=== PATIENT | female | born 1935 ===

== ENCOUNTER 2017-07-11 17:30 | Inpatient (IN) | payer MEDICARE, MEDICAID ==
[2017-07-11 18:56] LABS: BASO # 0.01 K/mm3 (0.0-2.0); BASO % 0.1 % (0.0-3.0); GRAN # 10.07 (1.4-6.5); GRAN % 80.1 % (50.0-68.0); HEMOGLOBIN 12.8 g/dL (12.0-16.0); LYMPH # 1.7 (1.2-3.4); LYMPH % 13.1 % (22.0-35.0); MEAN CELL VOLUME 87.7 fl (80.0-105.0); MEAN CORPUSCULAR HEMOGLOBIN 29.1 pg (25.0-35.0); MEAN CORPUSCULAR HGB CONC 33.2 g/dl (31.0-37.0); MEAN PLATELET VOLUME 11.6 fl (7.0-11.0); MONO # 0.8 (0.1-0.6); MONO % 6.7 % (1.0-6.0); RBC 4.4 10^6/uL (3.5-6.1); RED CELL DISTRIBUTION WIDTH 14.9 % (11.5-14.5); WHITE BLOOD COUNT 12.6 10^3/ul (4.5-11.0)
[2017-07-11 19:12] LABS: ALBUMIN 3.7 g/dL (3.0-4.8); CALCIUM 10.4 mg/dL (8.4-10.5)
[2017-07-11 19:21] LABS: TROPONIN I 0.03 ng/mL
--- NOTE | 2017-07-11 19:21 | ED PDOC ---
Arrival/HPI - General Chief Complaint: Abdominal Pain Time Seen by Provider: 07/11/17 19:11 Historian: Patient - History of Present Illness Narrative History of Present Illness (Text): 07/11/17 19:18 Joy Recinos is an 82 year old female who presents to the emergency department complaining of abdominal pain for 3 days and being unable to urinate for 2 days. Patient states that her abdomen feels big to her. Patient describes her pain to usually be in the front but radiates to her back at times. Patient has no other complaints at this time. Patient and family speaks very little Togolese. Time/Duration: < week Symptom Onset: Gradual Symptom Course: Unchanged Activities at Onset: Light Context: Home Past Medical History - Provider Review Nursing Documentation Reviewed: Yes - Infectious Disease Hx of Infectious Diseases: None - Tetanus Immunization Tetanus Immunization: Unknown - Reproductive Menopause: Yes - Cardiac Hx Cardiac Disorders: Yes Hx Hypertension: Yes - Pulmonary Hx Chronic Obstructive Pulmonary Disease (COPD): Yes (smoked when she was young) - Neurological Hx Paralysis: No - Endocrine/Metabolic Hx Hypothyroidism: Yes - Hematological/Oncological Hx Blood Transfusions: No - Musculoskeletal/Rheumatological Hx Falls: Yes - Gastrointestinal Hx Gastrointestinal Disorders: No (rectal bleeding, constipation) Hx Diverticulitis: Yes Hx Gastrointestinal Ulcer: Yes (resolution clip 06/13/14) - Genitourinary/Gynecological Hx Genitourinary Disorders: Yes - Psychiatric Hx Depression: Yes Hx Substance Use: No - Surgical History Other/Comment: defibulator - Anesthesia Hx Anesthesia Reactions: No Hx Malignant Hyperthermia: No - Suicidal Assessment Feels Threatened In Home Enviroment: No Family/Social History - Physician Review Nursing Documentation Reviewed: Yes Family/Social History: Unknown Family HX Smoking Status: Former Smoker Hx Alcohol Use: No Hx Substance Use: No Hx Substance Use Treatment: No Allergies/Home Meds Allergies/Adverse Reactions: Allergies No Known Allergies Allergy (Verified 02/10/12 20:57) Home Medications: Home Meds Medication Instructions Recorded Confirmed Rosuvastatin Calcium [Crestor] 10 mg PO DAILY 02/10/12 07/25/14 Aspirin 81 mg PO DAILY 06/12/14 07/25/14 Carvedilol 3.125 mg PO BID 06/12/14 07/25/14 Dofetilide [Tikosyn] 500 mcg PO BID 06/12/14 07/25/14 Enalapril Maleate 2.5 mg PO BID 06/12/14 07/25/14 Magnesium Oxide 400 mg PO DAILY 06/12/14 07/25/14 Furosemide [Lasix] 40 mg PO BID 07/25/14 07/25/14 Review of Systems - Physician Review All systems were reviewed & negative as marked: Yes - Review of Systems Constitutional: absent: Fevers, Night Sweats Eyes: absent: Vision Changes ENT: absent: Hearing Changes Respiratory: absent: SOB, Cough Cardiovascular: absent: Chest Pain Gastrointestinal: Abdominal Pain Genitourinary Female: Other (unable to urinate). absent: Dysuria Musculoskeletal: absent: Arthralgias Skin: absent: Rash, Pruritis Neurological: absent: Headache, Dizziness Endocrine: absent: Diaphoresis Hemo/Lymphatic: absent: Adenopathy Psychiatric: absent: Anxiety, Depression Physical Exam Vital Signs Reviewed: Yes Vital Signs Temp Pulse Pulse Resp BP Pulse Ox 07/12/17 02:20 98.4 F 110 H 110 H 23 110/66 95 07/12/17 02:00 105 H 18 114/65 96 07/12/17 01:33 104 H 22 112/45 L 96 07/12/17 00:43 98 H 18 96/53 L 94 L 07/11/17 23:43 100 H 18 104/51 L 98 07/11/17 22:34 89 18 102/56 L 95 07/11/17 19:30 125 H 18 100/61 97 07/11/17 19:23 126 H 105/61 07/11/17 17:30 97.4 F L 109 H 18 83/43 L 97 Temperature: Afebrile Blood Pressure: Hypotensive Pulse: Tachycardic Respiratory Rate: Normal - Systems Exam Cardiovascular: Present: Irregular Rhythm (Irregularly regular with a rate of 120 ). No: Regular Rate and Rhythm Abdomen: Present: Tenderness (diffusely) Neurological: Present: GCS=15, CN II-XII Intact, Speech Normal Skin: No: Normal Color (yellow skin) Psychiatric: Present: Alert, Oriented x 3, Normal Insight, Normal Concentration Medical Decision Making ED Course and Treatment: 07/11/17 19:27 Impression: 82 year old female complaining of abdominal pain for 3 days and unable to urinate for 2 days. Plan: -- EKG -- Chest X-ray -- Abdomen and Pelvis CT with contrast -- Urinalysis -- Labs -- Cardizem -- Reassess and disposition Prior Visits: Notes and results from previous visits were reviewed. Patient was last seen in the emergency department on Progress Notes: 07/11/17 19:29 Patient is AFib with rapid ventricular response. BP is 100 systolic. When patient first got to emergency department, she was 80 systolic. Nurse gave a liter of fluid. Saba only has about 800 cc of urine over the past four days. 07/11/17 23:32: Case was discussed in detail with Dr. Rodriguez, covering for Dr. Pace. Will admit patient to his service. Requested Dr. Hernandez be called for consult. 07/12/17 21:45: Discussed the case with Dr. Hernandez and surgical brace maker. CT Abdomen and Pelvis Without Intravenous Contrast EXAM DATE/TIME: 07/11/2017 7:19 PM Dictated and Authenticated by: Solange Dowling MD 07/11/2017 11:02 PM Eastern Time ([place] & [place]) IMPRESSION: Perforated sigmoid diverticulitis with free air and focal pelvic collection, 3.3 x 5.4 x 6.5 cm, possibly abscess; cardiomegaly with pacemaker and pericardial effusion; ileus, no obstruction Addendum created by Solange Dowling MD on 07/11/2017 11:16 PM Eastern Time ( [place] & [place]) Findings were discussed with Marvin Spear at 11:16 PM EST on 07/11/2017. Initial Report created on 07/11/2017 11:02 PM Eastern Time ([place] & [place]) - Lab Interpretations Microbiology Results: Microbiology Results 07/11/17 20:29 Urine,Clean Catch Urine Culture - Final Escherichia Coli Lab Results: 07/11/17 18:40 07/11/17 18:40 Lab Results 07/11/17 19:35: Urine Color Yellow, Urine Appearance Clear, Urine pH 6.0, Ur Specific Bristow 1.020, Urine Protein Trace H, Urine Glucose (UA) Negative, Urine Ketones Negative, Urine Blood Trace-lysed H, Urine Nitrate Negative, Urine Bilirubin Negative, Urine Urobilinogen 0.2, Ur Leukocyte Esterase Trace H , Urine RBC 0 - 2, Urine WBC 1 - 3, Ur Epithelial Cells 1 - 3, Urine Bacteria Mod 07/11/17 18:40: Magnesium 2.4 H 07/11/17 18:40: Sodium 140, Potassium 4.1, Chloride 103, Carbon Dioxide 25, Anion Gap 16, BUN 50 H, Creatinine 2.4 H, Est GFR ( Amer) 23, Est GFR ( Non-Af Amer) 19, Random Glucose 135 H, Calcium 10.4, Total Bilirubin 1.0, AST 29 , ALT 24, Alkaline Phosphatase 86, Lactate Dehydrogenase 459, Total Creatine Kinase 64, Troponin I 0.03 D, Total Protein 7.4, Albumin 3.7, Globulin 3.7, Albumin/Globulin Ratio 1.0 L, Amylase 47, Lipase 23 07/11/17 18:40: PT 37.9 H, INR 3.25 H, APTT 45.5 H 07/11/17 18:40: WBC 12.6 H D, RBC 4.40, Hgb 12.8, Hct 38.6, MCV 87.7, MCH 29.1, MCHC 33.2, RDW 14.9 H, Plt Count 174, MPV 11.6 H, Gran % 80.1 H, Lymph % (Auto) 13.1 L, Coffee % (Auto) 6.7 H, Eos % (Auto) 0.0 L, Baso % (Auto) 0.1, Gran # 10.07 H, Lymph # 1.7, Coffee # 0.8 H, Eos # 0.0, Baso # 0.01 I have reviewed the lab results: Yes - RAD Interpretation Radiology Orders: 07/11/17 18:34 CHEST PORTABLE [RAD] Stat 07/11/17 19:19 ABD & PELVIS PO CONTRAST ONLY [CT] Stat - Medication Orders Current Medication Orders: Digoxin (Lanoxin) 0.125 mg PO 1400 [facility] Last Admin: 07/14/17 13:05 Dose: 0.125 mg MAR Apical Pulse Rate Document 07/14/17 13:05 JUR (Rec: 07/14/17 13:05 JUR [facility]) Apical Pulse Rate Apical Pulse Rate (60-90 beats/min) 102 Diltiazem HCl (Cardizem) 60 mg PO Q8H [facility] Last Admin: 07/15/17 05:54 Dose: 60 mg MAR Pulse and Blood Pressure Document 07/15/17 05:54 CESAR (Rec: 07/15/17 05:54 CESAR [id number]) Pulse Pulse Rate (60-90) 88 Blood Pressure Blood Pressure (100/60-150/90) 149/62 Fentanyl (Fentanyl) 25 mcg IV Q5M PRN PRN Reason: Pain, moderate (4-7) Heparin Sodium (Porcine) (Heparin) 5,000 units SC Q12 LEXIE PRN Reason: Protocol Last Admin: 07/15/17 09:31 Dose: 5,000 units Subcutaneous Administrations Document 07/15/17 09:31 MMA (Rec: 07/15/17 09:31 MMA [facility] [id number]) Injection Site MAR Injection Site Left Arm Charges for Administration # of Subcutaneous Administrations 1 Hydromorphone HCl (Dilaudid) 0.25 mg IVP Q4H PRN PRN Reason: Pain, severe (8-10) Last Admin: 07/15/17 09:42 Dose: 0.25 mg MAR Pain Assessment Document 07/15/17 09:42 MMA (Rec: 07/15/17 09:42 MMA [facility] [id number]) Pain Reassessment Is this a pain reassessment? No Sleep Is patient sleeping during reassessment? No Presence of Pain Presence of Pain Yes Pain Scale Used Pain Scale Used FLACC Description Pain Behavior Facial Grimacing IVP Administration Document 07/15/17 09:42 MMA (Rec: 07/15/17 09:42 MMA [facility] [id number]) Charges for Administration # of IVP Administrations 1 Meropenem (Merrem Iv 1 Gm Premix) 50 mls @ 100 mls/hr IVPB Q12 LEXIE PRN Reason: Protocol Last Admin: 07/15/17 09:31 Dose: 100 mls/hr eMAR Start Stop Document 07/15/17 09:31 MMA (Rec: 07/15/17 09:31 MMA [facility] [id number]) Intravenous Solution Start Date 07/15/17 Start Time 11:00 End Date 07/15/17 End time 11:30 Total Infusion Time 30 diltiaZEM IVPB 100mg in NS (Cardizem 100mg In Ns) 100 mls @ 5 mls/hr IV .Q20H PRN; Protocol; 5 MG/HR PRN Reason: TITRATE PER MD ORDER Last Admin: 07/13/17 08:22 Dose: 5 mg/hr, 5 mls/hr eMAR Start Stop Document 07/13/17 08:22 JUR (Rec: 07/13/17 08:22 JUR [id number]) Intravenous Solution Start Date 07/13/17 Start Time 08:22 MAR Pulse Rate Document 07/13/17 08:22 JUR (Rec: 07/13/17 08:22 JUR [id number]) Pulse Rate Pulse Rate (60-90) 119 Titration Intervention Document 07/13/17 08:22 JUR (Rec: 07/13/17 08:22 JUR [id number]) Titration Intake Waste Amount 0 Container Volume 100 Titration Dosing Titration Dose 5 IV Rate 5 Intake/Decrease Started Ondansetron HCl (Zofran Inj) 4 mg IVP Q4 PRN PRN Reason: Nausea/Vomiting Pantoprazole Sodium (Protonix Inj) 40 mg IVP DAILY [facility] Last Admin: 07/15/17 09:41 Dose: 40 mg IVP Administration Document 07/15/17 09:41 MMA (Rec: 07/15/17 09:41 [facility] [place] [id number] Charges for Administration # of IVP Administrations 1 Throat Lozenges (Cepastat) 1 wai MT PRN PRN PRN Reason: Sore Throat Discontinued Medications Digoxin (Lanoxin) 0.125 mg IVP ONCE ONE Stop: 07/14/17 03:29 Last Admin: 07/14/17 03:32 Dose: 0.125 mg MAR Apical Pulse Rate Document 07/14/17 03:32 PHILLIPS (Rec: 07/14/17 03:32 PHILLIPS [id number]) Apical Pulse Rate Apical Pulse Rate (60-90 beats/min) 150 IVP Administration Document 07/14/17 03:32 PHILLIPS (Rec: 07/14/17 03:32 PHILLIPS [id number]) Charges for Administration # of IVP Administrations 1 Digoxin (Lanoxin) 0.25 mg IVP Q1H LEXIE Stop: 07/14/17 11:04 Last Admin: 07/14/17 11:27 Dose: 0.25 mg MAR Apical Pulse Rate Document 07/14/17 11:27 JUR (Rec: 07/14/17 11:27 JUR [facility]) Apical Pulse Rate Apical Pulse Rate (60-90 beats/min) 104 IVP Administration Document 07/14/17 11:27 JUR (Rec: 07/14/17 11:27 JUR [facility]) Charges for Administration # of IVP Administrations 1 Diltiazem HCl (Cardizem) 60 mg PO STAT STA Stop: 07/11/17 19:19 Last Admin: 07/11/17 19:23 Dose: 60 mg MAR Pulse and Blood Pressure Document 07/11/17 19:23 SS (Rec: 07/11/17 23:23 SS [id number]) Pulse Pulse Rate (60-90) 126 Blood Pressure Blood Pressure (100/60-150/90) 105/61 Diltiazem HCl (Cardizem) 5 mg IVP ONCE ONE Stop: 07/13/17 08:08 Last Admin: 07/13/17 08:18 Dose: 5 mg IVP Administration Document 07/13/17 08:18 JUR (Rec: 07/13/17 08:18 JUR [id number]) Charges for Administration # of IVP Administrations 1 MAR Pulse and Blood Pressure Document 07/13/17 08:18 JUR (Rec: 07/13/17 08:18 JUR [id number]) Pulse Pulse Rate (60-90) 135 Blood Pressure Blood Pressure (100/60-150/90) 111/45 Diltiazem HCl (Cardizem) 30 mg PO QID LEXIE Diltiazem HCl (Cardizem) 10 mg IVP ONCE ONE Stop: 07/14/17 04:06 Last Admin: 07/14/17 04:10 Dose: 10 mg IVP Administration Document 07/14/17 04:10 PHILLIPS (Rec: 07/14/17 04:10 PHILLIPS [id number]) Charges for Administration # of IVP Administrations 1 Hydromorphone HCl (Dilaudid) 0.5 mg IVP Q4H PRN PRN Reason: Pain, severe (8-10) Metronidazole (Flagyl) 500 mg in 100 mls @ 100 mls/hr IVPB STAT STA PRN Reason: Protocol Stop: 07/12/17 00:16 Last Admin: 07/11/17 23:31 Dose: 100 mls/hr eMAR Start Stop Document 07/11/17 23:31 SS (Rec: 07/11/17 23:31 SS [id number]) Intravenous Solution Start Date 07/11/17 Start Time 23:31 End Date 07/12/17 End time 00:31 Total Infusion Time 60 Phytonadione 10 mg/ Sodium (Chloride) 51 mls @ 100 mls/hr IV ONCE ONE Stop: 07/12/17 00:21 Last Admin: 07/12/17 00:43 Dose: 100 mls/hr eMAR Start Stop Document 07/12/17 00:43 SS (Rec: 07/12/17 00:45 SS [id number]) Intravenous Solution Start Date 07/12/17 Start Time 00:45 End Date 07/12/17 Lactated Ringer's (Lactated Ringer's) 1,000 mls @ 999 mls/hr IV .Q1H1M LEXIE Stop: 07/12/17 01:45 Last Admin: 07/12/17 01:00 Dose: 999 mls/hr eMAR Start Stop Document 07/12/17 01:00 SS (Rec: 07/12/17 01:01 SS [id number]) Intravenous Solution Start Date 07/12/17 Start Time 01:00 End Date 07/12/17 End time 02:00 Total Infusion Time 60 Piperacillin Sod/Tazobactam Sod (Zosyn 3.375 In Ns 100ml) 100 mls @ 200 mls/hr IVPB STAT STA PRN Reason: Protocol Stop: 07/12/17 01:08 Last Admin: 07/12/17 01:32 Dose: 200 mls/hr eMAR Start Stop Document 07/12/17 01:32 SS (Rec: 07/12/17 01:32 SS [id number]) Intravenous Solution Start Date 07/12/17 Start Time 01:32 End Date 07/12/17 End time 02:02 Total Infusion Time 30 Lactated Ringer's (Lactated Ringer's) 1,000 mls @ 100 mls/hr IV .Q10H [facility] Last Admin: 07/12/17 02:20 Dose: 100 mls/hr eMAR Start Stop Document 07/12/17 02:20 MHA (Rec: 07/12/17 05:19 MHA [id number]) Intravenous Solution Start Date 07/12/17 Start Time 02:20 Vancomycin HCl (Vancomycin 1gm) 1 gm in 250 mls @ 167 mls/hr IVPB DAILY LEXIE PRN Reason: Protocol Last Admin: 07/15/17 09:32 Dose: 167 mls/hr eMAR Start Stop Document 07/15/17 09:32 MMA (Rec: 07/15/17 09:32 MMA [facility] [id number][facility] Intravenous Solution Start Date 07/15/17 Start Time 09:32 End Date 07/15/17 End time 11:02 Total Infusion Time 90 Piperacillin Sod/Tazobactam Sod (Zosyn 3.375 In Ns 100ml) 100 mls @ 200 mls/hr IVPB Q6 LEXIE PRN Reason: Protocol Stop: 07/12/17 12:29 Last Admin: 07/12/17 05:18 Dose: 200 mls/hr eMAR Start Stop Document 07/12/17 05:18 MHA (Rec: 07/12/17 05:18 MHA [id number]) Intravenous Solution Start Date 07/12/17 Start Time 05:18 End Date 07/12/17 End time 06:18 Total Infusion Time 60 Potassium Chloride (Potassium Chloride 10 Meq/100 Ml) 10 meq in 100 mls @ 50 mls/hr IVPB Q2H LEXIE Stop: 07/12/17 15:59 Last Admin: 07/12/17 19:17 Dose: 50 mls/hr eMAR Start Stop Document 07/12/17 19:17 ID (Rec: 07/12/17 19:18 ID [facility] [id number]) Intravenous Solution Start Date 07/12/17 Start Time 19:18 End Date 07/12/17 Potassium Chloride 20 meq/ (Sodium Chloride) 1,010 mls @ 100 mls/hr IV .Q10H6M [facility] Last Admin: 07/12/17 09:23 Dose: 100 mls/hr eMAR Start Stop Document 07/12/17 09:23 ID (Rec: 07/12/17 09:23 ID [facility] [id number][facility] Intravenous Solution Start Date 07/12/17 Start Time 09:23 End Date 07/12/17 Lactated Ringer's (Lactated Ringer's) 1,000 mls @ 75 mls/hr IV .[id number] LEXIE Stop: 07/12/17 17:01 Lactated Ringer's (Lactated Ringer's) 1,000 mls @ 100 mls/hr IV .Q10H LEXIE Last Admin: 07/12/17 16:32 Dose: 100 mls/hr eMAR Start Stop Document 07/12/17 16:32 ID (Rec: 07/12/17 16:32 ID [facility] [id number]) Intravenous Solution Start Date 07/12/17 Start Time 16:32 End Date 07/12/17 Sodium Chloride (Sodium Chloride 0.9%) 1,000 mls @ 75 mls/hr IV .[id number] STA Stop: 07/14/17 00:15 Last Admin: 07/13/17 22:23 Dose: 75 mls/hr eMAR Start Stop Document 07/13/17 22:23 CESAR (Rec: 07/13/17 22:24 CESAR [id number]) Intravenous Solution Start Date 07/13/17 Start Time 22:23 End Date 07/14/17 End time 11:30 Total Infusion Time 787 Levofloxacin/Dextrose (Levaquin 750mg) 750 mg IVPB ONCE ONE Stop: 07/11/17 23:19 Last Admin: 07/12/17 00:35 Dose: 750 mg eMAR Start Stop Document 07/12/17 00:35 SS (Rec: 07/12/17 00:35 SS [id number]) Intravenous Solution Start Date 07/12/17 Start Time 00:15 End Date 07/12/17 Metoprolol Tartrate (Lopressor) 5 mg IVP ONCE STA Stop: 07/12/17 09:08 Last Admin: 07/12/17 09:19 Dose: 5 mg IVP Administration Document 07/12/17 09:19 ID (Rec: 07/12/17 09:23 ID [facility] [id number]) Charges for Administration # of IVP Administrations 1 MAR Pulse and Blood Pressure Document 07/12/17 09:19 ID (Rec: 07/12/17 09:23 ID [facility] [id number]) Pulse Pulse Rate (60-90) 131 Blood Pressure Blood Pressure (100/60-150/90) 132/77 Metoprolol Tartrate (Lopressor) 2 mg IVP ONCE ONE Stop: 07/12/17 15:05 Last Admin: 07/12/17 16:30 Dose: 2 mg IVP Administration Document 07/12/17 16:30 ID (Rec: 07/12/17 16:30 ID [facility] [id number]) Charges for Administration # of IVP Administrations 1 MAR Pulse and Blood Pressure Document 07/12/17 16:30 ID (Rec: 07/12/17 16:30 ID [facility] [id number]) Pulse Pulse Rate (60-90) 125 Blood Pressure Blood Pressure (100/60-150/90) 107/65 Metoprolol Tartrate (Lopressor) 5 mg IVP ONCE ONE Stop: 07/13/17 01:29 Last Admin: 07/13/17 01:38 Dose: 5 mg IVP Administration Document 07/13/17 01:38 MHA (Rec: 07/13/17 01:38 [id number] Charges for Administration # of IVP Administrations 1 MAR Pulse and Blood Pressure Document 07/13/17 01:38 MHA (Rec: 07/13/17 01:38 [id number][facility] Pulse Pulse Rate (60-90) 133 Blood Pressure Blood Pressure (100/60-150/90) 122/58 Morphine Sulfate (Morphine) 4 mg IVP Q4 PRN PRN Reason: Pain, moderate (4-7) Morphine Sulfate (Morphine) 2 mg IVP Q4 PRN PRN Reason: Pain, moderate (4-7) Pantoprazole Sodium (Protonix Inj) 40 mg IVP DAILY [facility] Last Admin: 07/13/17 11:28 Dose: 40 mg IVP Administration Document 07/13/17 11:28 JUR (Rec: 07/13/17 11:28 JUR [id number]) Charges for Administration # of IVP Administrations 1 Pantoprazole Sodium (Protonix Ec Tab) 20 mg PO 0600,1600 [facility] Last Admin: 07/14/17 19:01 Dose: - PA / MEDICATION CARE MANAGER / Resident Statement MD/DO has reviewed & agrees with the documentation as recorded. - Scribe Statement The provider has reviewed the documentation as recorded by the Cielo Chaudhry Provider Scribe Attestation: All medical record entries made by the Cielo were at my direction and personally dictated by me. I have reviewed the chart and agree that the record accurately reflects my personal performance of the history, physical exam, medical decision making, and the department course for this patient. I have also personally directed, reviewed, and agree with the discharge instructions and disposition. Disposition/Present on Arrival - Present on Arrival Any Indicators Present on Arrival: No History of DVT/PE: No History of Uncontrolled Diabetes: No Urinary Catheter: No History of Decub. Ulcer: No History Surgical Site Infection Following: None - Disposition Have Diagnosis and Disposition been Completed?: Yes Diagnosis: Perforated diverticulum of large intestine, Diverticulitis large intestine, Atrial fibrillation with RVR Disposition: HOSPITALIZED Disposition Time: 23:00 Patient Plan: Admission Patient Problems: Current Active Problems Problem Status Onset Perforated diverticulum of large intestine Acute Diverticulitis large intestine Acute Atrial fibrillation with RVR Acute Condition: SERIOUS
[2017-07-11] MEDS ORDERED: Iohexol 240 (50 ml) ONE (19:23)
[2017-07-11 19:24] LABS: INR 3.25 (0.93-1.08); PARTIAL THROMBOPLASTIN TIME 45.5 Seconds (25.1-36.5); PROTHROMBIN TIME 37.9 SECONDS (9.4-12.5)
[2017-07-11 19:43] LABS: URINE BILIRUBIN NEGATIVE (NEGATIVE); URINE BLOOD TRACE-LYSED (NEGATIVE); URINE GLUCOSE (UA) NEGATIVE (NEGATIVE); URINE LEUKOCYTE ESTERASE TRACE Leu/uL (NEGATIVE); URINE NITRATE NEGATIVE (NEGATIVE); URINE PROTEIN TRACE mg/dL (<30 mg/dL); URINE UROBILINOGEN 0.2 E.U./dL (<1 E.U./dL)
[2017-07-11 19:44] LABS: URINE APPEARANCE CLEAR (CLEAR); URINE COLOR YELLOW (YELLOW)
[2017-07-11 19:54] LABS: URINE RBC 0 - 2 /hpf (0-2)
[2017-07-11 19:55] LABS: URINE BACTERIA MOD (NEG)
--- NOTE | 2017-07-11 23:02 | CT ---
EXAM: CT Abdomen and Pelvis Without Intravenous Contrast EXAM DATE/TIME: 07/11/2017 7:19 PM CLINICAL HISTORY: 82 years old, female; Signs and symptoms; Bloating; Additional info: Abdominal pain and distention TECHNIQUE: Axial computed tomography images of the abdomen and pelvis without intravenous contrast. All CT scans at this facility use one or more dose reduction techniques, viz.: automated exposure control; ma/kV adjustment per patient size (including targeted exams where dose is matched to indication; i.e. head); or iterative reconstruction technique. Coronal and sagittal reformatted images were created and reviewed. COMPARISON: There are no prior studies for comparison. FINDINGS: Artifacts: Motion artifact degrades image quality. Lower thorax: The heart is enlarged.There is streak artifact from pacemaker leads. There is a pericardial effusion. Lung bases are hyperinflated. There is minimal scarring and atelectasis There is a hiatal hernia. ABDOMEN: Liver: unremarkable Gallbladder and bile ducts: Gallbladder is distended.There is prominence of the common duct. Pancreas: Pancreas is atrophic. Spleen: unremarkable Adrenals: unremarkable Kidneys and ureters: There is a left renal cyst. Kidneys and ureters are otherwise unremarkable. Stomach and bowel: Stomach is partially distended with contrast and air. Rotation is normal. Small bowel is mildly dilated. There are air fluid levels. There is fluid and air throughout the small bowel to the cecum. Appendix and terminal ileum are unremarkable.. There is moderate stool in the right colon. There is diverticulosis. There is perforated sigmoid diverticulitis. There is a bilobed collection in the pelvis with an air-fluid level, 3.3 x 5.4 x 6.5 cm. Appendix: See stomach and bowel PELVIS: Bladder: Bladder is empty with a Saba catheter. Reproductive: Uterus is absent. There are no adnexal masses. ABDOMEN and PELVIS: Intraperitoneal space: There is free intraperitoneal air. There is free fluid in the left lower quadrant of the pelvis. Bones/joints: Bony structures are osteopenic.There are degenerative changes in the osseus structures. There is disc space narrowing greatest at L5-S1. There is grade 1 spondylolisthesis L5 on S1. Soft tissues: unremarkable Vasculature: There are vascular calcifications. Lymph nodes: There is no pathologic adenopathy. IMPRESSION: Perforated sigmoid diverticulitis with free air and focal pelvic collection, 3.3 x 5.4 x 6.5 cm, possibly abscess; cardiomegaly with pacemaker and pericardial effusion; ileus, no obstruction Additional findings as described above.
[2017-07-11] MEDS ORDERED: metroNIDAZOLE IV 500 mg/100 ml 500 MG/100 ML BAG IVPB STA (23:17)
[2017-07-11] MEDS ORDERED: levoFLOXacin 750 mg in D5W 150 ML BAG IVPB ONE (23:18)
[2017-07-11] MEDS ORDERED: Phytonadione 10 MG in Sodium Chloride 0.9% 50 ML IV ONE (23:51)
[2017-07-12] MEDS ORDERED: Phytonadione 10 MG in Sodium Chloride 0.9% 50 ML IV ONE (00:36)
[2017-07-12] MEDS ORDERED: Piperacillin/Tazobact 3.375 gm 100 ML IVPB STA (00:39)
[2017-07-12] MEDS ORDERED: Lactated Ringer's 1,000 ML IV SCH ×4 (00:45→15:00)
--- NOTE | 2017-07-12 01:00 | CP.PCM.CON ---
<Kameron Oconnell - Last Filed: 07/12/17 01:47> History of Present Illness - History of Present Illness History of Present Illness: Consult Note General Surgery- Dr. Hernandez CC: Abd pain 82F w/ relevant pmhx CAD stent, diverticulosis complicated by diverticulitis, presents to [facility] ED with generalized abdominal pain over the last 3 days. Patient has never had pain like this previously. Pain is significantly worse than the diverticulitis pain she had 3 years ago. Denies BM since Tuesday, cannot remember the last time she passed flatus. + Nausea; denies vomiting, bright red blood per rectum. Nothing makes the pain better, pain is worse when pressure. Denies current: fevers, chills, chest pain, shortness of breath, vomiting, diarrhea, headaches, numbness/tingling in extremities, change in urinary symptoms PMH: Rectal polyp- tubulovillious adenoma, CHF, CAD s/p stent, dilated cardiomyopathy s/p AICD, A-fib on coumadin, diverticulosis with previous diverticulitis PSH: Ventral hernia x2, hysterectomy c-scope 2013 ALL: NKDA SocialHx: 1/2ppd for 40 years quit smoking > 20 years ago, occasional ETOH, recreational drug use Review of Systems - Review of Systems All systems: reviewed and no additional remarkable complaints except - Constitutional Constitutional: As Per HPI Past Patient History - Infectious Disease Hx of Infectious Diseases: None - Tetanus Immunizations Tetanus Immunization: Unknown - Past Social History Smoking Status: Former Smoker - CARDIAC Hx Cardiac Disorders: Yes Hx Hypertension: Yes - PULMONARY Hx Chronic Obstructive Pulmonary Disease (COPD): Yes (smoked when she was young) - NEUROLOGICAL Hx Paralysis: No - ENDOCRINE/METABOLIC Hx Hypothyroidism: Yes - HEMATOLOGICAL/ONCOLOGICAL Hx Blood Transfusions: No - MUSCULOSKELETAL/RHEUMATOLOGICAL Hx Falls: Yes - GASTROINTESTINAL Hx Gastrointestinal Disorders: No (rectal bleeding, constipation) Hx Diverticulitis: Yes - GENITOURINARY/GYNECOLOGICAL Hx Genitourinary Disorders: Yes - PSYCHIATRIC Hx Depression: Yes Hx Substance Use: No - SURGICAL HISTORY Other/Comment: defibulator - ANESTHESIA Hx Anesthesia Reactions: No Hx Malignant Hyperthermia: No Meds Allergies/Adverse Reactions: Allergies Allergy/AdvReac Type Severity Reaction Status Date / Time No Known Allergies Allergy Verified 02/10/12 20:57 - Medications Medications: Current Medications Lactated Ringer's (Lactated Ringer's) 1,000 mls @ 999 mls/hr IV .Q1H1M [facility] Stop: 07/12/17 01:45 Phytonadione 10 mg/ Sodium (Chloride) 51 mls @ 100 mls/hr IV ONCE ONE Stop: 07/12/17 01:06 Piperacillin Sod/Tazobactam Sod (Zosyn 3.375 In Ns 100ml) 100 mls @ 200 mls/hr IVPB STAT STA PRN Reason: Protocol Stop: 07/12/17 01:08 Lactated Ringer's (Lactated Ringer's) 1,000 mls @ 100 mls/hr IV .Q10H [facility] Physical Exam - Constitutional Appears: Non-toxic, No Acute Distress - Head Exam Head Exam: ATRAUMATIC - Eye Exam Eye Exam: EOMI. absent: Scleral icterus - ENT Exam ENT Exam: Mucous Membranes Moist - Respiratory Exam Respiratory Exam: NORMAL BREATHING PATTERN. absent: Accessory Muscle Use, Respiratory Distress - Cardiovascular Exam Cardiovascular Exam: +S1, +S2. absent: Bradycardia, Tachycardia - GI/Abdominal Exam GI & Abdominal Exam: Distended, Firm, Guarding, Rebound, Tenderness. absent: Hernia Additional comments: tender to palpation pain out of proprotion involuntary guarding midline incision scar - Extremities Exam Extremities exam: Positive for: normal inspection. Negative for: calf tenderness - Neurological Exam Neurological exam: Alert, Oriented x3 - Psychiatric Exam Psychiatric exam: Normal Affect - Skin Skin Exam: Intact, Warm Results - Vital Signs Recent Vital Signs: Last Vital Signs Temp 97.4 F L 07/11/17 17:30 Pulse 89 07/11/17 22:34 Resp 18 07/11/17 22:34 BP 102/56 L 07/11/17 22:34 Pulse Ox 95 07/11/17 22:34 - Labs Result Diagrams: 07/11/17 18:40 07/11/17 18:40 Labs: Laboratory Results - last 24 hr 07/12/17 00:24 BBK History Checked No verified bt Assessment & Plan - Assessment and Plan (Free Text) Assessment: 82F w/ acute abdomen, diverticulitis, free air in obdulio abdomen Plan: - NPO - reverse coagulation w/ VitK and FFP - repeat coags in AM - Aggressive IV hydration - pain control and anti-emetic PRN - ABX - optimize for surgery - discussed w/ Dr. David Oconnell PGY1 <Kris Hernandez - Last Filed: 07/12/17 07:20> Meds - Medications Medications: Current Medications Hydromorphone HCl (Dilaudid) 0.5 mg IVP Q4H PRN PRN Reason: Pain, severe (8-10) Lactated Ringer's (Lactated Ringer's) 1,000 mls @ 100 mls/hr IV .Q10H [facility] Last Admin: 07/12/17 02:20 Dose: 100 mls/hr Vancomycin HCl (Vancomycin 1gm) 1 gm in 250 mls @ 167 mls/hr IVPB DAILY [facility] PRN Reason: Protocol Piperacillin Sod/Tazobactam Sod (Zosyn 3.375 In Ns 100ml) 100 mls @ 200 mls/hr IVPB Q6 [facility] PRN Reason: Protocol Stop: 07/12/17 12:29 Last Admin: 07/12/17 05:18 Dose: 200 mls/hr Morphine Sulfate (Morphine) 2 mg IVP Q4 PRN PRN Reason: Pain, moderate (4-7) Ondansetron HCl (Zofran Inj) 4 mg IVP Q4 PRN PRN Reason: Nausea/Vomiting Results - Vital Signs Recent Vital Signs: Last Vital Signs Temp 98.4 F 07/12/17 02:20 Pulse 110 H 07/12/17 02:20 Resp 23 07/12/17 02:20 BP 110/66 07/12/17 02:20 Pulse Ox 95 07/12/17 02:20 - Labs Result Diagrams: 07/11/17 18:40 07/11/17 18:40 Labs: Laboratory Results - last 24 hr 07/12/17 07/12/17 00:24 00:45 Blood Type A POSITIVE Blood Type Confirm A POSITIVE Antibody Screen Negative BBK History Checked No verified bt Assessment & Plan - Assessment and Plan (Free Text) Assessment: Dx sepsis perforated sigmoid diverticulitis/free air peritonitis Cardiomyopathy(EF 25%) A [id number] 3.25/PTT 45 Defibrillatoe Pacemaker Attempting to [id number] Coumadin before Exploratory/[place] colostomy-colectomy(?10:30am) Consent obtained from patient with daughter translating/Dr Celestin assisting. This consult done under my direct supervision (MN-2am) Robyn Hernandez MD FACS
--- NOTE | 2017-07-12 01:38 | CP.PCM.CON ---
<Aubrey Celestin - Last Filed: 07/12/17 01:40> History of Present Illness - History of Present Illness History of Present Illness: Aubrey Celestin D.O. PGY-2, Critical Care Consultation Note CC: abdominal pain for 2 days 82 year old female with a PMH of CAD s/p stent, dilated cardiomyopathy s/p AICD , A-fib on coumadin, diverticulosis with previous diverticulitis who presented to [facility] ER on 07/11/17 with complaints of severe abdominal pain for 2 days. Patient states that on Tuesday night 07/09/17 she began to have abdominal pain, diffuse, 4/10 in severity, radiating to her back, associated with nausea and constipation (which she has suffered from chronically) but no vomiting, fevers, chills, or other symptoms. Patient states that she tried to toughen the pain and was able to do so yesterday but today she has been unable to tolerate any PO intake except for small sips of water today and her pain had now gotten to a 10/10. Patient denies any inciting factors. Patient notes that any movements or coughing/sneezing makes the pain worse. PMH: as above PSH: right hernia repair, x1, hysterectomy SH: smoked 1/2ppd for 40 years, quit 20 years ago, sporadic alcohol, denies illicit drugs FH: noncontributory Meds: reviewed Allergies: NKA Review of Systems - Constitutional Constitutional: absent: Chills, Headache - EENT Eyes: absent: Blind Spots, Blurred Vision Ears: absent: Decreased Hearing, Ear Discharge Nose/Mouth/Throat: absent: Epistaxis, Nasal Congestion - Cardiovascular Cardiovascular: absent: Chest Pain, Edema - Respiratory Respiratory: absent: Cough, Dyspnea - Gastrointestinal Gastrointestinal: Abdominal Pain, Constipation, Nausea. absent: Vomiting - Genitourinary Genitourinary: absent: Change in Urinary Stream, Difficulty Urinating - Musculoskeletal Musculoskeletal: absent: Arthralgias, Back Pain - Integumentary Integumentary: absent: Bleeding Lesions, Erythema - Neurological Neurological: absent: Confusion, Convulsions Past Patient History - Infectious Disease Hx of Infectious Diseases: None - Tetanus Immunizations Tetanus Immunization: Unknown - Past Social History Smoking Status: Former Smoker - CARDIAC Hx Cardiac Disorders: Yes Hx Hypertension: Yes - PULMONARY Hx Chronic Obstructive Pulmonary Disease (COPD): Yes (smoked when she was young) - NEUROLOGICAL Hx Paralysis: No - ENDOCRINE/METABOLIC Hx Hypothyroidism: Yes - HEMATOLOGICAL/ONCOLOGICAL Hx Blood Transfusions: No - MUSCULOSKELETAL/RHEUMATOLOGICAL Hx Falls: Yes - GASTROINTESTINAL Hx Gastrointestinal Disorders: No (rectal bleeding, constipation) Hx Diverticulitis: Yes - GENITOURINARY/GYNECOLOGICAL Hx Genitourinary Disorders: Yes - PSYCHIATRIC Hx Depression: Yes Hx Substance Use: No - SURGICAL HISTORY Other/Comment: defibulator - ANESTHESIA Hx Anesthesia Reactions: No Hx Malignant Hyperthermia: No Meds Allergies/Adverse Reactions: Allergies Allergy/AdvReac Type Severity Reaction Status Date / Time No Known Allergies Allergy Verified 02/10/12 20:57 - Medications Medications: Current Medications Lactated Ringer's (Lactated Ringer's) 1,000 mls @ 999 mls/hr IV .Q1H1M [facility] Stop: 07/12/17 01:45 Last Admin: 07/12/17 01:00 Dose: 999 mls/hr Phytonadione 10 mg/ Sodium (Chloride) 51 mls @ 100 mls/hr IV ONCE ONE Stop: 07/12/17 01:06 Lactated Ringer's (Lactated Ringer's) 1,000 mls @ 100 mls/hr IV .Q10H [facility] Vancomycin HCl (Vancomycin 1gm) 1 gm in 250 mls @ 167 mls/hr IVPB DAILY [facility] PRN Reason: Protocol Piperacillin Sod/Tazobactam Sod (Zosyn 3.375 In Ns 100ml) 100 mls @ 200 mls/hr IVPB Q6 [facility] PRN Reason: Protocol Stop: 07/12/17 12:29 Physical Exam - Constitutional Additional comments: well developed, well nourished, ill elderly female - Head Exam Head Exam: ATRAUMATIC, NORMOCEPHALIC - Eye Exam Eye Exam: EOMI, PERRL. absent: Scleral icterus - ENT Exam ENT Exam: Mucous Membranes Dry - Neck Exam Neck exam: Positive for: Normal Inspection - Respiratory Exam Respiratory Exam: Clear to Auscultation Bilateral. absent: Rhonchi, Wheezes - Cardiovascular Exam Cardiovascular Exam: Irregular Rhythm, +S1, +S2 - GI/Abdominal Exam GI & Abdominal Exam: Distended, Firm, Guarding - Extremities Exam Extremities exam: Positive for: normal inspection. Negative for: calf tenderness, pedal edema - Neurological Exam Neurological exam: Alert, CN II-XII Intact, Oriented x3 - Psychiatric Exam Psychiatric exam: Normal Affect, Normal Mood - Skin Skin Exam: Dry, Intact, Warm Results - Vital Signs Recent Vital Signs: Last Vital Signs Temp 97.4 F L 07/11/17 17:30 Pulse 89 07/11/17 22:34 Resp 18 07/11/17 22:34 BP 102/56 L 07/11/17 22:34 Pulse Ox 95 07/11/17 22:34 - Labs Result Diagrams: 07/11/17 18:40 07/11/17 18:40 Labs: Laboratory Results - last 24 hr 07/12/17 00:24 BBK History Checked No verified bt Assessment & Plan - Assessment and Plan (Free Text) Assessment: 82 year old female with a PMH of CAD s/p stent, dilated cardiomyopathy s/p AICD , A-fib on coumadin, diverticulosis with previous diverticulitis who presents with complaints of severe abdominal pain for 2 days and is found to have a peritonitis secondary to perforated diverticula Plan: Neurological AAOx4, nonfocal, monitoring Cardiovascular CAD s/p RCA stent, known cardiomyopathy with AICD, last EF 25%, cardio consulted , maintain MAP >65-70, fluid resuscitation per surgery team Pulmonologic Maintain O2Sat >92%, NC @ 2L, careful monitoring of respiratory status given need for fluid resuscitation and known poor cardiac function GI Peritonitis with perforated diverticula, surgery on board, possible OR, NGT placement, NPO Nephro/Electrolytes Dehydrated, last known Cr 0.7 on 07/29/14 now 2.4, fluid resus underway, maintain MAP as above to improve perfusion, cuenca in place, monitoring IxOs closely, daily weights Heme/Onc On warfarin with elevated INR, given vitamin K in ER, will receive 2U FFPs, repeat coags in the AM ID Peritonitis, started on zosyn/vanco, leukocytosis with hypotension and tachycardia 3/4 SIRS with source of infection = sepsis Endo No issues at this time, monitoring DVT ppx: SCDs Patient was seen and examined and case was discussed at length with attending physician. - Date & Time Date: 07/12/17 Time: 00:58 <Ayan Heller Q - Last Filed: 07/12/17 06:43> Meds - Medications Medications: Current Medications Hydromorphone HCl (Dilaudid) 0.5 mg IVP Q4H PRN PRN Reason: Pain, severe (8-10) Lactated Ringer's (Lactated Ringer's) 1,000 mls @ 100 mls/hr IV .Q10H [facility] Vancomycin HCl (Vancomycin 1gm) 1 gm in 250 mls @ 167 mls/hr IVPB DAILY [facility] PRN Reason: Protocol Piperacillin Sod/Tazobactam Sod (Zosyn 3.375 In Ns 100ml) 100 mls @ 200 mls/hr IVPB Q6 [facility] PRN Reason: Protocol Stop: 07/12/17 12:29 Morphine Sulfate (Morphine) 2 mg IVP Q4 PRN PRN Reason: Pain, moderate (4-7) Ondansetron HCl (Zofran Inj) 4 mg IVP Q4 PRN PRN Reason: Nausea/Vomiting Results - Vital Signs Recent Vital Signs: Last Vital Signs Temp 97.4 F L 07/11/17 17:30 Pulse 105 H 07/12/17 02:00 Resp 18 07/12/17 02:00 BP 114/65 07/12/17 02:00 Pulse Ox 96 07/12/17 02:00 - Labs Result Diagrams: 07/11/17 18:40 07/11/17 18:40 Labs: Laboratory Results - last 24 hr 07/12/17 07/12/17 00:24 00:45 Blood Type A POSITIVE Blood Type Confirm A POSITIVE Antibody Screen Negative BBK History Checked No verified bt Attending/Attestation - Attestation I have personally seen and examined this patient.: Yes I have fully participated in the care of the patient.: Yes I have reviewed all pertinent clinical information: Yes Notes (Text): 07/12/17 06:37 I agree with the above mentioned note and exam by the resident with the addition /exception of the followin82 y/o female found to have perforated diverticulum. Fluid resuscitated in the ED; evaluated bedside by the surgical attending Dr. Hernandez, who plans to take the patient to the OR this morning. Patient has been given Vit K and 2 units of FFP to reverse her anticoagulation due to coumadin (history of Afib). She is being given IV Analgesics, strict i's and o's, currently making adequate amounts of urine, however does obviously have abdominal pain. Surgical team choosing to reverse anticoagulation and optimize hemodynamics prior to going to the OR. Patient and her family have agreed to surgery and the patient remains a full code. Empirically treated with Vanco and Zosyn NG-tube placed she will remain NPO case discussed at length with Dr. Hernandez in the ED all labs and images from today's visit have been reviewed by myself personally total time of care: 45 minutes
[2017-07-12] MEDS ORDERED: Morphine 4 mg/ml ISec IVP PRN ×2 (01:54→02:06)
[2017-07-12] MEDS ORDERED: HYDROmorphone 0.5 mg/0.5 ml ISec IVP PRN (01:54)
[2017-07-12 04:00] VITALS: BMI 19.3
[2017-07-12] MEDS ORDERED: Morphine 2 mg/ml ISec IVP PRN (05:39)
[2017-07-12] MEDS ORDERED: Piperacillin/Tazobact 3.375 gm 100 ML IVPB SCH (06:00)
[2017-07-12 07:14] LABS: TROPONIN I 0.02 ng/mL
[2017-07-12 07:15] LABS: ALBUMIN 3.4 g/dL (3.0-4.8); CALCIUM 9.7 mg/dL (8.4-10.5)
[2017-07-12 07:20] LABS: BASO # 0.01 K/mm3 (0.0-2.0); BASO % 0.1 % (0.0-3.0); EOS % 0.1 % (1.5-5.0); GRAN # 9.08 (1.4-6.5); GRAN % 83.9 % (50.0-68.0); LYMPH % 9.2 % (22.0-35.0); MEAN CELL VOLUME 86.7 fl (80.0-105.0); MEAN CORPUSCULAR HEMOGLOBIN 28.1 pg (25.0-35.0); MEAN CORPUSCULAR HGB CONC 32.4 g/dl (31.0-37.0); MEAN PLATELET VOLUME 11.6 fl (7.0-11.0); MONO # 0.7 (0.1-0.6); MONO % 6.7 % (1.0-6.0); RBC 3.91 10^6/uL (3.5-6.1); RED CELL DISTRIBUTION WIDTH 14.8 % (11.5-14.5); WHITE BLOOD COUNT 10.8 10^3/ul (4.5-11.0)
[2017-07-12 07:22] LABS: INR 1.36 (0.93-1.08); PROTHROMBIN TIME 15.7 SECONDS (9.4-12.5)
--- NOTE | 2017-07-12 07:27 | CP.PCM.PCO ---
Physician Communication Note - Physician Communication Note Physician Communication Note: Pt15.7/K3.1/Rx NGT([id number]/OR ?10:30 today
[2017-07-12 07:33] LABS: VENOUS BLOOD GAS BASE EXCESS 0.9 mmol/L (0.0-2.0); VENOUS BLOOD GAS PO2 99 mm/Hg (30-55); VENOUS BLOOD PH 7.47 (7.32-7.43)
--- NOTE | 2017-07-12 08:49 | HP ---
CHIEF COMPLAINT AND HISTORY OF PRESENT ILLNESS: This is an 82-year-old female who has come into the hospital with complaints of abdominal pain for the last 3 days. She states she has been having difficulty in urination as well. She states that she feels that her abdomen has been distended. She states the pain is significant about 5 to 6/10. The patient has no complaints of any back pain. No dysuria or frequency. No weakness in the arms or the legs. The patient has a past medical history of coronary artery disease with stent, diverticulosis and diverticulitis. She has not been having bowel movements for the past few days as well. She has been able to pass flatus. REVIEW OF SYSTEMS: All other review of symptoms are within normal limits except as mentioned. ALLERGIES: NO KNOWN DRUG ALLERGIES. MEDICATIONS: Reviewed. The patient is on Crestor, aspirin, carvedilol, Tikosyn, enalapril, magnesium, and Lasix. PAST MEDICAL HISTORY: Hypertension, atrial fibrillation, hypothyroidism, ischemic cardiomyopathy, CKD, dyslipidemia. PAST SURGICAL HISTORY: Defibrillator placement in 2006, ventral hernia x2, and hysterectomy. SOCIAL HISTORY: She smoked half-a-pack per day for 40 years, quit more than 20 years ago. She drinks occasionally. FAMILY HISTORY: Noncontributory. PHYSICAL EXAMINATION: VITAL SIGNS: Temperature is 98.8, pulse is in the 110s, blood pressure is 127/106, respirations 24, and O2 saturation is 94%. Height is 5 feet 4 inches, weight is 113 pounds, BMI is 19. GENERAL: The patient lying in bed, uncomfortable, and in no acute distress. HEENT: Atraumatic and normocephalic. Anicteric sclerae. Moist mucosa. Parkin conjunctivae. No oral lesions. NECK: No JVD, anterior and posterior adenopathy, thyromegaly, or bruits. CARDIOVASCULAR: S1 and S2 regular. No murmur, rubs, or gallop. LUNGS: Clear to auscultation bilaterally. No wheezes, rales, or rhonchi. ABDOMEN: Bowel sounds are positive, soft. She has abdominal pain in the left lower quadrant area. EXTREMITIES: No cyanosis, clubbing, or edema. NEUROLOGIC: No facial asymmetry. Tongue is midline. No uvula deviation. Power is 5/5 upper extremity and lower extremity. Sensation intact in upper extremity and lower extremity. PSYCHIATRIC: She is awake, alert and oriented x3. No anxiety or depression. She has normal affect. GENITOURINARY: No CVA tenderness. VASCULAR: 2+ pulses in the carotid pulses and pedal pulses. SKIN: No erythema or nodules SPINE: Shows normal curvature. LABORATORY DATA: White count of 12.6, repeat is 10.8. INR is 3.25, repeat is 1.36, pH is 7.47. ABG shows pH of 7.47 with a PCO2 of 33. Chemistry shows a potassium of 4.1 initially, then 3.1, creatinine was 2.4 initially, now is 1.3. A CT of the abdomen and pelvis done shows a perforated sigmoid diverticulitis with collection is 3.3 x 5.4 x 6.5 cm. ASSESSMENT: 1. Perforated sigmoid diverticulitis with a 3.3 x 5.4 x 6.5 cm abscess. 2. Hypertension. 3. Atrial fibrillation, Coumadin on hold. 4. Hypothyroidism. 5. Ischemic cardiomyopathy. 6. Dyslipidemia. 7. Acute kidney injury. 8. Defibrillator. 9. Diverticulosis. PLAN: The patient is going to be admitted to the hospital. She has perforation with abscess. She will most likely need to go to the OR. The patient does have risk of complications, going to the OR given her cardiac history, given the fact that this is an emergent surgery. The patient was seen by Dr. Marcial, I appreciate his input. I will get Cardiology evaluation as well. The patient has been followed by Dr. Arpit Mccurdy. The patient has been given IV antibiotics with vancomycin and Levaquin. She is also going to need Infectious Disease evaluation. The patient was given vitamin K and FFPs to help improve the coagulopathy. She is on lactated Ringer's. Overall prognosis is guarded. She will need repeat blood work done. She is currently n.p.o. I did speak with the production utility worker and the surgical rn. The patient is going to the OR. Rohan Rodriguez MD
[2017-07-12] MEDS ORDERED: Metoprolol 1 mg/ml Inj IVP STA (09:07)
--- NOTE | 2017-07-12 09:33 | RAD ---
HISTORY: abd COMPARISON: 07/25/2014 FINDINGS: LUNGS: No active pulmonary disease. PLEURA: No significant pleural effusion identified, no pneumothorax apparent. CARDIOVASCULAR: Normal. OSSEOUS STRUCTURES: No significant abnormalities. VISUALIZED UPPER ABDOMEN: Normal. OTHER FINDINGS: Dual lead pacemaker IMPRESSION: No active disease.
--- NOTE | 2017-07-12 09:40 | RAD ---
HISTORY: portable COMPARISON: 07/11/2017 FINDINGS: LUNGS: No active pulmonary disease. PLEURA: No significant pleural effusion identified, no pneumothorax apparent. CARDIOVASCULAR: Mild cardiomegaly OSSEOUS STRUCTURES: No significant abnormalities. VISUALIZED UPPER ABDOMEN: Normal. OTHER FINDINGS: Dual lead pacemaker IMPRESSION: No active disease.
[2017-07-12] MEDS ORDERED: Midazolam 2 MG/2 ML VIAL ONE (11:47)
[2017-07-12] MEDS ORDERED: Rocuronium 10 mg/ml (5 ml) ONE (11:51)
[2017-07-12] MEDS ORDERED: Etomidate 20 mg/10ml Inj IV ONE (11:51)
[2017-07-12] MEDS ORDERED: Propofol 10 mg/ml Inj (20 ML) ONE (12:00)
[2017-07-12] MEDS: Meropenem IV 1 gm in NS 50 ML IVPB SCH ×3 (12:00→22:08)
[2017-07-12] MEDS: Vancomycin 1gm in NS 250ml 1 GM/250 ML BAG IVPB SCH ×2 (12:01→12:40)
[2017-07-12] MEDS ORDERED: Phenylephrine 10 mg/ml Inj ONE (12:04)
--- NOTE | 2017-07-12 12:31 | CP.PCM.PN ---
Subjective - Date & Time of Evaluation Date of Evaluation: 07/12/17 Time of Evaluation: 07:45 - Subjective Subjective: Pt seen and examined, comfortable in NAD, complaining of abdominal pain. Objective - Vital Signs/Intake and Output Vital Signs (last 24 hours): Temp Pulse Resp BP Pulse Ox 98.8 F 131 H 24 132/77 94 L 07/12/17 04:00 07/12/17 09:19 07/12/17 06:00 07/12/17 09:19 07/12/17 06:00 Intake and Output: 07/12/17 07/12/17 06:59 18:59 Intake Total 972 Output Total 700 Balance 272 - Medications Medications: Current Medications Hydromorphone HCl (Dilaudid) 0.5 mg IVP Q4H PRN PRN Reason: Pain, severe (8-10) Vancomycin HCl (Vancomycin 1gm) 1 gm in 250 mls @ 167 mls/hr IVPB DAILY [facility] PRN Reason: Protocol Last Admin: 07/12/17 12:01 Dose: 167 mls/hr Potassium Chloride (Potassium Chloride 10 Meq/100 Ml) 10 meq in 100 mls @ 50 mls/hr IVPB Q2H [facility] Stop: 07/12/17 15:59 Last Admin: 07/12/17 09:32 Dose: 50 mls/hr Potassium Chloride 20 meq/ (Sodium Chloride) 1,010 mls @ 100 mls/hr IV .Q10H6[facility] Last Admin: 07/12/17 09:23 Dose: 100 mls/hr Meropenem (Merrem Iv 1 Gm Premix) 50 mls @ 100 mls/hr IVPB Q12 [facility] PRN Reason: Protocol Last Admin: 07/12/17 12:00 Dose: 100 mls/hr Morphine Sulfate (Morphine) 2 mg IVP Q4 PRN PRN Reason: Pain, moderate (4-7) Ondansetron HCl (Zofran Inj) 4 mg IVP Q4 PRN PRN Reason: Nausea/Vomiting - Labs Labs: 07/12/17 06:30 07/12/17 06:30 PT 15.7 SECONDS (9.4-12.5) H 07/12/17 06:30 INR 1.36 (0.93-1.08) H 07/12/17 06:30 APTT 30.0 Seconds (25.1-36.5) 07/12/17 06:30 - Constitutional Appears: No Acute Distress - Eye Exam Eye Exam: Normal appearance - ENT Exam ENT Exam: Mucous Membranes Moist - Respiratory Exam Respiratory Exam: Clear to Ausculation Bilateral, NORMAL BREATHING PATTERN - Cardiovascular Exam Cardiovascular Exam: REGULAR RHYTHM, +S1, +S2 - GI/Abdominal Exam GI & Abdominal Exam: Guarding, Soft Additional comments: +rebound - Extremities Exam Extremities Exam: Normal Inspection - Neurological Exam Neurological Exam: Alert, Awake Assessment and Plan - Assessment and Plan (Free Text) Assessment: 82 y/o female found to have perforated diverticulum. Perforated Diverticulum CAD CAD s/p stent Dilated cardiomyopathy s/p AICD A-fib on coumadin - currently afebrile, HD stable, not on pressors, going to OR today Recommend: - supp o2 as needed - Antibiotics, Zosyn, Flagyl IV - NPO - IVF hydration - Cardiology follow up - OR today as per surgery - Hold Coumadin, INR acceptable - GI ppx, PPI - DVT ppx, SCDs
[2017-07-12] MEDS ORDERED: Oxychlorosene Topical 2 gm Packet TOP ONE (13:00)
--- NOTE | 2017-07-12 13:05 | CP.PCM.CON ---
<JuanBoris marxolas - Last Filed: 07/12/17 13:07> History of Present Illness - History of Present Illness History of Present Illness: Infectious disease consultation. Attending: Dr. Martin. This is an 82 yo female with past medical hx of CAD, a fib, dilated cardiomyopathy, with reduced EF, diverticulitis, ulcer with clipping presenting with chief complaint of abdominal pain x 3 days. Patient is thai speaking only and is accompanied by daughter and son in law. Pain located in lower abdomen both left and right lower quadrant. Denies vomiting or diarrhea. Reports constipation. No recent travel or sick contacts. CT scan performed in ER shows perforated diverticulum with free air present, possibly abscess and ileus. ID consulted for perforation and peritonitis with sepsis. Pt also with coagulopathy upon admission. Pt reports abdominal pain this morning. PMH: CAD, diverticulitis, peptic ulcer with clipping, a fib, cardiomypathy PSH: stent, c section, hysterectomy, AICD Allergies: NKDA FH: non contributory Social hx: former smoker. denies drinking, drug use. Born in [facility]. Review of Systems - Review of Systems All systems: reviewed and no additional remarkable complaints except Review of Systems: negative except as stated in HPI. Past Patient History - Infectious Disease Hx of Infectious Diseases: None - Tetanus Immunizations Tetanus Immunization: Unknown - Past Medical History & Family History Past Medical History?: Yes Past Family History: Reviewed and not pertinent - Past Social History Smoking Status: Former Smoker Chewing Tobacco Use: No Cigar Use: No Alcohol: None Drugs: Denies Home Situation {Lives}: With Family Domestic Violence: Negative - CARDIAC Hx Cardiac Disorders: Yes Hx Cardia Arrhythmia: Yes (a. fib) Hx Hypertension: Yes Hx Internal Defibrillator: Yes Hx Pacemaker: Yes - PULMONARY Hx Chronic Obstructive Pulmonary Disease (COPD): Yes (smoked when she was young) - NEUROLOGICAL Hx Neurological Disorder: No - HEENT Hx HEENT Problems: No - ENDOCRINE/METABOLIC Hx Hypothyroidism: Yes - HEMATOLOGICAL/ONCOLOGICAL Hx Blood Transfusions: No - INTEGUMENTARY Hx Dermatological Problems: No - MUSCULOSKELETAL/RHEUMATOLOGICAL Hx Falls: Yes - GASTROINTESTINAL Hx Gastrointestinal Disorders: Yes (rectal bleeding, constipation) Hx Diverticulitis: Yes Hx Ulcer: Yes Other/Comment: gi ulcer resolution clip 06/13/14,rectal bleed,constipation - GENITOURINARY/GYNECOLOGICAL Hx Genitourinary Disorders: Yes - PSYCHIATRIC Hx Depression: Yes Hx Substance Use: No - SURGICAL HISTORY Hx Surgeries: Yes - ANESTHESIA Hx Anesthesia Reactions: No Hx Malignant Hyperthermia: No Meds Allergies/Adverse Reactions: Allergies Allergy/AdvReac Type Severity Reaction Status Date / Time No Known Allergies Allergy Verified 02/10/12 20:57 - Medications Medications: Current Medications Hydromorphone HCl (Dilaudid) 0.5 mg IVP Q4H PRN PRN Reason: Pain, severe (8-10) Vancomycin HCl (Vancomycin 1gm) 1 gm in 250 mls @ 167 mls/hr IVPB DAILY LEXIE PRN Reason: Protocol Last Admin: 07/12/17 12:40 Dose: 250 mls Potassium Chloride (Potassium Chloride 10 Meq/100 Ml) 10 meq in 100 mls @ 50 mls/hr IVPB Q2H [facility] Stop: 07/12/17 15:59 Last Admin: 07/12/17 09:32 Dose: 50 mls/hr Potassium Chloride 20 meq/ (Sodium Chloride) 1,010 mls @ 100 mls/hr IV .Q10H6M [facility] Last Admin: 07/12/17 09:23 Dose: 100 mls/hr Meropenem (Merrem Iv 1 Gm Premix) 50 mls @ 100 mls/hr IVPB Q12 LEXIE PRN Reason: Protocol Last Admin: 07/12/17 12:40 Dose: 50 mls Morphine Sulfate (Morphine) 2 mg IVP Q4 PRN PRN Reason: Pain, moderate (4-7) Ondansetron HCl (Zofran Inj) 4 mg IVP Q4 PRN PRN Reason: Nausea/Vomiting Physical Exam - Head Exam Head Exam: ATRAUMATIC, NORMAL INSPECTION, NORMOCEPHALIC - Eye Exam Eye Exam: EOMI - ENT Exam ENT Exam: Mucous Membranes Moist - Neck Exam Neck exam: Positive for: Full Rom, Normal Inspection - Respiratory Exam Respiratory Exam: absent: Respiratory Distress - Cardiovascular Exam Cardiovascular Exam: +S1, +S2 - GI/Abdominal Exam GI & Abdominal Exam: Guarding, Rebound, Tenderness - Extremities Exam Extremities exam: Positive for: normal inspection - Back Exam Back exam: NORMAL INSPECTION - Neurological Exam Neurological exam: Alert, Oriented x3 - Psychiatric Exam Psychiatric exam: Normal Affect, Normal Mood - Skin Skin Exam: Dry, Intact, Normal Color, Warm Results - Vital Signs Recent Vital Signs: Last Vital Signs Temp 98.8 F 07/12/17 04:00 Pulse 131 H 07/12/17 09:19 Resp 24 07/12/17 06:00 BP 132/77 07/12/17 09:19 Pulse Ox 94 L 07/12/17 06:00 - Labs Result Diagrams: 07/12/17 06:30 07/12/17 06:30 Labs: Laboratory Results - last 24 hr 07/12/17 07/12/17 07/12/17 00:24 00:45 06:30 WBC 10.8 RBC 3.91 Hgb 11.0 L Hct 33.9 L MCV 86.7 MCH 28.1 MCHC 32.4 RDW 14.8 H Plt Count 145 MPV 11.6 H Gran % 83.9 H Lymph % (Auto) 9.2 L [place] % (Auto) 6.7 H Eos % (Auto) 0.1 L Baso % (Auto) 0.1 Gran # 9.08 H Lymph # 1.0 L [place] # 0.7 H Eos # 0.0 Baso # 0.01 PT INR APTT pO2 VBG pH VBG pCO2 VBG HCO3 VBG Total CO2 VBG O2 Sat (Calc) VBG Base Excess VBG Potassium Glucose Lactate FiO2 Sodium Potassium Chloride Carbon Dioxide Anion Gap BUN Creatinine Est GFR ( Amer) Est GFR (Non-Af Amer) Random Glucose Lactic Acid Calcium Total Bilirubin AST ALT Alkaline Phosphatase Lactate Dehydrogenase Total Creatine Kinase Troponin I Total Protein Albumin Globulin Albumin/Globulin Ratio Venous Blood Potassium Blood Type A POSITIVE Blood Type Confirm A POSITIVE Antibody Screen Negative Crossmatch See Detail BBK History Checked No verified bt 07/12/17 07/12/17 07/12/17 06:30 06:30 07:20 WBC RBC Hgb Hct MCV MCH MCHC RDW Plt Count MPV Gran % Lymph % (Auto) [place] % (Auto) Eos % (Auto) Baso % (Auto) Gran # Lymph # [place] # Eos # Baso # PT 15.7 H INR 1.36 H APTT 30.0 pO2 99 H VBG pH 7.47 H VBG pCO2 33.0 L VBG HCO3 24.0 VBG Total CO2 25.0 VBG O2 Sat (Calc) 99.4 H VBG Base Excess 0.9 VBG Potassium 3.1 L Glucose 123 H Lactate 1.0 FiO2 21.0 Sodium 141 140.0 Potassium 3.1 L Chloride 106 108.0 H Carbon Dioxide 22 Anion Gap 16 BUN 34 H Creatinine 1.3 H Est GFR ( Amer) 47 Est GFR (Non-Af Amer) 39 Random Glucose 119 H Lactic Acid Calcium 9.7 Total Bilirubin 1.3 AST 21 ALT 17 Alkaline Phosphatase 82 Lactate Dehydrogenase 323 L Total Creatine Kinase 54 Troponin I 0.02 D Total Protein 6.8 Albumin 3.4 Globulin 3.4 Albumin/Globulin Ratio 1.0 L Venous Blood Potassium 3.1 L Blood Type Blood Type Confirm Antibody Screen Crossmatch BBK History Checked 07/12/17 07:20 WBC RBC Hgb Hct MCV MCH MCHC RDW Plt Count MPV Gran % Lymph % (Auto) [place] % (Auto) Eos % (Auto) Baso % (Auto) Gran # Lymph # [place] # Eos # Baso # PT INR APTT pO2 VBG pH VBG pCO2 VBG HCO3 VBG Total CO2 VBG O2 Sat (Calc) VBG Base Excess VBG Potassium Glucose Lactate FiO2 Sodium Potassium Chloride Carbon Dioxide Anion Gap BUN Creatinine Est GFR ( Amer) Est GFR (Non-Af Amer) Random Glucose Lactic Acid 1.1 Calcium Total Bilirubin AST ALT Alkaline Phosphatase Lactate Dehydrogenase Total Creatine Kinase Troponin I Total Protein Albumin Globulin Albumin/Globulin Ratio Venous Blood Potassium Blood Type Blood Type Confirm Antibody Screen Crossmatch BBK History Checked Assessment & Plan - Assessment and Plan (Free Text) Assessment: This is an 82 yo female, originally from [facility], with past medical hx of CAD, PUD, a fib, dilated cardiomyopathy, diverticulitis, presenting with perforated diverticulitis, free, peritonitis, sepsis. 1. Perforated diverticulitis with peritonitis and sepsis -abdomen/pelvis CT shows perforated diverticulum with free air and focal pelvic collection, possibly abscess, ileus. -pt is currently afebrile -white count has decreased to 10.8 from 12.6 -coagulopathy must be corrected before surgery -continue meropenem 1 g IV q 12 hrs covering gram negative and anaerobes -continue vancomycin 1 g daily to cover enterococcus because of perforation -cultures pending -continue to monitor for clinical improvement discussed with Dr. Martin. <Joe Martin - Last Filed: 07/12/17 16:36> History of Present Illness - History of Present Illness History of Present Illness: Infectious Diseases Attending Physician Attestation Patient seen and examined, discussed with biomedical service engineer. I have reviewed the patient's HPI, ROS, past medical, family, personal and social histories, physical exam, labs and imaging. I agree with the above findings, assessment and plan. In addition, we will continue the patient on Vancomycin and Merrem for severe sepsis from perforated acute sigmoid diverticulitis with peritonitis. Awaiting plan for OR. Meds - Medications Medications: Current Medications Fentanyl (Fentanyl) 25 mcg IV Q5M PRN PRN Reason: Pain, moderate (4-7) Hydromorphone HCl (Dilaudid) 0.25 mg IVP Q4H PRN PRN Reason: Pain, severe (8-10) Vancomycin HCl (Vancomycin 1gm) 1 gm in 250 mls @ 167 mls/hr IVPB DAILY LEXIE PRN Reason: Protocol Last Admin: 07/12/17 12:40 Dose: 250 mls Meropenem (Merrem Iv 1 Gm Premix) 50 mls @ 100 mls/hr IVPB Q12 LEXIE PRN Reason: Protocol Last Admin: 07/12/17 12:40 Dose: 50 mls Lactated Ringer's (Lactated Ringer's) 1,000 mls @ 100 mls/hr IV .Q10H [facility]EXIE Ondansetron HCl (Zofran Inj) 4 mg IVP Q4 PRN PRN Reason: Nausea/Vomiting Pantoprazole Sodium (Protonix Inj) 40 mg IVP DAILY LEXIE Results - Vital Signs Recent Vital Signs: Last Vital Signs Temp 98.8 F 07/12/17 15:19 Pulse 128 H 07/12/17 15:19 Resp 17 07/12/17 15:19 BP 112/69 07/12/17 15:19 Pulse Ox 97 07/12/17 15:19 - Labs Result Diagrams: 07/12/17 06:30 07/12/17 06:30 Labs: Laboratory Results - last 24 hr 07/12/17 07/12/17 07/12/17 00:24 00:45 06:30 WBC 10.8 RBC 3.91 Hgb 11.0 L Hct 33.9 L MCV 86.7 MCH 28.1 MCHC 32.4 RDW 14.8 H Plt Count 145 MPV 11.6 H Gran % 83.9 H Lymph % (Auto) 9.2 L [place] % (Auto) 6.7 H Eos % (Auto) 0.1 L Baso % (Auto) 0.1 Gran # 9.08 H Lymph # 1.0 L [place]land # 0.7 H Eos # 0.0 Baso # 0.01 PT INR APTT pO2 VBG pH VBG pCO2 VBG HCO3 VBG Total CO2 VBG O2 Sat (Calc) VBG Base Excess VBG Potassium Glucose Lactate FiO2 Sodium Potassium Chloride Carbon Dioxide Anion Gap BUN Creatinine Est GFR ( Amer) Est GFR (Non-Af Amer) Random Glucose Lactic Acid Calcium Total Bilirubin AST ALT Alkaline Phosphatase Lactate Dehydrogenase Total Creatine Kinase Troponin I Total Protein Albumin Globulin Albumin/Globulin Ratio Venous Blood Potassium Blood Type A POSITIVE Blood Type Confirm A POSITIVE Antibody Screen Negative Crossmatch See Detail BBK History Checked No verified bt 07/12/17 07/12/17 07/12/17 06:30 06:30 07:20 WBC RBC Hgb Hct MCV MCH MCHC RDW Plt Count MPV Gran % Lymph % (Auto) [place]land % (Auto) Eos % (Auto) Baso % (Auto) Gran # Lymph # [place] # Eos # Baso # PT 15.7 H INR 1.36 H APTT 30.0 pO2 99 H VBG pH 7.47 H VBG pCO2 33.0 L VBG HCO3 24.0 VBG Total CO2 25.0 VBG O2 Sat (Calc) 99.4 H VBG Base Excess 0.9 VBG Potassium 3.1 L Glucose 123 H Lactate 1.0 FiO2 21.0 Sodium 141 140.0 Potassium 3.1 L Chloride 106 108.0 H Carbon Dioxide 22 Anion Gap 16 BUN 34 H Creatinine 1.3 H Est GFR ( Amer) 47 Est GFR (Non-Af Amer) 39 Random Glucose 119 H Lactic Acid Calcium 9.7 Total Bilirubin 1.3 AST 21 ALT 17 Alkaline Phosphatase 82 Lactate Dehydrogenase 323 L Total Creatine Kinase 54 Troponin I 0.02 D Total Protein 6.8 Albumin 3.4 Globulin 3.4 Albumin/Globulin Ratio 1.0 L Venous Blood Potassium 3.1 L Blood Type Blood Type Confirm Antibody Screen Crossmatch BBK History Checked 07/12/17 07:20 WBC RBC Hgb Hct MCV MCH MCHC RDW Plt Count MPV Gran % Lymph % (Auto) [place] % (Auto) Eos % (Auto) Baso % (Auto) Gran # Lymph # [place] # Eos # Baso # PT INR APTT pO2 VBG pH VBG pCO2 VBG HCO3 VBG Total CO2 VBG O2 Sat (Calc) VBG Base Excess VBG Potassium Glucose Lactate FiO2 Sodium Potassium Chloride Carbon Dioxide Anion Gap BUN Creatinine Est GFR ( Amer) Est GFR (Non-Af Amer) Random Glucose Lactic Acid 1.1 Calcium Total Bilirubin AST ALT Alkaline Phosphatase Lactate Dehydrogenase Total Creatine Kinase Troponin I Total Protein Albumin Globulin Albumin/Globulin Ratio Venous Blood Potassium Blood Type Blood Type Confirm Antibody Screen Crossmatch BBK History Checked
[2017-07-12] MEDS ORDERED: Bupivacaine 0.25% Inj(30mL) ONE (13:42)
[2017-07-12] MEDS ORDERED: Neostigmine Methylsulfate 3mg/3ml Syringe IV ONE (13:57)
[2017-07-12] MEDS ORDERED: Liquid Adhesive TOP ONE (14:17)
--- NOTE | 2017-07-12 14:55 | PCM.SURG1 ---
Surgeon's Initial Post Op Note - Surgeon's Notes Surgeon: Dr. Hernandez Capacity Planning Analyst: Dr. Sprague PGY-3, Dr. Martinez PGY-3, Dr. Pendleton PGY-1 Type of Anesthesia: General Endo Anesthesia Administered By: Dr. Rivera Pre-Operative Diagnosis: Perforated Viscus Operative Findings: See operative report Post-Operative Diagnosis: Perforated Sigmoid Diverticulitis with phlegmonous changes involving the small bowel mesentery and surrounding omentum Operation Performed: 1) Ex-Lap 2) Mckeon's 3) Small bowel resection 4) Omentectomy 5) ON-Q placement Specimen/Specimens Removed: Sigmoid colon, Small Bowel, Omentum Estimated Blood Loss: EBL {In ML}: 200 Blood Products Given: N/A Drains Used: Yan, Ostomy Device Post-Op Condition: Good Date of Surgery/Procedure: 07/12/17 Time of Surgery/Procedure: 14:58
[2017-07-12] MEDS ORDERED: Metoprolol 1 mg/ml Inj IVP ONE (15:04)
--- NOTE | 2017-07-12 16:26 | RAD ---
PROCEDURE: Portable chest HISTORY: NGT placement COMPARISON: Earlier same day TECHNIQUE: FINDINGS: The nasogastric tube is in satisfactory position in the gastric fundus. There is mild vascular congestion. IMPRESSION: Nasogastric tube in satisfactory position
--- NOTE | 2017-07-12 17:58 | CON ---
DATE: 07/12/2017 HISTORY OF PRESENT ILLNESS: The patient is a 82-year-old woman, who presents with abdominal pain and was found to have a perforated diverticulum. PAST MEDICAL HISTORY: Includes an ischemic dilated cardiomyopathy, chronic atrial fibrillation status post pacemaker placement. She has chronic shortness of breath especially during exertion, but no angina noted. She has documented CAD in the past. She suffers from hypertension, is on anticoagulation with Coumadin but no diabetes mellitus. SOCIAL HISTORY: The patient lives at home. REVIEW OF SYSTEMS: A 14-point review of systems was reviewed. No shortness of breath. No pedal edema. No angina at rest. She does complain of abdominal pain. PHYSICAL EXAMINATION: VITAL SIGNS: Blood pressure is 127/65, heart rate is 110, atrial fibrillation. NECK: Negative JVD. LUNGS: Decreased breath sounds without rales. HEART: Reveals a 2/6 systolic ejection murmur. EXTREMITIES: Without edema. EKG shows atrial fibrillation with PVCs and nonspecific ST-T changes. LABORATORY DATA: The INR is 1.36. Chemistries, BUN and creatinine is 16 and 1.3. The potassium is 3.1 and replacement has been ordered. Hemoglobin is 11. IMPRESSION: 1. Perforated diverticulitis. 2. Chronic atrial fibrillation. 3. Dilated cardiomyopathy with an ejection fraction of approximately 35%-40%. 4. Mitral regurgitation. 5. Anemia. 6. Markedly dilated left atrium. Given these findings, the patient's age, cardiomyopathy puts the patient at higher risk for cardiac surgery. I have discussed this with the patient and family in detail. We will order beta-blockers to help control her heart rate and as a preop as a preoperative preparation. Arpit Mccurdy MD
--- NOTE | 2017-07-12 22:44 | CARD ---
APPROVED REPORT EKG Measurement Heart [id number] <Conclusion> Atrial flutter with variable AV block with premature ventricular or aberrantly conducted complexes Left ventricular hypertrophy with repolarization abnormality Abnormal ECG
[2017-07-13] MEDS ORDERED: Metoprolol 1 mg/ml Inj IVP ONE (01:28)
[2017-07-13] MEDS: HYDROmorphone 0.5 mg/0.5 ml ISec IVP PRN ×4 (04:46→22:17)
[2017-07-13] MEDS ORDERED: diltiaZEM IVPB 100mg in NS 100 ML IV PRN (08:07)
[2017-07-13 08:30] LABS: GRAN # 9.01 (1.4-6.5); GRAN % 80.1 % (50.0-68.0); HEMOGLOBIN 10.5 g/dL (12.0-16.0); LYMPH # 1.2 (1.2-3.4); LYMPH % 10.4 % (22.0-35.0); MEAN CORPUSCULAR HEMOGLOBIN 27.9 pg (25.0-35.0); MEAN CORPUSCULAR HGB CONC 31.7 g/dl (31.0-37.0); MEAN PLATELET VOLUME 11.1 fl (7.0-11.0); MONO # 1.1 (0.1-0.6); MONO % 9.5 % (1.0-6.0); RBC 3.76 10^6/uL (3.5-6.1); RED CELL DISTRIBUTION WIDTH 14.9 % (11.5-14.5); WHITE BLOOD COUNT 11.3 10^3/ul (4.5-11.0)
[2017-07-13 08:43] LABS: ALB/GLOB RATIO 0.9 (1.1-1.8); ALBUMIN 2.5 g/dL (3.0-4.8); CALCIUM 8.9 mg/dL (8.4-10.5); MAGNESIUM 1.8 mg/dL (1.7-2.2)
[2017-07-13 08:45] LABS: INR 1.1 (0.93-1.08); PROTHROMBIN TIME 12.7 SECONDS (9.4-12.5)
[2017-07-13] MEDS ORDERED: Menthol/Phenol (Cepastat) Lozenge MT PRN (10:57)
[2017-07-13] MEDS: Sodium Chloride 0.9% 1,000 ML IV STA ×2 (11:20→22:23)
[2017-07-13] MEDS: Meropenem IV 1 gm in NS 50 ML IVPB SCH ×2 (11:28→21:55)
--- NOTE | 2017-07-13 12:12 | CP.PCM.PN ---
Subjective - Date & Time of Evaluation Date of Evaluation: 07/13/17 Time of Evaluation: 07:45 - Subjective Subjective: Pt seen and examined, reports to be doing well. Objective - Vital Signs/Intake and Output Vital Signs (last 24 hours): Temp Pulse Resp BP Pulse Ox 98.4 F 135 H 19 111/45 L 98 07/13/17 04:00 07/13/17 08:18 07/13/17 06:00 07/13/17 08:18 07/13/17 06:00 Intake and Output: 07/13/17 07/13/17 06:59 18:59 Intake Total 1300 Output Total 695 Balance 605 - Medications Medications: Current Medications Fentanyl (Fentanyl) 25 mcg IV Q5M PRN PRN Reason: Pain, moderate (4-7) Hydromorphone HCl (Dilaudid) 0.25 mg IVP Q4H PRN PRN Reason: Pain, severe (8-10) Last Admin: 07/13/17 11:32 Dose: 0.25 mg Vancomycin HCl (Vancomycin 1gm) 1 gm in 250 mls @ 167 mls/hr IVPB DAILY LEXIE PRN Reason: Protocol Last Admin: 07/12/17 12:40 Dose: 250 mls Meropenem (Merrem Iv 1 Gm Premix) 50 mls @ 100 mls/hr IVPB Q12 LEXIE PRN Reason: Protocol Last Admin: 07/13/17 11:28 Dose: 100 mls/hr diltiaZEM IVPB 100mg in NS (Cardizem 100mg In Ns) 100 mls @ 5 mls/hr IV .Q20H PRN; Protocol; 5 MG/HR PRN Reason: TITRATE PER MD ORDER Last Admin: 07/13/17 08:22 Dose: 5 mg/hr, 5 mls/hr Sodium Chloride (Sodium Chloride 0.9%) 1,000 mls @ 75 mls/hr IV .[id number] [facility]A Stop: 07/14/17 00:15 Last Admin: 07/13/17 11:20 Dose: 75 mls/hr Ondansetron HCl (Zofran Inj) 4 mg IVP Q4 PRN PRN Reason: Nausea/Vomiting Pantoprazole Sodium (Protonix Inj) 40 mg IVP DAILY [facility] Last Admin: 07/13/17 11:28 Dose: 40 mg Throat Lozenges (Cepastat) 1 wai MT PRN PRN PRN Reason: Sore Throat - Labs Labs: 07/13/17 08:15 07/13/17 08:15 PT 12.7 SECONDS (9.4-12.5) H 07/13/17 08:15 INR 1.10 (0.93-1.08) H 07/13/17 08:15 APTT 30.0 Seconds (25.1-36.5) 07/12/17 06:30 - Constitutional Appears: No Acute Distress - Eye Exam Eye Exam: Normal appearance - ENT Exam ENT Exam: Mucous Membranes Moist - Respiratory Exam Respiratory Exam: Clear to Ausculation Bilateral, NORMAL BREATHING PATTERN - Cardiovascular Exam Cardiovascular Exam: REGULAR RHYTHM, +S1, +S2 - GI/Abdominal Exam GI & Abdominal Exam: Soft, Normal Bowel Sounds Additional comments: +colostomy - Neurological Exam Neurological Exam: Alert, Awake Assessment and Plan - Assessment and Plan (Free Text) Assessment: 82 y/o female found to have perforated diverticulum. Perforated Diverticulum s/p Mckeon procedure CAD CAD s/p stent Dilated cardiomyopathy s/p AICD A-fib on coumadin - currently afebrile, HD stable, not on pressors, s/p OR yesterday Recommend: - supp o2 as needed - Antibiotics, Zosyn, Flagyl IV - NPO - IVF hydration - Cardizem drip - Cardiology follow up - GI ppx, PPI - DVT ppx, SCDs - transfer to telemetry
--- NOTE | 2017-07-13 12:49 | CP.PCM.PN ---
<Pierre Pitt - Last Filed: 07/13/17 12:51> Subjective - Date & Time of Evaluation Date of Evaluation: 07/13/17 Time of Evaluation: 12:45 - Subjective Subjective: Infectious disease progress note. Attending: Dr. Martin. Pt seen and examined at bedside. No acute distress. Pt is S/P Mckeon procedure. Doing well post surgery. No fevers. No current complaints. Objective - Vital Signs/Intake and Output Vital Signs (last 24 hours): Temp Pulse Resp BP Pulse Ox 98.4 F 135 H 19 111/45 L 98 07/13/17 04:00 07/13/17 08:18 07/13/17 06:00 07/13/17 08:18 07/13/17 06:00 Intake and Output: 07/13/17 07/13/17 06:59 18:59 Intake Total 1300 Output Total 695 Balance 605 - Medications Medications: Current Medications Fentanyl (Fentanyl) 25 mcg IV Q5M PRN PRN Reason: Pain, moderate (4-7) Hydromorphone HCl (Dilaudid) 0.25 mg IVP Q4H PRN PRN Reason: Pain, severe (8-10) Last Admin: 07/13/17 11:32 Dose: 0.25 mg Vancomycin HCl (Vancomycin 1gm) 1 gm in 250 mls @ 167 mls/hr IVPB DAILY LEXIE PRN Reason: Protocol Last Admin: 07/12/17 12:40 Dose: 250 mls Meropenem (Merrem Iv 1 Gm Premix) 50 mls @ 100 mls/hr IVPB Q12 LEXIE PRN Reason: Protocol Last Admin: 07/13/17 11:28 Dose: 100 mls/hr diltiaZEM IVPB 100mg in NS (Cardizem 100mg In Ns) 100 mls @ 5 mls/hr IV .Q20H PRN; Protocol; 5 MG/HR PRN Reason: TITRATE PER MD ORDER Last Admin: 07/13/17 08:22 Dose: 5 mg/hr, 5 mls/hr Sodium Chloride (Sodium Chloride 0.9%) 1,000 mls @ 75 mls/hr IV .[id number] STA Stop: 07/14/17 00:15 Last Admin: 07/13/17 11:20 Dose: 75 mls/hr Ondansetron HCl (Zofran Inj) 4 mg IVP Q4 PRN PRN Reason: Nausea/Vomiting Pantoprazole Sodium (Protonix Inj) 40 mg IVP DAILY [facility]EXIE Last Admin: 07/13/17 11:28 Dose: 40 mg Throat Lozenges (Cepastat) 1 wai MT PRN PRN PRN Reason: Sore Throat - Labs Labs: 07/13/17 08:15 07/13/17 08:15 PT 12.7 SECONDS (9.4-12.5) H 07/13/17 08:15 INR 1.10 (0.93-1.08) H 07/13/17 08:15 APTT 30.0 Seconds (25.1-36.5) 07/12/17 06:30 - Constitutional Appears: No Acute Distress - Head Exam Head Exam: ATRAUMATIC, NORMAL INSPECTION, NORMOCEPHALIC - Eye Exam Eye Exam: EOMI - ENT Exam ENT Exam: Mucous Membranes Moist - Neck Exam Neck Exam: Full ROM, Normal Inspection - Respiratory Exam Respiratory Exam: NORMAL BREATHING PATTERN. absent: Respiratory Distress - Cardiovascular Exam Cardiovascular Exam: +S1, +S2 - GI/Abdominal Exam GI & Abdominal Exam: Guarding, Tenderness Additional comments: colosotomy bag in place surgical site clean/dry/intact - Extremities Exam Extremities Exam: Full ROM, Normal Inspection - Neurological Exam Neurological Exam: Alert, Awake, Oriented x3 - Psychiatric Exam Psychiatric exam: Normal Affect, Normal Mood - Skin Skin Exam: Dry, Intact, Normal Color, Warm Assessment and Plan - Assessment and Plan (Free Text) Assessment: This is an 82 yo female, originally from [facility], with past medical hx of CAD, PUD, a fib, dilated cardiomyopathy, diverticulitis, presenting with perforated diverticulitis, free, peritonitis, sepsis. 1. Perforated diverticulitis with peritonitis and sepsis -abdomen/pelvis CT shows perforated diverticulum with free air and focal pelvic collection, possibly abscess, ileus. -pt is currently afebrile, hemodynamically stable -mild leukocytosis on labwork today -pt is s/p Mckeon procedure -continue meropenem 1 g IV q 12 hrs covering gram negative and anaerobes -continue vancomycin 1 g daily to cover enterococcus because of perforation -body fluid culture and wound culture pending -continue to monitor for clinical improvement discussed with Dr. Martin. <Joe Martin - Last Filed: 07/13/17 14:46> Objective - Vital Signs/Intake and Output Vital Signs (last 24 hours): Temp Pulse Resp BP Pulse Ox 98.4 F 135 H 19 111/45 L 98 07/13/17 04:00 07/13/17 08:18 07/13/17 06:00 07/13/17 08:18 07/13/17 06:00 Intake and Output: 07/13/17 07/13/17 06:59 18:59 Intake Total 1300 Output Total 695 Balance 605 - Medications Medications: Current Medications Diltiazem HCl (Cardizem) 60 mg PO Q8H LEXIE Fentanyl (Fentanyl) 25 mcg IV Q5M PRN PRN Reason: Pain, moderate (4-7) Hydromorphone HCl (Dilaudid) 0.25 mg IVP Q4H PRN PRN Reason: Pain, severe (8-10) Last Admin: 07/13/17 11:32 Dose: 0.25 mg Vancomycin HCl (Vancomycin 1gm) 1 gm in 250 mls @ 167 mls/hr IVPB DAILY LEXIE PRN Reason: Protocol Last Admin: 07/12/17 12:40 Dose: 250 mls Meropenem (Merrem Iv 1 Gm Premix) 50 mls @ 100 mls/hr IVPB Q12 LEXIE PRN Reason: Protocol Last Admin: 07/13/17 11:28 Dose: 100 mls/hr diltiaZEM IVPB 100mg in NS (Cardizem 100mg In Ns) 100 mls @ 5 mls/hr IV .Q20H PRN; Protocol; 5 MG/HR PRN Reason: TITRATE PER MD ORDER Last Admin: 07/13/17 08:22 Dose: 5 mg/hr, 5 mls/hr Sodium Chloride (Sodium Chloride 0.9%) 1,000 mls @ 75 mls/hr IV .[id number] STA Stop: 07/14/17 00:15 Last Admin: 07/13/17 11:20 Dose: 75 mls/hr Ondansetron HCl (Zofran Inj) 4 mg IVP Q4 PRN PRN Reason: Nausea/Vomiting Pantoprazole Sodium (Protonix Inj) 40 mg IVP DAILY [facility] Last Admin: 07/13/17 11:28 Dose: 40 mg Throat Lozenges (Cepastat) 1 wai MT PRN PRN PRN Reason: Sore Throat - Labs Labs: 07/13/17 08:15 07/13/17 08:15 PT 12.7 SECONDS (9.4-12.5) H 07/13/17 08:15 INR 1.10 (0.93-1.08) H 07/13/17 08:15 APTT 30.0 Seconds (25.1-36.5) 07/12/17 06:30 Assessment and Plan - Assessment and Plan (Free Text) Assessment: Infectious Diseases Attending Physician Attestation Patient seen and examined, discussed with certified medical transcriptionist. I agree with the above findings, assessment and plan. Will continue IV Vancomycin and Merrem for severe sepsis with perforated sigmoid diverticulitis S/P ex-lap, sigmoid and small intestine resection and colostomy.
--- NOTE | 2017-07-13 12:56 | CP.PCM.PN ---
Subjective - Date & Time of Evaluation Date of Evaluation: 07/13/17 Time of Evaluation: 09:00 - Subjective Subjective: Surgery: Dr. Hernandez Pt seen and examined. No acute overnight events. Pt states she feels ok and states pain is well controlled. She admits to discomfort due to the NGT, but otherwise denies complaints. Denies N/V, F/C. Objective - Vital Signs/Intake and Output Vital Signs (last 24 hours): Temp Pulse Resp BP Pulse Ox 98.4 F 135 H 19 111/45 L 98 07/13/17 04:00 07/13/17 08:18 07/13/17 06:00 07/13/17 08:18 07/13/17 06:00 Intake and Output: 07/13/17 07/13/17 06:59 18:59 Intake Total 1300 Output Total 695 Balance 605 - Medications Medications: Current Medications Fentanyl (Fentanyl) 25 mcg IV Q5M PRN PRN Reason: Pain, moderate (4-7) Hydromorphone HCl (Dilaudid) 0.25 mg IVP Q4H PRN PRN Reason: Pain, severe (8-10) Last Admin: 07/13/17 11:32 Dose: 0.25 mg Vancomycin HCl (Vancomycin 1gm) 1 gm in 250 mls @ 167 mls/hr IVPB DAILY LEXIE PRN Reason: Protocol Last Admin: 07/12/17 12:40 Dose: 250 mls Meropenem (Merrem Iv 1 Gm Premix) 50 mls @ 100 mls/hr IVPB Q12 LEXIE PRN Reason: Protocol Last Admin: 07/13/17 11:28 Dose: 100 mls/hr diltiaZEM IVPB 100mg in NS (Cardizem 100mg In Ns) 100 mls @ 5 mls/hr IV .Q20H PRN; Protocol; 5 MG/HR PRN Reason: TITRATE PER MD ORDER Last Admin: 07/13/17 08:22 Dose: 5 mg/hr, 5 mls/hr Sodium Chloride (Sodium Chloride 0.9%) 1,000 mls @ 75 mls/hr IV .[id number] STA Stop: 07/14/17 00:15 Last Admin: 07/13/17 11:20 Dose: 75 mls/hr Ondansetron HCl (Zofran Inj) 4 mg IVP Q4 PRN PRN Reason: Nausea/Vomiting Pantoprazole Sodium (Protonix Inj) 40 mg IVP DAILY LEXIE Last Admin: 07/13/17 11:28 Dose: 40 mg Throat Lozenges (Cepastat) 1 wai MT PRN PRN PRN Reason: Sore Throat - Labs Labs: 07/13/17 08:15 07/13/17 08:15 PT 12.7 SECONDS (9.4-12.5) H 07/13/17 08:15 INR 1.10 (0.93-1.08) H 07/13/17 08:15 APTT 30.0 Seconds (25.1-36.5) 07/12/17 06:30 - Constitutional Appears: Well, No Acute Distress - Head Exam Head Exam: ATRAUMATIC, NORMOCEPHALIC - ENT Exam ENT Exam: Mucous Membranes Dry - Respiratory Exam Respiratory Exam: NORMAL BREATHING PATTERN - Cardiovascular Exam Cardiovascular Exam: Tachycardia, Irregular Rhythm - GI/Abdominal Exam GI & Abdominal Exam: Soft, Tenderness (around midline incision). absent: Distended, Guarding Additional comments: Yan drains in place with serous fluid, midline dressing in place - Extremities Exam Extremities Exam: absent: Tenderness - Neurological Exam Neurological Exam: Alert, Awake, Oriented x3 - Skin Skin Exam: Dry, Warm Assessment and Plan - Assessment and Plan (Free Text) Assessment: 82F s/p Ex-Lap with Mckeon's SB resection & On-Q placement for perforated diverticulitis, POD#1 Plan: - Monitor NGT, yan and Saba outputs - Gentle hydration via IVF for ongoing losses - Pain management - Out of bed to chair - d/w Dr. David Sprague, PGY-3 Surgery
--- NOTE | 2017-07-13 14:14 | OP ---
PROCEDURE DATE: 07/12/2017 LINE CAMERA OPERATOR: Swapna Decker DO, PGY-2 SECOND LINE CAMERA OPERATOR: Mague Martinez DO, PGY-2 THIRD LINE CAMERA OPERATOR: Naun Pendleton DO, PGY-1 ANESTHESIA ADMINISTERED BY: . PREOPERATIVE DIAGNOSES: 1. Peritonitis secondary to perforated sigmoid diverticulitis. 2. Severe cardiomyopathy. 3. Atrial fibrillation. 4. Pacemaker defibrillator. 5. Anticoagulation. POSTOPERATIVE DIAGNOSES: 1. Peritonitis secondary to perforated sigmoid diverticulitis. 2. Severe cardiomyopathy. 3. Atrial fibrillation. 4. Pacemaker defibrillator. 5. Anticoagulation. 6. Small bowel obstruction secondary to perforation and abscess. PROCEDURES: 07/12/2017; 1. Emergency laparotomy. 2. Yessenia colectomy (sigmoid) with end colostomy. 3. Small bowel resection with anastomosis. 4. Omentectomy. 5. ON-Q placement - catheters. OPERATIVE INDICATIONS: The patient is an 82-year-old [place] female who enters the ER on 07/11/2017 with a 3-day history of worsening abdominal pain and board rigid abdomen with diffuse peritoneal findings. She is found to have on x-ray examination free air in the abdomen, undergoes CAT scanning with oral contrast and is found to have a perforated sigmoid colon secondary to extremely severe and diffuse diverticulitis. Her past history includes a previous peptic ulcer bleed 3 years earlier that was controlled with endoscopy clipping and did not require transfusion at that time. She is a severe cardiac with ejection fraction of less than 25% and the presence of atrial fibrillation with a rapid rate of 138 and blood pressure of 80. She has pro time that is markedly elevated due to Coumadin with INR of 3.6 and a PTT of 45. She is markedly dehydrated, able with small fluid challenge of 1 liter to buildup her pressure and her pulses dropped to 110 with a Cardizem bolus. The surgeon was consulted at midnight and after assessing the patient and initiating resuscitative measures, I discussed with the patient and with her family using the chief resident of medicine (Dr. Aubrey Celestin) to help with the translation into [place]. The plan was initiated at 1:00 a.m. where the patient would be fluid replaced, antibiotics initiated and she will be admitted to the ICU, monitored and prepared for extremely urgent and high risk surgery. Risks, benefits, the alternatives and their anticipated outcomes were discussed with the family and their choice was to undergo an exploratory with the hope that the patient could be corrected at that time. OPERATIVE NOTE: The patient is brought to the operating room after fully correcting the hydration, electrolytes and antibiotic loading with normal blood pressure and elevated pulse of 125. She undergoes time-out procedure. She is placed on the table in a supine manner and undergoes the induction of general anesthesia and the insertion of an endotracheal tube after placement of an arterial line in her right wrist. The abdomen is now prepped with Hibiclens chlorhexidine preparation and the patient was aseptically draped. Midline incision was made above and below the umbilicus and sharp dissection carried down through to the subcutaneous tissues below through the midline raphe into the peritoneal cavity. Hemostasis is contained throughout with electrocoagulating cautery. Midline adhesions were bluntly retracted and sharply lysed with cautery coagulating current and the incision extended to the full length of the skin and the fluid in the peritoneal cavity was cultured aerobically and anaerobically at this point. A mass filling the entire left side of the abdomen and extending down into the pelvis is encountered and the omentum is covering the same requiring careful lysis of adhesions and electrocoagulation when needed. The mass is the inflammatory reaction secondary to the perforation of the sigmoid colon, which is identified and visualized at approximately 4 mm opening. There is a large adherent portion of small bowel that is attached to the abscess cavity and the mesentery wall of the small bowel having a chronic inflammatory reaction on the same and a portion of the small bowel has a stenotic ring as well indicating chronic scarring and partial bowel obstruction. The patient's condition is stable at this point and it is elected to elevate the sigmoid colon up into the incision, transected the distal sigmoid colon with the FAYE stapler and isolated the descending colon above the mass with its extensive inflammation with another AFYE stapler. The intervening segment of mesentery of the colon is transected utilizing the LigaSure device and the abscess cavity is cultured and submitted to pathology for culture and sensitivity and the specimen of sigmoid colon placed in formalin. Hemostasis is now confirmed and contained with electrocoagulation when needed and the distal sigmoid colon is marked with a 2 cm black suture for future identification of reanastomosis. The plan will be to use the descending colon as an end-colostomy. The omentum is markedly necrotic and inflamed and is transected along the entire transverse colon using the LigaSure device. This extensive dissection is also submitted to pathology in the same container as the colon. The abdomen is now explored and additional pockets of peritoneal inflamed fluid are aspirated. The small bowel is examined several times and is found to be virtually impossible to remove the necrotic inflammatory infected mesenteric process and there is the small stenotic segment of small bowel that will probably create some difficulty in the future with a bowel obstruction. At this point, it was elected to transect the small bowel using the FAYE staplers proximally and distally and removed the mesentery with the LigaSure device. The small bowel was now submitted to pathology in formalin as well. The two ends of the small bowel was secured with 3-0 silk seromuscular sutures, anastomosed with a FAYE stapler and the defect created by the two portions of the stapler closed with Allis clamps and a TA63 - 3.5 stapler. The mesenteric defect was closed with running 2-0 chromic catgut suture to prevent small bowel herniation in the future. At this point, the entire abdomen is lavaged with multi liters of Clorpactin containing solution and aspirated until return is noted to be clear. Two Yan drains were placed on either side of the abdomen, placed in the gutters running from the diaphragm down to the pelvis. These were secured with 2-0 Surgidac polyester suture. An end-colostomy was performed by opening the abdominal wall on the left side of the abdomen lateral to the incision and it is secured to the peritoneum with 3-0 Polysorb suture and left to be matured when the abdominal incision is completely closed. Utilizing the ON-Q technique, two catheters were placed alongside the incision at the preperitoneal location and secured to the skin with Dermabond adhesive and flushed with bupivacaine anesthetic. The abdomen is now closed with double stranded #1 PDS sutures in a continuous manner and the subcutaneous space lavaged with Clorpactin containing solution and closed with the AutoSuture skin stapler. The colostomy is now matured by transecting the FAYE stapler line and sewing the end of the colostomy to the subcuticular portion of the ostomy skin location. Hemostasis is confirmed. The color of the stoma is reddish pink and is reaching to the level of the skin, but not bulging above. A stoma device is placed over same and dry dressing is applied to the midline incision. The ON-Q pump is now attached to the catheters and the patient is found stable enough to be awakened and extubated. Oxygenation levels were well over 90%, blood pressure was 110/80 and the pulse was 105. The patient was responding and communicating at the end of the procedure. Sponge, instrument and suture count were verified as correct at this time. Estimated blood loss during this procedure was between 150 and 200 mL of blood. The surgical assistants were extremely valued during this entire procedure from beginning to end in assisting in the dissection and the surgical resection and completion of the procedure in a timely manner. This particular patient's extreme high risk, benefit are tremendously from their presence and with the time safe with the LigaSure device and the surgical assistants, the operative procedure was successful and the patient was awakened at the end of the procedure. This dictation will be electronically signed without being read. Kris Hernandez MD
--- NOTE | 2017-07-13 17:16 | PN ---
DATE: 07/13/2017 CARDIOLOGY FOLLOWUP SUBJECTIVE: The patient is status post abdominal surgery for perforated viscus. The patient is with an NG tube without distress. OBJECTIVE: VITAL SIGNS: Blood pressure 110/45 with a heart rate of 135, atrial fibrillation. NECK: Negative JVD. LUNGS: Without rales. HEART: S1, S2. EXTREMITIES: Without edema. LABORATORY: Potassium is 4.3, hemoglobin is 10.5. IMPRESSION: 1. Status post abdominal surgery. 2. Status post perforation of a diverticula. 3. Anemia. 4. Atrial fibrillation with increased ventricular rate. Given these findings, we will start the patient on IV Cardizem until the patient start taking via the NG tube. Arpit Mccurdy MD
[2017-07-14] MEDS ORDERED: Digoxin 500 mcg/2ml (0.5 mg/2ml) Inj IVP ONE (03:28)
[2017-07-14] MEDS: HYDROmorphone 0.5 mg/0.5 ml ISec IVP PRN ×2 (03:41→08:39)
[2017-07-14 07:49] LABS: BASO # 0.01 K/mm3 (0.0-2.0); BASO % 0.1 % (0.0-3.0); GRAN # 11.03 (1.4-6.5); GRAN % 80.8 % (50.0-68.0); HEMOGLOBIN 10.9 g/dL (12.0-16.0); LYMPH # 1.4 (1.2-3.4); LYMPH % 10.5 % (22.0-35.0); MEAN CELL VOLUME 89.4 fl (80.0-105.0); MEAN CORPUSCULAR HEMOGLOBIN 28.1 pg (25.0-35.0); MEAN CORPUSCULAR HGB CONC 31.4 g/dl (31.0-37.0); MEAN PLATELET VOLUME 10.1 fl (7.0-11.0); MONO # 1.2 (0.1-0.6); MONO % 8.6 % (1.0-6.0); RBC 3.88 10^6/uL (3.5-6.1); RED CELL DISTRIBUTION WIDTH 15.4 % (11.5-14.5); WHITE BLOOD COUNT 13.6 10^3/ul (4.5-11.0)
[2017-07-14 08:07] LABS: ALB/GLOB RATIO 0.9 (1.1-1.8); ALBUMIN 2.7 g/dL (3.0-4.8); CALCIUM 10.2 mg/dL (8.4-10.5)
--- NOTE | 2017-07-14 08:45 | PN ---
DATE: 07/14/2017 SUBJECTIVE: The patient states she is comfortable. Her pain is controlled. She has no headaches, dizziness, or chest pain. PHYSICAL EXAMINATION: VITAL SIGNS: Temperature is 99, pulse 115, blood pressure 114/38, respirations 13. GENERAL: The patient is lying in bed, flat, comfortable. HEENT: No oral lesion. Anicteric sclerae. Moist mucosa. NECK: No JVD, adenopathy, or thyromegaly. CARDIOVASCULAR: S1 and S2, regular. No murmurs, rubs, or gallops. LUNGS: Clear to auscultation bilaterally. No wheeze, rales, or rhonchi. ABDOMEN: Bowel sounds are positive, soft, nontender and nondistended. EXTREMITIES: no cyanosis, clubbing or edema. LABORATORIES: Creatinine is 1.1. ASSESSMENT: 1. Perforated sigmoid diverticulitis with abscess. 2. Hypertension. 3. Atrial fibrillation. 4. Hypothyroidism. 5. Ischemic cardiomyopathy. 6. Dyslipidemia. 7. Acute kidney injury. 8. Defibrillator. 9. Diverticulosis. 10. Status post sigmoid colectomy with colostomy secondary to perforated diverticulitis. 11. Urinary tract infection secondary to Escherichia coli. PLAN: The patient is feeling comfortable. She is on Cardizem for atrial fibrillation. She is receiving Dilaudid for pain. She is on meropenem for antibiotics. She is on incentive spirometry. She remains n.p.o. I did review the notes from the consultants. I appreciated their input. The patient remains in the ICU critically ill. She had a Yessenia's procedure done. Rohan Rodriguez MD
--- NOTE | 2017-07-14 08:56 | PN ---
DATE: 07/13/2017 SUBJECTIVE: The patient has no complaints of any chest pain or shortness of breath. She states that her abdomen is comfortable. Pain is improved. PHYSICAL EXAMINATION: VITAL SIGNS: Temperature is 98.4, pulse of 90, blood pressure 121/61, respirations 19. GENERAL: The patient is lying in bed, flat, comfortable. HEENT: No oral lesion. Anicteric sclerae. Moist mucosa. NECK: No JVD, adenopathy, or thyromegaly. CARDIOVASCULAR: S1 and S2, regular. No murmurs, rubs, or gallops. LUNGS: Clear to auscultation bilaterally. No wheeze, rales, or rhonchi. ABDOMEN: Bowel sounds are positive, soft, nontender and nondistended. EXTREMITIES: No cyanosis, clubbing or edema. LABORATORY DATA: White count 11.3, hemoglobin 10.5, bicarb 19. ASSESSMENT: 1. Perforated sigmoid diverticulitis, status post Yessenia's procedure, postoperative day #1. 2. Hypertension. 3. Atrial fibrillation, Coumadin on hold. 4. Hypothyroidism. 5. Ischemic cardiomyopathy. 6. Dyslipidemia. 7. Tachycardia. 8. Acute kidney injury. 9. Defibrillator. 10. Diverticulosis. 11. Urinary tract infection secondary to Escherichia coli. PLAN: The patient is currently comfortable. She had acute kidney injury that has improved with a creatine of 1.1. Labs have been reviewed. The patient has urine culture that shows E. coli. The patient is on Dilaudid for pain. The patient is on Cardizem for atrial fibrillation. The patient is on meropenem for antibiotics. She is on Zofran as needed. She is currently n.p.o. She is going to have repeat blood work done tomorrow. Rohan Rodriguez MD
--- NOTE | 2017-07-14 09:18 | CP.PCM.PN ---
Subjective - Date & Time of Evaluation Date of Evaluation: 07/14/17 Time of Evaluation: 09:14 - Subjective Subjective: Surgery: Dr. Hernandez Pt seen and examined. No acute overnight events. States abdominal pain is well controlled with the pain meds. Also complaining of some L shoulder pain. Pt was out of bed to chair yesterday. Denies N/V, F/C. Objective - Vital Signs/Intake and Output Vital Signs (last 24 hours): Temp Pulse Resp BP Pulse Ox 99.0 F 115 H 13 114/38 L 92 L 07/13/17 12:00 07/14/17 05:45 07/14/17 05:40 07/14/17 05:17 07/14/17 05:40 Intake and Output: 07/14/17 07/14/17 06:59 18:59 Intake Total 1100 Output Total 490 Balance 610 - Medications Medications: Current Medications Digoxin (Lanoxin) 0.25 mg IVP Q1H LEXIE Stop: 07/14/17 11:04 Diltiazem HCl (Cardizem) 60 mg PO Q8H LEXIE Last Admin: 07/14/17 05:17 Dose: 60 mg Fentanyl (Fentanyl) 25 mcg IV Q5M PRN PRN Reason: Pain, moderate (4-7) Hydromorphone HCl (Dilaudid) 0.25 mg IVP Q4H PRN PRN Reason: Pain, severe (8-10) Last Admin: 07/14/17 08:39 Dose: 0.25 mg Vancomycin HCl (Vancomycin 1gm) 1 gm in 250 mls @ 167 mls/hr IVPB DAILY LEXIE PRN Reason: Protocol Last Admin: 07/12/17 12:40 Dose: 250 mls Meropenem (Merrem Iv 1 Gm Premix) 50 mls @ 100 mls/hr IVPB Q12 LEXIE PRN Reason: Protocol Last Admin: 07/13/17 21:55 Dose: 100 mls/hr diltiaZEM IVPB 100mg in NS (Cardizem 100mg In Ns) 100 mls @ 5 mls/hr IV .Q20H PRN; Protocol; 5 MG/HR PRN Reason: TITRATE PER MD ORDER Last Admin: 07/13/17 08:22 Dose: 5 mg/hr, 5 mls/hr Ondansetron HCl (Zofran Inj) 4 mg IVP Q4 PRN PRN Reason: Nausea/Vomiting Pantoprazole Sodium (Protonix Ec Tab) 20 mg PO 0600,1600 LEXIE Throat Lozenges (Cepastat) 1 wai MT PRN PRN PRN Reason: Sore Throat - Labs Labs: 07/14/17 07:30 07/14/17 07:30 PT 12.7 SECONDS (9.4-12.5) H 07/13/17 08:15 INR 1.10 (0.93-1.08) H 07/13/17 08:15 APTT 30.0 Seconds (25.1-36.5) 07/12/17 06:30 - Constitutional Appears: Well, No Acute Distress - Head Exam Head Exam: ATRAUMATIC, NORMOCEPHALIC - Eye Exam Eye Exam: Normal appearance - ENT Exam ENT Exam: Mucous Membranes Moist - Respiratory Exam Respiratory Exam: NORMAL BREATHING PATTERN - Cardiovascular Exam Cardiovascular Exam: Irregular Rhythm, RRR - GI/Abdominal Exam GI & Abdominal Exam: Soft, Tenderness (around midline incision, rashmi x [address] with serous fluid, On-Q catheters in place ) - Neurological Exam Neurological Exam: Alert, Awake, Oriented x3 - Skin Skin Exam: Dry, Warm Assessment and Plan - Assessment and Plan (Free Text) Assessment: 82F s/p Ex-Lap with Mckeon's, SB resection and On-Q catheter placement for perforated diverticulitis; POD#2 Plan: - Pt making adequate urine; will discuss DC cuenca with Dr. Hernandez - Cont NGT monitoring - Cont IV ABX - Pt on Cardizem & Dig for Afib with RVR; further recs per cardio - Encourage ambulation with PT & incentive spirometer - d/w Dr. David Sprague, PGY-3 Surgery
--- NOTE | 2017-07-14 09:23 | CP.CCUPN ---
<Kameron Oconnell - Last Filed: 07/14/17 10:50> CCU Subjective - Physician Review Subjective (Free Text): Critical Care Progress Note Patient seen and examined at bedside this AM. Patient having atrial fibrillation with rapid ventricular response overnight. HR up to 140. Patient was given diltiazem and digoxin overnight and heart rate when down to 100. Patient is currently resting comfortably with yoseph-incisional abdominal pain that is well controlled with current regiment. NPO except ice chips. Ostomy pink and patent w/ no output at this time. Denies fevers, chills, nausea, vomiting, diarrhea, chest pain, heart palpitations CCU Objective - Vital Signs / Intake & Output Vital Signs (Last 4 hours): Vital Signs Pulse Resp Pulse Ox 07/14/17 05:45 115 H 07/14/17 05:40 115 H 13 92 L 07/14/17 05:30 110 H 15 93 L Intake and Output (Last 8hrs): Intake & Output 07/13/17 07/14/17 07/14/17 22:59 06:59 14:59 Intake Total 1070 1100 Output Total 645 490 Balance 425 610 Weight 122 lb Intake: IV 950 1100 Left Wrist 200 Right Wrist 950 900 Oral 120 0 Output: Gastric Amount 100 100 Nares 100 100 Drainage 20 90 Left Abdomen 20 40 Right Abdomen 50 Urine 525 300 Urethral (Saba) 525 300 - Physical Exam Head: Positive for: Atraumatic Pupils: Positive for: PERRL Extroacular Muscles: Positive for: EOMI Nose (External): Positive for: Other (NGT in place) Respiratory/Chest: Positive for: Clear to Auscultation. Negative for: Respiratory Distress, Accessory Muscle Use Cardiovascular: Positive for: Normal S1, S2, Irregular Rhythm (Irregularly regular with a rate of 120 ), Tachycardic. Negative for: Regular Rate and Rhythm Abdomen: Positive for: Tenderness (diffusely), Other (ostomy pink, patent w/ no output at this time; yan x2 w/ serosang fluid) Skin: Negative for: Normal Color (yellow skin) - Medications Active Medications: Active Medications Generic Name Dose Route Start Last Admin Trade Name Freq PRN Reason Stop Dose Admin Digoxin 0.25 mg 07/14/17 09:03 Lanoxin IVP 07/14/17 11:04 Q1H LEXIE Diltiazem HCl 60 mg 07/13/17 14:15 07/14/17 05:17 Cardizem PO 60 mg Q8H LEXIE Administration Fentanyl 25 mcg 07/12/17 14:52 Fentanyl IV Q5M PRN Pain, moderate (4-7) Hydromorphone HCl 0.25 mg 07/12/17 15:06 07/14/17 08:39 Dilaudid IVP 0.25 mg Q4H PRN Administration Pain, severe (8-10) Vancomycin HCl 1 gm in 250 mls @ 167 mls/hr 07/12/17 10:00 07/12/17 12:40 Vancomycin 1gm IVPB 250 mls DAILY LEXIE Administration Protocol Meropenem 50 mls @ 100 mls/hr 07/12/17 08:30 07/13/17 21:55 Merrem Iv 1 Gm Premix IVPB 100 mls/hr Q12 LEXIE Administration Protocol diltiaZEM IVPB 100mg in NS 100 mls @ 5 mls/hr 07/13/17 08:07 07/13/17 08:22 Cardizem 100mg In Ns IV 5 mg/hr .Q20H PRN 5 mls/hr TITRATE PER MD ORDER Administration Protocol 5 MG/HR Ondansetron HCl 4 mg 07/12/17 01:54 Zofran Inj IVP Q4 PRN Nausea/Vomiting Pantoprazole Sodium 20 mg 07/14/17 16:00 Protonix Ec Tab PO 0600,1600 [facility] Throat Lozenges 1 wai 07/13/17 10:57 Cepastat MT PRN PRN Sore Throat - Patient Studies Lab Studies: Microbiology Studies 07/12/17 02:25 MRSA Culture (Admit) - Final Nose MRSA NOT DETECTED 07/12/17 15:31 Body Fluid Culture - Preliminary Abdominal Fluid NO GROWTH AFTER 24 HOURS Lab Studies 07/14/17 07/14/17 Range/Units 07:30 07:30 WBC 13.6 H D (4.5-11.0) 10^3/ul RBC 3.88 (3.5-6.1) 10^6/uL Hgb 10.9 L (12.0-16.0) g/dL Hct 34.7 L (36.0-48.0) % MCV 89.4 (80.0-105.0) fl MCH 28.1 (25.0-35.0) pg MCHC 31.4 (31.0-37.0) g/dl RDW 15.4 H (11.5-14.5) % Plt Count 140 (120.0-450.0) 10^3/uL MPV 10.1 (7.0-11.0) fl Gran % 80.8 H (50.0-68.0) % Lymph % (Auto) 10.5 L (22.0-35.0) % Travis % (Auto) 8.6 H (1.0-6.0) % Eos % (Auto) 0.0 L (1.5-5.0) % Baso % (Auto) 0.1 (0.0-3.0) % Gran # 11.03 H (1.4-6.5) Lymph # 1.4 (1.2-3.4) Travis # 1.2 H (0.1-0.6) Eos # 0.0 (0.0-0.7) Baso # 0.01 (0.0-2.0) K/mm3 Sodium 147 (132-148) mmol/L Potassium 4.1 (3.6-5.0) mmol/L Chloride 116 H (98-107) mmol/L Carbon Dioxide 19 L (21-33) mmol/L Anion Gap 16 (10-20) BUN 26 H (7-21) mg/dL Creatinine 1.1 (0.7-1.2) mg/dl Est GFR ( Amer) 57 Est GFR (Non-Af Amer) 47 Random Glucose 108 (70-110) mg/dL Calcium 10.2 (8.4-10.5) mg/dL Total Bilirubin 0.6 (0.2-1.3) mg/dL AST 25 (14-36) U/L ALT 33 (7-56) U/L Alkaline Phosphatase 58 (38-126) U/L Total Protein 5.6 L (5.8-8.3) g/dL Albumin 2.7 L (3.0-4.8) g/dL Globulin 2.9 gm/dL Albumin/Globulin Ratio 0.9 L (1.1-1.8) Laboratory Results - last 24 hr 07/14/17 07/14/17 07:30 07:30 WBC 13.6 H D RBC 3.88 Hgb 10.9 L Hct 34.7 L MCV 89.4 MCH 28.1 MCHC 31.4 RDW 15.4 H Plt Count 140 MPV 10.1 Gran % 80.8 H Lymph % (Auto) 10.5 L Travis % (Auto) 8.6 H Eos % (Auto) 0.0 L Baso % (Auto) 0.1 Gran # 11.03 H Lymph # 1.4 Travis # 1.2 H Eos # 0.0 Baso # 0.01 Sodium 147 Potassium 4.1 Chloride 116 H Carbon Dioxide 19 L Anion Gap 16 BUN 26 H Creatinine 1.1 Est GFR ( Amer) 57 Est GFR (Non-Af Amer) 47 Random Glucose 108 Calcium 10.2 Total Bilirubin 0.6 AST 25 ALT 33 Alkaline Phosphatase 58 Total Protein 5.6 L Albumin 2.7 L Globulin 2.9 Albumin/Globulin Ratio 0.9 L Critical Care Progress Note - Nutrition Nutrition: Nutrition Category Date Time Status NPO Diet [DIET] Diets 07/12/17 Breakfast Ordered Assessment/Plan - Assessment and Plan (Free Text) Assessment: 82F s/p Ex-Lap with Mckeon's, SB resection and On-Q catheter placement for perforated diverticulitis; POD#2 w/ A-FIB w/ rapid ventricular response on diltiazem. + UTI Plan: Neuro: Patient is awake, alert, responds to verbal stimuli, answers questions appropirately, follows commands, and moves extremities Pain control PRN Cardio: continue to monitor vitals Scheduled Diltiazem digoxin 0.25 q1h for 3 doses rate control c/s Dr. Mccurdy all recs appreciated Pulm: Pulmonary toilet IS use Chest PT OOB to chair duonebs PRN keep SaO2 above 92% GI: NPO except for meds NGT continuous suction Monitor Drain Yan drain output x2 monitor bowel function return Renal/Electrolytes: cr and BUN trend, will continue to monitor closely Saba in place w/ good urine output replete electrolytes PRN Endo keep pt euglycemic Heme: trend Hg, will continue to monitor DVT ppx OOB into chair ID: c/w antibiotics Vanc and Merrem c/s Infectious disease Dr. Martin recs appreciated Patient stable for transfer to telemetry floor. case discussed w/ Dr. Flora Oconnell PGY1 <Ruperto Hines - Last Filed: 07/14/17 17:03> CCU Objective - Vital Signs / Intake & Output Vital Signs (Last 4 hours): Vital Signs Pulse BP 07/14/17 13:19 98 H 146/66 Intake and Output (Last 8hrs): Intake & Output 07/14/17 07/14/17 07/14/17 06:59 14:59 22:59 Intake Total 1100 Output Total 490 Balance 610 Weight 122 lb Intake: IV 1100 Left Wrist 200 Right Wrist 900 Oral 0 Output: Gastric Amount 100 Nares 100 Drainage 90 Left Abdomen 40 Right Abdomen 50 Urine 300 Urethral (Saba) 300 - Medications Active Medications: Active Medications Generic Name Dose Route Start Last Admin Trade Name Freq PRN Reason Stop Dose Admin Digoxin 0.125 mg 07/14/17 14:00 07/14/17 13:05 Lanoxin PO 0.125 mg 1400 LEXIE Administration Diltiazem HCl 60 mg 07/13/17 14:15 07/14/17 13:19 Cardizem PO 60 mg Q8H LEXIE Administration Fentanyl 25 mcg 07/12/17 14:52 Fentanyl IV Q5M PRN Pain, moderate (4-7) Heparin Sodium (Porcine) 5,000 units 07/14/17 22:00 Heparin SC Q12 LEXIE Protocol Hydromorphone HCl 0.25 mg 07/12/17 15:06 07/14/17 08:39 Dilaudid IVP 0.25 mg Q4H PRN Administration Pain, severe (8-10) Vancomycin HCl 1 gm in 250 mls @ 167 mls/hr 07/12/17 10:00 07/14/17 09:36 Vancomycin 1gm IVPB 167 mls/hr DAILY LEXIE Administration Protocol Meropenem 50 mls @ 100 mls/hr 07/12/17 08:30 07/14/17 09:35 Merrem Iv 1 Gm Premix IVPB 100 mls/hr Q12 LEXIE Administration Protocol diltiaZEM IVPB 100mg in NS 100 mls @ 5 mls/hr 07/13/17 08:07 07/13/17 08:22 Cardizem 100mg In Ns IV 5 mg/hr .Q20H PRN 5 mls/hr TITRATE PER MD ORDER Administration Protocol 5 MG/HR Ondansetron HCl 4 mg 07/12/17 01:54 Zofran Inj IVP Q4 PRN Nausea/Vomiting Pantoprazole Sodium 20 mg 07/14/17 16:00 Protonix Ec Tab PO 0600,1600 LEXIE Throat Lozenges 1 wai 07/13/17 10:57 Cepastat MT PRN PRN Sore Throat - Patient Studies Lab Studies: Microbiology Studies 07/12/17 15:31 Body Fluid Culture - Preliminary Abdominal Fluid NO GROWTH AFTER 2 DAYS 07/12/17 15:31 Gram Stain - Final Abdomen Wound Culture - Preliminary Gram Negative Apollo Gram Positive Cocci 07/12/17 02:25 MRSA Culture (Admit) - Final Nose MRSA NOT DETECTED Lab Studies 07/14/17 07/14/17 07/14/17 Range/Units 16:27 07:30 07:30 WBC 13.6 H D (4.5-11.0) 10^3/ul RBC 3.88 (3.5-6.1) 10^6/uL Hgb 10.9 L (12.0-16.0) g/dL Hct 34.7 L (36.0-48.0) % MCV 89.4 (80.0-105.0) fl MCH 28.1 (25.0-35.0) pg MCHC 31.4 (31.0-37.0) g/dl RDW 15.4 H (11.5-14.5) % Plt Count 140 (120.0-450.0) 10^3/uL MPV 10.1 (7.0-11.0) fl Gran % 80.8 H (50.0-68.0) % Lymph % (Auto) 10.5 L (22.0-35.0) % Travis % (Auto) 8.6 H (1.0-6.0) % Eos % (Auto) 0.0 L (1.5-5.0) % Baso % (Auto) 0.1 (0.0-3.0) % Gran # 11.03 H (1.4-6.5) Lymph # 1.4 (1.2-3.4) Travis # 1.2 H (0.1-0.6) Eos # 0.0 (0.0-0.7) Baso # 0.01 (0.0-2.0) K/mm3 Sodium 147 (132-148) mmol/L Potassium 4.1 (3.6-5.0) mmol/L Chloride 116 H (98-107) mmol/L Carbon Dioxide 19 L (21-33) mmol/L Anion Gap 16 (10-20) BUN 26 H (7-21) mg/dL Creatinine 1.1 (0.7-1.2) mg/dl Est GFR ( Amer) 57 Est GFR (Non-Af Amer) 47 POC Glucose (mg/dL) 107 (65-110) mg/dL Random Glucose 108 (70-110) mg/dL Calcium 10.2 (8.4-10.5) mg/dL Total Bilirubin 0.6 (0.2-1.3) mg/dL AST 25 (14-36) U/L ALT 33 (7-56) U/L Alkaline Phosphatase 58 (38-126) U/L Total Protein 5.6 L (5.8-8.3) g/dL Albumin 2.7 L (3.0-4.8) g/dL Globulin 2.9 gm/dL Albumin/Globulin Ratio 0.9 L (1.1-1.8) Laboratory Results - last 24 hr 07/14/17 07/14/17 07/14/17 07:30 07:30 16:27 WBC 13.6 H D RBC 3.88 Hgb 10.9 L Hct 34.7 L MCV 89.4 MCH 28.1 MCHC 31.4 RDW 15.4 H Plt Count 140 MPV 10.1 Gran % 80.8 H Lymph % (Auto) 10.5 L Travis % (Auto) 8.6 H Eos % (Auto) 0.0 L Baso % (Auto) 0.1 Gran # 11.03 H Lymph # 1.4 Travis # 1.2 H Eos # 0.0 Baso # 0.01 Sodium 147 Potassium 4.1 Chloride 116 H Carbon Dioxide 19 L Anion Gap 16 BUN 26 H Creatinine 1.1 Est GFR ( Amer) 57 Est GFR (Non-Af Amer) 47 POC Glucose (mg/dL) 107 Random Glucose 108 Calcium 10.2 Total Bilirubin 0.6 AST 25 ALT 33 Alkaline Phosphatase 58 Total Protein 5.6 L Albumin 2.7 L Globulin 2.9 Albumin/Globulin Ratio 0.9 L Critical Care Progress Note - Nutrition Nutrition: Nutrition Category Date Time Status NPO Diet [DIET] Diets 07/12/17 Breakfast Ordered Attending/Attestation - Attestation I have personally seen and examined this patient.: Yes I have fully participated in the care of the patient.: Yes I have reviewed all pertinent clinical information: Yes Notes (Text): 07/14/17 16:59 82 yo female with peritonitis due to viscus perforation, s/p subtotal colectomy and SBR with ileostomy. Recovered fairly well since then-->still afib with RVR-- >cleared by surgery for TAC with heparin. Meanwhile: OOB to chair, PT, IS, chest PT, NGT. Ok to downgrade to tele ccm time 40 min
[2017-07-14] MEDS: Digoxin 500 mcg/2ml (0.5 mg/2ml) Inj IVP SCH ×3 (09:25→11:27)
[2017-07-14] MEDS: Meropenem IV 1 gm in NS 50 ML IVPB SCH ×2 (09:35→21:35)
[2017-07-14] MEDS: Vancomycin 1gm in NS 250ml 1 GM/250 ML BAG IVPB SCH (09:36)
--- NOTE | 2017-07-14 10:27 | CP.PCM.PN ---
Subjective - Date & Time of Evaluation Date of Evaluation: 07/14/17 Time of Evaluation: 10:20 - Subjective Subjective: Patient is comfortable on the chair, no fevers overnight, less abdominal pain, no nausea or vomiting. Objective - Vital Signs/Intake and Output Vital Signs (last 24 hours): Temp Pulse Resp BP Pulse Ox 99.0 F 115 H 13 114/38 L 92 L 07/13/17 12:00 07/14/17 05:45 07/14/17 05:40 07/14/17 05:17 07/14/17 05:40 Intake and Output: 07/13/17 07/14/17 18:59 06:59 Intake Total 1070 1100 Output Total 645 490 Balance 425 610 - Medications Medications: Current Medications Diltiazem HCl (Cardizem) 60 mg PO Q8H [facility] Last Admin: 07/14/17 05:17 Dose: 60 mg Fentanyl (Fentanyl) 25 mcg IV Q5M PRN PRN Reason: Pain, moderate (4-7) Hydromorphone HCl (Dilaudid) 0.25 mg IVP Q4H PRN PRN Reason: Pain, severe (8-10) Last Admin: 07/14/17 03:41 Dose: 0.25 mg Vancomycin HCl (Vancomycin 1gm) 1 gm in 250 mls @ 167 mls/hr IVPB DAILY [facility] PRN Reason: Protocol Last Admin: 07/12/17 12:40 Dose: 250 mls Meropenem (Merrem Iv 1 Gm Premix) 50 mls @ 100 mls/hr IVPB Q12 LEXIE PRN Reason: Protocol Last Admin: 07/13/17 21:55 Dose: 100 mls/hr diltiaZEM IVPB 100mg in NS (Cardizem 100mg In Ns) 100 mls @ 5 mls/hr IV .Q20H PRN; Protocol; 5 MG/HR PRN Reason: TITRATE PER MD ORDER Last Admin: 07/13/17 08:22 Dose: 5 mg/hr, 5 mls/hr Ondansetron HCl (Zofran Inj) 4 mg IVP Q4 PRN PRN Reason: Nausea/Vomiting Pantoprazole Sodium (Protonix Inj) 40 mg IVP DAILY [facility] Last Admin: 07/13/17 11:28 Dose: 40 mg Throat Lozenges (Cepastat) 1 wai MT PRN PRN PRN Reason: Sore Throat - Labs Labs: 07/13/17 08:15 07/13/17 08:15 PT 12.7 SECONDS (9.4-12.5) H 07/13/17 08:15 INR 1.10 (0.93-1.08) H 07/13/17 08:15 APTT 30.0 Seconds (25.1-36.5) 07/12/17 06:30 - Constitutional Appears: Non-toxic, Chronically Ill - Head Exam Head Exam: NORMAL INSPECTION - ENT Exam ENT Exam: Mucous Membranes Moist - Neck Exam Neck Exam: absent: Meningismus - Respiratory Exam Respiratory Exam: Decreased Breath Sounds - Cardiovascular Exam Cardiovascular Exam: +S1, +S2 - GI/Abdominal Exam GI & Abdominal Exam: Soft. absent: Tenderness Additional comments: dressings in place, [address] with serosanguinous fluid; colostomy on the left side intact Assessment and Plan - Assessment and Plan (Free Text) Plan: Assessment Severe sepsis due to acute peritonitis from perforated sigmoid diverticulitis S/ P ex-lap, sigmodectomy and partial removal of adjacent small intestine and colostomy POD #2 CAD peptic ulcer disease atrial fibrillation dilated cardiomyopathy history of diverticulitis Plan Continue Vancomycin and Merrem (day 2 from surgery) and will continue to monitor clinically
--- NOTE | 2017-07-14 13:02 | PN ---
DATE: 07/14/2017 CARDIOLOGY FOLLOWUP NOTE SUBJECTIVE: The patient's heart rate was up to the 120s and atrial fibrillation, lying in bed, although she is in no distress. PHYSICAL EXAMINATION: VITAL SIGNS: Blood pressure is 125/63 with the heart rate after digoxin is now not in the 90s. NECK: Negative JVD. LUNGS: Without rales. HEART: Reveals S1 and S2. EXTREMITIES: Without edema. LABORATORY DATA: BUN and creatinine are 26 and 1.1. Chemistry: Hemoglobin is 10.9. IMPRESSION: 1. Status post abdominal surgery. 2. Atrial fibrillation with increased heart rate. 3. Anemia. 4. Status post perforated viscus. PLAN: Given these findings, three doses of digoxin was given today with better heart rate control. We will add digoxin 0.125 daily starting tomorrow. Arpit Mccurdy MD
[2017-07-14] MEDS: Digoxin 125 mcg (0.125 mg) Tab PO SCH (13:05)
[2017-07-14] MEDS ORDERED: Pantoprazole 20 mg EC Tab PO SCH (16:00)
--- NOTE | 2017-07-15 07:24 | PN ---
DATE: 07/15/2017 SUBJECTIVE: The patient has no complaints of any chest pain. No shortness of breath. No headache or dizziness. PHYSICAL EXAMINATION: VITAL SIGNS: Temperature is 98.2, pulse of 89, blood pressure 141/62, respirations 18. GENERAL: The patient is lying in bed, flat, comfortable. HEENT: No oral lesion. Anicteric sclerae. Moist mucosa. NECK: No JVD, adenopathy, or thyromegaly. CARDIOVASCULAR: S1 and S2, regular. No murmurs, rubs, or gallops. LUNGS: Clear to auscultation bilaterally. No wheeze, rales, or rhonchi. ABDOMEN: Bowel sounds are positive, soft, nontender and nondistended. There is a colostomy. EXTREMITIES: No cyanosis, clubbing or edema. ASSESSMENT: 1. Perforated sigmoid diverticulitis with abscess. 2. Colostomy placement. 3. Hypertension. 4. Atrial fibrillation. 5. Hypothyroidism. 6. Ischemic cardiomyopathy. 7. Acute kidney injury. 8. Defibrillator. 9. Diverticulosis. 10. Urinary tract infection secondary to Escherichia coli. 11. Status post sigmoid colectomy. PLAN: The patient continues to be in the ICU. The patient is on Cardizem p.o. She is on heparin for DVT prophylaxis. She is on meropenem for antibiotics. The patient is going to continue with Protonix daily. She is receiving Zofran. She is not on a full diet yet. Rohan Rodriguez MD
[2017-07-15 07:36] LABS: BASO # 0.01 K/mm3 (0.0-2.0); BASO % 0.1 % (0.0-3.0); EOS % 0.1 % (1.5-5.0); GRAN % 84.4 % (50.0-68.0); LYMPH # 0.9 (1.2-3.4); LYMPH % 8.3 % (22.0-35.0); MEAN CELL VOLUME 88.8 fl (80.0-105.0); MEAN CORPUSCULAR HEMOGLOBIN 27.9 pg (25.0-35.0); MEAN CORPUSCULAR HGB CONC 31.4 g/dl (31.0-37.0); MEAN PLATELET VOLUME 10.2 fl (7.0-11.0); MONO # 0.8 (0.1-0.6); MONO % 7.1 % (1.0-6.0); RBC 3.94 10^6/uL (3.5-6.1); RED CELL DISTRIBUTION WIDTH 14.8 % (11.5-14.5); WHITE BLOOD COUNT 10.7 10^3/ul (4.5-11.0)
[2017-07-15 07:50] LABS: ALB/GLOB RATIO 0.9 (1.1-1.8); ALBUMIN 2.7 g/dL (3.0-4.8); ALT/SGPT 25 U/L (7-56); AST/SGOT 26 U/L (14-36); BLOOD UREA NITROGEN 21 mg/dL (7-21); CALCIUM 10.9 mg/dL (8.4-10.5); GFR AFRICAN-AMERICAN > 60; GFR NON-AFRICAN AMERICAN 60
--- NOTE | 2017-07-15 07:50 | CP.PCM.PN ---
Subjective - Date & Time of Evaluation Date of Evaluation: 07/15/17 Time of Evaluation: 07:30 - Subjective Subjective: Surgery Progress note. Dr. Hernandez Pt seen and examined at bedside. No acute events overnight. Pain well tolerated. NGT in place, currently clamped after morning meds. Saba in place. Yan x2 in place with serrosang output. Ostomy with bowel sweat. No new complaints. Objective - Vital Signs/Intake and Output Vital Signs (last 24 hours): Temp Pulse Resp BP Pulse Ox 98.1 F 84 18 142/81 95 07/15/17 04:00 07/15/17 06:50 07/15/17 06:50 07/15/17 06:00 07/15/17 06:50 Intake and Output: 07/15/17 07/15/17 06:59 18:59 Intake Total 170 Output Total 880 Balance -710 - Medications Medications: Current Medications Digoxin (Lanoxin) 0.125 mg PO 1400 [facility] Last Admin: 07/14/17 13:05 Dose: 0.125 mg Diltiazem HCl (Cardizem) 60 mg PO Q8H [facility] Last Admin: 07/15/17 05:54 Dose: 60 mg Fentanyl (Fentanyl) 25 mcg IV Q5M PRN PRN Reason: Pain, moderate (4-7) Heparin Sodium (Porcine) (Heparin) 5,000 units SC Q12 LEXIE PRN Reason: Protocol Last Admin: 07/14/17 21:34 Dose: 5,000 units Hydromorphone HCl (Dilaudid) 0.25 mg IVP Q4H PRN PRN Reason: Pain, severe (8-10) Last Admin: 07/14/17 08:39 Dose: 0.25 mg Vancomycin HCl (Vancomycin 1gm) 1 gm in 250 mls @ 167 mls/hr IVPB DAILY [facility] PRN Reason: Protocol Last Admin: 07/14/17 09:36 Dose: 167 mls/hr Meropenem (Merrem Iv 1 Gm Premix) 50 mls @ 100 mls/hr IVPB Q12 [facility] PRN Reason: Protocol Last Admin: 07/14/17 21:35 Dose: 100 mls/hr diltiaZEM IVPB 100mg in NS (Cardizem 100mg In Ns) 100 mls @ 5 mls/hr IV .Q20H PRN; Protocol; 5 MG/HR PRN Reason: TITRATE PER MD ORDER Last Admin: 07/13/17 08:22 Dose: 5 mg/hr, 5 mls/hr Ondansetron HCl (Zofran Inj) 4 mg IVP Q4 PRN PRN Reason: Nausea/Vomiting Pantoprazole Sodium (Protonix Inj) 40 mg IVP DAILY [facility]EXIE Throat Lozenges (Cepastat) 1 wai MT PRN PRN PRN Reason: Sore Throat - Labs Labs: 07/15/17 07:10 07/14/17 07:30 PT 12.7 SECONDS (9.4-12.5) H 07/13/17 08:15 INR 1.10 (0.93-1.08) H 07/13/17 08:15 APTT 30.0 Seconds (25.1-36.5) 07/12/17 06:30 - Constitutional Appears: Non-toxic, No Acute Distress - Head Exam Head Exam: ATRAUMATIC, NORMAL INSPECTION, NORMOCEPHALIC - Eye Exam Eye Exam: EOMI - ENT Exam ENT Exam: Mucous Membranes Moist - Respiratory Exam Respiratory Exam: NORMAL BREATHING PATTERN. absent: Accessory Muscle Use, Respiratory Distress - Cardiovascular Exam Cardiovascular Exam: absent: JVD - GI/Abdominal Exam GI & Abdominal Exam: Soft. absent: Distended, Guarding Additional comments: Midline incision intact with karishma. Ostomy bag in place, no leaks, bowel sweat noted, pink ostomy. Yan drains in place with serrosang output. Right Yan - 60cc/12 hrs output Left Yan - 20cc/12hrs output On Q in place - Extremities Exam Extremities Exam: Normal Inspection. absent: Calf Tenderness - Neurological Exam Neurological Exam: Alert, Awake, Oriented x3 - Skin Skin Exam: Dry, Intact, Normal Color, Warm Assessment and Plan - Assessment and Plan (Free Text) Assessment: 82yo F s/p Ex-Lap with Mckeon's, SB resection and On-Q catheter placement for perforated diverticulitis; POD#3 Plan: - Continue Saba; Strict I&Os - Continue NGT; Clamp and check residuals BID - Will discontinue On-Q today - Ok to continue DVT ppx - Abx as per ID - Afib now rate controlled on current regimen - Encourage OOBTC, IS use Further recs as per Dr. David Pendleton PGY1 Surgery pager: [phone]
[2017-07-15] MEDS: Vancomycin 1gm in NS 250ml 1 GM/250 ML BAG IVPB SCH ×2 (09:30→09:32)
[2017-07-15] MEDS: Meropenem IV 1 gm in NS 50 ML IVPB SCH ×2 (09:31→22:13)
[2017-07-15] MEDS: HYDROmorphone 0.5 mg/0.5 ml ISec IVP PRN ×2 (09:42→16:31)
--- NOTE | 2017-07-15 10:04 | CP.PCM.PN ---
Subjective - Date & Time of Evaluation Date of Evaluation: 07/15/17 Time of Evaluation: 09:50 - Subjective Subjective: Patient is feeling a little bit better, no fevers overnight, not in distress, still NPO, nausea or vomiting, breathing well. Objective - Vital Signs/Intake and Output Vital Signs (last 24 hours): Temp Pulse Resp BP Pulse Ox 98.2 F 88 18 149/62 95 07/14/17 20:15 07/15/17 05:54 07/15/17 02:10 07/15/17 05:54 07/15/17 02:10 Intake and Output: 07/14/17 07/15/17 18:59 06:59 Intake Total 670 Output Total 760 Balance -90 - Medications Medications: Current Medications Digoxin (Lanoxin) 0.125 mg PO 1400 [facility] Last Admin: 07/14/17 13:05 Dose: 0.125 mg Diltiazem HCl (Cardizem) 60 mg PO Q8H [facility] Last Admin: 07/15/17 05:54 Dose: 60 mg Fentanyl (Fentanyl) 25 mcg IV Q5M PRN PRN Reason: Pain, moderate (4-7) Heparin Sodium (Porcine) (Heparin) 5,000 units SC Q12 [facility] PRN Reason: Protocol Last Admin: 07/14/17 21:34 Dose: 5,000 units Hydromorphone HCl (Dilaudid) 0.25 mg IVP Q4H PRN PRN Reason: Pain, severe (8-10) Last Admin: 07/14/17 08:39 Dose: 0.25 mg Vancomycin HCl (Vancomycin 1gm) 1 gm in 250 mls @ 167 mls/hr IVPB DAILY [facility] PRN Reason: Protocol Last Admin: 07/14/17 09:36 Dose: 167 mls/hr Meropenem (Merrem Iv 1 Gm Premix) 50 mls @ 100 mls/hr IVPB Q12 [facility] PRN Reason: Protocol Last Admin: 07/14/17 21:35 Dose: 100 mls/hr diltiaZEM IVPB 100mg in NS (Cardizem 100mg In Ns) 100 mls @ 5 mls/hr IV .Q20H PRN; Protocol; 5 MG/HR PRN Reason: TITRATE PER MD ORDER Last Admin: 07/13/17 08:22 Dose: 5 mg/hr, 5 mls/hr Ondansetron HCl (Zofran Inj) 4 mg IVP Q4 PRN PRN Reason: Nausea/Vomiting Pantoprazole Sodium (Protonix Inj) 40 mg IVP DAILY [facility] Throat Lozenges (Cepastat) 1 wai MT PRN PRN PRN Reason: Sore Throat - Labs Labs: 07/14/17 07:30 07/14/17 07:30 PT 12.7 SECONDS (9.4-12.5) H 07/13/17 08:15 INR 1.10 (0.93-1.08) H 07/13/17 08:15 APTT 30.0 Seconds (25.1-36.5) 07/12/17 06:30 - Constitutional Appears: Non-toxic, Chronically Ill - Head Exam Head Exam: NORMAL INSPECTION - ENT Exam ENT Exam: Mucous Membranes Moist Additional comments: NGT in place - Neck Exam Neck Exam: absent: Lymphadenopathy, Meningismus - Respiratory Exam Respiratory Exam: Decreased Breath Sounds - Cardiovascular Exam Cardiovascular Exam: +S1, +S2 - GI/Abdominal Exam GI & Abdominal Exam: Soft. absent: Tenderness Additional comments: colostomy in place, HOLA drains in place with minimal serosanguinous drainage Assessment and Plan - Assessment and Plan (Free Text) Plan: Assessment Severe sepsis due to acute peritonitis from perforated sigmoid diverticulitis S/ P ex-lap, sigmodectomy and partial removal of adjacent small intestine and colostomy POD #3 CAD peptic ulcer disease atrial fibrillation dilated cardiomyopathy history of diverticulitis Plan Continue intermittent Vancomycin and Merrem (day 3 from surgery) and follow up the identification and sensitivities of the gram positive cocci and gram negative bacilli isolated during surgery from the abdomen will continue to monitor clinically
[2017-07-15] MEDS: Digoxin 125 mcg (0.125 mg) Tab PO SCH (13:52)
--- NOTE | 2017-07-15 18:42 | PN ---
DATE: COVERING DOCTOR: Arpit Mccurdy MD SUBJECTIVE: The patient is sitting on a chair. She still has a nasogastric tube. She denies any chest pain. PHYSICAL EXAMINATION: VITAL SIGNS: Blood pressure 153/85, heart rate 94, temperature 97.5, and respirations 20. HEENT: Normocephalic. CHEST: Diminished breath sounds at the bases. HEART: S1 and S2 regular. ABDOMEN: Diminished bowel sounds. EXTREMITIES: No edema. LABORATORY DATA: Hemoglobin and hematocrit 11 and 35, white count and platelet count are within normal limit. SMA-7; sodium 150, potassium 3.5, chloride 117, CO2 of 20, glucose 104, BUN 21, creatinine 0.9, and calcium is elevated at 10.9. ASSESSMENT: 1. Status post laparotomy of the sigmoid colectomy, omentectomy, and colostomy. 2. Atrial flutter. 3. Anemia. 4. Hypokalemia and hypernatremia. 5. Mild hypercalcemia. 6. Congestive heart failure. RECOMMENDATIONS: Continue Cardizem 60 mg q.8 hours, Dilaudid 0.25 mg intravenously q.4 hours p.r.n., subcutaneous heparin 5000 units q.12 hours, continue IV meropenem, and continue digoxin 0.125 mg orally daily. I will review the study that was performed. Optimize potassium replacement with 10 mEq intravenously now. Obtain serum digoxin level in a.m. Jett Rudd MD
--- NOTE | 2017-07-16 06:52 | CP.PCM.PN ---
Subjective - Date & Time of Evaluation Date of Evaluation: 07/16/17 Time of Evaluation: 06:51 - Subjective Subjective: S: It was requested to reinsert NGT which has been pulled out by patient . Patient has no acute symptoms now. Medical record was reviewed. O:VSS. Not in acute distress. LUNGS: Normal breathing pattern. ABD: Gurgling positive on auscultation in epigastric area. A:S/P NGT reinsertion. P: Position was confirmed by auscultation and viewing the chest xray. Objective - Vital Signs/Intake and Output Vital Signs (last 24 hours): Temp Pulse Resp BP Pulse Ox 97.5 F L 77 13 149/66 97 07/15/17 07:49 07/15/17 22:11 07/15/17 11:50 07/15/17 22:11 07/15/17 11:50 Intake and Output: 07/15/17 07/16/17 18:59 06:59 Intake Total 0 Output Total 0 280 Balance 0 -280 - Medications Medications: Current Medications Digoxin (Lanoxin) 0.125 mg PO 1400 [facility] Last Admin: 07/15/17 13:52 Dose: 0.125 mg Diltiazem HCl (Cardizem) 60 mg PO Q8H [facility] Last Admin: 07/15/17 22:11 Dose: 60 mg Fentanyl (Fentanyl) 25 mcg IV Q5M PRN PRN Reason: Pain, moderate (4-7) Heparin Sodium (Porcine) (Heparin) 5,000 units SC Q12 [facility] PRN Reason: Protocol Last Admin: 07/15/17 22:13 Dose: 5,000 units Hydromorphone HCl (Dilaudid) 0.25 mg IVP Q4H PRN PRN Reason: Pain, severe (8-10) Last Admin: 07/15/17 16:31 Dose: 0.25 mg Meropenem (Merrem Iv 1 Gm Premix) 50 mls @ 100 mls/hr IVPB Q12 [facility] PRN Reason: Protocol Last Admin: 07/15/17 22:13 Dose: 100 mls/hr diltiaZEM IVPB 100mg in NS (Cardizem 100mg In Ns) 100 mls @ 5 mls/hr IV .Q20H PRN; Protocol; 5 MG/HR PRN Reason: TITRATE PER MD ORDER Last Admin: 07/13/17 08:22 Dose: 5 mg/hr, 5 mls/hr Ondansetron HCl (Zofran Inj) 4 mg IVP Q4 PRN PRN Reason: Nausea/Vomiting Pantoprazole Sodium (Protonix Inj) 40 mg IVP DAILY [facility] Last Admin: 07/15/17 09:41 Dose: 40 mg Throat Lozenges (Cepastat) 1 wai MT PRN PRN PRN Reason: Sore Throat - Labs Labs: 07/15/17 07:10 07/15/17 07:10 PT 12.7 SECONDS (9.4-12.5) H 07/13/17 08:15 INR 1.10 (0.93-1.08) H 07/13/17 08:15 APTT 30.0 Seconds (25.1-36.5) 07/12/17 06:30
--- NOTE | 2017-07-16 08:48 | RAD ---
PROCEDURE: Portable chest HISTORY: NGT insertion. COMPARISON: 07/12/2017 TECHNIQUE: FINDINGS: There is a persistent infiltrate at the left base that obscures the diaphragm. IMPRESSION: The nasogastric tube is in satisfactory position
--- NOTE | 2017-07-16 08:59 | CP.PCM.PCO ---
Physician Communication Note - Physician Communication Note Physician Communication Note: No IV orders--Reordered now/OK DC NGT/Ambulate
[2017-07-16 10:00] LABS: BASO # 0.01 K/mm3 (0.0-2.0); BASO % 0.1 % (0.0-3.0); GRAN # 6.58 (1.4-6.5); GRAN % 82.4 % (50.0-68.0); LYMPH # 0.9 (1.2-3.4); LYMPH % 11.6 % (22.0-35.0); MEAN CELL VOLUME 89.2 fl (80.0-105.0); MEAN CORPUSCULAR HEMOGLOBIN 28.2 pg (25.0-35.0); MEAN CORPUSCULAR HGB CONC 31.6 g/dl (31.0-37.0); MEAN PLATELET VOLUME 10.6 fl (7.0-11.0); MONO # 0.5 (0.1-0.6); MONO % 5.9 % (1.0-6.0); RBC 3.9 10^6/uL (3.5-6.1); RED CELL DISTRIBUTION WIDTH 14.8 % (11.5-14.5)
[2017-07-16 10:10] LABS: ALBUMIN 2.8 g/dL (3.0-4.8); ALT/SGPT 25 U/L (7-56); AST/SGOT 26 U/L (14-36); BLOOD UREA NITROGEN 21 mg/dL (7-21); CALCIUM 11.5 mg/dL (8.4-10.5); GFR AFRICAN-AMERICAN > 60; GFR NON-AFRICAN AMERICAN 60
[2017-07-16 10:21] LABS: ALB/GLOB RATIO 0.9 (1.1-1.8)
[2017-07-16] MEDS: Meropenem IV 1 gm in NS 50 ML IVPB SCH ×2 (11:09→22:05)
[2017-07-16] MEDS: Digoxin 125 mcg (0.125 mg) Tab PO SCH (14:00)
--- NOTE | 2017-07-16 15:53 | CP.PCM.PN ---
Subjective - Date & Time of Evaluation Date of Evaluation: 07/16/17 Time of Evaluation: 13:48 - Subjective Subjective: Surgery Progress note. Dr. Hernandez Pt seen and examined at bedside. No acute events overnight. Denies N/V/D. No new complaints. Ostomy pink, no output. Yan drains with serrous output Objective - Vital Signs/Intake and Output Vital Signs (last 24 hours): Temp Pulse Resp BP Pulse Ox 97.9 F 103 H 20 151/79 H 94 L 07/16/17 08:37 07/16/17 08:37 07/16/17 08:37 07/16/17 08:37 07/16/17 08:37 Intake and Output: 07/16/17 07/16/17 06:59 18:59 Intake Total 0 0 Output Total 470 800 Balance -470 -800 - Medications Medications: Current Medications Digoxin (Lanoxin) 0.125 mg PO 1400 LEXIE Last Admin: 07/15/17 13:52 Dose: 0.125 mg Diltiazem HCl (Cardizem) 60 mg PO Q8H [facility]EX[facility] Last Admin: 07/16/17 06:52 Dose: 60 mg Heparin Sodium (Porcine) (Heparin) 5,000 units SC Q12 [facility] PRN Reason: Protocol Last Admin: 07/16/17 11:12 Dose: 5,000 units Hydromorphone HCl (Dilaudid) 0.25 mg IVP Q4H PRN PRN Reason: Pain, severe (8-10) Last Admin: 07/15/17 16:31 Dose: 0.25 mg Meropenem (Merrem Iv 1 Gm Premix) 50 mls @ 100 mls/hr IVPB Q12 [facility] PRN Reason: Protocol Last Admin: 07/16/17 11:09 Dose: 100 mls/hr diltiaZEM IVPB 100mg in NS (Cardizem 100mg In Ns) 100 mls @ 5 mls/hr IV .Q20H PRN; Protocol; 5 MG/HR PRN Reason: TITRATE PER MD ORDER Last Admin: 07/13/17 08:22 Dose: 5 mg/hr, 5 mls/hr Dextrose/Sodium Chloride (Dextrose 5%/0.45% Ns 1000 Ml) 1,000 mls @ 100 mls/hr IV .Q10H [facility] Ondansetron HCl (Zofran Inj) 4 mg IVP Q4 PRN PRN Reason: Nausea/Vomiting Pantoprazole Sodium (Protonix Inj) 40 mg IVP DAILY [facility] Last Admin: 07/16/17 11:12 Dose: 40 mg Throat Lozenges (Cepastat) 1 wai MT PRN PRN PRN Reason: Sore Throat Warfarin Sodium (Coumadin) 10 mg PO 1800 LEXIE PRN Reason: Protocol - Labs Labs: 07/16/17 08:30 07/16/17 08:30 PT 12.7 SECONDS (9.4-12.5) H 07/13/17 08:15 INR 1.10 (0.93-1.08) H 07/13/17 08:15 APTT 30.0 Seconds (25.1-36.5) 07/12/17 06:30 - Constitutional Appears: Non-toxic, No Acute Distress - Head Exam Head Exam: ATRAUMATIC, NORMAL INSPECTION, NORMOCEPHALIC - Eye Exam Eye Exam: EOMI - ENT Exam ENT Exam: Mucous Membranes Dry - Respiratory Exam Respiratory Exam: NORMAL BREATHING PATTERN. absent: Accessory Muscle Use, Wheezes - GI/Abdominal Exam GI & Abdominal Exam: Soft. absent: Distended, Firm, Guarding Additional comments: Midline incision intact. Yan drains in place, serrous output. Ostomy in place with bowel sweat, pink, no output. - Extremities Exam Extremities Exam: Normal Inspection. absent: Calf Tenderness - Neurological Exam Neurological Exam: Alert, Awake, Oriented x3 - Skin Skin Exam: Dry, Intact, Normal Color, Warm Assessment and Plan - Assessment and Plan (Free Text) Assessment: 82yo F s/p Ex-Lap with Mckeon's, SB resection and On-Q catheter placement for perforated diverticulitis; POD#4 Plan: - Discontinue NGT - Continue IVF - NPO w/ Ice chips - Continue DVT ppx - Abx as per ID - Encourage OOBTC, IS use Further recs as per Dr. David Pendleton PGY1 Surgery pager: [phone]
--- NOTE | 2017-07-16 15:54 | PN ---
DATE: 07/16/2017 SUBJECTIVE: The patient is in bed in room 361, bed 2 was seen earlier today. PHYSICAL EXAMINATION: VITAL SIGNS: Temperature is 98, blood pressure 150/70, respiratory rate of 20, and heart rate of 103. HEENT: Unremarkable. NECK: Supple. LUNGS: Decreased breath sounds. HEART: Normal S1 and S2. ABDOMEN: Soft and nontender. LABORATORY DATA: Revels a white count of 8000, hemoglobin of 11, and platelet of 190. Chemistry are noted and urinalysis is noted. Microbiology is noted. Abdominal fluids cultures are negative. Chest x-ray, persistent infiltrate of left base that obscures the diaphragm. Pathology reveals the patient has GI pathology as noted. ASSESSMENT AND PLAN: The patient is an 82-year-old female with severe sepsis due to acute peritonitis and perforated sigmoid diverticulitis, status post exploratory laparotomy, sigmoidectomy and partial removal of small intestinal and colostomy postprocedure day number 3. The patient with coronary artery disease and systemic peptic ulcer disease, atrial fibrillation, dilated cardiomyopathy. The patient on intermittent vancomycin. The patient does have a history of diverticulitis. The patient is on day number 4 of intermittent vancomycin and meropenem from surgery and with Escherichia coli and enterococcus arteriovenous malfunction on abdominal culture. E. coli is relatively sensitive organism. Enterococcus AVM is noted. There is E. coli in the urine and pansensitive, currently on meropenem, which requires renewal. We will follow closely with you. London Singh MD
[2017-07-16] MEDS: HYDROmorphone 0.5 mg/0.5 ml ISec IVP PRN (18:05)
[2017-07-16] MEDS: Dextrose 5%/0.45% NS 1,000 ML IV SCH (22:09)
[2017-07-17] MEDS: HYDROmorphone 0.5 mg/0.5 ml ISec IVP PRN (06:00)
[2017-07-17] MEDS: Dextrose 5%/0.45% NS 1,000 ML IV SCH (06:02)
[2017-07-17 07:48] LABS: EOS # 0.1 (0.0-0.7); EOS % 1.6 % (1.5-5.0); GRAN # 5.48 (1.4-6.5); GRAN % 72.7 % (50.0-68.0); HEMOGLOBIN 10.8 g/dL (12.0-16.0); LYMPH # 1.2 (1.2-3.4); LYMPH % 15.6 % (22.0-35.0); MEAN CELL VOLUME 89.4 fl (80.0-105.0); MEAN CORPUSCULAR HEMOGLOBIN 28.5 pg (25.0-35.0); MEAN CORPUSCULAR HGB CONC 31.9 g/dl (31.0-37.0); MEAN PLATELET VOLUME 10.8 fl (7.0-11.0); MONO # 0.8 (0.1-0.6); MONO % 10.1 % (1.0-6.0); RBC 3.79 10^6/uL (3.5-6.1); RED CELL DISTRIBUTION WIDTH 14.9 % (11.5-14.5); WHITE BLOOD COUNT 7.5 10^3/ul (4.5-11.0)
[2017-07-17 07:51] LABS: INR 2.83 (0.93-1.08); PROTHROMBIN TIME 33.2 SECONDS (9.4-12.5)
[2017-07-17 08:25] LABS: ALBUMIN 2.4 g/dL (3.0-4.8); ALT/SGPT 23 U/L (7-56); AST/SGOT 29 U/L (14-36); BLOOD UREA NITROGEN 16 mg/dL (7-21); CALCIUM 10.3 mg/dL (8.4-10.5); GFR AFRICAN-AMERICAN > 60; GFR NON-AFRICAN AMERICAN > 60
[2017-07-17] MEDS ORDERED: Bisacodyl 5mg EC Tab PO ONE (08:31)
--- NOTE | 2017-07-17 08:53 | CP.PCM.PCO ---
Physician Communication Note - Physician Communication Note Physician Communication Note: Starting cl liquids/INR 2.83-holding coumadin
[2017-07-17] MEDS: Amoxicillin-Clav 875-125 mg Tab PO SCH ×2 (11:17→21:39)
--- NOTE | 2017-07-17 14:16 | PN ---
DATE: 07/17/2017 SUBJECTIVE: The patient is in bed, in no acute distress, nontoxic. PHYSICAL EXAMINATION: VITAL SIGNS: On exam, temperature is 97, blood pressure is 140/70, respiratory rate of 18. HEENT: Unremarkable. NECK: Supple. LUNGS: Decreased breath sounds. HEART: Normal S1, S2. ABDOMEN: Soft, nontender. LABORATORY DATA: Reveals a white count of 7.5, hemoglobin of 10, platelets of 198. Chemistries reveal a BUN of 16, creatinine of 0.7. Urinalysis is noted. Vanco trough is noted to be 9.5. Microbiology reveals E. coli in the urine from 07/11/2017, that is pansensitive, and E. coli and enterococcus avium in the abdominal wound culture that is also sensitive. REVIEW OF ORDERS: Reveal the patient to be on Coumadin and the patient is also on meropenem. Dr. Hernandez' communication report from this morning is reviewed. The patient is starting clear liquids. His progress note from yesterday is reviewed. ASSESSMENT AND PLAN: An 82-year-old female status post exploratory laparotomy with Yessenia's procedure, small bowel resection, Q catheter replacement, perforated diverticulitis, postprocedure day #4, and with acute peritonitis and perforated sigmoid diverticulitis, status post exploratory laparotomy and sigmoidectomy, partial removal of small intestine, and a colostomy, postprocedure day #4. Coronary artery disease and peptic ulcer disease and atrial fibrillation, dilated cardiomyopathy, and on intermittent vancomycin and meropenem with Escherichia coli and Enterococcus. Escherichia coli is relatively sensitive. Enterococcus avium is noted. Now, the patient is afebrile. White count has normalized. We will discontinue the meropenem and use p.o. Augmentin 875 mg p.o. b.i.d. x5 days. We will follow with you. London Singh MD
[2017-07-17] MEDS: Digoxin 125 mcg (0.125 mg) Tab PO SCH (15:54)
[2017-07-17] MEDS ORDERED: Morphine 2 mg/ml ISec IVP PRN (17:34)
[2017-07-17] MEDS ORDERED: Albuterol-Ipratrop 3 mg / 0.5 (3 ml) UD IH PRN (17:35)
--- NOTE | 2017-07-17 22:30 | PN ---
DATE: 07/17/2017 SUBJECTIVE: The patient is comfortable in bed, in no acute distress. No nausea. No vomiting. Tolerating the oral liquids. No chest pain. REVIEW OF SYSTEMS: As per HPI. Rest of 12-point review of systems reviewed and negative. CURRENT MEDICATIONS: DuoNeb 3 mL q.6 hours p.r.n., Augmentin one tablet p.o. q.12 hours, IV fluid normal saline, dextrose normal saline 800 mL now, digoxin 0.125 mg daily, diltiazem 60 mg q.8 hours, heparin 5000 q.12 hours, morphine p.r.n., Zofran p.r.n., tramadol p.r.n., and Coumadin 10 mg daily. PHYSICAL EXAMINATION: GENERAL: Comfortable in bed, in no acute distress. VITAL SIGNS: Temperature 97.8, heart rate is 70 per minute, blood pressure is 163/78, respiratory rate 20 per minute, oxygen saturation 96% on room. HEENT: Pallor positive. NECK: Supple. No lymphadenopathy. CHEST: Air entry present, equal bilaterally. No added sounds. CARDIOVASCULAR: S1 and S2, normal. No murmur, no gallop. ABDOMEN: Soft and nontender. No hepatosplenomegaly. EXTREMITIES: No edema. EQUIPMENT MAINTENANCE TECHNICIAN: Alert and oriented x3. No focal sensory motor deficits. LABORATORY DATA: INR 2.8. Bicarb 7.5. Hemoglobin 10.8, hematocrit 33.9, platelet count is 198. Sodium 148, potassium 3.5, BUN 16, and creatinine 0.7. ASSESSMENT: 1. Perforated colon, status post laparotomy. 2. Acute renal failure, recovered. 3. Coronary artery disease. 4. Atrial fibrillation. 5. Anemia. 6. Leukocytosis has been resolved. PLAN: Diet will be gradually advanced. She is tolerating liquids. Continue bronchodilators. She is on oral antibiotic now. We will continue digoxin. We will discontinue heparin as INR is therapeutic at 2.8. Continue Coumadin 10 mg daily, Protonix IV daily, and Zofran p.r.n. Cathie Gonzales MD [facility] # [id number] GUS
[2017-07-18] MEDS: Dextrose 5%/0.45% NS 1,000 ML IV SCH (06:34)
[2017-07-18 06:57] LABS: PROTHROMBIN TIME 73.1 SECONDS (9.4-12.5)
[2017-07-18 06:59] LABS: INR 6.13 (0.93-1.08)
[2017-07-18 07:22] LABS: EOS # 0.4 (0.0-0.7); EOS % 4.6 % (1.5-5.0); GRAN # 5.93 (1.4-6.5); HEMOGLOBIN 9.8 g/dL (12.0-16.0); LYMPH # 1.2 (1.2-3.4); LYMPH % 14.8 % (22.0-35.0); MEAN CORPUSCULAR HEMOGLOBIN 28.4 pg (25.0-35.0); MEAN CORPUSCULAR HGB CONC 31.9 g/dl (31.0-37.0); MONO # 0.5 (0.1-0.6); MONO % 6.6 % (1.0-6.0); RBC 3.45 10^6/uL (3.5-6.1); RED CELL DISTRIBUTION WIDTH 14.8 % (11.5-14.5)
[2017-07-18] MEDS ORDERED: Phytonadione 10 mg/ml Inj (Adult) SC STA (07:30)
[2017-07-18 08:07] LABS: ALB/GLOB RATIO 0.9 (1.1-1.8); ALBUMIN 1.9 g/dL (3.0-4.8); ALT/SGPT 27 U/L (7-56); AST/SGOT 21 U/L (14-36); BLOOD UREA NITROGEN 11 mg/dL (7-21); CALCIUM 8.2 mg/dL (8.4-10.5); GFR AFRICAN-AMERICAN > 60; GFR NON-AFRICAN AMERICAN > 60
--- NOTE | 2017-07-18 08:24 | CP.PCM.PCO ---
Physician Communication Note - Physician Communication Note Physician Communication Note: AM Labs wacky-Repeating(FS 130Now)
[2017-07-18 09:06] LABS: PARTIAL THROMBOPLASTIN TIME 38.4 Seconds (25.1-36.5); PROTHROMBIN TIME 72.5 SECONDS (9.4-12.5)
[2017-07-18 09:07] LABS: INR 6.08 (0.93-1.08)
[2017-07-18 09:08] LABS: EOS # 0.4 (0.0-0.7); EOS % 4.6 % (1.5-5.0); GRAN # 6.79 (1.4-6.5); GRAN % 74.5 % (50.0-68.0); HEMOGLOBIN 10.9 g/dL (12.0-16.0); LYMPH # 1.3 (1.2-3.4); LYMPH % 14.1 % (22.0-35.0); MEAN CELL VOLUME 87.8 fl (80.0-105.0); MEAN CORPUSCULAR HEMOGLOBIN 28.3 pg (25.0-35.0); MEAN CORPUSCULAR HGB CONC 32.2 g/dl (31.0-37.0); MEAN PLATELET VOLUME 10.5 fl (7.0-11.0); MONO # 0.6 (0.1-0.6); MONO % 6.8 % (1.0-6.0); RBC 3.85 10^6/uL (3.5-6.1); RED CELL DISTRIBUTION WIDTH 14.8 % (11.5-14.5); WHITE BLOOD COUNT 9.1 10^3/ul (4.5-11.0)
[2017-07-18] MEDS: POLYETHYLENE GLYCOL 3350 17 GM/Dose PACKET PO SCH ×2 (09:20→17:47)
[2017-07-18] MEDS: Amoxicillin-Clav 875-125 mg Tab PO SCH ×2 (09:20→22:45)
--- NOTE | 2017-07-18 09:39 | CON ---
DATE: 07/16/2017 HISTORY OF PRESENT ILLNESS: Ms. Johnson is an 82-year-old female admitted to the hospital with perforated sigmoid colon because of acute diverticulitis. She underwent laparotomy, today is day 4 postop. NG tube was taken out today. She is still on IV fluids and n.p.o. She responds occasionally to verbal commands. She is arousable. Family member is at bedside. She has a history of hypertension, blood pressure control with current medications, history of atrial fibrillation, heart rate is well controlled on current medications, history of hypothyroidism, no current issues. REVIEW OF SYSTEMS: As per HPI. Rest of 12-point review of systems reviewed negative. PAST MEDICAL HISTORY: Hypertension, atrial fibrillation, hypothyroidism, cardiomyopathy, chronic kidney disease. PAST SURGICAL HISTORY: Defibrillator placement, hernia repair, and hysterectomy. ALLERGIES: NO KNOWN DRUG ALLERGIES. SOCIAL HISTORY: Ex-smoker, quit 20 years ago. Drinks occasionally. FAMILY HISTORY: Noncontributory. PHYSICAL EXAMINATION: VITAL SIGNS: Temperature is 98.8, heart rate is 100 per minute, blood pressure is 127/100, oxygen saturation is 96% on room air. Respiratory rate 18 per minute. GENERAL: The patient is comfortable in bed, in no acute distress. HEENT: Pallor positive. NECK: No lymphadenopathy. CHEST: Air entry present equal and bilateral. No added sounds. CARDIOVASCULAR: S1 and S2, irregularly irregular. No murmur, no gallop. ABDOMEN: Soft, nontender. No hepatosplenomegaly. EXTREMITIES: No edema. CENTRAL NERVOUS SYSTEM: Drowsy, arousable, communicative. Moving all the limbs. No focal sensory or motor deficit. SPINE: Nontender. SKIN: No petechiae. No rash. LABORATORY DATA: White count 12.6 on admission, current 8.0; hemoglobin 11; hematocrit 38.5; platelet count 190. Sodium 152, potassium 3.5, chloride 117, creatinine 0.9. LFT within normal limits. MEDICATIONS: D5 normal saline, digoxin 0.125 mg daily, Cardizem 60 mg p.o. q.8 hours, Cardizem drip on hold, heparin 5000 q.12 hours, Dilaudid p.r.n., meropenem and Coumadin 10 mg daily. ASSESSMENT AND PLAN: 1. Perforated sigmoid colon,status post laparotomy. 2. Anemia. 3. Leukocytosis -- resolved. 4. Acute renal failure, improved. 5. Atrial fibrillation. 6. Coronary artery disease. PLAN: She is postop day 4. NG tube was taken out. She is still on IV fluids, ice chips, we will start clear liquids tomorrow if okay by Surgery. We will replete electrolytes. Potassium is 3.5 today, sodium is elevated. Currently on IV fluids. We will continue the same. Coumadin started today 10 mg. She is currently on heparin prophylaxis for DVT. Pain control with current medications. Leukocytosis is resolved. Anemia, hemoglobin and hematocrit stable. Renal function is improved. Creatinine is normal. Labs ordered for tomorrow. Cathie Gonzales MD
[2017-07-18 09:41] LABS: ALB/GLOB RATIO 0.9 (1.1-1.8); ALBUMIN 2.4 g/dL (3.0-4.8); ALT/SGPT 26 U/L (7-56); AST/SGOT 24 U/L (14-36); BLOOD UREA NITROGEN 13 mg/dL (7-21); CALCIUM 9.7 mg/dL (8.4-10.5); GFR AFRICAN-AMERICAN > 60; GFR NON-AFRICAN AMERICAN > 60
--- NOTE | 2017-07-18 11:18 | CP.PCM.PCO ---
Physician Communication Note - Physician Communication Note Physician Communication Note: INR 6/Glucose 130/K 3.0-Progress diet/add IV KCl
[2017-07-18] MEDS ORDERED: Potassium Chloride 20 mEq/15 ml LIQ UD PO STA (11:24)
--- NOTE | 2017-07-18 12:06 | CP.PCM.PN ---
Subjective - Date & Time of Evaluation Date of Evaluation: 07/18/17 Time of Evaluation: 07:00 - Subjective Subjective: Surgery: Dr. Hernandez Pt seen and examined. No acute overnight events. States she feels well this morning and pain is well controlled. Pt started on clears which she is tolerating. Denies N/V, F/C. Objective - Vital Signs/Intake and Output Vital Signs (last 24 hours): Temp Pulse Resp BP Pulse Ox 97.6 F 72 18 148/69 97 07/18/17 07:40 07/18/17 07:40 07/18/17 07:40 07/18/17 07:40 07/18/17 07:40 Intake and Output: 07/18/17 07/18/17 06:59 18:59 Intake Total 360 0 Output Total 200 280 Balance 160 -280 - Medications Medications: Current Medications Albuterol/Ipratropium (Duoneb 3 Mg/0.5 Mg (3 Ml) Ud) 3 ml IH Q2H PRN PRN Reason: Shortness of Breath Last Admin: 07/17/17 17:47 Dose: 3 ml Amoxicillin/Clavulanate Potassium (Augmentin 875 Mg-125 Mg Tab) 1 tab PO Q12 [facility] PRN Reason: Protocol Stop: 07/22/17 10:01 Last Admin: 07/18/17 09:20 Dose: 1 tab Digoxin (Lanoxin) 0.125 mg PO 1400 [facility] Last Admin: 07/17/17 15:54 Dose: 0.125 mg Diltiazem HCl (Cardizem) 60 mg PO Q8H [facility] Last Admin: 07/18/17 06:34 Dose: 60 mg Potassium Chloride 30 meq/ (Sodium Chloride) 1,015 mls @ 100 mls/hr IV .Q10H9M [facility] Last Admin: 07/18/17 10:32 Dose: 100 mls/hr Morphine Sulfate (Morphine) 2 mg IVP Q4H PRN PRN Reason: Pain, moderate (4-7) Last Admin: 07/17/17 18:20 Dose: 2 mg Ondansetron HCl (Zofran Inj) 4 mg IVP Q4 PRN PRN Reason: Nausea/Vomiting Pantoprazole Sodium (Protonix Inj) 40 mg IVP DAILY [facility] Last Admin: 07/18/17 09:20 Dose: 40 mg Polyethylene Glycol (Miralax) 17 gm PO BID [facility] Last Admin: 07/18/17 09:20 Dose: 17 gm Throat Lozenges (Cepastat) 1 wai MT PRN PRN PRN Reason: Sore Throat Tramadol HCl (Ultram) 50 mg PO TID PRN PRN Reason: Pain, moderate (4-7) Last Admin: 07/17/17 16:02 Dose: 50 mg - Labs Labs: 07/18/17 08:30 07/18/17 08:30 PT 72.5 SECONDS (9.4-12.5) H 07/18/17 08:30 INR 6.08 (0.93-1.08) H* 07/18/17 08:30 APTT 38.4 Seconds (25.1-36.5) H 07/18/17 08:30 - Constitutional Appears: Well, No Acute Distress - Head Exam Head Exam: ATRAUMATIC, NORMOCEPHALIC - Eye Exam Eye Exam: Normal appearance - ENT Exam ENT Exam: Mucous Membranes Moist - Respiratory Exam Respiratory Exam: NORMAL BREATHING PATTERN - Cardiovascular Exam Cardiovascular Exam: RRR - GI/Abdominal Exam GI & Abdominal Exam: Soft. absent: Distended, Guarding Additional comments: ostomy in place with serosanguinous liquid in bag, rashmi drains inplace with serous output. midline incision C/D/I - Extremities Exam Extremities Exam: absent: Tenderness - Neurological Exam Neurological Exam: Alert, Awake, Oriented x3 - Skin Skin Exam: Dry, Warm Assessment and Plan - Assessment and Plan (Free Text) Assessment: 82F s/p Ex-Lap with Mckeon's & SB resection; POD#6 Plan: - INR 6, reverse with Vit K - Will give Miralax BID for constipation; if unresolved will consider fleet enemas - Cont liquid diet for now - Encourage ambulation with PT - Monitor ostomy output - d/w Dr. David Sprague, PGY-3 Surgery
[2017-07-18] MEDS: Digoxin 125 mcg (0.125 mg) Tab PO SCH (13:22)
--- NOTE | 2017-07-18 14:31 | PN ---
DATE: 07/18/2017 CARDIOLOGY FOLLOWUP SUBJECTIVE: The patient is in bed, without distress. OBJECTIVE: VITAL SIGNS: Blood pressure is 148/69, heart rate in the 70s. NECK: Negative JVD. LUNGS: Without rales. HEART: With S1, S2. EXTREMITIES: Without edema. LABORATORY DATA: Hemoglobin is 10.9. Chemistries; BUN and creatinine unremarkable. The potassium is 3.0. IMPRESSION: 1. Status post abdominal surgery. 2. Chronic atrial fibrillation. 3. History of hypertension. 4. Anemia. 5. Hypokalemia. PLAN: Given these findings, we will replace the potassium. The heart rate is well controlled. Arpit Mccurdy MD
--- NOTE | 2017-07-18 15:59 | CARD ---
APPROVED REPORT EXAM: Two-dimensional and M-mode echocardiogram with Doppler and color Doppler. INDICATION Cardiomyopathy 2D DIMENSIONS Left Atrium (2D)5.0 (1.6-4.0cm)IVSd0.9 (0.7-1.1cm) LVDd5.8 (3.9-5.9cm)PWd1.3 (0.7-1.1cm) LVDs4.7 (2.5-4.0cm)FS (%) 19.1 % LVEF (%)38.9 (>50%) M-Mode DIMENSIONS Aortic Root2.70 (2.2-3.7cm)Aortic Cusp Exc.1.60 (1.5-2.0cm) Aortic Valve AoV Peak Mgtnnhws637.0cm/Mark Peak GR.9mmHgAI P 1/2 [id number] Mitral Valve E/A ratio0.0 TDI E/Lateral E'0.0E/Medial E'0.0 Tricuspid Valve TR Peak [id number] [id number] Peak Gr.27mmHg [id number] LEFT VENTRICLE There is mild concentric left ventricular hypertrophy. The systolic function is mildly impaired. RIGHT VENTRICLE The right ventricle is normal size. ATRIA The left atrium is severely dilated. The right atrium size is normal. AORTIC VALVE The aortic valve is calcified but opens well. There is mild aortic regurgitation. MITRAL VALVE The mitral valve is calcified but opens well. Mitral regurgitation is mild to moderate. TRICUSPID VALVE The tricuspid valve leaflets are thickened , but open well. There is mild to moderate tricuspid regurgitation. There is mild pulmonary hypertension. PULMONIC VALVE The pulmonic valve is not well visualized. PERICARDIAL EFFUSION There is no pericardial effusion. <Conclusion> Mild LVH Mild LV hypokinesis Severely dilated LA Calcified AoV and MR with good opening Mild to moderate MR Mild AI Moderate TR Mild pulmonary hypertension
[2017-07-18 17:02] LABS: PROTHROMBIN TIME 76.2 SECONDS (9.4-12.5)
[2017-07-18 17:03] LABS: INR 6.44 (0.93-1.08)
--- NOTE | 2017-07-18 17:09 | PN ---
DATE: 07/18/2017 SUBJECTIVE: The patient is in bed, was seen earlier today in 361, bed 2, chronically ill, weak. PHYSICAL EXAMINATION: VITAL SIGNS: Temperature of 97, blood pressure of 140/60, and respiratory rate of 18. HEENT: Unremarkable. NECK: Supple. LUNGS: Decreased breath sounds. HEART: Normal S1 and S2. ABDOMEN: Soft. LABORATORY DATA: Reveals a white count of 9.1, hemoglobin of 10, and platelets of 211. Chemistry reveals a BUN of 13 and creatinine of 0.6. Urinalysis is noted. Vancomycin trough is noted to be 9.5. ASSESSMENT AND PLAN: This is an 82-year-old female with status post exploratory laparotomy with Yessenia's procedure, small bowel resection, perforated diverticulitis postprocedure day number 5, acute peritonitis and perforated sigmoid diverticulitis, status post exploratory laparotomy and sigmoidectomy, partial removal of small intestine, colostomy, postprocedure day number 5 intervention with a history of coronary artery disease, peptic ulcer disease, atrial fibrillation, dilated cardiomyopathy. Currently on p.o. Augmentin [address] x5 days[address] Swapna Decker's note is reviewed. Dr. Hernandez' is communication report is reviewed. We will follow closely with you. London Singh MD
--- NOTE | 2017-07-18 22:54 | CP.PCM.PN ---
Subjective - Date & Time of Evaluation Date of Evaluation: 07/18/17 Time of Evaluation: 18:00 - Subjective Subjective: DATE: 07/18/2017 SUBJECTIVE: The patient is comfortable in bed, in no acute distress. No nausea. No vomiting. Tolerating the oral liquids. No chest pain. INR high. Coumadin on hold. REVIEW OF SYSTEMS: As per HPI. Rest of 12-point review of systems reviewed and negative. CURRENT MEDICATIONS: reviewed. PHYSICAL EXAMINATION: GENERAL: Comfortable in bed, in no acute distress. VITAL SIGNS: reviewed. HEENT: Pallor positive. NECK: Supple. No lymphadenopathy. CHEST: Air entry present, equal bilaterally. No added sounds. CARDIOVASCULAR: S1 and S2, normal. No murmur, no gallop. ABDOMEN: Soft and nontender. No hepatosplenomegaly. EXTREMITIES: No edema. INDUSTRIAL SPRAYPAINTER: Alert and oriented x3. No focal sensory motor deficits. LABORATORY DATA: reviewed. ASSESSMENT: 1. Perforated colon, status post laparotomy. 2. Acute renal failure, recovered. 3. Coronary artery disease. 4. Atrial fibrillation. 5. Anemia. 6. Leukocytosis has been resolved. PLAN: Diet will be gradually advanced. She is tolerating liquids. Continue bronchodilators. She is on oral antibiotic now. We will continue digoxin. Coumadin on hold. FFP ordered by Dr. Hernandez. Monitor coags. Cathie Gonzales MD Objective - Vital Signs/Intake and Output Vital Signs (last 24 hours): Temp Pulse Resp BP Pulse Ox 98.2 F 64 20 130/60 96 07/18/17 16:00 07/18/17 18:00 07/18/17 16:00 07/18/17 16:00 07/18/17 16:00 Intake and Output: 07/18/17 07/19/17 18:59 06:59 Intake Total 0 Output Total 280 Balance -280 - Medications Medications: Current Medications Albuterol/Ipratropium (Duoneb 3 Mg/0.5 Mg (3 Ml) Ud) 3 ml IH Q2H PRN PRN Reason: Shortness of Breath Last Admin: 07/17/17 17:47 Dose: 3 ml Amoxicillin/Clavulanate Potassium (Augmentin 875 Mg-125 Mg Tab) 1 tab PO Q12 LEXIE PRN Reason: Protocol Stop: 07/22/17 10:01 Last Admin: 07/18/17 09:20 Dose: 1 tab Digoxin (Lanoxin) 0.125 mg PO 1400 [facility] Last Admin: 07/18/17 13:22 Dose: 0.125 mg Diltiazem HCl (Cardizem) 60 mg PO Q8H [facility] Last Admin: 07/18/17 13:21 Dose: 60 mg Potassium Chloride 30 meq/ (Sodium Chloride) 1,015 mls @ 100 mls/hr IV .Q10H9M [facility] Last Admin: 07/18/17 10:32 Dose: 100 mls/hr Morphine Sulfate (Morphine) 2 mg IVP Q4H PRN PRN Reason: Pain, moderate (4-7) Last Admin: 07/17/17 18:20 Dose: 2 mg Ondansetron HCl (Zofran Inj) 4 mg IVP Q4 PRN PRN Reason: Nausea/Vomiting Pantoprazole Sodium (Protonix Ec Tab) 40 mg PO ACB [facility] Polyethylene Glycol (Miralax) 17 gm PO BID [facility] Last Admin: 07/18/17 17:47 Dose: 17 gm Throat Lozenges (Cepastat) 1 wai MT PRN PRN PRN Reason: Sore Throat Tramadol HCl (Ultram) 50 mg PO TID PRN PRN Reason: Pain, moderate (4-7) Last Admin: 07/17/17 16:02 Dose: 50 mg - Labs Labs: 07/18/17 08:30 07/18/17 08:30 PT 76.2 SECONDS (9.4-12.5) H 07/18/17 16:31 INR 6.44 (0.93-1.08) H* 07/18/17 16:31 APTT 38.4 Seconds (25.1-36.5) H 07/18/17 08:30
[2017-07-19 06:33] VITALS: BP 134/73; PULSE 78
[2017-07-19 07:01] LABS: INR 1.94 (0.93-1.08); PROTHROMBIN TIME 22.6 SECONDS (9.4-12.5)
[2017-07-19 07:09] LABS: BASO # 0.01 K/mm3 (0.0-2.0); BASO % 0.1 % (0.0-3.0); EOS # 0.4 (0.0-0.7); EOS % 3.4 % (1.5-5.0); GRAN # 7.85 (1.4-6.5); GRAN % 75.6 % (50.0-68.0); HEMOGLOBIN 10.3 g/dL (12.0-16.0); LYMPH # 1.5 (1.2-3.4); LYMPH % 14.5 % (22.0-35.0); MEAN CELL VOLUME 86.8 fl (80.0-105.0); MEAN CORPUSCULAR HEMOGLOBIN 28.4 pg (25.0-35.0); MEAN CORPUSCULAR HGB CONC 32.7 g/dl (31.0-37.0); MEAN PLATELET VOLUME 10.2 fl (7.0-11.0); MONO # 0.7 (0.1-0.6); MONO % 6.4 % (1.0-6.0); RBC 3.63 10^6/uL (3.5-6.1); RED CELL DISTRIBUTION WIDTH 14.8 % (11.5-14.5); WHITE BLOOD COUNT 10.4 10^3/ul (4.5-11.0)
[2017-07-19 07:22] LABS: ALBUMIN 2.4 g/dL (3.0-4.8); ALT/SGPT 34 U/L (7-56); AST/SGOT 34 U/L (14-36); BLOOD UREA NITROGEN 12 mg/dL (7-21); CALCIUM 9.7 mg/dL (8.4-10.5); GFR AFRICAN-AMERICAN > 60; GFR NON-AFRICAN AMERICAN > 60
[2017-07-19] MEDS ORDERED: Pantoprazole 40 mg EC Tab PO SCH (07:30)
[2017-07-19 08:58] VITALS: RESP 18; TEMP 99.5; O2SAT 97
[2017-07-19] MEDS: Amoxicillin-Clav 875-125 mg Tab PO SCH (09:22)
[2017-07-19] MEDS: POLYETHYLENE GLYCOL 3350 17 GM/Dose PACKET PO SCH (09:23)
--- NOTE | 2017-07-19 10:32 | CP.PCM.PN ---
Subjective - Date & Time of Evaluation Date of Evaluation: 07/19/17 Time of Evaluation: 07:00 - Subjective Subjective: Surgery: Dr. Hernandez Pt seen and examined. States she feels ok and pain is well controlled. Pt is tolerating liquids, and is finally having stool in the ostomy. Denies F/C, N/V. Objective - Vital Signs/Intake and Output Vital Signs (last 24 hours): Temp Pulse Resp BP Pulse Ox 99.5 F 78 18 134/73 97 07/19/17 06:00 07/19/17 06:01 07/19/17 06:00 07/19/17 06:01 07/19/17 06:00 Intake and Output: 07/19/17 07/19/17 06:59 18:59 Intake Total 1100 Output Total 90 Balance 1010 - Medications Medications: Current Medications Albuterol/Ipratropium (Duoneb 3 Mg/0.5 Mg (3 Ml) Ud) 3 ml IH Q2H PRN PRN Reason: Shortness of Breath Last Admin: 07/17/17 17:47 Dose: 3 ml Amoxicillin/Clavulanate Potassium (Augmentin 875 Mg-125 Mg Tab) 1 tab PO Q12 LEXIE PRN Reason: Protocol Stop: 07/22/17 10:01 Last Admin: 07/19/17 09:22 Dose: 1 tab Digoxin (Lanoxin) 0.125 mg PO 1400 [facility] Last Admin: 07/18/17 13:22 Dose: 0.125 mg Diltiazem HCl (Cardizem) 60 mg PO Q8H [facility] Last Admin: 07/19/17 06:01 Dose: 60 mg Potassium Chloride 30 meq/ (Sodium Chloride) 1,015 mls @ 100 mls/hr IV .Q10H9M [facility] Last Admin: 07/18/17 22:18 Dose: 100 mls/hr Morphine Sulfate (Morphine) 2 mg IVP Q4H PRN PRN Reason: Pain, moderate (4-7) Last Admin: 07/17/17 18:20 Dose: 2 mg Ondansetron HCl (Zofran Inj) 4 mg IVP Q4 PRN PRN Reason: Nausea/Vomiting Pantoprazole Sodium (Protonix Ec Tab) 40 mg PO ACB [facility] Last Admin: 07/19/17 07:22 Dose: 40 mg Polyethylene Glycol (Miralax) 17 gm PO BID [facility] Last Admin: 07/19/17 09:23 Dose: 17 gm Throat Lozenges (Cepastat) 1 wai MT PRN PRN PRN Reason: Sore Throat Tramadol HCl (Ultram) 50 mg PO TID PRN PRN Reason: Pain, moderate (4-7) Last Admin: 07/17/17 16:02 Dose: 50 mg - Labs Labs: 07/19/17 05:30 07/19/17 05:30 PT 22.6 SECONDS (9.4-12.5) H 07/19/17 05:30 INR 1.94 (0.93-1.08) H 07/19/17 05:30 APTT 38.4 Seconds (25.1-36.5) H 07/18/17 08:30 - Constitutional Appears: Well, No Acute Distress - Head Exam Head Exam: ATRAUMATIC, NORMOCEPHALIC - ENT Exam ENT Exam: Mucous Membranes Moist - Respiratory Exam Respiratory Exam: NORMAL BREATHING PATTERN - Cardiovascular Exam Cardiovascular Exam: RRR - GI/Abdominal Exam GI & Abdominal Exam: Soft, Tenderness (around midline incision, rashmi in place x 2 with serosanguinous output ) - Neurological Exam Neurological Exam: Alert, Awake, Oriented x3 - Skin Skin Exam: Dry, Warm Assessment and Plan - Assessment and Plan (Free Text) Assessment: 82F s/p Mckeon's for perforated diverticulitis & SB resection; POD#7 Plan: - will slowly advance diet as tolerated - will discuss removing Saba with Dr. Hernandez - INR 1.94 from 6.44 yesterday s/p Vit K & FFP; cont to monitor - have pt out of bed to chair for a few hours daily and encourage ambulation with PT - d/w Dr. Dvaid Sprague, PGY-3 Surgery
--- NOTE | 2017-07-19 12:22 | CP.PCM.PCO ---
Physician Communication Note - Physician Communication Note Physician Communication Note: TUNG COLLINS DC-f/u office 1-2 weeks
[2017-07-19] MEDS: Digoxin 125 mcg (0.125 mg) Tab PO SCH (14:21)
[2017-07-19 14:24] VITALS: PULSE 80
--- NOTE | 2017-07-19 19:09 | PN ---
CARDIOLOGY FOLLOWUP DATE: 07/19/2017 SUBJECTIVE: The patient is in bed, awake, and alert without shortness of breath or chest pain. She apparently is eating well. OBJECTIVE: VITAL SIGNS: Blood pressure is 134/73 and heart rate is atrial fibrillation in the 70s. NECK: Negative JVD. LUNGS: Without rales. HEART: Reveals S1 and S2. EXTREMITIES: Without edema. LABORATORY DATA: Hemoglobin is 10.3. Chemistry; potassium is 3.6. BUN and creatinine unremarkable. IMPRESSION: 1. Status post abdominal surgery for perforated viscus. 2. Chronic atrial fibrillation. 3. History of hypertension. 4. Anemia. PLAN: Given these findings, the patient's heart rate is well controlled on digoxin and Cardizem. She needs to continue on her Eliquis. The patient is stable for transfer to subacute rehab. Arpit Mccurdy MD
--- NOTE | 2017-07-19 21:15 | PN ---
DATE: 07/19/2017 SUBJECTIVE: The patient is in bed, in no acute distress, and nontoxic. PHYSICAL EXAMINATION: VITAL SIGNS: Temperature is 99, blood pressure is 130/70, and respiratory rate is 16. HEENT: Unremarkable. NECK: Supple. LUNGS: Have decreased breath sounds. HEART: Normal S1 and S2. ABDOMEN: Soft. LABORATORY DATA: Reveals a white count of 10,000, hemoglobin of 10, and platelets of 211. Chemistry reveals a BUN of 12 and creatinine of 0.7. Urinalysis is noted. Toxicology reveals a vancomycin trough of 9.5. ASSESSMENT AND PLAN: An 82-year-old status post exploratory laparotomy with Yessenia's procedure, small bowel resection, perforated diverticulitis postprocedure day number 6, peritonitis, perforated sigmoid diverticulitis, status post exploratory laparotomy, sigmoidectomy and partial small bowel removal and colostomy, postprocedure day number 6 with a history of coronary artery disease, peptic ulcer disease, and dilated cardiomyopathy on p.o. Augmentin to complete therapy. She will follow up with Dr. Hernandez. London Singh MD
[2017-07-20] MEDS ORDERED: diltiaZEM 180 mg/24 Hours CD Cap PO SCH (10:00)
== END 2017-07-19 17:03 | disposition home or self-care (01) | DRG 854 ==
LOC: ED 17:30 → ERH 23:55 → CCU 07-12 02:33 → 3RNO 07-15 13:10
PROVIDERS: ADMIT Internal Medicine Nephrology; ATTEND Internal Medicine
PROC: 0D1M0Z4 Bypass Descending Colon to Cutaneous, Open Approach (ICD-10-PCS; 2017-07-12)
PROC: 0DBN0ZZ Excision of Sigmoid Colon, Open Approach (ICD-10-PCS; principal; 2017-07-12 11:15)
PROC: 0DBU0ZZ Excision of Omentum, Open Approach (ICD-10-PCS; 2017-07-12 11:15)
PROC: 0DB80ZZ Excision of Small Intestine, Open Approach (ICD-10-PCS; 2017-07-12 11:15)
DX: A41.9 Sepsis, unspecified organism (principal); N17.9 Acute kidney failure, unspecified; E87.0 Hyperosmolality and hypernatremia; D68.9 Coagulation defect, unspecified; E83.52 Hypercalcemia; I48.2 Chronic atrial fibrillation; E86.0 Dehydration; I42.0 Dilated cardiomyopathy; I50.9 Heart failure, unspecified; I13.0 Hypertensive heart and chronic kidney disease with heart failure and stage 1 through stage 4 chronic kidney disease, or unspecified chronic kidney disease; K57.20 Diverticulitis of large intestine with perforation and abscess without bleeding; N39.0 Urinary tract infection, site not specified; I48.92 Unspecified atrial flutter; R65.20 Severe sepsis without septic shock; B96.20 Unspecified Escherichia coli [E. coli] as the cause of diseases classified elsewhere; D64.9 Anemia, unspecified; E03.9 Hypothyroidism, unspecified; E78.5 Hyperlipidemia, unspecified; E87.6 Hypokalemia; I25.10 Atherosclerotic heart disease of native coronary artery without angina pectoris; I25.5 Ischemic cardiomyopathy; I34.0 Nonrheumatic mitral (valve) insufficiency; J44.9 Chronic obstructive pulmonary disease, unspecified; N18.9 Chronic kidney disease, unspecified; T45.515A Adverse effect of anticoagulants, initial encounter; Z79.82 Long term (current) use of aspirin; Z79.899 Other long term (current) drug therapy; Z87.11 Personal history of peptic ulcer disease; Z87.891 Personal history of nicotine dependence; Z90.710 Acquired absence of both cervix and uterus; Z95.0 Presence of cardiac pacemaker; Z95.5 Presence of coronary angioplasty implant and graft; Z95.810 Presence of automatic (implantable) cardiac defibrillator; K66.0 Peritoneal adhesions (postprocedural) (postinfection)

== ENCOUNTER 2017-09-09 16:02 | Inpatient (IN) | payer MEDICARE, MEDICAID ==
--- NOTE | 2017-09-09 17:29 | ED PDOC ---
Arrival/HPI - General Chief Complaint: Back Pain Time Seen by Provider: 09/09/17 16:25 Historian: Family - History of Present Illness Narrative History of Present Illness (Text): 09/09/17 17:20 Pt is a 82 year old female BIB family for a fall in-home this morning at approx. 5 am as she got out of bed. Family states, at bedside, that she was found slumped against a closet door about 5 mins after the fell. Pt was fully alert and in no obvious pain; family states that she moved her legs well and had full sensation. Pt has h/o atrial fibrillation and on warfarin. There is no clear indication if there was head trauma or if LOC occurred. Family reports that she has not been eating well as she is very reluctant. Received surgery for perforated diverticulitis in July of this year. Pt receives physical therapy at home but has not progressed well with it. Denies dizziness, chest pain, shortness of breath, nausea, vomiting, GIB or other blood loss. PMD is Dr. Pace and Dr. Barrientos at [facility]. 09/09/17 18:26 Time/Duration: 4-6 hours Symptom Onset: Sudden Symptom Course: Unchanged Quality: Aching, Pressure Severity Level: 1 Activities at Onset: Light Context: Standing, Walking Past Medical History - Provider Review Nursing Documentation Reviewed: Yes - Travel History Have you recently traveled outside [place] w/in the past 3 mons?: No - Infectious Disease Hx of Infectious Diseases: None - Tetanus Immunization Tetanus Immunization: Unknown - Cardiac Hx Cardiac Disorders: Yes Hx Hypertension: Yes Hx Internal Defibrillator: Yes - Pulmonary Hx Respiratory Disorders: Yes Hx Chronic Obstructive Pulmonary Disease (COPD): Yes (smoked when she was young) - Neurological Hx Neurological Disorder: No - HEENT Hx HEENT Disorder: No - Renal Hx Renal Disorder: No - Endocrine/Metabolic Hx Endocrine Disorders: Yes Hx Hypothyroidism: Yes - Hematological/Oncological Hx Blood Disorders: No - Integumentary Hx Dermatological Disorder: No - Musculoskeletal/Rheumatological Hx Musculoskeletal Disorders: Yes Hx Falls: Yes - Gastrointestinal Hx Gastrointestinal Disorders: Yes (rectal bleeding, constipation) Hx Diverticulitis: Yes Hx Gastrointestinal Ulcer: Yes (resolution clip 06/13/14) - Genitourinary/Gynecological Hx Genitourinary Disorders: Yes - Psychiatric Hx Psychophysiologic Disorder: Yes Hx Depression: Yes Hx Substance Use: No - Surgical History Other/Comment: DEFIBRILLATOR - Anesthesia Hx Anesthesia Reactions: No Hx Malignant Hyperthermia: No - Suicidal Assessment Feels Threatened In Home Enviroment: No Family/Social History - Physician Review Nursing Documentation Reviewed: Yes Family/Social History: Unknown Family HX Smoking Status: Former Smoker Hx Alcohol Use: No Hx Substance Use: No Hx Substance Use Treatment: No Allergies/Home Meds Allergies/Adverse Reactions: Allergies No Known Allergies Allergy (Verified 09/09/17 16:06) Home Medications: Home Meds Medication Instructions Recorded Confirmed Carvedilol [Coreg] 3.125 mg PO DAILY 09/09/17 09/09/17 Digoxin [Digitek] 125 mcg PO DAILY 09/09/17 09/09/17 Dofetilide [Dofetilide] 250 mcg PO DAILY 09/09/17 09/09/17 Furosemide [Lasix] 40 mg PO DAILY 09/09/17 09/09/17 Magnesium Oxide [Mag-Oxide 400 mg PO DAILY 09/09/17 09/09/17 Magnesium] Rosuvastatin Calcium [Crestor] 10 mg PO DAILY 09/09/17 09/09/17 Warfarin [Coumadin] 2.5 mg PO DAILY 09/09/17 09/09/17 diltiaZEM [Cardizem] 60 mg PO DAILY 09/09/17 09/09/17 Review of Systems - Review of Systems Constitutional: Weight Change Respiratory: Normal Cardiovascular: Normal Gastrointestinal: Normal Genitourinary Female: Normal Musculoskeletal: Back Pain (coccyx) Skin: Normal Neurological: Normal Endocrine: Normal Hemo/Lymphatic: Normal Psychiatric: Normal Physical Exam Vital Signs Reviewed: Yes Vital Signs Temp Pulse Resp BP Pulse Ox 09/09/17 20:00 98.4 F 80 16 134/70 99 09/09/17 18:00 98.4 F 82 18 128/70 98 09/09/17 16:08 98.4 F 86 17 120/63 97 Temperature: Afebrile Blood Pressure: Normal Pulse: Regular Respiratory Rate: Normal Appearance: Positive for: Non-Toxic, Comfortable Pain Distress: Mild Mental Status: Positive for: Alert and Oriented X 3 - Systems Exam Head: Present: Atraumatic, Normocephalic Extroacular Muscles: Present: EOMI Conjunctiva: Present: Normal Mouth: Present: Moist Mucous Membranes Neck: Present: Normal Range of Motion Respiratory/Chest: Present: Clear to Auscultation, Good Air Exchange. No: Respiratory Distress, Accessory Muscle Use Cardiovascular: Present: Regular Rate and Rhythm, Normal S1, S2. No: Murmurs Abdomen: Present: Normal Bowel Sounds. No: Tenderness, Distention, Peritoneal Signs Back: Present: Normal Inspection, Midline Tenderness Upper Extremity: Present: Normal Inspection. No: Cyanosis, Edema Lower Extremity: Present: Normal Inspection, NORMAL PULSES, Tenderness (coccyx) Neurological: Present: GCS=15, CN II-XII Intact, Motor Func Grossly Intact, Normal Sensory Function Skin: Present: Warm, Dry, Normal Color. No: Rashes Psychiatric: Present: Alert, Oriented x 3, Normal Affect, Normal Mood Medical Decision Making ED Course and Treatment: 09/09/17 17:29 Pt is a 82 year old female BIB family for a fall in-home this morning at approx. 5 am as she got out of bed. Plan syncope work up LS XR to r/o fx Progress Note Hypokalemia at 3.0 and INR 3.72 Supplemented with oral K Spoke with Dr. Pace to have patient admitted for syncopal event, poor appetite and failed outpatient care at home Family made aware and advised that pt will likely be admitted for minimum of 2 days 09/09/17 18:23 09/09/17 19:37 - Lab Interpretations Lab Results: 09/09/17 17:20 09/09/17 17:20 Lab Results 09/09/17 17:20: PT 43.6 H, INR 3.72 H*, APTT 36.3 09/09/17 17:20: Sodium 121 L, Potassium 3.0 L, Chloride 86 L, Carbon Dioxide 26 , Anion Gap 12, BUN 11, Creatinine 0.7, Est GFR ( Amer) > 60, Est GFR ( Non-Af Amer) > 60, Random Glucose 113 H, Calcium 10.5, Total Bilirubin 0.6, AST 24, ALT 27, Alkaline Phosphatase 54, Lactate Dehydrogenase 465, Total Creatine Kinase 59, Troponin I 0.03 D, Total Protein 6.8, Albumin 3.8, Globulin 3.1, Albumin/Globulin Ratio 1.2 09/09/17 17:20: WBC 7.6 D, RBC 4.25, Hgb 12.4 D, Hct 35.4 L, MCV 83.3 D, MCH 29.2, MCHC 35.0, RDW 14.8 H, Plt Count 154, MPV 9.1, Gran % 64.9, Lymph % (Auto ) 23.6, [place] % (Auto) 9.0 H, Eos % (Auto) 2.4, Baso % (Auto) 0.1, Gran # 4.91, Lymph # (Auto) 1.8, [place] # (Auto) 0.7 H, Eos # (Auto) 0.2, Baso # (Auto) 0.01 I have reviewed the lab results: Yes (PT 43.6, INR 3.72) - RAD Interpretation Narrative RAD Interpretations (Text): 09/09/17 18:[address] FINDINGS: HEMORRHAGE: No intracranial hemorrhage. BRAIN: No mass effect or edema. Cortical and cerebellar atrophy, periventricular small vessel disease. VENTRICLES: Unremarkable. No hydrocephalus. CALVARIUM: Unremarkable. PARANASAL SINUSES: Unremarkable as visualized. No significant inflammatory changes. MASTOID AIR CELLS: Unremarkable as visualized. No inflammatory changes. OTHER FINDINGS: None. IMPRESSION: No acute intracranial abnormalities. No significant findings to account for the clinical presentation. 09/10/17 09:53 LS Spine XR: No acute findings; no fracture noted Radiology Orders: 09/09/17 16:43 LS SPINE AP/LAT [RAD] Stat 09/09/17 16:46 HEAD W/O CONTRAST [CT] Stat - EKG Interpretation Interpreted by ED Physician: Yes (pacemaker; LVH) - Medication Orders Current Medication Orders: Atorvastatin Calcium (Lipitor) 40 mg PO DAILY [facility] Carvedilol (Coreg) 3.125 mg PO DAILY [facility] Digoxin (Digoxin) 0.125 mg PO DAILY [facility] Diltiazem HCl (Cardizem) 60 mg PO DAILY [facility] Sodium Chloride (Sodium Chloride 0.45%) 1,000 mls @ 60 mls/hr IV .[id number] LEXIE Last Admin: 09/09/17 19:05 Dose: 60 mls/hr eMAR Start Stop Document 09/09/17 19:05 OCS (Rec: 09/09/17 19:05 OCS [id number]) Intravenous Solution Start Date 09/09/17 Start Time 19:05 Magnesium Oxide (Mag-Ox) 400 mg PO DAILY [facility] Non-Formulary Medication (Dofetilide [Dofetilide]) 250 mcg PO DAILY [facility] Discontinued Medications Potassium Chloride (Potassium Chloride 10 Meq/100 Ml) 10 meq in 100 mls @ 50 mls/hr IVPB ONCE ONE Stop: 09/09/17 20:38 Last Admin: 09/09/17 19:03 Dose: 50 mls/hr eMAR Start Stop Document 09/09/17 19:03 OCS (Rec: 09/09/17 19:03 OCS [id number]) Intravenous Solution Start Date 09/09/17 Start Time 19:03 End Date 09/09/17 End time 21:03 Total Infusion Time 120 Potassium Chloride (K-Dur 20 Meq Er Tab) 40 meq PO STAT STA Stop: 09/09/17 18:12 Last Admin: 09/09/17 18:24 Dose: 40 meq Disposition/Present on Arrival - Present on Arrival Any Indicators Present on Arrival: Yes History of DVT/PE: No History of Uncontrolled Diabetes: No Urinary Catheter: No History of Decub. Ulcer: No History Surgical Site Infection Following: None - Disposition Have Diagnosis and Disposition been Completed?: Yes Diagnosis: Syncope, Fall, Low back pain Disposition: HOSPITALIZED Disposition Time: 19:37 Patient Plan: Admission Patient Problems: Current Active Problems Problem Status Onset Syncope Acute Fall Acute Low back pain Acute Condition: GOOD
[2017-09-09 17:34] LABS: BASO # 0.01 K/mm3 (0.0-2.0); BASO % 0.1 % (0.0-3.0); EOS # 0.2 (0.0-0.7); EOS % 2.4 % (1.5-5.0); GRAN # 4.91 (1.4-6.5); GRAN % 64.9 % (50.0-68.0); HEMOGLOBIN 12.4 g/dL (12.0-16.0); LYMPH # 1.8 (1.2-3.4); LYMPH % 23.6 % (22.0-35.0); MEAN CELL VOLUME 83.3 fl (80.0-105.0); MEAN CORPUSCULAR HEMOGLOBIN 29.2 pg (25.0-35.0); MEAN PLATELET VOLUME 9.1 fl (7.0-11.0); MONO # 0.7 (0.1-0.6); RBC 4.25 10^6/uL (3.5-6.1); RED CELL DISTRIBUTION WIDTH 14.8 % (11.5-14.5); WHITE BLOOD COUNT 7.6 10^3/ul (4.5-11.0)
[2017-09-09 17:47] LABS: PROTHROMBIN TIME 43.6 SECONDS (9.4-12.5)
[2017-09-09 17:49] LABS: INR 3.72 (0.93-1.08); PARTIAL THROMBOPLASTIN TIME 36.3 Seconds (25.1-36.5)
[2017-09-09 17:56] LABS: ALB/GLOB RATIO 1.2 (1.1-1.8); ALBUMIN 3.8 g/dL (3.0-4.8); ALT/SGPT 27 U/L (7-56); AST/SGOT 24 U/L (14-36); BLOOD UREA NITROGEN 11 mg/dL (7-21); CALCIUM 10.5 mg/dL (8.4-10.5); GFR AFRICAN-AMERICAN > 60; GFR NON-AFRICAN AMERICAN > 60
[2017-09-09 18:08] LABS: TROPONIN I 0.03 ng/mL
[2017-09-09] MEDS ORDERED: Potassium Chloride 20 mEq ER Tab PO STA (18:11)
--- NOTE | 2017-09-09 18:14 | CT ---
PROCEDURE: CT HEAD WITHOUT CONTRAST. HISTORY: injury COMPARISON: None available. TECHNIQUE: Axial computed tomography images were obtained through the head/brain without intravenous contrast. Coronal and sagittal reconstructed images. Radiation dose: Total exam DLP = 1788.99 mGy-cm. This CT exam was performed using one or more of the following dose reduction techniques: Automated exposure control, adjustment of the mA and/or kV according to patient size, and/or use of iterative reconstruction technique. FINDINGS: HEMORRHAGE: No intracranial hemorrhage. BRAIN: No mass effect or edema. Cortical and cerebellar atrophy, periventricular small vessel disease. VENTRICLES: Unremarkable. No hydrocephalus. CALVARIUM: Unremarkable. PARANASAL SINUSES: Unremarkable as visualized. No significant inflammatory changes. MASTOID AIR CELLS: Unremarkable as visualized. No inflammatory changes. OTHER FINDINGS: None. IMPRESSION: No acute intracranial abnormalities. No significant findings to account for the clinical presentation.
[2017-09-09] MEDS ORDERED: Sodium Chloride 0.45% 1,000 ML IV SCH (18:45)
--- NOTE | 2017-09-09 20:43 | US ---
PROCEDURE: Bilateral carotid artery duplex ultrasound HISTORY: Carotid stenosis syncope PHYSICIAN(S): Arpit Suero MD. TECHNIQUE: Duplex sonography and color-flow Doppler were used to evaluate the carotid bifurcations and limited segments of the vertebral arteries bilaterally. FINDINGS: There is diffuse moderate smooth heterogeneous echogenic plaque noted at the carotid bifurcations bilaterally. The peak systolic velocity in the proximal right internal carotid artery is 88 cm/sec. This corresponds to a 20 to 39% proximal right ICA stenosis. Normal systolic velocities are noted in the proximal right external carotid artery. There is antegrade flow in the right vertebral artery. The peak systolic velocity in the proximal left internal carotid artery is 162 cm/sec. This corresponds to a 60-79 percent proximal left ICA stenosis. Mildly elevated systolic velocities are noted in the proximal left external carotid artery. There is antegrade flow in the left vertebral artery. IMPRESSION: 1. 60-79 percent proximal left ICA stenosis 2. 20-39 percent proximal right ICA stenosis 3. Antegrade flow in both vertebral arteries
--- NOTE | 2017-09-09 22:01 | CARD ---
APPROVED REPORT EKG Measurement Heart [id number] <Conclusion> Poor data quality, interpretation may be adversely affected Electronic atrial pacemaker Left ventricular hypertrophy with repolarization abnormality Abnormal ECG
[2017-09-09 22:42] VITALS: BMI 22.6
--- NOTE | 2017-09-10 03:37 | HP ---
HISTORY OF PRESENT ILLNESS: The patient is an 82-year-old, known to me from multiple previous admissions and office practice. The patient was admitted on 07/12/2017 after she had abdominal pain. She had a ruptured diverticulum in sigmoid colon and had abscess. The patient underwent colostomy and she was sent to [facility] for rehab. The patient came home on 08/31/2017 and has been doing well according to son. This morning, when she got out of bed, she does not know exactly what happened, but she was found on the floor, and family called ambulance and she was brought to emergency room. Denies any fever or chills. No nausea or vomiting. Does have decreased appetite and has lost weight significantly. PAST MEDICAL HISTORY: Significant for; 1. Recent colostomy because of perforated diverticulum and abscess. 2. Hypertension. 3. Chronic AFib, on Coumadin. 4. Hypothyroidism. 5. Ischemic cardiomyopathy. 6. Hyperlipidemia. 7. Mild renal insufficiency. 8. Status post defibrillator placement. ALLERGIES: SHE IS NOT ALLERGIC TO ANY MEDICATIONS. MEDICATIONS AT HOME: She is on Crestor 10 mg daily, Coumadin 2.5 mg daily, digoxin mcg daily, magnesium 400 daily, Coreg 3.125 daily, Dofetilide 250 mcg daily, Lasix 40 mg daily, diltiazem 60 mg daily. SOCIAL HISTORY: She was a heavy smoker, used to drink, but lately because of being on Coumadin, she stopped smoking and drinking. REVIEW OF SYSTEMS: Significant for generalized weakness and poor appetite. PHYSICAL EXAMINATION: GENERAL: On examination, she is awake and alert. There is language barrier because of Thai speaking. VITAL SIGNS: She is afebrile. Pulse 86, respirations 17, and blood pressure 120/63. LUNGS: Bilateral good airflow. No rhonchi or crackles. HEART: S1 and S2 audible. Irregular rate control. ABDOMEN: Soft, nontender. No rebound. No guarding. NEUROLOGIC: The patient is awake, alert, oriented, communicative. LABORATORY DATA: WBC 7.6, hemoglobin 12.4, hematocrit 35.4, platelet of 154. PT 43.6, INR 3.72. Chemistry, sodium 121, potassium 3, chloride 86, CO2 of 26, BUN 11, creatinine 0.7, blood sugar 113. LFTs are within normal limits. Echocardiogram done on 07/12/2017 shows severely dilated left atrium, mild LVH, hypokinesia, [id number] mitral regurg and moderate tricuspid regurg, with pulmonary hypertension. ASSESSMENT AND PLAN: 1. Status post fall, etiology unclear. The patient denies being dizzy. 2. Hypertension. 3. Chronic atrial fibrillation. 4. Hyperlipidemia. 5. Mild renal insufficiency. 6. Status post colostomy. 7. Deconditioning and difficulty walking. 8. Poor appetite and weight loss. PLAN: Patient will be admitted. I will order for carotid Doppler. We will resume her medication, hold for Coumadin for now. The patient is hyponatremic. We will start her on IV normal saline and supplement potassium. Follow up CBC and CMP in a.m. Physical Therapy evaluation has been requested. She might need subacute rehab. Trang Pace MD
[2017-09-10 06:42] LABS: ALB/GLOB RATIO 1.2 (1.1-1.8); ALBUMIN 3.4 g/dL (3.0-4.8); ALT/SGPT 29 U/L (7-56); AST/SGOT 26 U/L (14-36); BLOOD UREA NITROGEN 8 mg/dL (7-21); CALCIUM 10.6 mg/dL (8.4-10.5); GFR AFRICAN-AMERICAN > 60; GFR NON-AFRICAN AMERICAN > 60
[2017-09-10 06:47] LABS: TROPONIN I 0.05 ng/mL
[2017-09-10 06:52] LABS: FREE T4 1.46 ng/dL (0.78-2.19)
[2017-09-10 06:58] LABS: BASO # 0.02 K/mm3 (0.0-2.0); BASO % 0.3 % (0.0-3.0); EOS # 0.4 (0.0-0.7); EOS % 5.4 % (1.5-5.0); GRAN # 3.54 (1.4-6.5); GRAN % 51.4 % (50.0-68.0); HEMOGLOBIN 12.3 g/dL (12.0-16.0); LYMPH # 2.2 (1.2-3.4); MEAN CELL VOLUME 84.6 fl (80.0-105.0); MEAN CORPUSCULAR HEMOGLOBIN 28.7 pg (25.0-35.0); MEAN CORPUSCULAR HGB CONC 33.9 g/dl (31.0-37.0); MEAN PLATELET VOLUME 9.7 fl (7.0-11.0); MONO # 0.8 (0.1-0.6); MONO % 10.9 % (1.0-6.0); RBC 4.29 10^6/uL (3.5-6.1); RED CELL DISTRIBUTION WIDTH 15.2 % (11.5-14.5); WHITE BLOOD COUNT 6.9 10^3/ul (4.5-11.0)
[2017-09-10 07:22] LABS: INR 2.89 (0.93-1.08)
--- NOTE | 2017-09-10 09:50 | RAD ---
PROCEDURE: Radiographs of the Lumbar Spine. HISTORY: injury COMPARISON: No prior. FINDINGS: BONES: Normal alignment. No listhesis. No fracture. Diffuse osteopenia DISC SPACES: Unremarkable. OTHER FINDINGS: Calcified nonaneurysmal abdominal aorta. IMPRESSION: No significant or acute findings to account for/ related to the clinical presentation.
[2017-09-10] MEDS ORDERED: DOFETILIDE 250 MCG PO SCH (10:00)
[2017-09-10] MEDS: Digoxin 125 mcg (0.125 mg) Tab PO SCH (10:35)
[2017-09-10] MEDS: Magnesium Oxide 400 mg Tab UD PO SCH (10:35)
--- NOTE | 2017-09-10 15:15 | CON ---
DATE: 09/10/2017 NEUROLOGY CONSULTATION CHIEF COMPLAINT: Syncope. 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 She was sent to [facility] for rehab. The patient came home on 08/31/2017 and was doing well. Then, when she got out of bed, she does not know exactly what happened, but found herself on the floor, and was brought to ER. She was found to be hyponatremic with a sodium of 121 and she had an INR of 3.72; therefore, Coumadin was put on hold temporarily and she has had low potassium. She underwent also a carotid Doppler, which showed 60% to 79% proximal left ICA stenosis and 20% to 39% proximal right ICA stenosis with antegrade flow in both vertebral arteries. Currently, no focal weakness of the extremities. The patient is deconditioned from her baseline. PAST MEDICAL HISTORY: Recent colostomy for perforated diverticulum and abscess; hypertension; chronic AFib, on Coumadin; hypothyroidism; ischemic cardiomyopathy; hyperlipidemia; mild renal insufficiency; status post defibrillator. ALLERGIES: NOT ALLERGIC TO ANY MEDICATIONS. MEDICATIONS: Reviewed by nurse's reconciliation sheet. SOCIAL HISTORY: She was a heavy smoker and used to drink, but stopped due to being on Coumadin. REVIEW OF SYSTEMS: A 14-point review of systems negative except as per the HPI. PHYSICAL EXAMINATION: VITAL SIGNS: Temperature 97.9, pulse rate of 82, blood pressure 124/69, respiratory rate of 18, and oxygen saturation 99% by room air. GENERAL: The patient is sitting up in bed, in no acute distress. HEENT: Head is atraumatic, normocephalic. PERRLA. Extraocular muscles intact. NECK: Supple. No JVD. No adenopathy noted. LUNGS: Clear to auscultation. No adventitious sounds. HEART: S1 and S2. Normal rate and rhythm. No murmur, rubs, or gallops. ABDOMEN: Soft, nontender, nondistended. Bowel sounds present. EXTREMITIES: No clubbing. No cyanosis. Peripheral pulses are 2+ felt bilaterally. NEUROLOGIC: The patient is alert and oriented to person and place and recalls after 5 minutes is 0/3. Poor attention span and slow thought process.. Cranial nerves II through XII intact. Motor: Slightly increased tone throughout. Moves all extremities equally. No pronator drift seen. Sensory: Light touch, pinprick, proprioception, and vibration intact. DTRs are 2+ throughout except for 1 at both knees, absent at the ankles. Coordination: [id number] intact. No dysmetria noted. Gait is deferred for now. LABORATORY DATA: Sodium is 127, potassium 3.4, chloride 92, BUN of 8, creatinine 0.8, random glucose of 85. ASSESSMENT AND PLAN: This is an 82-year-old woman status post colostomy for perforated diverticulum; hypertension; hyperlipidemia; chronic atrial fibrillation, on Coumadin; ischemic cardiomyopathy; deconditioned; poor appetite and weight loss who was brought in for syncopal event. Carotid Doppler shows 60% to 79% left internal carotid artery stenosis and 30% to 39% proximal right internal carotid artery stenosis with antegrade flow in vertebral arteries. An echo that was done on 07/12/2017 showed severely dilated left atrium, mild left ventricular hypokinesis, and moderate tricuspid regurgitation with pulmonary hypertension. She is found to be hyponatremic with a sodium of 121 and currently 127 today and was mildly dehydrated. Blood pressures are stable. Likely, syncope could be secondary to vasovagal component with possible carotid artery disease with underlying hyponatremia with metabolic derangements. At this time, we recommend: 1. Orthostatic vital signs. 2. We will get a CT angiogram of the neck to further assess the carotid Doppler results. 3. Vascular consult for the left internal carotid. 4. Monitor electrolytes and correct accordingly, correct the sodium. 5. PT/OT assessment and likely recommend subacute rehab. Thank you for this consultation. Timothy Bragg MD
--- NOTE | 2017-09-10 15:18 | CP.PCM.CON ---
History of Present Illness - History of Present Illness History of Present Illness: Seen and examined by me and Dr. Her Reason for consultation: An 82 year old woman who was admitted to the ER via ambulance due to syncopal episode. Son found her on the floor and patient can not remember what happen. The patient was recently discharged from hospital post ruptured diverticulum in sigmoid colon with abscess. Patient has colostomy.[facility] and went home 08/31/17. According to son,she was doing well until this incident happen.She has history of hypertension, chronic afib on coumadin,hypothyroidism, ischemic cardiomyopathy, hyperlipidemia , mild renal insufficiency, status post AICD placement, ex-smoker Review of Systems - Review of Systems Systems not reviewed;Unavailable: Respiratory Distress Review of Systems: Frail and looks weak - EENT Additional comments: absent double vision - Cardiovascular Additional comments: denies chest pain - Respiratory Additional comments: absent shortness of breath - Gastrointestinal Additional comments: absent abdominal pain,tenderness,with colostomy - Musculoskeletal Musculoskeletal: Muscle Weakness - Integumentary Additional comments: absent ulcer or rashes Past Patient History - Infectious Disease Hx of Infectious Diseases: None - Tetanus Immunizations Tetanus Immunization: Unknown - Past Medical History & Family History Past Medical History?: Yes - Past Social History Smoking Status: Former Smoker - CARDIAC Hx Cardiac Disorders: Yes Hx Atrial Fibrillation: Yes Hx Hypercholesterolemia: Yes Hx Hypertension: Yes Hx Internal Defibrillator: Yes - PULMONARY Hx Respiratory Disorders: Yes Hx Chronic Obstructive Pulmonary Disease (COPD): Yes (smoked when she was young) - NEUROLOGICAL Hx Neurological Disorder: No - HEENT Hx HEENT Problems: No - RENAL Hx Chronic Kidney Disease: No Other/Comment: Chronic renal insufficiency - ENDOCRINE/METABOLIC Hx Endocrine Disorders: Yes Hx Hypothyroidism: Yes - HEMATOLOGICAL/ONCOLOGICAL Hx Blood Disorders: No - INTEGUMENTARY Hx Dermatological Problems: No - MUSCULOSKELETAL/RHEUMATOLOGICAL Hx Musculoskeletal Disorders: Yes Hx Falls: Yes - GASTROINTESTINAL Hx Gastrointestinal Disorders: Yes (rectal bleeding, constipation) Hx Bowel Surgery: Yes (Perforated diverticulum with abcess) Hx Colostomy: Yes Hx Constipation: Yes Hx Diverticulitis: Yes - GENITOURINARY/GYNECOLOGICAL Hx Genitourinary Disorders: Yes - PSYCHIATRIC Hx Psychophysiologic Disorder: Yes Hx Depression: Yes Hx Substance Use: No - SURGICAL HISTORY Hx Surgeries: Yes Other/Comment: Defibrillator (AICD), perforated diverticulum with abscess with colostomy,Caesarian section - ANESTHESIA Hx Anesthesia Reactions: No Hx Malignant Hyperthermia: No Meds Allergies/Adverse Reactions: Allergies Allergy/AdvReac Type Severity Reaction Status Date / Time No Known Allergies Allergy Verified 09/09/17 16:06 - Medications Medications: Current Medications Atorvastatin Calcium (Lipitor) 40 mg PO DAILY [facility] Last Admin: 09/10/17 10:35 Dose: 40 mg Carvedilol (Coreg) 3.125 mg PO DAILY [facility] Last Admin: 09/10/17 10:35 Dose: 3.125 mg Digoxin (Digoxin) 0.125 mg PO DAILY [facility] Last Admin: 09/10/17 10:35 Dose: 0.125 mg Diltiazem HCl (Cardizem) 60 mg PO DAILY [facility] Last Admin: 09/10/17 10:35 Dose: 60 mg Sodium Chloride (Sodium Chloride 0.45%) 1,000 mls @ 60 mls/hr IV .[id number] [facility] Last Admin: 09/09/17 19:05 Dose: 60 mls/hr Magnesium Oxide (Mag-Ox) 400 mg PO DAILY [facility] Last Admin: 09/10/17 10:35 Dose: 400 mg Non-Formulary Medication (Dofetilide [Dofetilide]) 250 mcg PO DAILY [facility] Physical Exam - Constitutional Appears: No Acute Distress, Cachectic - Head Exam Head Exam: NORMAL INSPECTION - Eye Exam Eye Exam: Normal appearance Pupil Exam: NORMAL ACCOMODATION - ENT Exam ENT Exam: Mucous Membranes Moist, Normal Exam - Respiratory Exam Respiratory Exam: Clear to Auscultation Bilateral, NORMAL BREATHING PATTERN - Cardiovascular Exam Cardiovascular Exam: +S1, +S2 Additional comments: Chronic Atrial fibrillation - GI/Abdominal Exam GI & Abdominal Exam: Normal Bowel Sounds, Soft Additional comments: colostomy - Neurological Exam Neurological exam: Alert, Oriented x3 - Skin Skin Exam: Dry, Intact, Normal Color, Warm Results - Vital Signs Recent Vital Signs: Last Vital Signs Temp 97.9 F 09/10/17 08:26 Pulse 82 09/10/17 10:35 Resp 18 09/10/17 08:26 BP 124/69 09/10/17 10:35 Pulse Ox 99 09/10/17 08:26 - Labs Result Diagrams: 09/10/17 05:00 09/10/17 05:00 Labs: Laboratory Results - last 24 hr 09/10/17 09/10/17 09/10/17 05:00 05:00 05:00 WBC 6.9 RBC 4.29 Hgb 12.3 Hct 36.3 MCV 84.6 MCH 28.7 MCHC 33.9 RDW 15.2 H Plt Count 167 MPV 9.7 Gran % 51.4 Lymph % (Auto) 32.0 [place] % (Auto) 10.9 H Eos % (Auto) 5.4 H Baso % (Auto) 0.3 Gran # 3.54 Lymph # (Auto) 2.2 [place] # (Auto) 0.8 H Eos # (Auto) 0.4 Baso # (Auto) 0.02 PT 34.0 H INR 2.89 H Sodium 127 L Potassium 3.4 L Chloride 92 L Carbon Dioxide 27 Anion Gap 11 BUN 8 Creatinine 0.8 Est GFR ( Amer) > 60 Est GFR (Non-Af Amer) > 60 Random Glucose 85 Calcium 10.6 H Total Bilirubin 0.8 AST 26 ALT 29 Alkaline Phosphatase 51 Troponin I 0.05 D Total Protein 6.4 Albumin 3.4 Globulin 2.9 Albumin/Globulin Ratio 1.2 Free T4 TSH 3rd Generation 09/10/17 05:00 WBC RBC Hgb Hct MCV MCH MCHC RDW Plt Count MPV Gran % Lymph % (Auto) [place] % (Auto) Eos % (Auto) Baso % (Auto) Gran # Lymph # (Auto) [place] # (Auto) Eos # (Auto) Baso # (Auto) PT INR Sodium Potassium Chloride Carbon Dioxide Anion Gap BUN Creatinine Est GFR ( Amer) Est GFR (Non-Af Amer) Random Glucose Calcium Total Bilirubin AST ALT Alkaline Phosphatase Troponin I Total Protein Albumin Globulin Albumin/Globulin Ratio Free T4 1.46 TSH 3rd Generation 1.93 - EKG Data EKG comments: EKG- Left ventricular hyperthrophy with repolarization Atrial pacemaker Assessment & Plan - Assessment and Plan (Free Text) Assessment: A 82 year old woman who was admitted to the ER via ambulance due to syncopal episode. Son found her on the floor and patient can not remember what happen. The patient was recently discharged from hospital post ruptured diverticulum in sigmoid colon with abscess. Patient has colostomy.She was [facility]post [facility] and went home 08/31/17. According to son,she was doing well until this incident happen.She has history of hypertension, chronic afib on coumadin,hypothyroidism, ischemic cardiomyopathy, hyperlipidemia , mild renal insufficiency, status post AICD placement, ex-smoker Plan: Echocardiogram 07/12/17- Severely dilated left atrium,mild to moderate Mitral Regurgitation ,Moderate Tricuspid Regurgitation,moderate pulmonary hypertension, LVEF 38.9 % 09/09/17 CT scan of head- negative for hemorrhage 09/09/17 Carotid ultrasound-60 to 79 % proximal left ICA stenosis Continue present plan of care Continue Coreg 3.125 mg daily,Digoxin 0.125mg daily,Cardizem 60 mg daily K+ 3.4 shravan give potassium chloride 40 meq x 1 dose INR 2.89- Will restart coumadin at 2 mg daily with daily INR Monitor closely Will follow up Plan and treatment reviewed with Dr. Her Thank you Dr. Pace for allowing us to participate in the care of Joy Recinos. - Date & Time Date: 09/10/17 Time: 15:10
[2017-09-10] MEDS ORDERED: Potassium Chloride 40 mEq/30 ml LIQ UD PO ONE (16:01)
[2017-09-10 16:30] LABS: BLOOD UREA NITROGEN 10 mg/dL (7-21); CALCIUM 10.7 mg/dL (8.4-10.5); GFR AFRICAN-AMERICAN > 60; GFR NON-AFRICAN AMERICAN > 60
[2017-09-10] MEDS ORDERED: Iohexol 350 MG/100 ML VIAL ONE (17:05)
--- NOTE | 2017-09-10 21:55 | CP.PCM.CON ---
History of Present Illness - History of Present Illness History of Present Illness: Vascular Surgery Consult for Dr. Peters Reason for consult: L ICA stenosis 82F with past medical history of chronic Afib on coumadin, HTN, ischemic cardiomyopathy, and hypothyroidism. Yesterday morning patient was getting out of bed and had a syncopal even which was unwitnessed. Patient reports she does not remember the event. Patient was foun on the floor by family, as per patient this is the first time this happens. At time of examination patient was AAOx3 resting comfortably in bed. No neurological deficits were noted. Patient denied headache/dizziness, fever/chills, diplopia, chest pain, shortness of breath. 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, , AICD placement, ventral hernia repair x2 Allergies: NKDA Fam Hx: non contributory Echocardiogram 07/12/17- Severely dilated left atrium,mild to moderate Mitral Regurgitation ,Moderate Tricuspid Regurgitation,moderate pulmonary hypertension, LVEF 38.9 % Review of Systems - Review of Systems Review of Systems: 12 pt ROS unremarkable, except as stated in HPI Past Patient History - Infectious Disease Hx of Infectious Diseases: None - Tetanus Immunizations Tetanus Immunization: Unknown - Past Medical History & Family History Past Medical History?: Yes - Past Social History Smoking Status: Former Smoker - CARDIAC Hx Cardiac Disorders: Yes Hx Atrial Fibrillation: Yes Hx Hypercholesterolemia: Yes Hx Hypertension: Yes Hx Internal Defibrillator: Yes - PULMONARY Hx Respiratory Disorders: Yes Hx Chronic Obstructive Pulmonary Disease (COPD): Yes (smoked when she was young) - NEUROLOGICAL Hx Neurological Disorder: No - HEENT Hx HEENT Problems: No - RENAL Hx Chronic Kidney Disease: No Other/Comment: Chronic renal insufficiency - ENDOCRINE/METABOLIC Hx Endocrine Disorders: Yes Hx Hypothyroidism: Yes - HEMATOLOGICAL/ONCOLOGICAL Hx Blood Disorders: No - INTEGUMENTARY Hx Dermatological Problems: No - MUSCULOSKELETAL/RHEUMATOLOGICAL Hx Musculoskeletal Disorders: Yes Hx Falls: Yes - GASTROINTESTINAL Hx Gastrointestinal Disorders: Yes (rectal bleeding, constipation) Hx Bowel Surgery: Yes (Perforated diverticulum with abcess) Hx Colostomy: Yes Hx Constipation: Yes Hx Diverticulitis: Yes - GENITOURINARY/GYNECOLOGICAL Hx Genitourinary Disorders: Yes - PSYCHIATRIC Hx Psychophysiologic Disorder: Yes Hx Depression: Yes Hx Substance Use: No - SURGICAL HISTORY Hx Surgeries: Yes Other/Comment: Defibrillator (AICD), perforated diverticulum with abscess with colostomy,Caesarian section - ANESTHESIA Hx Anesthesia Reactions: No Hx Malignant Hyperthermia: No Meds Allergies/Adverse Reactions: Allergies Allergy/AdvReac Type Severity Reaction Status Date / Time No Known Allergies Allergy Verified 09/09/17 16:06 - Medications Medications: Current Medications Atorvastatin Calcium (Lipitor) 40 mg PO DAILY [facility] Last Admin: 09/10/17 10:35 Dose: 40 mg Carvedilol (Coreg) 3.125 mg PO DAILY [facility] Last Admin: 09/10/17 10:35 Dose: 3.125 mg Digoxin (Digoxin) 0.125 mg PO DAILY [facility] Last Admin: 09/10/17 10:35 Dose: 0.125 mg Diltiazem HCl (Cardizem) 60 mg PO DAILY [facility] Last Admin: 09/10/17 10:35 Dose: 60 mg Magnesium Oxide (Mag-Ox) 400 mg PO DAILY [facility] Last Admin: 09/10/17 10:35 Dose: 400 mg Non-Formulary Medication (Dofetilide [Dofetilide]) 250 mcg PO DAILY [facility] Warfarin Sodium (Coumadin) 2 mg PO 1800 [facility] PRN Reason: Protocol Last Admin: 09/10/17 17:20 Dose: 2 mg Physical Exam - Constitutional Appears: No Acute Distress - Head Exam Head Exam: NORMOCEPHALIC - Eye Exam Eye Exam: Normal appearance Pupil Exam: NORMAL ACCOMODATION - ENT Exam ENT Exam: Mucous Membranes Moist - Respiratory Exam Respiratory Exam: NORMAL BREATHING PATTERN - Cardiovascular Exam Cardiovascular Exam: +S1, +S2 - GI/Abdominal Exam GI & Abdominal Exam: Soft. absent: Tenderness Additional comments: stoma intact - Extremities Exam Extremities exam: Negative for: calf tenderness - Neurological Exam Neurological exam: Alert, CN II-XII Intact, Oriented x3 - Psychiatric Exam Psychiatric exam: Normal Mood - Skin Skin Exam: Dry, Intact, Warm Results - Vital Signs Recent Vital Signs: Last Vital Signs Temp 98.2 F 09/10/17 16:00 Pulse 93 H 09/10/17 18:00 Resp 20 09/10/17 16:00 BP 126/69 09/10/17 16:00 Pulse Ox 96 09/10/17 16:00 - Labs Result Diagrams: 09/10/17 05:00 09/10/17 16:12 Labs: Laboratory Results - last 24 hr 09/10/17 09/10/17 09/10/17 05:00 05:00 05:00 WBC 6.9 RBC 4.29 Hgb 12.3 Hct 36.3 MCV 84.6 MCH 28.7 MCHC 33.9 RDW 15.2 H Plt Count 167 MPV 9.7 Gran % 51.4 Lymph % (Auto) 32.0 [place] % (Auto) 10.9 H Eos % (Auto) 5.4 H Baso % (Auto) 0.3 Gran # 3.54 Lymph # (Auto) 2.2 [place] # (Auto) 0.8 H Eos # (Auto) 0.4 Baso # (Auto) 0.02 PT 34.0 H INR 2.89 H Sodium 127 L Potassium 3.4 L Chloride 92 L Carbon Dioxide 27 Anion Gap 11 BUN 8 Creatinine 0.8 Est GFR ( Amer) > 60 Est GFR (Non-Af Amer) > 60 Random Glucose 85 Calcium 10.6 H Magnesium Total Bilirubin 0.8 AST 26 ALT 29 Alkaline Phosphatase 51 Troponin I 0.05 D Total Protein 6.4 Albumin 3.4 Globulin 2.9 Albumin/Globulin Ratio 1.2 Free T4 TSH 3rd Generation 09/10/17 09/10/17 05:00 16:12 WBC RBC Hgb Hct MCV MCH MCHC RDW Plt Count MPV Gran % Lymph % (Auto) [place] % (Auto) Eos % (Auto) Baso % (Auto) Gran # Lymph # (Auto) [place] # (Auto) Eos # (Auto) Baso # (Auto) PT INR Sodium 125 L Potassium 3.7 Chloride 92 L Carbon Dioxide 29 Anion Gap 8 L BUN 10 Creatinine 0.8 Est GFR ( Amer) > 60 Est GFR (Non-Af Amer) > 60 Random Glucose 109 Calcium 10.7 H Magnesium 2.2 Total Bilirubin AST ALT Alkaline Phosphatase Troponin I Total Protein Albumin Globulin Albumin/Globulin Ratio Free T4 1.46 TSH 3rd Generation 1.93 Assessment & Plan - Assessment and Plan (Free Text) Assessment: 82F with unwitness fall found to have L ICA stenosis CTH: negative Carotid U/S: 60-79% proximal L ICA stenosis Plan: Correct hyponatremia F/u CT neck angiography Neuro checks Neurology recs appreciated Cardio recs appreciated Further recs per Dr. Fran Vivar PGY2
[2017-09-11] MEDS: Magnesium Oxide 400 mg Tab UD PO SCH (09:29)
[2017-09-11] MEDS: Digoxin 125 mcg (0.125 mg) Tab PO SCH (09:29)
--- NOTE | 2017-09-11 10:41 | CP.PCM.PN ---
Subjective - Date & Time of Evaluation Date of Evaluation: 09/11/17 Time of Evaluation: 09:55 - Subjective Subjective: Seen and examined by me and Dr. Her Reason for consultation and follow up: An 82 year old woman who was admitted to the ER via ambulance due to syncopal episode. Son found her on the floor and patient can not remember what happen. The patient was recently discharged from hospital post ruptured diverticulum in sigmoid colon with abscess. Patient has colostomy.She was discharged to Rehab ( [facility])post surgery and went home 08/31/17. According to son,she was doing well until this incident happen.She has history of hypertension, chronic afib on coumadin,hypothyroidism, ischemic cardiomyopathy, hyperlipidemia , mild renal insufficiency, status post AICD placement, ex-smoker Denies chest pain and shortness of breath. Lying in bed in no distress Objective - Vital Signs/Intake and Output Vital Signs (last 24 hours): Temp Pulse Resp BP Pulse Ox 98.5 F 86 20 123/69 99 09/11/17 08:29 09/11/17 09:28 09/11/17 08:29 09/11/17 09:28 09/11/17 08:29 Intake and Output: 09/11/17 09/11/17 06:59 18:59 Intake Total Balance - Medications Medications: Current Medications Atorvastatin Calcium (Lipitor) 40 mg PO DAILY [facility] Last Admin: 09/11/17 09:29 Dose: 40 mg Carvedilol (Coreg) 3.125 mg PO DAILY [facility] Last Admin: 09/11/17 09:28 Dose: 3.125 mg Digoxin (Digoxin) 0.125 mg PO DAILY [facility] Last Admin: 09/11/17 09:29 Dose: 0.125 mg Diltiazem HCl (Cardizem) 60 mg PO DAILY [facility] Last Admin: 09/11/17 09:28 Dose: 60 mg Magnesium Oxide (Mag-Ox) 400 mg PO DAILY [facility] Last Admin: 09/11/17 09:29 Dose: 400 mg Non-Formulary Medication (Dofetilide [Dofetilide]) 250 mcg PO DAILY [facility] Warfarin Sodium (Coumadin) 2 mg PO 1800 [facility] PRN Reason: Protocol Last Admin: 09/10/17 17:20 Dose: 2 mg - Labs Labs: 09/10/17 05:00 09/10/17 16:12 PT 34.0 SECONDS (9.4-12.5) H 09/10/17 05:00 INR 2.89 (0.93-1.08) H 09/10/17 05:00 APTT 36.3 Seconds (25.1-36.5) 09/09/17 17:20 - Constitutional Appears: Well, No Acute Distress, Cachectic - Head Exam Head Exam: NORMAL INSPECTION - Eye Exam Eye Exam: Normal appearance Pupil Exam: NORMAL ACCOMODATION - ENT Exam ENT Exam: Mucous Membranes Moist - Neck Exam Neck Exam: Normal Inspection - Respiratory Exam Respiratory Exam: Decreased Breath Sounds, Clear to Ausculation Bilateral, NORMAL BREATHING PATTERN - Cardiovascular Exam Cardiovascular Exam: +S1, +S2 Additional comments: left upper chest AICD, no tenderness,no infection,no hematoma - GI/Abdominal Exam GI & Abdominal Exam: Soft, Normal Bowel Sounds - Extremities Exam Extremities Exam: Full ROM, Normal Capillary Refill - Back Exam Back Exam: NORMAL INSPECTION - Neurological Exam Neurological Exam: Alert, Awake, Oriented x3 - Psychiatric Exam Psychiatric exam: Normal Affect, Normal Mood (Speaks lao) Assessment and Plan - Assessment and Plan (Free Text) Assessment: Reason for consultation and follow up: An 82 year old woman who was admitted to the ER via ambulance due to syncopal episode. Son found her on the floor and patient can not remember what happen. The patient was recently discharged from hospital post ruptured diverticulum in sigmoid colon with abscess. Patient has colostomy.[facility] and went home 08/31/17. According to son,she was doing well until this incident happen.She has history of hypertension, chronic afib on coumadin,hypothyroidism, ischemic cardiomyopathy, hyperlipidemia , mild renal insufficiency, status post AICD placement, ex-smoker Plan: Called [employer] to interrogate AICD, information on patient provided Continue present plan of care Continue Coreg 3.125 mg daily,Digoxin 0.125mg daily,Cardizem 60 mg daily Monitor closely Stable, K-3.7, INR 2.89, Magnesium 2.2 Will follow up Plan and treatment reviewed with Dr. Her
--- NOTE | 2017-09-11 11:21 | CP.PCM.PN ---
Subjective - Date & Time of Evaluation Date of Evaluation: 09/11/17 Time of Evaluation: 10:00 - Subjective Subjective: Patient seen and examined. No acute events over night. Patient is AAOx3. Denies headaches, dizziness, fever/chills, chest pain, shortness of breath. Objective - Vital Signs/Intake and Output Vital Signs (last 24 hours): Temp Pulse Resp BP Pulse Ox 98.5 F 86 20 123/69 99 09/11/17 08:29 09/11/17 09:28 09/11/17 08:29 09/11/17 09:28 09/11/17 08:29 Intake and Output: 09/11/17 09/11/17 06:59 18:59 Intake Total Balance - Medications Medications: Current Medications Atorvastatin Calcium (Lipitor) 40 mg PO DAILY [facility] Last Admin: 09/11/17 09:29 Dose: 40 mg Carvedilol (Coreg) 3.125 mg PO DAILY [facility] Last Admin: 09/11/17 09:28 Dose: 3.125 mg Digoxin (Digoxin) 0.125 mg PO DAILY [facility] Last Admin: 09/11/17 09:29 Dose: 0.125 mg Diltiazem HCl (Cardizem) 60 mg PO DAILY [facility] Last Admin: 09/11/17 09:28 Dose: 60 mg Magnesium Oxide (Mag-Ox) 400 mg PO DAILY [facility] Last Admin: 09/11/17 09:29 Dose: 400 mg Non-Formulary Medication (Dofetilide [Dofetilide]) 250 mcg PO DAILY [facility] Warfarin Sodium (Coumadin) 2 mg PO 1800 [facility] PRN Reason: Protocol Last Admin: 09/10/17 17:20 Dose: 2 mg - Labs Labs: 09/10/17 05:00 09/10/17 16:12 PT 34.0 SECONDS (9.4-12.5) H 09/10/17 05:00 INR 2.89 (0.93-1.08) H 09/10/17 05:00 APTT 36.3 Seconds (25.1-36.5) 09/09/17 17:20 - Constitutional Appears: No Acute Distress - Head Exam Head Exam: NORMOCEPHALIC - Eye Exam Eye Exam: EOMI, Normal appearance - ENT Exam ENT Exam: Mucous Membranes Moist, Normal Exam - Respiratory Exam Respiratory Exam: NORMAL BREATHING PATTERN - Cardiovascular Exam Cardiovascular Exam: +S1, +S2 - GI/Abdominal Exam GI & Abdominal Exam: Soft - Neurological Exam Neurological Exam: Alert, Awake - Skin Skin Exam: Dry, Normal Color, Warm Assessment and Plan - Assessment and Plan (Free Text) Assessment: 82F with unwitness fall found to have L ICA stenosis CTH: negative Carotid U/S: 60-79% proximal L ICA stenosis CT neck angiography: Left ICA: Plaque at the left carotid bifurcation extending into the proximal left inernal carotid artery. Nild less than 50% stenosis. Approximately 90 degree bend in the course of the L ICA with mild less than 50% stenosis at the point of angulation. No dissection or occlusion. Mild less than 50% b/l carotid artery stenoses Mild b/l distal vertebral artery stenoses Degenerative changes in the spine Plan: Correct hyponatremia Neuro checks Neurology recs appreciated Cardio recs appreciated Further recs per Dr. Fran Vivar PGY2
[2017-09-11 16:16] LABS: INR 2.55 (0.93-1.08); PROTHROMBIN TIME 29.6 SECONDS (9.4-12.5)
--- NOTE | 2017-09-12 00:33 | PN ---
DATE: 09/11/2017 FOLLOWUP NOTE SUBJECTIVE: She is comfortable in bed, in no acute distress. She is not ambulating. She had a history of syncopal attack at home. She had a recent sigmoid surgery because of diverticulitis rupture. She has history of CHF, AICD placed. History of atrial fibrillation, on Coumadin. No chest pain. No shortness of breath. REVIEW OF SYSTEMS: As per HPI. Rest of 12-point of review of systems reviewed and negative. PHYSICAL EXAMINATION: GENERAL: Comfortable in bed, in no acute distress. VITAL SIGNS: Temperature 98.7, heart rate 86 per minute, respiratory rate 20 per minute, blood pressure 123/69, pulse ox is 99% on room air. HEENT: . NECK: No lymphadenopathy. CHEST: Fair air entry present and equal bilaterally. No added sound. CARDIOVASCULAR: S1 and S2 normal. No murmur. No gallop. ABDOMEN: Soft, nontender. No hepatosplenomegaly. EXTREMITIES: No edema. Colostomy bag present, draining. CENTRAL NERVOUS SYSTEM: Alert, oriented x3. No focal sensory or motor deficit. LABORATORY DATA: White cell count 6.9, hemoglobin 12.3, hematocrit 36.9, platelet 169. Sodium 125, BUN 10, creatinine 0.8. ASSESSMENT AND PLAN: 1. Syncope. 2. Hyponatremia. 3. Hypokalemia. 4. Hypertension. 5. Atrial fibrillation. 6. Mild renal insufficiency. PLAN: CT angio of the neck done to rule out carotid artery stenosis. Consultation with requested for left internal carotid artery stenosis. Neurology, Dr. Bragg, following. She has hyponatremia. We will continue to monitor electrolytes. She is not on IV fluids. Hypokalemia resolved. Currently on Coumadin for atrial fibrillation. INR therapeutic at 2.5. We will continue current dose. Medications reviewed. Dr. Her requested pacemaker interrogation from [employer]. MEDICATIONS: Lipitor 40 mg daily, Coreg 3.125 mg daily, digoxin 0.125 mg daily, Cardizem 60 mg daily, Coumadin 2 mg daily, dofetilide 250 mcg p.o. b.i.d. Cathie Gonzales MD
--- NOTE | 2017-09-12 07:51 | CP.PCM.PN ---
Subjective - Date & Time of Evaluation Date of Evaluation: 09/12/17 Time of Evaluation: 07:00 - Subjective Subjective: Patient seen and examined this morning. No acute events over night. Remains alert, aware, and oriented x3. Objective - Vital Signs/Intake and Output Vital Signs (last 24 hours): Temp Pulse Resp BP Pulse Ox 98.3 F 77 68 H 117/62 18 L 09/11/17 16:00 09/12/17 06:00 09/11/17 16:00 09/11/17 16:00 09/11/17 16:00 - Medications Medications: Current Medications Atorvastatin Calcium (Lipitor) 40 mg PO DAILY [facility] Last Admin: 09/11/17 09:29 Dose: 40 mg Carvedilol (Coreg) 3.125 mg PO DAILY [facility] Last Admin: 09/11/17 09:28 Dose: 3.125 mg Digoxin (Digoxin) 0.125 mg PO DAILY [facility] Last Admin: 09/11/17 09:29 Dose: 0.125 mg Diltiazem HCl (Cardizem) 60 mg PO DAILY [facility] Last Admin: 09/11/17 09:28 Dose: 60 mg Magnesium Oxide (Mag-Ox) 400 mg PO DAILY [facility] Last Admin: 09/11/17 09:29 Dose: 400 mg Dofetilide 250 Mcg 250 mcg PO BID [facility] Warfarin Sodium (Coumadin) 2 mg PO 1800 [facility] PRN Reason: Protocol Last Admin: 09/11/17 18:36 Dose: 2 mg - Labs Labs: 09/10/17 05:00 09/10/17 16:12 PT 29.6 SECONDS (9.4-12.5) H 09/11/17 15:46 INR 2.55 (0.93-1.08) H 09/11/17 15:46 APTT 36.3 Seconds (25.1-36.5) 09/09/17 17:20 - Constitutional Appears: No Acute Distress - Head Exam Head Exam: NORMOCEPHALIC - Eye Exam Eye Exam: EOMI, Normal appearance - ENT Exam ENT Exam: Mucous Membranes Moist - Respiratory Exam Respiratory Exam: NORMAL BREATHING PATTERN - Cardiovascular Exam Cardiovascular Exam: +S1, +S2 - GI/Abdominal Exam GI & Abdominal Exam: Soft. absent: Tenderness - Rectal Exam Rectal Exam: NORMAL INSPECTION - Neurological Exam Neurological Exam: Alert, Awake, Oriented x3 - Psychiatric Exam Psychiatric exam: Normal Mood - Skin Skin Exam: Dry, Intact, Normal Color, Warm Assessment and Plan - Assessment and Plan (Free Text) Assessment: 82F with unwitness fall found to have L ICA stenosis CTH: negative Carotid U/S: 60-79% proximal L ICA stenosis CT neck angiography: Left ICA: Plaque at the left carotid bifurcation extending into the proximal left inernal carotid artery. Nild less than 50% stenosis. Approximately 90 degree bend in the course of the L ICA with mild less than 50% stenosis at the point of angulation. No dissection or occlusion. Mild less than 50% b/l carotid artery stenoses Mild b/l distal vertebral artery stenoses Degenerative changes in the spine Plan: Correct hyponatremia Neurology recs appreciated Cardio recs appreciated Further recs per Dr. Fran Vivar PGY2
--- NOTE | 2017-09-12 08:17 | CON ---
HISTORY OF PRESENT ILLNESS: Ms. Recinos was admitted with deconditioning. She was found on the floor, had syncope yesterday while getting up from the bed. She had a recent history of colostomy, operated because of diverticulosis; came back from [facility] recently. Currently, denies any shortness of breath, no chest pain, no dizziness. She was evaluated by Neurology. PAST MEDICAL HISTORY: Perforated diverticulitis; hypertension; chronic atrial fibrillation, on Coumadin; hypothyroidism; cardiomyopathy; hyperlipidemia; renal insufficiency. PAST SURGICAL HISTORY: Defibrillator placement. FAMILY HISTORY: Noncontributory. ALLERGIES: NO KNOWN DRUG ALLERGIES. HOME MEDICATIONS: Crestor, Coumadin, magnesium 400 mg daily, Coreg 3.125 mg daily, Lasix 40 mg daily, and diltiazem 60 mg daily. PERSONAL HISTORY: A heavy smoker. No history of alcohol abuse. REVIEW OF SYSTEMS: As per HPI. Rest of 12-point review of systems is reviewed negative. PHYSICAL EXAMINATION: GENERAL: Comfortable in bed, in no acute distress. VITAL SIGNS: Temperature 98.7, respiratory rate 18 per minute, heart rate is 80 per minute, and blood pressure 110/53. HEENT: Normal. NECK: No lymphadenopathy. CHEST: Air entry present and equal bilaterally. No added sounds. CARDIOVASCULAR: S1, S2 normal. No murmur. No gallop. ABDOMEN: Soft, nontender. No hepatosplenomegaly. EXTREMITIES: No edema. NEUROLOGIC: Awake, alert, and oriented x3. No focal sensory or motor deficit. LABORATORY DATA: White count 6.9, hemoglobin 12.3, hematocrit 36.9, platelets 167. Sodium 125, potassium 3.7, BUN 10, creatinine 0.8, calcium 10.7. ASSESSMENT: 1. Syncope. 2. Hyponatremia. 3. Atrial fibrillation, on Coumadin. 4. Supratherapeutic INR. PLAN: She is currently getting half-normal saline. She is hyponatremic. We will discontinue the half-normal saline and give her normal saline at 60 mL an hour. She is on Coumadin 2 mg daily. We will continue to monitor PT/INR. Continue cardiac medications, Coreg 3.125 mg daily, digoxin 0.125 mg daily, and diltiazem 60 mg daily. We will continue to monitor the electrolytes. CBC and CMP ordered for a.m. with further a.m. labs. Cathie Gonzales MD [facility] # [id number]
[2017-09-12] MEDS: Magnesium Oxide 400 mg Tab UD PO SCH (10:06)
[2017-09-12] MEDS: Digoxin 125 mcg (0.125 mg) Tab PO SCH (10:06)
[2017-09-12] MEDS: DOFETILIDE 250 MCG PO SCH ×2 (10:07→17:10)
[2017-09-12] MEDS ORDERED: Sodium Chloride 3% 500 ML IV SCH (12:00)
--- NOTE | 2017-09-12 12:39 | CT ---
PROCEDURE: CT Angiography of the neck with contrast HISTORY: left ica stenosis. COMPARISON: 09/09/2017 Doppler ultrasound TECHNIQUE: Contiguous axial images of the neck were obtained from the level of the skull-base to the superior mediastinum in the arteriographic phase of enhancement. Coronal and sagittal reformats or also generated. IV contrast dose: 100 cc of Omni 350 Radiation Dose - DLP: 303 mGy-cm This CT exam was performed using one or more of the following dose reduction techniques: Automated exposure control, adjustment of the mA and/or kV according to patient size, and/or use of iterative reconstruction technique. FINDINGS: RIGHT CAROTID ARTERIES: Common Carotid Artery: Normal. Carotid Bifurcation: Calcified plaque at the carotid bifurcation with no significant stenosis Internal Carotid Artery:Normal. External Carotid Artery (proximal branches): Normal. LEFT CAROTID ARTERIES: Common Carotid Artery: Normal. Carotid Bifurcation: Calcified plaque at the carotid bifurcation with no significant stenosis Internal Carotid Artery:Normal. External Carotid Artery (proximal branches): Normal. VERTEBRAL ARTERIES: Right Vertebral Artery: Normal. Left Vertebral Artery: Normal. OTHER FINDINGS: The report concurs with the preliminary [facility] report IMPRESSION: Calcified plaque at the carotid bifurcations bilaterally with no significant stenosis.
--- NOTE | 2017-09-12 12:59 | PN ---
DATE: SUBJECTIVE: The patient is 82 years old, seen and examined lying in bed, seems to be comfortable. No nausea or vomiting. No diarrhea. She has colostomy that is functioning. No blood in the colostomy bag. She does have generalized weakness, has difficulty walking. Her history shows that she had syncope attack at home and was unable to get up. PHYSICAL EXAMINATION GENERAL: She is awake, alert, oriented. VITAL SIGNS: She is afebrile, pulse 84, respirations 20, blood pressure 117/56. LUNGS: Bilateral good airflow. No rhonchi or crackle. HEART: S1 and S2 audible. ABDOMEN: Soft. Colostomy in place. EXTREMITIES: Bilateral leg, no edema. NEUROLOGIC: She is awake, alert, oriented, able to communicate. LABORATORY EXAM: WBC 6.9, hemoglobin 12, hematocrit 36, platelet of 167, PT 29.6, INR 2.55. Chemistry: Sodium 125, potassium 3.7, chloride 92, CO2 of 29, BUN 10, creatinine 0.8, blood sugar of 108, calcium 10.7. Carotid ultrasound shows 20-39% proximal right ICA. ASSESSMENT: 1. Generalized weakness and difficulty walking. 2. Status post syncope. 3. Hyponatremia. 4. Electrolyte imbalance. 5. Chronic atrial fibrillation. 6. Renal insufficiency. 7. Status post recent colostomy. PLAN: The patient is currently on diltiazem, carvedilol. She is on anticoagulant and digoxin. We will continue her on statin. We will start her on hypertonic saline. Monitor her CBC and CMP in the a.m. The patient's oral intake is fine. I do not give her more IV fluid. Since she has cardiomyopathy, she can develop CHF. Trang Pace MD
--- NOTE | 2017-09-12 16:31 | PN ---
DATE: 09/12/2017 NEUROLOGY FOLLOWUP CHIEF COMPLAINT: Followup for syncope. SUBJECTIVE: The patient seen and examined at bedside. Given her carotid Doppler results, she underwent a CT angio of the neck, which showed in the left carotid bifurcation extending to the proximal left internal carotid, mild, less than 50% and mild less than 50% bilateral carotid artery stenosis with mild bilateral distal vertebral artery stenoses, no major proximal stenosis on the left. She is still hyponatremic, but no acute events overnight. She is A and O x3. PAST MEDICAL HISTORY: Recent colostomy for perforated diverticulum, abscess, hypertension, chronic AFib, on Coumadin, hypothyroidism, ischemic cardiomyopathy, hyperlipidemia, mild renal insufficiency, status post defibrillator. ALLERGIES: NOT ALLERGIC TO ANY MEDICATIONS. MEDICATIONS: Reviewed by nurse reconciliation sheet. SOCIAL HISTORY: No illicit drug use, smoking or EtOH abuse. She was a heavy smoker. REVIEW OF SYSTEMS: A 14-point review of systems negative except as per the HPI. PHYSICAL EXAMINATION VITAL SIGNS: Temperature 98, pulse rate of 84, blood pressure 117/56, respiratory rate 20, oxygen saturation 90% on room air. GENERAL: Patient is sitting up in bed, in no acute distress. HEENT: Head is atraumatic, normocephalic. PERRLA. Extraocular muscles intact. NECK: Supple. No JVD, no adenopathy noted. LUNGS: Clear to auscultation. No adventitious sounds. HEART: S1, S2, normal rate and rhythm. No murmurs, rubs or gallops. ABDOMEN: Soft, nontender, nondistended. Bowel sounds present. EXTREMITIES: No clubbing, no cyanosis. Peripheral pulses 2+ felt bilaterally. NEUROLOGIC: Patient is alert, oriented to person and place and recall after 5 minutes is 0/3. Poor attention span and slow thought process. Cranial nerves II through XII intact. Motor: Slight increased tone throughout. Moves all extremities equally. No pronator drift seen. Sensory: Light touch, pinprick, proprioception and vibration intact. DTRs are 2+ throughout except for 1 at both knees and absent at the ankles. Coordination: [id number] intact. No dysmetria noted. Gait is deferred for now. LABORATORY DATA: Sodium 125, potassium 3.7, chloride 92, carbon dioxide 29, BUN of 10, creatinine 0.8, random glucose 109. ASSESSMENT AND PLAN: This is an 82-year-old woman with history of post-colostomy for perforated diverticulum, hypertension, hyperlipidemia, chronic atrial fibrillation, on Coumadin, ischemic cardiomyopathy, deconditioning, poor appetite, weight loss, who was brought in for syncopal event. Her carotid Doppler initially showed 60% to 79% left internal carotid artery stenosis and 39% right internal carotid artery stenosis, but with a CT angio of the neck, it just showed less than 50% bilateral carotid artery stenoses and Vascular Surgery, Dr. Oswald had seen and evaluated the patient. Her syncope could be likely secondary to underlying ischemic cardiomyopathy secondary to transient cerebral hypoperfusion from underlying cardiomyopathy coinciding with vasovagal component with superimposed underlying hyponatremia with metabolic derangements. RECOMMENDATIONS: At this time, recommend: 1. Continue to slowly correct the sodium and monitor electrolytes and correct accordingly. 2. Continue with underlying Coumadin given her chronic AFib as well as digoxin. 3. Continue Lipitor 40 mg p.o. daily for dyslipidemia and coronary artery disease. 4. PT/OT and most likely recommend subacute rehab. Thank you for this followup. No further neurologic workup is needed at this time. Timothy Bragg MD
[2017-09-12 17:35] VITALS: RESP 18
[2017-09-12 20:59] LABS: BLOOD UREA NITROGEN 13 mg/dL (7-21); CALCIUM 10.7 mg/dL (8.4-10.5); GFR AFRICAN-AMERICAN > 60; GFR NON-AFRICAN AMERICAN > 60
--- NOTE | 2017-09-12 23:53 | CON ---
DATE: 09/12/2017 CARDIOLOGY CONSULTATION HISTORY OF PRESENT ILLNESS: The patient is an 82-year-old woman, who presents after a fall out of her bed. PAST MEDICAL HISTORY: Notable for an ischemic dilated cardiomyopathy. She is status post pacemaker placement. She complains of chronic shortness of breath and has chronic atrial fibrillation. In addition, because of her dilated cardiomyopathy as well as a dilated left atrium and atrial fibrillation, she was placed on Coumadin. She denies chest pain. No shortness of breath. REVIEW OF SYSTEMS: Fourteen-point review of systems is reviewed in detail. Other than weakness, there are no other cardiac symptomatology. PHYSICAL EXAMINATION VITAL SIGNS: Blood pressure 117/56, heart rate is a paced rhythm at 80. NECK: Negative JVD. LUNGS: Without rales. HEART: S1 and S2. EXTREMITIES: Without edema. EKG shows paced rhythm. Pacemaker interrogation shows periods of atrial fibrillation at approximately 11 hours per day. BUN and creatinine are unremarkable. The hemoglobin is 12.3. Coagulation with an INR of 2.55 now. She presents with an INR of 3.72. IMPRESSION: 1. Status post fall. 2. Hyponatremia. 3. Ischemic dilated cardiomyopathy. 4. Atrial fibrillation. 5. Hypercholesterolemia. PLAN: Given these findings, the patient's heart rhythm as well as her cardiac status is unchanged. There is no evidence for cardiac cause of her fall. We will place her back on her Coumadin at 2 mg, less than her previous. No further cardiac workup is indicated at this time. Arpit Mccurdy MD
[2017-09-13 01:16] LABS: BLOOD UREA NITROGEN 12 mg/dL (7-21); CALCIUM 10.6 mg/dL (8.4-10.5); GFR AFRICAN-AMERICAN > 60; GFR NON-AFRICAN AMERICAN > 60
--- NOTE | 2017-09-13 01:57 | CON ---
DATE: REASON FOR CONSULTATION: Syncopal episode, left internal carotid artery stenosis. HISTORY OF PRESENT ILLNESS: The patient is an 82-year-old woman, who was brought in for syncopal episode. She had chronic atrial fibrillation, treated with Coumadin. She also has dilatory cardiomyopathy, treated with an AICD. She had perforated diverticulum in July, was treated with resection and a colostomy. She went to rehabilitation, did well and went home. On , she was found on the floor, had no recollection of it. She was brought to the emergency room and was admitted for observation. Carotid duplex showed a 60% to 79% stenosis to the left internal carotid artery and 20% to 39% stenosis of right internal carotid artery. Echocardiogram showed an ejection fraction of 38.9%. REVIEW OF SYSTEMS: Other than what is stated in the history of present illness, is unremarkable. SOCIAL HISTORY: She was a smoker and a drinker, but has stopped. PHYSICAL EXAMINATION GENERAL: The patient is alert mentally and appropriate. HEENT: Negative. CHEST: Clear. There is an AICD battery pack in the left chest. ABDOMEN: Soft, there is a midline incision and a left colostomy. EXTREMITIES: Examination of the extremity showed bilateral femoral pulses and no distal pulses. NEUROLOGIC: Within normal limit. LABORATORY DATA: CT angiogram showed no stenosis on either carotid artery, and both vertebral artery are patent. IMPRESSION: Syncopal episode with no localizing neurological symptoms. No intervention is indicated at present. Parvin Peters MD
[2017-09-13 06:34] LABS: BASO # 0.03 K/mm3 (0.0-2.0); BASO % 0.5 % (0.0-3.0); EOS # 0.4 (0.0-0.7); EOS % 5.9 % (1.5-5.0); GRAN # 3.25 (1.4-6.5); GRAN % 51.7 % (50.0-68.0); HEMOGLOBIN 11.8 g/dL (12.0-16.0); LYMPH # 2.1 (1.2-3.4); LYMPH % 33.5 % (22.0-35.0); MEAN CELL VOLUME 87.3 fl (80.0-105.0); MEAN CORPUSCULAR HEMOGLOBIN 28.7 pg (25.0-35.0); MEAN CORPUSCULAR HGB CONC 32.9 g/dl (31.0-37.0); MEAN PLATELET VOLUME 9.5 fl (7.0-11.0); MONO # 0.5 (0.1-0.6); MONO % 8.4 % (1.0-6.0); RBC 4.11 10^6/uL (3.5-6.1); RED CELL DISTRIBUTION WIDTH 15.8 % (11.5-14.5); WHITE BLOOD COUNT 6.3 10^3/ul (4.5-11.0)
[2017-09-13 06:48] LABS: BLOOD UREA NITROGEN 9 mg/dL (7-21); CALCIUM 10.6 mg/dL (8.4-10.5); GFR AFRICAN-AMERICAN > 60; GFR NON-AFRICAN AMERICAN > 60
[2017-09-13 06:52] LABS: INR 2.14 (0.93-1.08)
[2017-09-13 09:08] VITALS: BP 129/62; PULSE 71; TEMP 98.7; O2SAT 98
[2017-09-13] MEDS: Digoxin 125 mcg (0.125 mg) Tab PO SCH (10:05)
[2017-09-13] MEDS: DOFETILIDE 250 MCG PO SCH (10:05)
[2017-09-13] MEDS: Magnesium Oxide 400 mg Tab UD PO SCH (10:06)
[2017-09-13 10:08] VITALS: PULSE 71
--- NOTE | 2017-09-14 13:26 | DS ---
HISTORY OF PRESENT ILLNESS: The patient is an 82-year-old who passed out at home. She was recently discharged from [facility] after rehab. She underwent colostomy because of perforated diverticulum. However, Neurology workup was done. CT scan is negative for acute CVA. Carotid Doppler showed left ICA, 60% to 79% and Dr. Peters evaluated the patient. According to Dr. Peters, there is no intervention needed given her other comorbidities, so she is being transferred to TCU for rehab. PHYSICAL EXAMINATION GENERAL: On examination today, she is awake, alert, oriented, communicative. VITAL SIGNS: She is afebrile, pulse 71, respirations 18, blood pressure 129/62. LUNGS: Bilateral fair airflow. No rhonchi or crackle. HEART: S1 and S2 audible. ABDOMEN: Soft, nontender. Colostomy in place, functional; no blood in the colostomy bag. NEUROLOGIC: She is awake, alert, oriented, communicative. LABORATORY DATA: WBC 6.3, hemoglobin 11.8, hematocrit 35.9, platelets 164,000. PT 25, INR 2.14. Chemistry: Sodium 134, potassium 4.1, chloride 105, CO2 22, BUN 9, creatinine 0.7, blood sugar of 80, calcium 10.6. ASSESSMENT 1. Status post syncope, probably secondary to dehydration. 2. Right internal carotid artery moderate stenosis. 3. Ischemic cardiomyopathy with poor ejection fraction of 20. 4. Status post colostomy. 5. Chronic atrial fibrillation. 6. Mild renal insufficiency. PLAN: The patient is being transferred to TCU. We will continue her current medications that include diltiazem 60 mg daily, carvedilol 3.125 mg daily, warfarin 2 mg daily, digoxin 0.125 mg daily, atorvastatin 40 mg daily, magnesium 400 mg daily. We will continue these medications and we will reevaluate the patient in the morning. Trang Pace MD
== END 2017-09-13 12:07 | DRG 68 ==
LOC: ED 16:02 → ERH 18:08 → 3RNO 20:31
PROVIDERS: ADMIT Internal Medicine; ATTEND Internal Medicine
DX: I65.23 Occlusion and stenosis of bilateral carotid arteries (principal); K63.0 Abscess of intestine; E87.1 Hypo-osmolality and hyponatremia; I08.1 Rheumatic disorders of both mitral and tricuspid valves; K57.20 Diverticulitis of large intestine with perforation and abscess without bleeding; I13.0 Hypertensive heart and chronic kidney disease with heart failure and stage 1 through stage 4 chronic kidney disease, or unspecified chronic kidney disease; I27.20 Pulmonary hypertension, unspecified; I42.0 Dilated cardiomyopathy; E86.0 Dehydration; I48.2 Chronic atrial fibrillation; I50.9 Heart failure, unspecified; W06.XXXA Fall from bed, initial encounter; E03.9 Hypothyroidism, unspecified; E78.00 Pure hypercholesterolemia, unspecified; E78.5 Hyperlipidemia, unspecified; E87.6 Hypokalemia; F17.200 Nicotine dependence, unspecified, uncomplicated; I25.5 Ischemic cardiomyopathy; J44.9 Chronic obstructive pulmonary disease, unspecified; N18.9 Chronic kidney disease, unspecified; R79.1 Abnormal coagulation profile; Y92.003 Bedroom of unspecified non-institutional (private) residence as the place of occurrence of the external cause; Z79.01 Long term (current) use of anticoagulants; Z79.899 Other long term (current) drug therapy; Z87.11 Personal history of peptic ulcer disease; Z93.3 Colostomy status; Z95.0 Presence of cardiac pacemaker; Z95.810 Presence of automatic (implantable) cardiac defibrillator

== ENCOUNTER 2017-09-13 12:12 | Inpatient (IN) | payer OTHER, MEDICAID ==
[2017-09-13 12:46] VITALS: BMI 20.2
[2017-09-13] MEDS: DOFETILIDE 250 MCG PO SCH (18:01)
[2017-09-13] MEDS ORDERED: Pneumococcal 23-Valent Vaccine IM ONE (19:05)
[2017-09-13] MEDS ORDERED: Influenza Vaccine 60 mcg/0.5 mL SYR (4YR UP) IM ONE (19:05)
--- NOTE | 2017-09-14 08:12 | CON ---
DATE: 09/13/2017 CHIEF COMPLAINT: Syncope. HISTORY OF PRESENTING ILLNESS: This is an 82-year-old woman, history of post-colostomy for perforated diverticulum; hypertension; hyperlipidemia; chronic AFib, on Coumadin; ischemic cardiomyopathy; deconditioning; poor appetite; and weight loss. She was brought in initially to [facility] for syncopal event. A carotid Doppler showed 60% to 79% left internal carotid artery stenosis and 39% right internal carotid artery stenosis, who underwent a CT angio of the neck, which showed less than 50% bilateral carotid artery stenosis and Vascular Surgery, Dr. Peters evaluated the patient and recommended conservative management. Her syncope was secondary to ischemic cardiomyopathy secondary to transient cerebral hypoperfusion with a possible vasovagal component, superimposed underlying hyponatremia, metabolic derangements, and she is in TCU, undergoing rehabilitation for deconditioned state and correction of hyponatremia. PAST MEDICAL HISTORY: Colostomy for perforated diverticulum; hypertension; chronic AFib, on Coumadin; hypothyroidism; ischemic cardiomyopathy; hyperlipidemia; mild renal insufficiency; status post defibrillator. ALLERGIES: NO KNOWN DRUG ALLERGIES. SOCIAL HISTORY: No illicit drug use, smoking, or EtOH abuse. MEDICATIONS: Reviewed by nurse per reconciliation sheet. REVIEW OF SYSTEMS: A 14-point review of systems is negative as per HPI. PHYSICAL EXAMINATION: VITAL SIGNS: Temperature afebrile, pulse rate 71, blood pressure 129/62, and respiratory rate of 18. GENERAL: Patient is sitting up in bed, in no acute distress. HEENT: Atraumatic, normocephalic. PERRLA. Extraocular muscles intact. NECK: Supple. No JVD, no adenopathy noted. LUNGS: Clear to auscultation. No adventitious sounds. HEART: S1 and S2. Normal rate and rhythm. No murmurs, rubs, or gallops. ABDOMEN: Soft, nontender, and nondistended. Bowel sounds present. EXTREMITIES: No clubbing, no cyanosis. Peripheral pulses are 2+ felt bilaterally. NEUROLOGIC: The patient is alert and oriented to person, place, and year. Recall after 5 minutes is 0/3. Poor attention span. Slow thought process. Cranial nerves II through XII intact. Motor exam: Slight increased tone throughout. Moves all extremities equally. No pronator drift seen. Sensory: Light touch, pinprick, proprioception, and vibration are intact. DTRs are 2+ throughout, 1 at both knees and absent at the ankles. Coordination: [id number] intact. No dysmetria noted. Gait is deferred for now. LABORATORY DATA: Reviewed. ASSESSMENT: This 82-year-old woman, history of hypertension; history of chronic atrial fibrillation, on Coumadin; ischemic cardiomyopathy; deconditioning; poor appetite; weight loss; post-colostomy for perforated diverticulum. She was brought in initially for syncopal event on the medical side and a carotid Doppler which showed initially 60% to 79% left internal carotid artery stenosis and 30% to 39% right internal carotid artery stenosis, but with a CT angio of the neck, it just showed less than 50% bilateral carotid artery stenosis and was evaluated by Vascular Surgery. Recommend conservative management. Her syncope is likely secondary to underlying ischemic cardiomyopathy, superimposed underlying transient cerebral hypoperfusion from underlying cardiomyopathy, and superimposed underlying hyponatremia with metabolic derangements. Currently, his sodium is normal. She is in TCU for rehabilitation. PLAN: At this time; 1. Continue to monitor electrolytes and correct accordingly. 2. Continue with Coumadin 5 mg for chronic AFib as well as digoxin. 3. Continue Lipitor 40 mg p.o. daily for dyslipidemia. 4. Continue PT/OT for deconditioning. Once again, thank you for this consult. Timothy Bragg MD
[2017-09-14] MEDS ORDERED: Magnesium Oxide 400 mg Tab UD PO SCH (10:00)
[2017-09-14] MEDS ORDERED: DOFETILIDE 250 MCG PO SCH (10:00)
[2017-09-14] MEDS ORDERED: Digoxin 125 mcg (0.125 mg) Tab PO SCH (10:00)
[2017-09-14] MEDS: Magnesium Oxide 400 mg Tab UD PO SCH (10:25)
[2017-09-14] MEDS: DOFETILIDE 250 MCG PO SCH ×2 (10:25→18:25)
[2017-09-14] MEDS: Digoxin 125 mcg (0.125 mg) Tab PO SCH (14:40)
--- NOTE | 2017-09-15 04:26 | HP ---
HISTORY OF PRESENT ILLNESS: The patient is an 82-year-old known to me from office practice and previous admission. The patient recently had perforation of diverticulum, ended up having partial colectomy and colostomy. The patient was easily discharged from [facility], she was okay. According to family, she was okay for a week. On the day of her coming to the hospital on 09/09, she was found on the floor and was confused, so she was brought to the emergency room. Initial workup does not show any stroke; however, she has 60% to 75% carotid stenosis and was transferred to TCU for rehab and physical therapy. PAST MEDICAL HISTORY: Significant for, 1. Chronic AFib. 2. Coronary artery disease status post defibrillator placement. 3. Severe cardiomyopathy. 4. Hypertension. 5. Renal insufficiency. ALLERGIES: SHE IS NOT ALLERGIC TO ANY MEDICATION. MEDICATIONS AT HOME: She is on diltiazem 60 mg daily, Coumadin 2 mg daily, Crestor 10 mg daily, magnesium oxide 400 daily, Lasix 40 daily, digoxin 0.125 daily, Coreg 3.125 daily, and Lipitor 40 mg daily. SOCIAL HISTORY: She lives with her daughter and son. Denies smoking. She used to be a heavy smoker in the past. REVIEW OF SYSTEMS: She complained of generalized weakness. PHYSICAL EXAMINATION: GENERAL: She is awake, alert, oriented, communicative. VITAL SIGNS: The patient is afebrile. Pulse 75, respirations 18, blood pressure 128/59. LUNGS: Bilateral good airflow. No rhonchi or crackle. HEART: S1 and S2 audible. ABDOMEN: Soft, colostomy in place, functioning. No blood in the colostomy bag. NEUROLOGIC: She is awake, alert, oriented, communicative, moves all extremities. ASSESSMENT AND PLAN: 1. Status post syncope, feeling well now. 2. Status post colostomy. 3. Hypertension. 4. Chronic atrial fibrillation. 5. Hyperlipidemia. 6. Chronic anemia. PLAN: We will continue the patient on current medical treatment. We will continue on Coumadin. We will follow up PT/INR in a.m. Trang Pace MD [facility] # [phone]
[2017-09-15 06:20] LABS: BASO # 0.03 K/mm3 (0.0-2.0); BASO % 0.5 % (0.0-3.0); EOS # 0.4 (0.0-0.7); EOS % 6.2 % (1.5-5.0); GRAN # 2.95 (1.4-6.5); GRAN % 46.9 % (50.0-68.0); HEMOGLOBIN 11.8 g/dL (12.0-16.0); LYMPH # 2.4 (1.2-3.4); LYMPH % 38.5 % (22.0-35.0); MEAN CELL VOLUME 86.8 fl (80.0-105.0); MEAN CORPUSCULAR HEMOGLOBIN 28.3 pg (25.0-35.0); MEAN CORPUSCULAR HGB CONC 32.6 g/dl (31.0-37.0); MEAN PLATELET VOLUME 9.1 fl (7.0-11.0); MONO # 0.5 (0.1-0.6); MONO % 7.9 % (1.0-6.0); RBC 4.17 10^6/uL (3.5-6.1); RED CELL DISTRIBUTION WIDTH 15.9 % (11.5-14.5); WHITE BLOOD COUNT 6.3 10^3/ul (4.5-11.0)
[2017-09-15 06:50] LABS: INR 1.97 (0.93-1.08)
[2017-09-15 07:18] LABS: ALB/GLOB RATIO 1.1 (1.1-1.8); ALBUMIN 3.1 g/dL (3.0-4.8); ALT/SGPT 33 U/L (7-56); AST/SGOT 23 U/L (14-36); BLOOD UREA NITROGEN 10 mg/dL (7-21); CALCIUM 10.8 mg/dL (8.4-10.5); GFR AFRICAN-AMERICAN > 60; GFR NON-AFRICAN AMERICAN > 60
[2017-09-15] MEDS: DOFETILIDE 250 MCG PO SCH ×2 (09:26→17:41)
[2017-09-15] MEDS: Magnesium Oxide 400 mg Tab UD PO SCH (09:26)
[2017-09-15] MEDS: Digoxin 125 mcg (0.125 mg) Tab PO SCH (13:40)
--- NOTE | 2017-09-15 13:41 | PN ---
DATE: 09/15/2017 CARDIOLOGY FOLLOWUP SUBJECTIVE: The patient is sitting in a chair in the TCU. No shortness of breath. No chest pain. The patient is eating. OBJECTIVE VITAL SIGNS: Blood pressure is 102/50, the heart rate in the 60s. NECK: Negative JVD. LUNGS: Without rales. HEART: S1, S2. EXTREMITIES: Without edema. DATA: Hemoglobin is 11.8. Chemistries are unremarkable. IMPRESSION 1. Status post syncope. 2. Interrogation of the implantable cardioverter-defibrillator reveals no dysrhythmias. 3. Severe cardiomyopathy. 4. Hypertension. 5. Renal insufficiency. Given these findings, the patient is on warfarin for paroxysmal atrial fibrillation. Her heart rate is well controlled on low-dose digoxin, carvedilol and Cardizem. Arpit Mccurdy MD
--- NOTE | 2017-09-15 17:29 | PN ---
DATE: SUBJECTIVE: The patient is 82 years old, seen and examined, lying in bed. She was reading newspaper. No nausea or vomiting. No diarrhea. PHYSICAL EXAMINATION: VITAL SIGNS: She is afebrile, pulse 79, respirations 18, blood pressure 160/74. LUNGS: Bilateral good airflow. No rhonchi or crackle. HEART: S1 and S2 audible. ABDOMEN: Soft. Colostomy in place and is functioning. EXTREMITIES: Bilateral legs, no edema. LABORATORY EXAM: WBC 6.3, hemoglobin 11.8, hematocrit 36.2, platelet Of 154. Chemistry: Sodium 133, potassium 4.2, chloride 104, CO2 of 25, BUN 10, creatinine 0.8, blood sugar of 84, calcium 10.8. ASSESSMENT: 1. Status post syncope. 2. Mild to moderate carotid stenosis. 3. Chronic atrial fibrillation. 4. Hypertension. 5. Hyperlipidemia. 6. Implantable cardioverter-defibrillator. 7. Cardiomyopathy. 8. Renal insufficiency. PLAN: We will continue the patient on current medication and we will continue on physical therapy and gait training. Trang Pace MD cc:
[2017-09-16 06:41] LABS: INR 1.92 (0.93-1.08); PROTHROMBIN TIME 22.4 SECONDS (9.4-12.5)
[2017-09-16] MEDS: Magnesium Oxide 400 mg Tab UD PO SCH (09:11)
[2017-09-16] MEDS: DOFETILIDE 250 MCG PO SCH ×2 (09:12→17:25)
[2017-09-16] MEDS: Digoxin 125 mcg (0.125 mg) Tab PO SCH (13:53)
--- NOTE | 2017-09-16 16:10 | PN ---
DATE: 09/16/2017 SUBJECTIVE: The patient is 82 years old, seen and examined, lying in bed. Seems to be comfortable. No nausea or vomiting. No diarrhea. PHYSICAL EXAMINATION: VITAL SIGNS: She is afebrile, pulse 80, respirations 18, blood pressure 129/48. LUNGS: Bilateral good airflow. No rhonchi or crackle. HEART: S1 and S2 audible. ABDOMEN: Soft. Nontender. No rebound. No guarding. NEUROLOGIC: She is awake, alert, oriented, communicative. LABORATORY EXAM: WBC 6.3, hemoglobin 11.8, hematocrit 36.2, platelet 154. PT 22.4, INR 1.92. Chemistry: Sodium 133, potassium 4.2, chloride 104, CO2 of 28, BUN 10, creatinine 0.8, blood sugar of 84. ASSESSMENT: 1. Status post syncope. 2. Carotid stenosis. 3. Hypertension. 4. Hyperlipidemia. 5. Chronic atrial fibrillation. 6. Status post colostomy. PLAN: We will give Coumadin 3 mg today. Follow up PT/INR in a.m. Continue physical therapy. Will be evaluated by Dr. Rodriguez. Trang Pace MD
[2017-09-17] MEDS: Magnesium Oxide 400 mg Tab UD PO SCH (10:07)
[2017-09-17] MEDS: DOFETILIDE 250 MCG PO SCH ×2 (10:08→17:21)
[2017-09-17] MEDS: Digoxin 125 mcg (0.125 mg) Tab PO SCH (14:13)
[2017-09-18] MEDS: Magnesium Oxide 400 mg Tab UD PO SCH (09:42)
[2017-09-18] MEDS: DOFETILIDE 250 MCG PO SCH ×2 (09:45→17:00)
[2017-09-18] MEDS: Digoxin 125 mcg (0.125 mg) Tab PO SCH (14:04)
--- NOTE | 2017-09-18 15:38 | PN ---
DATE: 09/18/2017 SUBJECTIVE: The patient has no complaints of any chest pain. No shortness of breath. No headaches. PHYSICAL EXAMINATION: VITAL SIGNS: Temperature is 98.7, pulse of 88, blood pressure is 112/52, respirations 18. GENERAL: The patient is lying in bed, flat, comfortable. HEENT: No oral lesion. Anicteric sclerae. Moist mucosa. NECK: No JVD, adenopathy, or thyromegaly. CARDIOVASCULAR: S1 and S2, regular. No murmurs, rubs, or gallops. LUNGS: Clear to auscultation bilaterally. No wheeze, rales, or rhonchi. ABDOMEN: Bowel sounds are positive, soft, nontender and nondistended. EXTREMITIES: No cyanosis, clubbing or edema. LABORATORY DATA: White count of 6.3, hemoglobin 11.8, creatinine 0.8. ASSESSMENT: 1. Status post syncope. 2. Hypertension. 3. Dyslipidemia. 4. Atrial fibrillation. PLAN: The patient is currently comfortable. The patient is on Coumadin for her atrial fibrillation. I will get an INR check tomorrow. The patient is on Cardizem for her atrial fibrillation as well as digoxin. She is on Lipitor for dyslipidemia. She is on MiraLax for constipation. She is on a heart-healthy diet. Continue to work with physical therapy. Rohan Rodriguez MD
[2017-09-18] MEDS: POLYETHYLENE GLYCOL 3350 17 GM/Dose PACKET PO PRN (17:00)
[2017-09-19 06:56] LABS: INR 2.24 (0.93-1.08); PROTHROMBIN TIME 26.2 SECONDS (9.4-12.5)
[2017-09-19] MEDS: Magnesium Oxide 400 mg Tab UD PO SCH (09:56)
[2017-09-19] MEDS: DOFETILIDE 250 MCG PO SCH ×2 (09:57→17:36)
[2017-09-19] MEDS: Digoxin 125 mcg (0.125 mg) Tab PO SCH (13:32)
[2017-09-19] MEDS: POLYETHYLENE GLYCOL 3350 17 GM/Dose PACKET PO PRN (17:37)
[2017-09-20] MEDS: Magnesium Oxide 400 mg Tab UD PO SCH (09:42)
[2017-09-20] MEDS: DOFETILIDE 250 MCG PO SCH ×2 (09:42→18:00)
[2017-09-20] MEDS: Digoxin 125 mcg (0.125 mg) Tab PO SCH (14:53)
[2017-09-20 14:56] VITALS: PULSE 76
[2017-09-20 17:41] VITALS: BP 133/60; PULSE 68; RESP 16; TEMP 98; O2SAT 97
--- NOTE | 2017-09-21 03:18 | DS ---
HISTORY OF PRESENT ILLNESS: Patient is 82-year-old who was admitted after she was discharged from rehab in [facility][1]. Patient was well for a week as per family, but they found her on floor after she passed out. Neurological workup was done, found to be unremarkable. PAST MEDICAL HISTORY: Patient has significant past medical history of: 1. Cardiomyopathy status post defibrillator placement. 2. Chronic AFib. 3. Hypertension. 4. Hyperlipidemia. 5. Recent perforated diverticulum, requiring colostomy. Patient remained in TCU, started to ambulate with minimal assistance. PHYSICAL EXAMINATION: GENERAL: Today, she is awake, alert, oriented, communicative. VITAL SIGNS: She is afebrile. Pulse 68, respirations 16, blood pressure 133/60. LUNGS: Bilateral good airflow. No rhonchi or crackle. HEART: S1 and S2 audible. ABDOMEN: Soft and nontender. No rebound. No guarding. NEUROLOGIC: Patient is awake, alert, oriented, communicative, ambulatory. LABORATORY DATA: Her PT is 26.2, INR 2.24. ASSESSMENT 1. Status post syncope. 2. Chronic atrial fibrillation. 3. Cardiomyopathy. 4. Hypertension. 5. Mild renal insufficiency. PLAN: Patient is being discharged home on digoxin. She is on Cardizem 60 mg daily, Coumadin 2 mg daily, Crestor 10 mg daily, magnesium oxide, Lasix 20 daily, and she is on dofetilide 250 mcg daily and Coreg 3.125 daily. She was advised to have 2 gm sodium diet, and we will follow up in office next week. Trang Pace MD
== END 2017-09-20 19:00 | disposition home health service (06) | DRG 68 ==
LOC: TRCU 12:12
PROVIDERS: ADMIT Internal Medicine; ATTEND Internal Medicine
PROC: F07Z9FZ Gait Training/Functional Ambulation Treatment using Assistive, Adaptive, Supportive or Protective Equipment (ICD-10-PCS; principal; 2017-09-15)
PROC: F0726YZ Therapeutic Exercise Treatment of Neurological System - Lower Back / Lower Extremity using Other Equipment (ICD-10-PCS; 2017-09-15)
PROC: F07Z5ZZ Bed Mobility Treatment (ICD-10-PCS; 2017-09-15)
PROC: F08Z0FZ Bathing/Showering Techniques Treatment using Assistive, Adaptive, Supportive or Protective Equipment (ICD-10-PCS; 2017-09-17)
PROC: F08Z1FZ Dressing Techniques Treatment using Assistive, Adaptive, Supportive or Protective Equipment (ICD-10-PCS; 2017-09-17)
DX: I65.23 Occlusion and stenosis of bilateral carotid arteries (principal); I48.0 Paroxysmal atrial fibrillation; D64.9 Anemia, unspecified; I48.2 Chronic atrial fibrillation; I25.5 Ischemic cardiomyopathy; I10 Essential (primary) hypertension; N28.9 Disorder of kidney and ureter, unspecified; I25.10 Atherosclerotic heart disease of native coronary artery without angina pectoris; E78.5 Hyperlipidemia, unspecified; R63.4 Abnormal weight loss; R63.0 Anorexia; K59.00 Constipation, unspecified; Z95.810 Presence of automatic (implantable) cardiac defibrillator; Z93.3 Colostomy status; Z87.891 Personal history of nicotine dependence; Z79.01 Long term (current) use of anticoagulants

== ENCOUNTER 2018-10-20 09:00 | Outpatient (CLI) | payer MEDICARE | END 2018-10-20 09:01 | disposition home or self-care (01) | LOC: PAT 09:00 ==

== ENCOUNTER 2018-10-31 08:37 | Inpatient (IN) | payer MEDICARE, MEDICAID ==
[2018-10-28 09:52] VITALS: BMI 22.2
[2018-10-31 09:31] LABS: INR 1.4; PROTHROMBIN TIME 15.8 SECONDS (9.4-12.5)
[2018-10-31] MEDS ORDERED: Bupivacaine 0.25% 50 ML INJ IJ ONE (14:24)
[2018-10-31] MEDS ORDERED: Bupivacaine 0.5% 50 ML IJ ONE (16:09)
[2018-10-31] MEDS ORDERED: Oxychlorosene Topical 2 gm Packet TOP ONE (16:31)
[2018-10-31] MEDS ORDERED: Bupivacaine Liposomal Inj 20 ml ONE (17:53)
[2018-10-31] MEDS ORDERED: Lactated Ringer's 1,000 ML IV SCH (19:00)
[2018-10-31] MEDS ORDERED: HYDROmorphone 0.5 mg/0.5 ml ISec IVP PRN (19:00)
--- NOTE | 2018-10-31 19:02 | PCM.SURG1 ---
Surgeon's Initial Post Op Note - Surgeon's Notes Surgeon: Dr. Hernandez Inside Sales Consultant: Dr. Levar Jolly Type of Anesthesia: General Endo Anesthesia Administered By: Dr. Rivera, Dr. Lam Pre-Operative Diagnosis: End Colostomy Operative Findings: see operative dictation Post-Operative Diagnosis: same Operation Performed: partial colectomy, [id number] colonic anastamosis, rectosigmoid enterotomy repair x3, extensive lysis of adhesions Specimen/Specimens Removed: colon Estimated Blood Loss: EBL {In ML}: 25 Blood Products Given: N/A Drains Used: Yan Post-Op Condition: Good Date of Surgery/Procedure: 10/31/18 Time of Surgery/Procedure: 19:02
[2018-10-31] MEDS: Metoprolol 1 mg/ml Inj IVP SCH (20:44)
[2018-10-31] MEDS: EnalaprilAT 1.25 mg/ml Inj IVP SCH (21:08)
[2018-10-31] MEDS: Potassium Chloride 20 MEQ in Dextrose 5%/0.45% NS 1,000 ML IV SCH (21:37)
[2018-10-31] MEDS: Digoxin 500 mcg/2ml (0.5 mg/2ml) Inj IVP SCH (22:11)
[2018-10-31] MEDS: ceFAZolin 1 gm in NS 1 GM/100 ML BAG IVPB SCH (23:58)
[2018-10-31] MEDS: metroNIDAZOLE IV 500 mg/100 ml 500 MG/100 ML BAG IVPB SCH (23:58)
[2018-10-31] MEDS: HYDROmorphone 0.5 mg/0.5 ml ISec IVP PRN (23:59)
--- NOTE | 2018-11-01 00:29 | CON ---
DATE: 10/31/2018 HISTORY OF PRESENT ILLNESS: The patient is an 83-year-old known to me from office practice. The patient has acute diverticulitis with perforation since she had colostomy done in 07/2017. The patient has other comorbidities including AFib, coronary artery disease, hypertension, and congestive heart failure, so the patient has been on colostomy, but she want to have it reversed, so the patient was evaluated by Cardiology and is cleared for surgical intervention. So, she had reversal of colostomy done today. PAST MEDICAL HISTORY: Significant for: 1. Hypertension. 2. Coronary artery disease. 3. Congestive heart failure. 4. Chronic AFib. 5. History of diverticulosis. 6. Mild renal insufficiency. 7. Status post defibrillator placement. 8. Hypothyroidism. 9. Ischemic cardiomyopathy. ALLERGIES: THE PATIENT IS NOT ALLERGIC TO ANY MEDICINE. MEDICATIONS AT HOME: 1. She is on Crestor 10 mg daily. 2. Coumadin 2.5 mg daily. 3. Digoxin 0.125 daily. 4. Magnesium 400 daily. 5. Coreg 3.125 daily. 6. She is on dofetilide 250 mcg daily. 7. Lasix 40 mg daily. 8. Diltiazem 60 mg three times. ALLERGIES: THE PATIENT IS NOT ALLERGIC TO ANY MEDICATION. SOCIAL HISTORY: She lives with her family. Denies smoking or drinking. She used to be heavy smoker before. PHYSICAL EXAMINATION: GENERAL: She is awake, alert, and able to communicate. VITAL SIGNS: She is afebrile, pulse 71, respirations 18, and blood pressure 129/62. LUNGS: Bilateral fair airflow. No rhonchi or crackle. HEART: S1 and S2 audible. ABDOMEN: Soft and nontender. No rebound. No guarding. NEUROLOGIC: The patient is awake, alert, and able to communicate. LABORATORY DATA: PT 15.8 and INR 1.40. ASSESSMENT: 1. Reversal of colostomy. 2. Atrial fibrillation. 3. Ischemic cardiomyopathy. 4. Hypothyroidism. 5. Renal insufficiency. PLAN: The patient will be admitted. Her anticoagulant is on hold. We will restart her medication, started on DVT prophylaxis and incentive spirometry. We will resume her medications. Discussed with the surgeon when to start anticoagulant . Trang Pace MD [facility] # [phone]
[2018-11-01] MEDS: EnalaprilAT 1.25 mg/ml Inj IVP SCH ×4 (02:34→20:40)
[2018-11-01] MEDS: ceFAZolin 1 gm in NS 1 GM/100 ML BAG IVPB SCH ×3 (05:59→21:49)
[2018-11-01] MEDS: metroNIDAZOLE IV 500 mg/100 ml 500 MG/100 ML BAG IVPB SCH ×3 (06:00→21:48)
[2018-11-01 07:21] LABS: BASO # 0.01 K/mm3 (0.0-2.0); BASO % 0.1 % (0.0-3.0); HEMOGLOBIN 13.5 g/dL (12.0-16.0); MEAN CELL VOLUME 88.3 fl (80.0-105.0); MEAN CORPUSCULAR HEMOGLOBIN 28.1 pg (25.0-35.0); MEAN CORPUSCULAR HGB CONC 31.8 g/dl (31.0-37.0); MEAN PLATELET VOLUME 10.9 fl (7.0-11.0); MONO # 0.7 (0.1-0.6); MONO % 6.1 % (1.0-6.0); RBC 4.8 10^6/uL (3.5-6.1); RED CELL DISTRIBUTION WIDTH 14.4 % (11.5-14.5); WHITE BLOOD COUNT 11.1 10^3/uL (4.5-11.0)
[2018-11-01 07:53] LABS: ALB/GLOB RATIO 1.2 (1.1-1.8); ALBUMIN 3.2 g/dL (3.0-4.8); ALT/SGPT 17 U/L (7-56); AST/SGOT 25 U/L (14-36); BLOOD UREA NITROGEN 8 mg/dL (7-21); CALCIUM 9.3 mg/dL (8.4-10.5); GFR NON-AFRICAN AMERICAN > 60
[2018-11-01] MEDS: Metoprolol 1 mg/ml Inj IVP SCH ×2 (11:32→18:02)
[2018-11-01] MEDS: Digoxin 500 mcg/2ml (0.5 mg/2ml) Inj IVP SCH ×2 (11:33→21:54)
[2018-11-01] MEDS: Potassium Chloride 20 MEQ in Dextrose 5%/0.45% NS 1,000 ML IV SCH ×2 (11:47→23:00)
[2018-11-01] MEDS ORDERED: Benzocaine/Menthol (Cepacol) Lozenge MT PRN (12:09)
--- NOTE | 2018-11-01 13:37 | PN ---
DATE: 11/01/2018 SUBJECTIVE: The patient is seen and examined. She is lying in bed. She is comfortable. Complain of feeling bloated. Complain of some pain at the surgical site. PHYSICAL EXAMINATION: VITAL SIGNS: The patient has temperature of 99.9, pulse 103, respirations 20 and blood pressure 150/68. LUNGS: Bilateral fair airflow. No rhonchi or crackles. HEART: S1 and S2 audible. ABDOMEN: Soft, palpable, discomfort and bowel sounds are sluggish. HOLA drain has 10 mL blood tinged fluid. EXTREMITIES: Bilateral leg, no edema. SCDs is on. LABORATORY DATA: WBC 11.1, hemoglobin 13.5, hematocrit . PT 15.8. INR 1.40. Chemistries; sodium 140, potassium 4.1, chloride 109, CO2 of 24, BUN 8, creatinine 0.7, blood sugar 143. LFTs are within normal limits. ASSESSMENT: 1. Status post reversal of colostomy because of previous diverticular perforation. 2. Ischemic cardiomyopathy. 3. Chronic atrial fibrillation. 4. Mild renal insufficiency. PLAN: Currently, the patient is on Ancef. She is on IV fluids. She is on metronidazole. She is on DVT prophylaxis. She is on digoxin. Currently, she is n.p.o. She has nasogastric suction on. She has catheter in place. I will request for incentive spirometry. We will followup CBC and CMP in a.m. Trang Pace MD
--- NOTE | 2018-11-01 15:56 | CP.PCM.PN ---
Subjective - Date & Time of Evaluation Date of Evaluation: 11/01/18 Time of Evaluation: 12:30 - Subjective Subjective: General Surgery Pt Seen and examined. Pain controlled with meds. No BM/Flatus. No nausea, emesis. Increased On-Q drip. Objective - Vital Signs/Intake and Output Vital Signs (last 24 hours): Temp Pulse Resp BP Pulse Ox 99.9 F H 70 20 153/61 H 96 11/01/18 08:29 11/01/18 11:32 11/01/18 08:29 11/01/18 14:03 11/01/18 08:29 Intake and Output: 11/01/18 11/01/18 06:59 18:59 Intake Total 0 Output Total 350 Balance -350 - Medications Medications: Current Medications Benzocaine/Menthol (Cepacol Sore Throat) 1 wai MT Q2H PRN PRN Reason: Sore Throat Digoxin (Lanoxin) 0.1 mg IVP Q12 [facility] Last Admin: 11/01/18 11:33 Dose: 0.1 mg Diltiazem HCl (Cardizem) 5 mg IVP Q6H PRN PRN Reason: Heart rate Enalaprilat (Vasotec Iv) 1.25 mg IVP Q6H [facility] Last Admin: 11/01/18 14:03 Dose: 1.25 mg Heparin Sodium (Porcine) (Heparin) 5,000 units SC Q8 [facility]; Protocol Hydromorphone HCl (Dilaudid) 0.25 mg IVP Q3H PRN PRN Reason: Pain, severe (8-10) Last Admin: 10/31/18 23:59 Dose: 0.25 mg Potassium Chloride 20 meq/ (Dextrose/Sodium Chloride) 1,010 mls @ 90 mls/hr IV .[id number] [facility] Last Admin: 11/01/18 11:47 Dose: 90 mls/hr Cefazolin Sodium (Ancef 1gm In Ns) 1 gm in 100 mls @ 100 mls/hr IVPB Q8H [facility]; Protocol Last Admin: 11/01/18 14:06 Dose: 100 mls/hr Metronidazole (Flagyl) 500 mg in 100 mls @ 100 mls/hr IVPB Q8H [facility]; Protocol Last Admin: 11/01/18 06:00 Dose: 100 mls/hr Metoprolol Tartrate (Lopressor) 1.25 mg IVP BID [facility] Last Admin: 11/01/18 11:32 Dose: 1.25 mg - Labs Labs: 11/01/18 07:00 11/01/18 07:00 PT 15.8 SECONDS (9.4-12.5) H 10/31/18 09:00 INR 1.40 10/31/18 09:00 - Constitutional Appears: Non-toxic, No Acute Distress - Head Exam Head Exam: ATRAUMATIC, NORMOCEPHALIC - Eye Exam Eye Exam: EOMI - ENT Exam ENT Exam: Mucous Membranes Dry Additional comments: trachea midline - Respiratory Exam Respiratory Exam: NORMAL BREATHING PATTERN. absent: Respiratory Distress - Cardiovascular Exam Cardiovascular Exam: REGULAR RHYTHM - GI/Abdominal Exam GI & Abdominal Exam: Soft, Tenderness (appropriately at incision site). absent: Distended, Firm, Guarding, Rigid, Rebound Additional comments: dressing C/D/I - Extremities Exam Extremities Exam: absent: Calf Tenderness, Pedal Edema - Neurological Exam Neurological Exam: Alert, Awake, Oriented x3 - Skin Skin Exam: Dry, Warm Assessment and Plan - Assessment and Plan (Free Text) Assessment: 83F with extensive PMH, now s/p Colostomy reversal, rectosigmoid colotomy repair x3, extensive lysis of adhesions Plan: - DC cuenca - trial of void - Continue NGT to suction - Pain control PRN - Monitor for bowel function - Start DVT ppx - Continue NPO - D/W Dr. David Clay PGY4
[2018-11-02] MEDS: EnalaprilAT 1.25 mg/ml Inj IVP SCH ×4 (01:15→21:24)
[2018-11-02] MEDS: ceFAZolin 1 gm in NS 1 GM/100 ML BAG IVPB SCH ×3 (05:45→23:43)
[2018-11-02] MEDS: metroNIDAZOLE IV 500 mg/100 ml 500 MG/100 ML BAG IVPB SCH ×3 (05:45→22:34)
[2018-11-02 06:47] LABS: BASO # 0.01 K/mm3 (0.0-2.0); BASO % 0.1 % (0.0-3.0); HEMOGLOBIN 12.4 g/dL (12.0-16.0); LYMPH # 1.2 (1.2-3.4); LYMPH % 10.6 % (22.0-35.0); MEAN CELL VOLUME 86.7 fl (80.0-105.0); MEAN CORPUSCULAR HGB CONC 32.3 g/dl (31.0-37.0); MEAN PLATELET VOLUME 10.8 fl (7.0-11.0); MONO # 0.7 (0.1-0.6); RBC 4.43 10^6/uL (3.5-6.1); RED CELL DISTRIBUTION WIDTH 14.6 % (11.5-14.5); WHITE BLOOD COUNT 11.4 10^3/uL (4.5-11.0)
[2018-11-02 06:58] LABS: ALBUMIN 2.8 g/dL (3.0-4.8); ALT/SGPT 14 U/L (7-56); AST/SGOT 20 U/L (14-36); BLOOD UREA NITROGEN 6 mg/dL (7-21); CALCIUM 9.2 mg/dL (8.4-10.5); GFR NON-AFRICAN AMERICAN > 60
[2018-11-02] MEDS: Digoxin 500 mcg/2ml (0.5 mg/2ml) Inj IVP SCH ×2 (10:04→22:36)
[2018-11-02] MEDS: Metoprolol 1 mg/ml Inj IVP SCH ×2 (10:05→17:06)
[2018-11-02] MEDS: HYDROmorphone 0.5 mg/0.5 ml ISec IVP PRN (11:25)
--- NOTE | 2018-11-02 11:39 | CP.PCM.PN ---
Subjective - Date & Time of Evaluation Date of Evaluation: 11/02/18 Time of Evaluation: 06:50 - Subjective Subjective: General Surgery Progress Note for Dr. David Carballo, PGY1 Patient seen and examined at bedside this morning. No acute events noted overnight. Patient denies nausea, vomiting, flatus, and BM at this time. 30cc rashmi drain overnight. Objective - Vital Signs/Intake and Output Vital Signs (last 24 hours): Temp Pulse Resp BP Pulse Ox 98.1 F 85 20 132/71 95 11/02/18 08:38 11/02/18 10:05 11/02/18 08:38 11/02/18 10:07 11/02/18 08:38 Intake and Output: 11/02/18 11/02/18 06:59 18:59 Intake Total 1280 Output Total 685 Balance 595 - Medications Medications: Current Medications Benzocaine/Menthol (Cepacol Sore Throat) 1 wai MT Q2H PRN PRN Reason: Sore Throat Digoxin (Lanoxin) 0.1 mg IVP Q12 [facility] Last Admin: 11/02/18 10:04 Dose: 0.1 mg Diltiazem HCl (Cardizem) 5 mg IVP Q6H PRN PRN Reason: Heart rate Enalaprilat (Vasotec Iv) 1.25 mg IVP Q6H [facility] Last Admin: 11/02/18 10:07 Dose: 1.25 mg Heparin Sodium (Porcine) (Heparin) 5,000 units SC Q8 [facility]; Protocol Last Admin: 11/02/18 05:43 Dose: 5,000 units Hydromorphone HCl (Dilaudid) 0.25 mg IVP Q3H PRN PRN Reason: Pain, severe (8-10) Last Admin: 11/02/18 11:25 Dose: 0.25 mg Potassium Chloride 20 meq/ (Dextrose/Sodium Chloride) 1,010 mls @ 90 mls/hr IV .[id number] [facility] Last Admin: 11/01/18 23:00 Dose: 90 mls/hr Cefazolin Sodium (Ancef 1gm In Ns) 1 gm in 100 mls @ 100 mls/hr IVPB Q8H [facility]; Protocol Last Admin: 11/02/18 05:45 Dose: 100 mls/hr Metronidazole (Flagyl) 500 mg in 100 mls @ 100 mls/hr IVPB Q8H [facility]; Protocol Last Admin: 11/02/18 05:45 Dose: 100 mls/hr Metoprolol Tartrate (Lopressor) 1.25 mg IVP BID [facility] Last Admin: 11/02/18 10:05 Dose: 1.25 mg - Labs Labs: 11/02/18 06:00 11/02/18 06:00 PT 15.8 SECONDS (9.4-12.5) H 10/31/18 09:00 INR 1.40 10/31/18 09:00 - Constitutional Appears: Non-toxic, No Acute Distress - Head Exam Head Exam: ATRAUMATIC, NORMOCEPHALIC - Eye Exam Eye Exam: EOMI - ENT Exam ENT Exam: Mucous Membranes Dry Additional comments: - Respiratory Exam Respiratory Exam: NORMAL BREATHING PATTERN. absent: Respiratory Distress, accessory muscle use - Cardiovascular Exam Cardiovascular Exam: REGULAR RHYTHM - GI/Abdominal Exam GI & Abdominal Exam: Soft, Tenderness (appropriately at incision site). absent: Distended, Firm, Guarding, Rigid, Rebound Additional comments: dressing is clean dry and intact - Extremities Exam Extremities Exam: absent: Calf Tenderness, Pedal Edema, swelling - Neurological Exam Neurological Exam: Alert, Awake, Oriented x3 - Skin Skin Exam: Dry, Warm Assessment and Plan - Assessment and Plan (Free Text) Assessment: 83F with extensive PMH, now s/p Colostomy reversal, rectosigmoid colotomy repair x3 and extensive lysis of adhesions Plan: -physical therapy -npo -continue NGT suction -dilaudid prn -encourage ambulation as tolerated -heparin 5k q8 -further recommendations as per Dr. Hernandez
[2018-11-02] MEDS ORDERED: Bupivacaine 0.25% 50 ML INJ IJ ONE (14:01)
[2018-11-03] MEDS: EnalaprilAT 1.25 mg/ml Inj IVP SCH ×4 (03:02→21:43)
[2018-11-03] MEDS: metroNIDAZOLE IV 500 mg/100 ml 500 MG/100 ML BAG IVPB SCH ×3 (05:05→22:40)
[2018-11-03] MEDS: ceFAZolin 1 gm in NS 1 GM/100 ML BAG IVPB SCH ×3 (06:48→21:45)
[2018-11-03 06:53] LABS: BASO # 0.01 K/mm3 (0.0-2.0); BASO % 0.1 % (0.0-3.0); EOS % 0.3 % (1.5-5.0); HEMOGLOBIN 12.5 g/dL (12.0-16.0); LYMPH # 1.1 (1.2-3.4); LYMPH % 10.1 % (22.0-35.0); MEAN CELL VOLUME 86.9 fl (80.0-105.0); MEAN CORPUSCULAR HEMOGLOBIN 27.7 pg (25.0-35.0); MEAN CORPUSCULAR HGB CONC 31.9 g/dl (31.0-37.0); MEAN PLATELET VOLUME 10.9 fl (7.0-11.0); MONO # 0.8 (0.1-0.6); MONO % 7.4 % (1.0-6.0); RBC 4.51 10^6/uL (3.5-6.1); RED CELL DISTRIBUTION WIDTH 14.8 % (11.5-14.5); WHITE BLOOD COUNT 10.5 10^3/uL (4.5-11.0)
[2018-11-03 07:09] LABS: ALBUMIN 2.9 g/dL (3.0-4.8); ALT/SGPT 13 U/L (7-56); AST/SGOT 19 U/L (14-36); BLOOD UREA NITROGEN 8 mg/dL (7-21); CALCIUM 9.3 mg/dL (8.4-10.5); GFR NON-AFRICAN AMERICAN > 60
--- NOTE | 2018-11-03 08:22 | PN ---
DATE: 11/02/2018 SUBJECTIVE: The patient is an 83-year-old, seen and examined, lying in bed, seems to be comfortable. Complain of pain upon moving, did not pass flatus yet, still n.p.o. and nasogastric tube has been removed. PHYSICAL EXAMINATION: VITAL SIGNS: She is afebrile, pulse 91, respirations 18, blood pressure 125/66. LUNGS: Bilateral fair airflow. No rhonchi or crackle. HEART: S1 and S2 audible. ABDOMEN: Soft and nontender. No rebound. No guarding. NEUROLOGIC: The patient is awake and alert, able to communicate. EXTREMITIES: Bilateral leg, no edema. SCD in place. LABORATORY DATA: WBC of 11.4, hemoglobin 12, hematocrit 38, and platelets 174. Chemistry; sodium 139, potassium 3.8, chloride 111, CO2 of 24, BUN 6, creatinine 0.7, blood sugar of 127, albumin 2.8. ASSESSMENT: 1. Status post reversal of colostomy. 2. Chronic atrial fibrillation, currently off of anticoagulant. She is only on deep venous thrombosis prophylaxis. 3. Cardiomyopathy. 4. Mild chronic kidney disease, stage II. PLAN: Currently, the patient is on Ancef 1 g every 8 hours. She is on IV fluids. She is on analgesia. Continue on metronidazole. She is on digoxin 0.1 every 12 hours. She is on Vasotec 1.25 mg every 6 hours and metoprolol 1.25 twice a day. Follow up her electrolytes. Follow up her CBC in the a.m. Trang Pace MD
[2018-11-03] MEDS: Metoprolol 1 mg/ml Inj IVP SCH ×2 (09:10→17:16)
[2018-11-03] MEDS: Digoxin 500 mcg/2ml (0.5 mg/2ml) Inj IVP SCH ×2 (09:10→22:41)
--- NOTE | 2018-11-03 09:19 | CP.PCM.PCO ---
Physician Communication Note - Physician Communication Note Physician Communication Note: c/o tongue pain/+Flatus-Ice chips only-Lidocaine topical
--- NOTE | 2018-11-04 00:28 | PN ---
DATE: 11/03/2018 SUBJECTIVE: The patient is 83-year-old. Seen and examined. Sitting in chair. Seems to be upset. She states she wants to go back to the bed. No nausea noted, however, she did not pass gas either. Not hungry yet. Currently on IV fluids and IV antibiotics. PHYSICAL EXAMINATION: VITAL SIGNS: She is afebrile. Pulse 94, respirations 18, blood pressure 143/85. LUNGS: Bilateral fair airflow. No rhonchi or crackles. HEART: S1, S2 audible. ABDOMEN: Slightly distended. Palpable discomfort surgical site. Nasogastric tube was removed yesterday. Bowel sounds are absent. NEUROLOGICAL: The patient is awake and alert, able to communicate. LABORATORY DATA: WBC 10.5, hemoglobin 12.5, hematocrit 39, platelets 129. Chemistries sodium 139, potassium 3.9, chloride 110, CO2 of 22, BUN 8, creatinine 0.7, blood sugar 109. ASSESSMENT: 1. Status post reversal of colostomy. 2. Chronic atrial fibrillation. 3. Hypertension. 4. Hyperlipidemia. 5. Ischemic cardiomyopathy. PLAN: The plan is currently the patient is on Ancef. She is on diltiazem. She is on IV fluids. She is on Flagyl 500 mg every 8 hours. She is getting heparin every 8 hours. She is on digoxin. Encouraged physical therapy. We will follow up CBC, CMP intermittently. Trang Pace MD
[2018-11-04] MEDS: EnalaprilAT 1.25 mg/ml Inj IVP SCH ×3 (05:25→17:49)
[2018-11-04] MEDS: ceFAZolin 1 gm in NS 1 GM/100 ML BAG IVPB SCH ×3 (05:58→22:04)
[2018-11-04] MEDS: metroNIDAZOLE IV 500 mg/100 ml 500 MG/100 ML BAG IVPB SCH ×4 (07:04→22:03)
[2018-11-04] MEDS ORDERED: Albuterol-Ipratrop 3 mg / 0.5 (3 ml) UD IH STA (08:44)
--- NOTE | 2018-11-04 09:03 | CP.PCM.PN ---
Subjective - Date & Time of Evaluation Date of Evaluation: 11/04/18 Time of Evaluation: 09:03 - Subjective Subjective: IM Resident house physician note: Paged by nurse, patient is tachypneic RR in the 30s, tachycardeic. Evaluated patient: patient is an 83 y/o with pmhx of Afib, htn, hld, ischemic cardiomyopathy, s/p reversal colostomy. As per surgical team patient has been immobile post op, no bowel movement, no flatus, poor urine output and is NPO. Upon evaluating patient, patient is tachypneic, was using her accessory muscles. Denies pain. Nasal cannula is in place. Upon on auscultation, patient with diffuse rales and wheezing. Plan: hold iv fluid, give stat dose 40 mg ivp Lasix, and a duoneb treatment and reassess. president & founder aware, chest x-ray is also ordered. Objective - Vital Signs/Intake and Output Vital Signs (last 24 hours): Temp Pulse Resp BP Pulse Ox 98 F 108 H 20 135/88 95 11/04/18 09:00 11/04/18 09:00 11/04/18 09:00 11/04/18 09:00 11/04/18 09:00 Intake and Output: 11/04/18 11/04/18 06:59 18:59 Intake Total 0 Output Total 185 Balance -185 - Medications Medications: Current Medications Benzocaine/Menthol (Cepacol Sore Throat) 1 wai MT Q2H PRN PRN Reason: Sore Throat Digoxin (Lanoxin) 0.1 mg IVP Q12 L[facility] Last Admin: 11/03/18 22:41 Dose: 0.1 mg Diltiazem HCl (Cardizem) 5 mg IVP Q6H PRN PRN Reason: Heart rate Last Admin: 11/04/18 05:58 Dose: 5 mg Enalaprilat (Vasotec Iv) 1.25 mg IVP Q6 [facility] Last Admin: 11/04/18 05:25 Dose: 1.25 mg Furosemide (Lasix) 40 mg IVP ONCE ONE Stop: 11/04/18 09:03 Heparin Sodium (Porcine) (Heparin) 5,000 units SC Q8 [facility]; Protocol Last Admin: 11/04/18 05:25 Dose: 5,000 units Hydromorphone HCl (Dilaudid) 0.25 mg IVP Q3H PRN PRN Reason: Pain, severe (8-10) Last Admin: 11/02/18 11:25 Dose: 0.25 mg Potassium Chloride 20 meq/ (Dextrose/Sodium Chloride) 1,010 mls @ 90 mls/hr IV .[id number] [facility] Last Admin: 11/01/18 23:00 Dose: 90 mls/hr Cefazolin Sodium (Ancef 1gm In Ns) 1 gm in 100 mls @ 100 mls/hr IVPB Q8H [facility]; Protocol Last Admin: 11/04/18 05:58 Dose: 100 mls/hr Metronidazole (Flagyl) 500 mg in 100 mls @ 100 mls/hr IVPB Q8H [facility]; Protocol Last Admin: 11/04/18 07:19 Dose: 100 mls/hr Lidocaine HCl (Lidocaine 2% Viscous) 15 ml MM Q2H PRN PRN Reason: Pain, moderate (4-7) Last Admin: 11/03/18 17:16 Dose: 15 ml Metoprolol Tartrate (Lopressor) 1.25 mg IVP BID [facility] Last Admin: 11/03/18 17:16 Dose: 1.25 mg - Labs Labs: 11/03/18 06:20 11/03/18 06:20 PT 15.8 SECONDS (9.4-12.5) H 10/31/18 09:00 INR 1.40 10/31/18 09:00
--- NOTE | 2018-11-04 09:09 | CP.PCM.PN ---
Subjective - Date & Time of Evaluation Date of Evaluation: 11/04/18 Time of Evaluation: 09:05 - Subjective Subjective: SURGERY NOTE FOR DR. JOY 83F seen and examined at bedside. Patient denies pain, nausea or vomiting. She denies flatus or bowel movements. She has been tolerating ice chips. Patient currently with regular breathing pattern, however audibly wheezing. Objective - Vital Signs/Intake and Output Vital Signs (last 24 hours): Temp Pulse Resp BP Pulse Ox 98 F 108 H 20 135/88 95 11/04/18 09:00 11/04/18 09:00 11/04/18 09:00 11/04/18 09:00 11/04/18 09:00 Intake and Output: 11/04/18 11/04/18 06:59 18:59 Intake Total 0 Output Total 185 Balance -185 - Medications Medications: Current Medications Benzocaine/Menthol (Cepacol Sore Throat) 1 wai MT Q2H PRN PRN Reason: Sore Throat Digoxin (Lanoxin) 0.1 mg IVP Q12 [facility]EX[facility] Last Admin: 11/03/18 22:41 Dose: 0.1 mg Diltiazem HCl (Cardizem) 5 mg IVP Q6H PRN PRN Reason: Heart rate Last Admin: 11/04/18 05:58 Dose: 5 mg Enalaprilat (Vasotec Iv) 1.25 mg IVP Q6 LEXIE Last Admin: 11/04/18 05:25 Dose: 1.25 mg Heparin Sodium (Porcine) (Heparin) 5,000 units SC Q8 [facility]; Protocol Last Admin: 11/04/18 05:25 Dose: 5,000 units Hydromorphone HCl (Dilaudid) 0.25 mg IVP Q3H PRN PRN Reason: Pain, severe (8-10) Last Admin: 11/02/18 11:25 Dose: 0.25 mg Potassium Chloride 20 meq/ (Dextrose/Sodium Chloride) 1,010 mls @ 90 mls/hr IV .[id number] [facility] Last Admin: 11/01/18 23:00 Dose: 90 mls/hr Cefazolin Sodium (Ancef 1gm In Ns) 1 gm in 100 mls @ 100 mls/hr IVPB Q8H [facility]; Protocol Last Admin: 11/04/18 05:58 Dose: 100 mls/hr Metronidazole (Flagyl) 500 mg in 100 mls @ 100 mls/hr IVPB Q8H [facility]; Protocol Last Admin: 11/04/18 07:19 Dose: 100 mls/hr Lidocaine HCl (Lidocaine 2% Viscous) 15 ml MM Q2H PRN PRN Reason: Pain, moderate (4-7) Last Admin: 11/03/18 17:16 Dose: 15 ml Metoprolol Tartrate (Lopressor) 1.25 mg IVP BID [facility] Last Admin: 11/03/18 17:16 Dose: 1.25 mg - Labs Labs: 11/03/18 06:20 11/03/18 06:20 PT 15.8 SECONDS (9.4-12.5) H 10/31/18 09:00 INR 1.40 10/31/18 09:00 - Constitutional Appears: No Acute Distress - Respiratory Exam Respiratory Exam: Wheezes, NORMAL BREATHING PATTERN - Cardiovascular Exam Cardiovascular Exam: +S1, +S2 - GI/Abdominal Exam GI & Abdominal Exam: Soft, Tenderness. absent: Distended, Firm, Guarding, Rigid, Rebound Additional comments: OnQ DC'd Incisions and surgical sites CDI - Neurological Exam Neurological Exam: Alert, Awake Assessment and Plan - Assessment and Plan (Free Text) Assessment: 83F s/p colostomy reversal POD 4. History of alonso's procedure for diverticulitis Plan: - continue Ice chips - EKG/CXR - Monitor urine output - Monitor bowel function - Monitor drain output - Patient need physical therapy - Patient needs to be out of bed to chair - Further recs discuss with Dr. David Cline, PGY3
[2018-11-04] MEDS: Digoxin 500 mcg/2ml (0.5 mg/2ml) Inj IVP SCH (10:41)
[2018-11-04] MEDS: Metoprolol 1 mg/ml Inj IVP SCH ×2 (10:44→17:51)
--- NOTE | 2018-11-04 11:40 | RAD ---
Date of service: 11/04/2018 HISTORY: Short of breath COMPARISON: 10/20/2018 TECHNIQUE: 1 view obtained. FINDINGS: LUNGS: No active pulmonary disease. PLEURA: Minimal blunting of both costophrenic angles may reflect small pleural effusions. CARDIOVASCULAR: There is atherosclerotic calcification of the thoracic aorta. Normal heart size. AICD. Mild congestive change noted OSSEOUS STRUCTURES: No significant abnormalities. VISUALIZED UPPER ABDOMEN: Normal. OTHER FINDINGS: None. IMPRESSION: Mild congestive change. Small bilateral pleural effusions. Possible congestive heart failure. No evidence of lai pulmonary edema.
--- NOTE | 2018-11-04 12:54 | CP.PCM.CON ---
History of Present Illness - History of Present Illness History of Present Illness: Awake,alert, lying in bed, shortness of breath Reason for consultation: Cardiac evaluation of shortness of breath, post reversal of colostomy Brief history of present illness: An 83 year old female who came in to [facility] for surgery. Seen at Dr. Her's office 2-3 weeks prior to admission for cardiac clearance. She had a reversal of colostomy. Patient had history of diverticulitis with acute bowel perforation and had bowel surgery with colostomy in July 2017. Since then she had the colostomy. History of atrial fibrillation, coronary artery disease, cardiomyopathy, hypertension, chronic systolic dysfunction congestive heart failure, AICD,diverticulosis, hypothyroidism. She underwent reversal of colostomy 10/31/18 and today consult was called due to shortness of breath. Seen and examined by me and Dr. Her Review of Systems - Review of Systems All systems: reviewed and no additional remarkable complaints except Review of Systems: as per HPI Past Patient History - Infectious Disease Hx of Infectious Diseases: None - Tetanus Immunizations Tetanus Immunization: Unknown - Past Medical History & Family History Past Medical History?: Yes - Past Social History Smoking Status: Former Smoker - CARDIAC Hx Pacemaker: Yes - PULMONARY Hx Chronic Obstructive Pulmonary Disease (COPD): Yes - NEUROLOGICAL HX Cerebrovascular Accident: Yes - HEENT Hx HEENT Problems: No - RENAL Hx Chronic Kidney Disease: No Other/Comment: Chronic renal insufficiency - ENDOCRINE/METABOLIC Hx Hypothyroidism: Yes - HEMATOLOGICAL/ONCOLOGICAL Hx Blood Transfusions: No - INTEGUMENTARY Hx Dermatological Problems: No - MUSCULOSKELETAL/RHEUMATOLOGICAL Hx Musculoskeletal Disorders: Yes - GASTROINTESTINAL Hx Gastrointestinal Disorders: Yes (DIVERTICULITIS WITH PERFORATION,RECTAL BLEED,CONSTIPATION,COLOSTOMY) - GENITOURINARY/GYNECOLOGICAL Hx Genitourinary Disorders: No - PSYCHIATRIC Hx Emotional Abuse: No Hx Physical Abuse: No Hx Substance Use: No - SURGICAL HISTORY Hx Surgeries: Yes - ANESTHESIA Hx Anesthesia Reactions: No Hx Malignant Hyperthermia: No Meds Allergies/Adverse Reactions: Allergies Allergy/AdvReac Type Severity Reaction Status Date / Time No Known Allergies Allergy Verified 09/13/17 16:40 - Medications Medications: Current Medications Benzocaine/Menthol (Cepacol Sore Throat) 1 wai MT Q2H PRN PRN Reason: Sore Throat Digoxin (Lanoxin) 0.1 mg IVP Q12 [facility] Last Admin: 11/04/18 10:41 Dose: 0.1 mg Diltiazem HCl (Cardizem) 5 mg IVP Q6H PRN PRN Reason: Heart rate Last Admin: 11/04/18 12:24 Dose: 5 mg Enalaprilat (Vasotec Iv) 1.25 mg IVP Q6 [facility]EX[facility] Last Admin: 11/04/18 12:19 Dose: 1.25 mg Enoxaparin Sodium (Lovenox) 40 mg SC DAILY [facility]; Protocol Hydromorphone HCl (Dilaudid) 0.25 mg IVP Q3H PRN PRN Reason: Pain, severe (8-10) Last Admin: 11/02/18 11:25 Dose: 0.25 mg Cefazolin Sodium (Ancef 1gm In Ns) 1 gm in 100 mls @ 100 mls/hr IVPB Q8H [facility]; Protocol Last Admin: 11/04/18 05:58 Dose: 100 mls/hr Metronidazole (Flagyl) 500 mg in 100 mls @ 100 mls/hr IVPB Q8H [facility]; Protocol Last Admin: 11/04/18 07:19 Dose: 100 mls/hr Potassium Chloride 20 meq/ (Dextrose/Sodium Chloride) 1,010 mls @ 60 mls/hr IV .[id number] [facility] Lidocaine HCl (Lidocaine 2% Viscous) 15 ml MM Q2H PRN PRN Reason: Pain, moderate (4-7) Last Admin: 11/03/18 17:16 Dose: 15 ml Metoprolol Tartrate (Lopressor) 1.25 mg IVP BID [facility] Last Admin: 11/04/18 10:44 Dose: 1.25 mg Physical Exam - Constitutional Appears: Non-toxic, No Acute Distress - Head Exam Head Exam: NORMAL INSPECTION, NORMOCEPHALIC - Eye Exam Eye Exam: Normal appearance Pupil Exam: NORMAL ACCOMODATION - ENT Exam ENT Exam: Mucous Membranes Moist, Normal Exam - Respiratory Exam Respiratory Exam: Rales Additional comments: mild shortness of breath - Cardiovascular Exam Cardiovascular Exam: Tachycardia, +S1, +S2 Additional comments: AICD - GI/Abdominal Exam GI & Abdominal Exam: Soft Additional comments: absence of bowel sounds - Exam Additional comments: cuenca catheter - Neurological Exam Neurological exam: Alert - Psychiatric Exam Psychiatric exam: Normal Affect - Skin Skin Exam: Dry, Normal Color, Warm Results - Vital Signs Recent Vital Signs: Last Vital Signs Temp 98 F 11/04/18 09:00 Pulse 108 H 11/04/18 09:00 Resp 20 11/04/18 09:00 BP 141/100 H 11/04/18 12:24 Pulse Ox 95 11/04/18 09:00 - Labs Result Diagrams: 11/03/18 06:20 11/03/18 06:20 Assessment & Plan - Assessment and Plan (Free Text) Assessment: An 83 year old female who came in to [facility] for surgery. Seen at Dr. Her's office 2-3 weeks prior to admission for cardiac clearance. She had a reversal of colostomy. Patient had history of diverticulitis with acute bowel perforation and had bowel surgery with colostomy in July 2017. Since then she had the colostomy. History of atrial fibrillation, coronary artery disease, cardiomyopathy, hypertension, chronic systolic dysfunction congestive heart failure, AICD,diverticulosis, hypothyroidism. She underwent reversal of colostomy 10/31/18 and today consult was called due to shortness of breath. Cardiac cath done on 02/12/13 and showed occluded PLV of RCA, LVEF 25%. Echo done on 07/12/17 and showed mild LVH, severely dilated LA, mild to moderate MR, modera te TR, mild pulmonary hypertension. Chest X ray today showed mild vascular congestion. Decompensated systolic dysfunction congestive heart failure. Will start Primacor. Patient still NPO. All medications thru IV. Transfer to telemetry. Will give additional Lasix and Digoxin. Will closely monitor. Plan: No distress, mild shortness of breath Transfer to telemetry Will start Primacor Patient still NPO. All medications thru IV. Will give additional Lasix and Digoxin On Digoxin IV 0.25 mg daily, Lopressor 1.25 mg BID Vasotec 1.25 mg every 6 hours, Lasix 40 mg IV BID Digoxin level in am IV Fluid decreased to 60 cc/hr. Will follow up Plan and treatment discussed with Dr. Her Thank you Dr. Hernandez and Dr. Pace for the opportunity of taking care of Vida Recinos - Date & Time Date: 11/04/18 Time: 12:50
[2018-11-04] MEDS ORDERED: Digoxin 500 mcg/2ml (0.5 mg/2ml) Inj IVP ONE (13:16)
[2018-11-04] MEDS: Potassium Chloride 20 MEQ in Dextrose 5%/0.45% NS 1,000 ML IV SCH (14:09)
--- NOTE | 2018-11-04 14:19 | PN ---
DATE: 11/04/2018 SUBJECTIVE: The patient is 83 years old. Seen and examined. Doing okay. Seems to be upset. Did not pass gas yet. No nausea or vomiting. Nasogastric tube is out. PHYSICAL EXAMINATION: VITAL SIGNS: She is afebrile. Pulse 100, respirations 20, blood pressure 149/63. LUNGS: Bilateral fair airflow. Few soft crackle posteriorly. HEART: S1, S2 audible. ABDOMEN: Soft. Slight palpable discomfort at surgical site. NEUROLOGICAL: The patient is awake and alert, able to communicate. LABORATORY DATA: There is no new lab available today. ASSESSMENT AND PLAN: However, her kidney function seems to be okay. I will discontinue her heparin, she is being given 3 times. Since her kidney function is fine, I will switch her to Lovenox and follow up electrolytes and CBC in a.m. Trang Pace MD
[2018-11-04] MEDS: Milrinone 20mg/100ml D5W 100 ML IV PRN (14:48)
--- NOTE | 2018-11-04 20:19 | CARD ---
APPROVED REPORT Date of service: 11/04/2018 EKG Measurement Heart [id number] <Conclusion> Atrial flutter with variable AV block with premature ventricular or aberrantly conducted complexes NDSTT abnormalities CCR Abnormal ECG
[2018-11-05] MEDS: EnalaprilAT 1.25 mg/ml Inj IVP SCH ×3 (00:13→12:22)
[2018-11-05] MEDS: Milrinone 20mg/100ml D5W 100 ML IV PRN ×2 (04:43→17:47)
[2018-11-05] MEDS: ceFAZolin 1 gm in NS 1 GM/100 ML BAG IVPB SCH ×3 (05:47→22:09)
[2018-11-05] MEDS: metroNIDAZOLE IV 500 mg/100 ml 500 MG/100 ML BAG IVPB SCH ×3 (05:47→22:09)
--- NOTE | 2018-11-05 07:37 | CP.PCM.PN ---
Subjective - Date & Time of Evaluation Date of Evaluation: 11/05/18 Time of Evaluation: 06:35 - Subjective Subjective: Awake,alert, lying in bed, denies shortness of breath Reason for consultation and follow up: Cardiac evaluation of shortness of breat h, post reversal of colostomy, decompensated congestive heart failure, AICD Seen and examined by me and Dr. Her Objective - Vital Signs/Intake and Output Vital Signs (last 24 hours): Temp Pulse Resp BP Pulse Ox 97.9 F 96 H 20 137/63 96 11/05/18 05:56 11/05/18 05:56 11/05/18 05:56 11/05/18 05:56 11/05/18 05:56 Intake and Output: 11/05/18 11/05/18 06:59 18:59 Intake Total 880 Output Total 2000 Balance -1120 - Medications Medications: Current Medications Benzocaine/Menthol (Cepacol Sore Throat) 1 wai MT Q2H PRN PRN Reason: Sore Throat Digoxin (Lanoxin) 0.25 mg IVP 1400 [facility]EXIE Diltiazem HCl (Cardizem) 5 mg IVP Q6H PRN PRN Reason: Heart rate Last Admin: 11/04/18 12:24 Dose: 5 mg Enalaprilat (Vasotec Iv) 1.25 mg IVP Q6 [facility] Last Admin: 11/05/18 05:48 Dose: 1.25 mg Enoxaparin Sodium (Lovenox) 40 mg SC DAILY [facility]; Protocol Furosemide (Lasix) 40 mg IVP Q12 [facility] Last Admin: 11/04/18 22:05 Dose: 40 mg Hydromorphone HCl (Dilaudid) 0.25 mg IVP Q3H PRN PRN Reason: Pain, severe (8-10) Last Admin: 11/02/18 11:25 Dose: 0.25 mg Cefazolin Sodium (Ancef 1gm In Ns) 1 gm in 100 mls @ 100 mls/hr IVPB Q8H [facility]; Protocol Last Admin: 11/05/18 05:47 Dose: 100 mls/hr Metronidazole (Flagyl) 500 mg in 100 mls @ 100 mls/hr IVPB Q8H [facility]; Protocol Last Admin: 11/05/18 05:47 Dose: 100 mls/hr Potassium Chloride 20 meq/ (Dextrose/Sodium Chloride) 1,010 mls @ 60 mls/hr IV .[id number] ON LICENSE OF [facility] Last Admin: 11/04/18 14:09 Dose: 60 mls/hr Milrinone Lactate/Dextrose (Primacor 20mg/100ml D5w) 100 mls @ 5.307 mls/hr IV .[id number] PRN; Protocol PRN Reason: TITRATE PER MD ORDER Last Admin: 11/05/18 04:43 Dose: 0.375 mcg/kg/min, 5.307 mls/hr Lidocaine HCl (Lidocaine 2% Viscous) 15 ml MM Q2H PRN PRN Reason: Pain, moderate (4-7) Last Admin: 11/03/18 17:16 Dose: 15 ml Metoprolol Tartrate (Lopressor) 1.25 mg IVP BID [facility] Last Admin: 11/04/18 17:51 Dose: 1.25 mg - Labs Labs: 11/03/18 06:20 11/03/18 06:20 PT 15.8 SECONDS (9.4-12.5) H 10/31/18 09:00 INR 1.40 10/31/18 09:00 - Constitutional Appears: Non-toxic, No Acute Distress - Head Exam Head Exam: NORMAL INSPECTION, NORMOCEPHALIC - Eye Exam Eye Exam: Normal appearance Pupil Exam: NORMAL ACCOMODATION - ENT Exam ENT Exam: Mucous Membranes Dry - Respiratory Exam Respiratory Exam: Decreased Breath Sounds, NORMAL BREATHING PATTERN - Cardiovascular Exam Cardiovascular Exam: Irregular Rhythm, +S1, +S2 Additional comments: Telemetry atrial fibrillation 80's AICD - GI/Abdominal Exam GI & Abdominal Exam: Soft, Hypoactive Bowel Sounds Additional comments: right abdominal dressing HOLA drain - Exam Additional comments: cuenca catheter - Extremities Exam Extremities Exam: Full ROM, Normal Capillary Refill - Neurological Exam Neurological Exam: Alert, Awake, Oriented x3 - Psychiatric Exam Psychiatric exam: Normal Affect, Normal Mood - Skin Skin Exam: Dry, Normal Color, Warm Assessment and Plan - Assessment and Plan (Free Text) Assessment: An 83 year old female who came in to [facility] for surgery. Seen at Dr. Her's office 2-3 weeks prior to admission for cardiac clearance. She had a reversal of colostomy. Patient had history of diverticulitis with acute bowel perforation and had bowel surgery with colostomy in July 2017. Since then she had the colostomy. History of atrial fibrillation (on Coumadin) coronary artery disease, cardiomyopathy, hypertension, chronic systolic dysfunction congestive heart f ailure, AICD,diverticulosis, hypothyroidism. She underwent reversal of colostomy 10/31/18 and today consult was called due to shortness of breath. Cardiac cath done on 02/12/13 and showed occluded PLV of RCA, LVEF 25%. Echo done on 07/12/17 and showed mild LVH, severely dilated LA, mild to moderate MR, moderate TR, mild pulmonary hypertension. Chest X ray today showed mild vascular congestion. Decompensated acute on chronic systolic dysfunction congestive heart failure. Patient NPO. All medications thru IV. Continue Primacor for the next 24 hours. Continue to diurese. Denies shortness of breath. Digoxin level today. Plan: No distress,feels okay, claimed to be passing flatus Heart rate- atrial fibrillation controlled rate Blood pressure controlled Continue Primacor for the next 24 hours Patient still NPO. All medications thru IV. Continue to diurese On Digoxin IV 0.25 mg daily, Lopressor 1.25 mg BID, Lovenox 40 mg daily Vasotec 1.25 mg every 6 hours, Lasix 40 mg IV BID Digoxin level today IV Fluid decreased to 60 cc/hr. All IV meds switch to oral once eating Restart Coumadin for atrial fibrillation if okay with Surgery Will follow up Plan and treatment discussed with Dr. Her
[2018-11-05 07:39] LABS: BASO # 0.01 K/mm3 (0.0-2.0); BASO % 0.1 % (0.0-3.0); EOS % 0.1 % (1.5-5.0); LYMPH % 12.8 % (22.0-35.0); MEAN CELL VOLUME 85.6 fl (80.0-105.0); MEAN CORPUSCULAR HEMOGLOBIN 27.5 pg (25.0-35.0); MEAN CORPUSCULAR HGB CONC 32.1 g/dl (31.0-37.0); MEAN PLATELET VOLUME 10.9 fl (7.0-11.0); MONO # 0.7 (0.1-0.6); MONO % 9.2 % (1.0-6.0); RBC 4.37 10^6/uL (3.5-6.1); RED CELL DISTRIBUTION WIDTH 14.4 % (11.5-14.5)
[2018-11-05 08:18] LABS: ALBUMIN 2.5 g/dL (3.0-4.8); ALT/SGPT 14 U/L (7-56); AST/SGOT 27 U/L (14-36); BLOOD UREA NITROGEN 11 mg/dL (7-21); CALCIUM 8.8 mg/dL (8.4-10.5); GFR NON-AFRICAN AMERICAN > 60
--- NOTE | 2018-11-05 09:01 | CP.PCM.PN ---
Subjective - Date & Time of Evaluation Date of Evaluation: 11/05/18 Time of Evaluation: 08:58 - Subjective Subjective: General Surgery: Dr King Pt S&E. NAEO. Resting comfortably. Reports pain is controlled. Now on milrinone per Dr Her. Received lasix yesterday with increase in urine output. Pt reports breathing improved. PAssing flatus, denies BM. Has not had any PO intact as of yet. Minimal time spent OOB. Pt will not get OOB without PT despite full ambulation independently pre-op. denies any n/v, f/c, sob. Objective - Vital Signs/Intake and Output Vital Signs (last 24 hours): Temp Pulse Resp BP Pulse Ox 97.9 F 96 H 20 137/63 96 11/05/18 05:56 11/05/18 05:56 11/05/18 05:56 11/05/18 05:56 11/05/18 05:56 Intake and Output: 11/05/18 11/05/18 06:59 18:59 Intake Total 880 Output Total 1999 Balance -1120 - Medications Medications: Current Medications Benzocaine/Menthol (Cepacol Sore Throat) 1 wai MT Q2H PRN PRN Reason: Sore Throat Digoxin (Lanoxin) 0.25 mg IVP 1400 LEXIE Diltiazem HCl (Cardizem) 5 mg IVP Q6H PRN PRN Reason: Heart rate Last Admin: 11/04/18 12:24 Dose: 5 mg Enalaprilat (Vasotec Iv) 1.25 mg IVP Q6 [facility] Last Admin: 11/05/18 05:48 Dose: 1.25 mg Enoxaparin Sodium (Lovenox) 40 mg SC DAILY [facility]; Protocol Furosemide (Lasix) 40 mg IVP Q12 [facility] Last Admin: 11/04/18 22:05 Dose: 40 mg Hydromorphone HCl (Dilaudid) 0.25 mg IVP Q3H PRN PRN Reason: Pain, severe (8-10) Last Admin: 11/02/18 11:25 Dose: 0.25 mg Cefazolin Sodium (Ancef 1gm In Ns) 1 gm in 100 mls @ 100 mls/hr IVPB Q8H [facility]; Protocol Last Admin: 11/05/18 05:47 Dose: 100 mls/hr Metronidazole (Flagyl) 500 mg in 100 mls @ 100 mls/hr IVPB Q8H [facility]; Protocol Last Admin: 11/05/18 05:47 Dose: 100 mls/hr Milrinone Lactate/Dextrose (Primacor 20mg/100ml D5w) 100 mls @ 5.307 mls/hr IV .[id number] PRN; Protocol PRN Reason: TITRATE PER MD ORDER Last Admin: 11/05/18 04:43 Dose: 0.375 mcg/kg/min, 5.307 mls/hr Potassium Chloride (Potassium Chloride 10 Meq/100 Ml) 10 meq in 100 mls @ 100 mls/hr IVPB Q2H [facility] Stop: 11/05/18 11:59 Lidocaine HCl (Lidocaine 2% Viscous) 15 ml MM Q2H PRN PRN Reason: Pain, moderate (4-7) Last Admin: 11/03/18 17:16 Dose: 15 ml Metoprolol Tartrate (Lopressor) 1.25 mg IVP BID [facility] Last Admin: 11/04/18 17:51 Dose: 1.25 mg - Labs Labs: 11/05/18 07:00 11/05/18 07:00 PT 15.8 SECONDS (9.4-12.5) H 10/31/18 09:00 INR 1.40 10/31/18 09:00 - Constitutional Appears: Non-toxic, No Acute Distress - ENT Exam ENT Exam: Mucous Membranes Dry - Respiratory Exam Respiratory Exam: absent: Accessory Muscle Use, Respiratory Distress - Cardiovascular Exam Cardiovascular Exam: REGULAR RHYTHM. absent: Tachycardia - GI/Abdominal Exam GI & Abdominal Exam: Soft, Tenderness (post-op and appropriate). absent: Distended Assessment and Plan - Assessment and Plan (Free Text) Assessment: 83F POD#5 s/p colostomy reversal Plan: cont milrinone and mgmt as per Dr Her given low EF will trial CLD slowly electrolyte replacement pt needs to be OOB to chair - nursing counseled on this cont pain mgmt monitor for BM strict I/O d/w Dr David Guthrie, PGY4
[2018-11-05] MEDS: Enoxaparin 40 mg Syringe SC SCH (09:23)
[2018-11-05] MEDS: Metoprolol 1 mg/ml Inj IVP SCH (09:23)
[2018-11-05] MEDS: Potassium Chloride 20 MEQ in Dextrose 5%/0.45% NS 1,000 ML IV SCH (10:01)
[2018-11-05] MEDS: Digoxin 500 mcg/2ml (0.5 mg/2ml) Inj IVP SCH (14:10)
[2018-11-05] MEDS ORDERED: Potassium Chloride 40 mEq/30 ml LIQ UD PO ONE ×2 (15:12→18:00)
--- NOTE | 2018-11-05 21:04 | PN ---
DATE: 11/05/2018 SUBJECTIVE: Patient is 83 years old, seen and examined lying in bed, does not seem to be in any distress, currently on Primacor drip, allowed to have liquid diet, being fed by the son at the bedside, offers no complaints. PHYSICAL EXAMINATION: VITAL SIGNS: She is afebrile, pulse 88, respirations 19, blood pressure 123/71. LUNGS: Bilateral fair airflow, decreased at bases. HEART: S1 and S2 audible. ABDOMEN: Soft, palpable discomfort. Bowel sounds are present. EXTREMITIES: Bilateral legs no edema. LABORATORY DATA: WBC 8, hemoglobin 12, hematocrit 37, and platelets 187. Chemistry; sodium 138, potassium 3, chloride 107, CO2 of 27, BUN 11, creatinine 0.7, blood sugar of 117. ASSESSMENT: 1. Status post reversal of colostomy. 2. Mild congestive heart failure. 3. Ischemic cardiomyopathy. 4. History of diverticular perforation and that is why she ended up having a colostomy. PLAN: Currently, patient is on metronidazole. She is on digoxin. She is getting Lasix. She is on metoprolol. She is on DVT prophylaxis. Her potassium has been supplemented. She is on Primacor drip. Since oral feeding has been started, we will start her on carvedilol. We will monitor her electrolytes. Follow up patient in a.m. Trang Pace MD
[2018-11-06] MEDS: metroNIDAZOLE IV 500 mg/100 ml 500 MG/100 ML BAG IVPB SCH ×3 (05:58→23:42)
[2018-11-06] MEDS: ceFAZolin 1 gm in NS 1 GM/100 ML BAG IVPB SCH ×3 (05:59→23:40)
[2018-11-06 07:46] LABS: BASO # 0.01 K/mm3 (0.0-2.0); BASO % 0.1 % (0.0-3.0); EOS # 0.1 (0.0-0.7); HEMOGLOBIN 12.4 g/dL (12.0-16.0); LYMPH # 1.2 (1.2-3.4); LYMPH % 13.4 % (22.0-35.0); MEAN CELL VOLUME 86.5 fl (80.0-105.0); MEAN CORPUSCULAR HGB CONC 32.4 g/dl (31.0-37.0); MEAN PLATELET VOLUME 10.7 fl (7.0-11.0); MONO # 0.9 (0.1-0.6); MONO % 9.4 % (1.0-6.0); RBC 4.43 10^6/uL (3.5-6.1); RED CELL DISTRIBUTION WIDTH 14.7 % (11.5-14.5); WHITE BLOOD COUNT 9.2 10^3/uL (4.5-11.0)
[2018-11-06 07:56] LABS: ALBUMIN 2.6 g/dL (3.0-4.8); ALT/SGPT 16 U/L (7-56); AST/SGOT 25 U/L (14-36); BLOOD UREA NITROGEN 10 mg/dL (7-21); CALCIUM 9.4 mg/dL (8.4-10.5); GFR NON-AFRICAN AMERICAN > 60
[2018-11-06 08:04] LABS: B-TYPE NATRIURETIC PEPTIDE 2020 pg/mL (0-450)
[2018-11-06] MEDS: Enoxaparin 40 mg Syringe SC SCH (09:16)
--- NOTE | 2018-11-06 09:39 | RAD ---
Date of service: 11/06/2018 HISTORY: evaluate congestion COMPARISON: 11/04/2018 TECHNIQUE: 1 view obtained. FINDINGS: LUNGS: No active pulmonary disease. PLEURA: Small pleural effusions CARDIOVASCULAR: Aortic calcification Moderate cardiomegaly. No pulmonary vascular congestion. OSSEOUS STRUCTURES: No significant abnormalities. VISUALIZED UPPER ABDOMEN: Normal. OTHER FINDINGS: Pacemaker IMPRESSION: Decreased vascular congestion. Small pleural effusions
--- NOTE | 2018-11-06 11:03 | CP.PCM.PCO ---
Physician Communication Note - Physician Communication Note Physician Communication Note: +LiquidBM/Full liquid/PT
--- NOTE | 2018-11-06 11:12 | CP.PCM.PN ---
Subjective - Date & Time of Evaluation Date of Evaluation: 11/06/18 Time of Evaluation: 06:50 - Subjective Subjective: General Surgery Dr. Hernandez Pt seen and examined @bedside. No acute events overnight. pt has no complaints. denies F/C, N/V, abd pain, D/C. tolerating CLD. (+)BM/Flatus. Objective - Vital Signs/Intake and Output Vital Signs (last 24 hours): Temp Pulse Resp BP Pulse Ox 97.7 F 104 H 19 134/75 97 11/06/18 06:00 11/06/18 09:17 11/06/18 06:00 11/06/18 09:17 11/06/18 06:00 Intake and Output: 11/06/18 11/06/18 06:59 18:59 Intake Total 60 Output Total 100 Balance -40 - Medications Medications: Current Medications Benzocaine/Menthol (Cepacol Sore Throat) 1 wai MT Q2H PRN PRN Reason: Sore Throat Carvedilol (Coreg) 3.125 mg PO BID [facility] Last Admin: 11/06/18 09:17 Dose: 3.125 mg Digoxin (Lanoxin) 0.25 mg IVP 1400 [facility] Last Admin: 11/05/18 14:10 Dose: 0.25 mg Diltiazem HCl (Cardizem) 5 mg IVP Q6H PRN PRN Reason: Heart rate Last Admin: 11/04/18 12:24 Dose: 5 mg Enoxaparin Sodium (Lovenox) 40 mg SC DAILY [facility]; Protocol Last Admin: 11/06/18 09:16 Dose: 40 mg Furosemide (Lasix) 40 mg IVP DAILY [facility] Last Admin: 11/06/18 09:16 Dose: 40 mg Hydromorphone HCl (Dilaudid) 0.25 mg IVP Q3H PRN PRN Reason: Pain, severe (8-10) Last Admin: 11/02/18 11:25 Dose: 0.25 mg Cefazolin Sodium (Ancef 1gm In Ns) 1 gm in 100 mls @ 100 mls/hr IVPB Q8H [facility]; Protocol Last Admin: 11/06/18 05:59 Dose: 100 mls/hr Metronidazole (Flagyl) 500 mg in 100 mls @ 100 mls/hr IVPB Q8H [facility]; Protocol Last Admin: 11/06/18 05:58 Dose: 100 mls/hr Lidocaine HCl (Lidocaine 2% Viscous) 15 ml MM Q2H PRN PRN Reason: Pain, moderate (4-7) Last Admin: 11/03/18 17:16 Dose: 15 ml Lisinopril (Zestril) 5 mg PO DAILY [facility] Last Admin: 11/06/18 09:16 Dose: 5 mg - Labs Labs: 11/06/18 07:00 11/06/18 07:00 PT 15.8 SECONDS (9.4-12.5) H 10/31/18 09:00 INR 1.40 10/31/18 09:00 - Constitutional Appears: Non-toxic, No Acute Distress - Head Exam Head Exam: NORMAL INSPECTION - Eye Exam Eye Exam: Normal appearance - ENT Exam ENT Exam: Mucous Membranes Moist - Respiratory Exam Respiratory Exam: NORMAL BREATHING PATTERN. absent: Accessory Muscle Use, Respiratory Distress - Cardiovascular Exam Cardiovascular Exam: absent: Bradycardia, Tachycardia - GI/Abdominal Exam GI & Abdominal Exam: Soft, Tenderness (appropriate yoseph-incisional TTP). absent: Distended, Firm, Guarding, Rebound Additional comments: dressing c/d/i Yan w/ scant serosanguinous drainage - Extremities Exam Extremities Exam: Normal Inspection - Neurological Exam Neurological Exam: Alert, Awake, Oriented x3 - Psychiatric Exam Psychiatric exam: Normal Affect, Normal Mood - Skin Skin Exam: Dry, Intact, Normal Color, Warm Assessment and Plan - Assessment and Plan (Free Text) Assessment: 83 y/o F POD#6 s/p colostomy reversal Plan: - f/u Dr. Her for cardiac management - advance to FLD - monitor electrolytes - cont pain mgmt - monitor bowel fxn - encourage OOB to chair/Amb/IS use - PT/OT Pt discussed w/ Dr. David Hernandez PGY3
[2018-11-06] MEDS: Digoxin 500 mcg/2ml (0.5 mg/2ml) Inj IVP SCH (15:00)
--- NOTE | 2018-11-06 15:47 | PN ---
DATE: 11/06/2018 SUBJECTIVE: The patient is 83-year-old, seen and examined, lying in bed, seems to be comfortable, less shortness of breath, tolerated full liquid diet, passing gas, and had been bowel movement. PHYSICAL EXAMINATION: VITAL SIGNS: She is afebrile, pulse 89, respirations 18, and blood pressure 134/75. LUNGS: Bilateral fair airflow. Occasional soft crackle at bases. HEART: S1 and S2 audible. ABDOMEN: Soft and slight palpable discomfort. NEUROLOGIC: The patient is awake and alert; able to communicate. EXTREMITIES: Bilateral leg, no edema. LABORATORY DATA: WBCs 9.2, hemoglobin 12.4, hematocrit 38.3, and platelet 188. Chemistry; sodium 142, potassium 4.0, chloride 109, CO2 of 27, BUN 10, creatinine 0.6, and blood sugar of 104. ASSESSMENT: 1. Status post reversal of colostomy. 2. Congestive heart failure. 3. Ischemic cardiomyopathy. 4. History of chronic atrial fibrillation. PLAN: Currently, the patient is on Ancef. She is getting Coreg. Her anticoagulant is on hold for now. She is on metronidazole. She is getting Lasix. She is on DVT prophylaxis. We will monitor her electrolytes, CBC, and CMP intermittently. Trang Pace MD
--- NOTE | 2018-11-06 19:01 | PN ---
DATE: 11/06/2018 REASON FOR CONSULTATION AND FOLLOWUP: Cardiac evaluation, admitted with shortness of breath, acute decompensated congestive heart failure, status post reversal of the colostomy, status post AICD. SUBJECTIVE: The patient denies any chest pain, shortness of breath, or any palpitation. Feels a lot better. PHYSICAL EXAMINATION GENERAL: Not in apparent any distress, lying flat in the bed. VITAL SIGNS: Temperature afebrile. Heart rate 80, blood pressure 114/65. HEENT: PERRLA. Extraocular muscles are intact. NECK: Supple. No carotid bruits. No thyromegaly. CHEST: Clear to auscultation. HEART: S1 and S2 regular. ABDOMEN: Soft. EXTREMITIES: Clubbing and cyanosis negative. LABORATORY DATA: Blood workup as follows; WBC 9.8, hemoglobin 12, hematocrit 38.3, platelet count 188. Chemistry shows sodium 142, potassium 4, chloride 109, carbon dioxide 27, anion gap of 10, BUN 10, creatinine 0.6. IMPRESSION: An 83-year-old male with a past medical history significant for cardiomyopathy, history of atrial fibrillation on Coumadin, history of automatic implantable cardioverter-defibrillator, congestive heart failure, acute systolic dysfunction, admitted for reversal of the colostomy, postop congestive heart failure. The patient had colostomy in 2018 with a perforation of a hollow viscus, now admitted here for the reversal of the colonoscopy on 10/31/2018. Cardiology consult was called because of the patient was postop with shortness of breath. History of cardiac catheterization on 02/23/2018 that shows occluded posterior left ventricular branch of right coronary artery, ejection fraction 25%. Recent echo on 07/12/2017 shows left ventricular hypertrophy, dilated left atrium, [id number] mitral regurgitation, moderate mitral regurgitation, moderate tricuspid regurgitation, mild pulmonary hypertension. The patient was initially treated with IV Primacor, now the patient is stable. RECOMMENDATIONS: Continue digoxin, continue Lovenox, change Lasix to p.o., digoxin level, because of the age we will decrease to 0.125 mg daily. Though creatinine function is normal, but we will change to 0.125 mg and we will continue Coreg, change digoxin to p.o. and change Lasix to p.o. Digoxin level is 1.3, we will change to 0.12 mg p.o. We will again start 0.125 mg from Tuesday. Continue Coreg 3.125 mg and change the Lasix to p.o. after 2 days dose. Repeat the lab in the morning. We will repeat SMA-7 and digoxin level in the morning. We will follow with you. Thank you Dr. Hernandez and Dr. Pace for providing us the opportunity in taking care of the patient, Vida Recinos. Luis Sampson MD
--- NOTE | 2018-11-06 22:42 | OP ---
PROCEDURE DATE: 10/31/2018 SURGEON: Kris Hernandez MD SIDEWALK INSPECTOR: Sylvia Jones DO, PGY-3 SECOND SIDEWALK INSPECTOR: Germain Cristobal DO, PGY-1 [facility] [employer] ARCHITECT: Smith Rivera MD, relieved by Aniket Lam MD ANESTHESIA: General endotracheal - OnQ - Exparel. PREOPERATIVE DIAGNOSES: 1. Status post perforated diverticulitis. 2. Hypertensive coronary artery disease. POSTOPERATIVE DIAGNOSES: 1. Status post perforated diverticulitis. 2. Hypertensive coronary artery disease. 3. Residual perforated rectosigmoid diverticula. PROCEDURES PERFORMED: 1. Laparotomy with lysis of adhesions. 2. Partial colectomy. 3. Mobilization of the splenic flexure. 4. Colorectal anastomosis, [id number]. 5. Repair of rectosigmoid perforation x3. 6. Insertion of an OnQ pump. 7. Closure of colostomy. OPERATIVE INDICATIONS: The patient is an 83-year-old female who had a massively perforated diverticular abscess from her sigmoid colon one year earlier. It was operated upon. The abscess and infected area were removed, and the patient had an end colostomy (Yessenia). Since the operation, the patient has done very well, but has been insistent upon removing of the colostomy. She has gone to Dr. Her from Cardiology and undergone nuclear medicine stress testing and echocardiogram, and he has cleared her with [id number] risk for the procedure. Extensive discussions were held with the patient and with her family regarding the problems that could be involved in this, and she is understanding and signs the informed consent, undergoes a bowel preparation at home, and is admitted for surgery on the same day basis. OPERATIVE NOTE: The patient was brought to the operating room. She was identified by her wristband, undergoes time-out procedure, and was then placed on the operative table in a supine manner. Following induction of general anesthesia and insertion of an endotracheal tube, the Saba catheter was inserted. The colostomy was closed with running locking 2-0 Surgidac Polyester suture, and the abdomen was prepped with Betadine. The patient was aseptically draped and covered with iodine Vi-Drape. The patient was left in a low lithotomy position to allow access to the rectum. During this procedure, it should be necessary for anastomosis purposes. Midline incision was made and sharp dissection carried down through to the peritoneum below, and hemostasis was contained with cautery current. The peritoneum was entered between clamps, and extensive adhesions throughout the abdomen were completely excised and repaired. The distal rectosigmoid was finally found down in the pelvis and has a silk marking suture identifying same, and this was free from the lateral wall with careful dissection. Attention was drawn to the descending colon, which is attached to the colostomy, and this was excised with cautery scalpel, brought through the incision and into the peritoneal cavity, and after mobilizing the splenic flexure, bringing the transverse colon down to the pelvis, allowing for anastomosis to the distal rectosigmoid. The distal end of the descending colon was transected with a FAYE stapler, and the intervening colon was submitted to Pathology in formalin. It was labeled colon and colostomy. The 3-0 seromuscular stay sutures were employed to anastomose the mobilized splenic flexure down to the rectosigmoid. Once the two limbs of the bowel were opened, the FAYE stapler was inserted, closed and fired. There was significant inspissated stool within same, which was removed of a particularly waxy nature at this point. The defect was now closed over Allis clamps with a TA-60 stapler. The surgeon moved to the perineal portion of the procedure, inserted the proctoscope, insufflated the anastomosis with air, and surprisingly three small perforations were encountered. They were totally unknown prior to the procedure. These were suture ligated with 3-0 silk axrxsz-up-ohvuh sutures in two layers, and further insufflation demonstrates full integrity of the rectosigmoid and the anastomosis. The area was lavaged with Clorpactin solution. A drain was placed through the abdominal wall and secured with 2-0 Surgidac suture and placed caudad to this anastomosis, and the colostomy site was closed with interrupted 0 [id number] sutures. The incision was closed in a similar manner after placing an OnQ catheter. Some significant difficulty was encountered with injecting the bupivacaine into the OnQ catheters and several had to be replaced before to finally work. The incision was closed with interrupted [id number] 0 buried Prolene sutures, and the subcutaneous space lavaged with Clorpactin solution, aspirated and closed with 3-0 Polysorb and AutoSuture skin stapler. Bupivacaine was injected (Exparel - 72 hours) into the fascial layers throughout and the skin, and a dry dressing was applied. The patient was transported to the recovery room, extubated in satisfactory condition. Sponge, instrument and suture counts were verified as correct at the end of the procedure. Estimated blood loss during this procedure was less than 120 mL of blood. The surgical assistants were present from beginning to end and were extremely essential in the dissection and in the critical parts of the anastomosis and closure of this patient. Kris Hernandez MD
[2018-11-07] MEDS: ceFAZolin 1 gm in NS 1 GM/100 ML BAG IVPB SCH ×3 (05:50→22:21)
[2018-11-07] MEDS: metroNIDAZOLE IV 500 mg/100 ml 500 MG/100 ML BAG IVPB SCH ×3 (05:51→22:21)
--- NOTE | 2018-11-07 07:55 | CP.PCM.PN ---
<Martin Cline - Last Filed: 11/07/18 07:55> Subjective - Date & Time of Evaluation Date of Evaluation: 11/07/18 Time of Evaluation: 07:53 - Subjective Subjective: SURGERY NOTE FOR DR. JOY 83F seen and examined at bedside. Patient states pain resolved, denies nausea, vomiting, fevers or chills. States she is tolerating diet and having bowel function. Patient has been out of bed to chair. Objective - Vital Signs/Intake and Output Vital Signs (last 24 hours): Temp Pulse Resp BP Pulse Ox 98.3 F 84 20 139/68 98 11/07/18 06:00 11/07/18 06:00 11/07/18 06:00 11/07/18 06:00 11/07/18 06:00 Intake and Output: 11/07/18 11/07/18 06:59 18:59 Intake Total 400 Output Total 510 Balance -110 - Medications Medications: Current Medications Benzocaine/Menthol (Cepacol Sore Throat) 1 wai MT Q2H PRN PRN Reason: Sore Throat Carvedilol (Coreg) 3.125 mg PO BID [facility] Last Admin: 11/06/18 18:23 Dose: 3.125 mg Digoxin (Digoxin) 0.125 mg PO 1400 LEXIE Diltiazem HCl (Cardizem) 5 mg IVP Q6H PRN PRN Reason: Heart rate Last Admin: 11/04/18 12:24 Dose: 5 mg Enoxaparin Sodium (Lovenox) 40 mg SC DAILY [facility]; Protocol Last Admin: 11/06/18 09:16 Dose: 40 mg Furosemide (Lasix) 40 mg PO DAILY [facility] Hydromorphone HCl (Dilaudid) 0.25 mg IVP Q3H PRN PRN Reason: Pain, severe (8-10) Last Admin: 11/02/18 11:25 Dose: 0.25 mg Cefazolin Sodium (Ancef 1gm In Ns) 1 gm in 100 mls @ 100 mls/hr IVPB Q8H [facility]; Protocol Last Admin: 11/07/18 05:50 Dose: 100 mls/hr Metronidazole (Flagyl) 500 mg in 100 mls @ 100 mls/hr IVPB Q8H [facility]; Protocol Last Admin: 11/07/18 05:51 Dose: 100 mls/hr Lidocaine HCl (Lidocaine 2% Viscous) 15 ml MM Q2H PRN PRN Reason: Pain, moderate (4-7) Last Admin: 11/03/18 17:16 Dose: 15 ml Lisinopril (Zestril) 5 mg PO DAILY [facility] Last Admin: 11/06/18 09:16 Dose: 5 mg - Labs Labs: 11/06/18 07:00 11/06/18 07:00 PT 15.8 SECONDS (9.4-12.5) H 10/31/18 09:00 INR 1.40 10/31/18 09:00 - Constitutional Appears: Non-toxic, No Acute Distress - Respiratory Exam Respiratory Exam: NORMAL BREATHING PATTERN - Cardiovascular Exam Cardiovascular Exam: REGULAR RHYTHM, +S1, +S2 - GI/Abdominal Exam GI & Abdominal Exam: Soft. absent: Distended, Firm, Guarding, Rigid, Tenderness, Rebound Additional comments: Dressings CDI - Extremities Exam Extremities Exam: absent: Pedal Edema, Tenderness - Neurological Exam Neurological Exam: Alert, Awake Assessment and Plan - Assessment and Plan (Free Text) Assessment: 83F s/p colostomy reversal POD#7 Plan: - Monitor rashmi drain - DC cuenca again, trial void again - Advance diet as tolerated - OOB to chair, physical therapy Further recs discuss with Dr. David Cline, PGY3 <Kris Joy - Last Filed: 11/07/18 10:16> Objective - Vital Signs/Intake and Output Vital Signs (last 24 hours): Temp Pulse Resp BP Pulse Ox 98.3 F 82 20 128/69 98 11/07/18 06:00 11/07/18 09:23 11/07/18 06:00 11/07/18 09:23 11/07/18 06:00 Intake and Output: 11/07/18 11/07/18 06:59 18:59 Intake Total 400 Output Total 510 Balance -110 - Medications Medications: Current Medications Benzocaine/Menthol (Cepacol Sore Throat) 1 wai MT Q2H PRN PRN Reason: Sore Throat Carvedilol (Coreg) 3.125 mg PO BID [facility] Last Admin: 11/07/18 09:23 Dose: 3.125 mg Digoxin (Digoxin) 0.125 mg PO 1400 [facility] Diltiazem HCl (Cardizem) 5 mg IVP Q6H PRN PRN Reason: Heart rate Last Admin: 11/04/18 12:24 Dose: 5 mg Enoxaparin Sodium (Lovenox) 40 mg SC DAILY [facility]; Protocol Last Admin: 11/07/18 09:22 Dose: 40 mg Furosemide (Lasix) 40 mg PO DAILY [facility] Last Admin: 11/07/18 09:23 Dose: 40 mg Hydromorphone HCl (Dilaudid) 0.25 mg IVP Q3H PRN PRN Reason: Pain, severe (8-10) Last Admin: 11/02/18 11:25 Dose: 0.25 mg Cefazolin Sodium (Ancef 1gm In Ns) 1 gm in 100 mls @ 100 mls/hr IVPB Q8H [facility]; Protocol Last Admin: 11/07/18 05:50 Dose: 100 mls/hr Metronidazole (Flagyl) 500 mg in 100 mls @ 100 mls/hr IVPB Q8H [facility]; Protocol Last Admin: 11/07/18 05:51 Dose: 100 mls/hr Magnesium Sulfate (Magnesium Sulfate 2 Gm/50 Ml Water) 2 gm in 50 mls @ 50 mls/hr IVPB ONCE ONE Stop: 11/07/18 10:45 Lidocaine HCl (Lidocaine 2% Viscous) 15 ml MM Q2H PRN PRN Reason: Pain, moderate (4-7) Last Admin: 11/03/18 17:16 Dose: 15 ml Lisinopril (Zestril) 5 mg PO DAILY [facility] Last Admin: 11/07/18 09:23 Dose: 5 mg - Labs Labs: 11/07/18 07:30 11/07/18 07:30 PT 15.8 SECONDS (9.4-12.5) H 10/31/18 09:00 INR 1.40 10/31/18 09:00 Assessment and Plan - Assessment and Plan (Free Text) Plan: Dx Bullous dermatitiis Rx IV AB/Topical bactroban No surgery needed This consult done done under my direct supervision Robyn Joy MD FACS
[2018-11-07 08:11] LABS: BASO # 0.02 K/mm3 (0.0-2.0); BASO % 0.2 % (0.0-3.0); EOS # 0.2 (0.0-0.7); EOS % 2.4 % (1.5-5.0); HEMOGLOBIN 12.4 g/dL (12.0-16.0); LYMPH # 1.5 (1.2-3.4); MEAN CELL VOLUME 85.7 fl (80.0-105.0); MEAN CORPUSCULAR HEMOGLOBIN 28.1 pg (25.0-35.0); MEAN CORPUSCULAR HGB CONC 32.8 g/dl (31.0-37.0); MEAN PLATELET VOLUME 10.9 fl (7.0-11.0); MONO # 0.6 (0.1-0.6); MONO % 6.8 % (1.0-6.0); RBC 4.41 10^6/uL (3.5-6.1); RED CELL DISTRIBUTION WIDTH 15.1 % (11.5-14.5); WHITE BLOOD COUNT 9.2 10^3/uL (4.5-11.0)
[2018-11-07 08:15] LABS: BLOOD UREA NITROGEN 10 mg/dL (7-21); CALCIUM 9.3 mg/dL (8.4-10.5); GFR NON-AFRICAN AMERICAN > 60
[2018-11-07] MEDS: Enoxaparin 40 mg Syringe SC SCH (09:22)
[2018-11-07] MEDS ORDERED: Magnesium Sulfate 2 gm/50 ml 2 GM/50 ML BAG IVPB ONE (09:46)
[2018-11-07] MEDS ORDERED: Potassium Chloride 20 mEq ER Tab PO ONE (09:46)
--- NOTE | 2018-11-07 13:49 | PN ---
DATE: 11/07/2018 SUBJECTIVE: The patient is 83 years old, seen and examined, doing very well, eating and tolerating. No abdominal pain. No nausea or vomiting noted. PHYSICAL EXAMINATION: VITAL SIGNS: She is afebrile. Pulse 72, respirations 18, blood pressure 132/74. LUNGS: Bilateral fair airflow. No rhonchi or crackles. HEART: S1 and S2 audible. ABDOMEN: Soft, slight palpable discomfort. Had bowel movement. NEUROLOGIC: The patient is awake and alert, able to communicate. LABORATORY DATA: WBC is 9.2, hemoglobin 12, hematocrit 37, platelets 180. Chemistry; sodium 139, potassium 3.3, chloride 107, CO2 of 27, BUN 10, creatinine 0.5, blood sugar of 96. ASSESSMENT: 1. Status post reversal of colostomy. 2. Congestive heart failure, status post Primacor drip that is off now. 3. Mild renal insufficiency. 4. Ischemic cardiomyopathy. 5. Chronic atrial fibrillation. PLAN: Currently, the patient is on spironolactone. She is on Ancef. She is on Coreg and digoxin. She is on Entresto and she is on Flagyl and Lasix. She is on DVT prophylaxis. We will talk to the surgical team when can we start her back on Coumadin. The patient needs rehab, probably the patient's family want her to go to TCU. We will request for TCU evaluation, if accepted, will be transferred to TCU. We can monitor the patient's care while she is in rehab. Trang Pace MD
--- NOTE | 2018-11-07 14:17 | CP.PCM.PCO ---
Physician Communication Note - Physician Communication Note Physician Communication Note: OK TRCU
--- NOTE | 2018-11-07 16:55 | PN ---
DATE: 11/07/2018 REASON FOR CONSULTATION AND FOLLOWUP: Cardiac evaluation, admitted with shortness of breath, acute decompensated congestive heart failure, status post reversal of colostomy, status post AICD. SUBJECTIVE: The patient denies any chest pain, shortness of breath, or any palpitation. PHYSICAL EXAMINATION: GENERAL: Not in apparent distress. VITAL SIGNS: Temperature afebrile, heart rate 82, blood pressure 122/69. HEENT: PERRLA. Extraocular muscles intact. NECK: Supple. No carotid bruits. No thyromegaly. CHEST: Clear to auscultation. HEART: S1 and S2 regular. ABDOMEN: Soft. EXTREMITIES: Clubbing, cyanosis negative. LABORATORY DATA: Blood workup as follows. WBC 9.2, hemoglobin 12.3, hematocrit 37.8, platelet count 180. Chemistries show sodium 139, potassium 3.3, chloride 107, carbon dioxide of 27, anion gap of 8, BUN 10 and creatinine 0.5. Calcium is 9.3, magnesium 1.7, and phosphorus 2.6. IMPRESSION: An 83-year-old female with past medical history significant for cardiomyopathy, history of atrial fibrillation on Coumadin, history of automatic implantable cardioverter-defibrillator, congestive heart failure, acute systolic dysfunction, admitted with reversal of colostomy post operation with congestive heart failure. The patient had a colostomy of 2017 with admitted for reversal of the colostomy, underwent on 10/31/2018. Postoperative course complicated by acute decompensated congestive heart failure, history of cardiac catheterization on 02/23/2018 showed occluded posterior left ventricular branch of right coronary artery, ejection fraction 25%. Recent echo of 07/12/2017 shows left ventricular hypertrophy, dilated left atrium, mild to moderate mitral regurgitation and moderate tricuspid regurgitation and mild pulmonary hypertension. The patient was initially on IV Pravachol as outpatient, is stable. RECOMMENDATION: Supplement potassium interstitial support. Continue dig 0.125 daily. Continue Coreg 3.125 mg daily. Continue Lasix 40 daily. The patient has low EF, is a good candidate for Entresto, and we will hold lisinopril today and start from day after tomorrow the Entresto. We will follow with you. If the patient remains stable, discontinue telemetry. Withholding parameters of Entresto 24 p.o. b.i.d. starting from tomorrow after 14 hours of washing out in hold for systolic less than 120. We will review the SMA-7. Potassium is low, we will add on supplement potassium and we will put in spironolactone as well for typical heart failure therapy. Give 25 stat .dose and we will follow with you. We will repeat the lab in the morning for the initiation of heart failure therapy. Thank you Dr. Pace for providing us the opportunity in taking care of the patient, Vida Johnsondanie Recinos. Luis Sampson MD
[2018-11-08] MEDS: metroNIDAZOLE IV 500 mg/100 ml 500 MG/100 ML BAG IVPB SCH (06:01)
[2018-11-08] MEDS: ceFAZolin 1 gm in NS 1 GM/100 ML BAG IVPB SCH ×3 (06:01→22:18)
[2018-11-08 07:25] LABS: BLOOD UREA NITROGEN 9 mg/dL (7-21); CALCIUM 9.2 mg/dL (8.4-10.5); GFR NON-AFRICAN AMERICAN > 60
[2018-11-08 07:28] LABS: BASO # 0.02 K/mm3 (0.0-2.0); BASO % 0.2 % (0.0-3.0); EOS # 0.4 (0.0-0.7); EOS % 4.5 % (1.5-5.0); HEMOGLOBIN 12.5 g/dL (12.0-16.0); LYMPH # 1.6 (1.2-3.4); LYMPH % 16.6 % (22.0-35.0); MEAN CELL VOLUME 85.5 fl (80.0-105.0); MEAN CORPUSCULAR HEMOGLOBIN 28.9 pg (25.0-35.0); MEAN CORPUSCULAR HGB CONC 33.8 g/dl (31.0-37.0); MEAN PLATELET VOLUME 10.3 fl (7.0-11.0); MONO # 0.9 (0.1-0.6); RBC 4.33 10^6/uL (3.5-6.1); RED CELL DISTRIBUTION WIDTH 15.3 % (11.5-14.5); WHITE BLOOD COUNT 9.6 10^3/uL (4.5-11.0)
[2018-11-08] MEDS ORDERED: Potassium Chloride 20 mEq ER Tab PO ONE ×2 (08:19→12:00)
--- NOTE | 2018-11-08 10:59 | CP.PCM.PN ---
<Martin Cline - Last Filed: 11/08/18 10:56> Subjective - Date & Time of Evaluation Date of Evaluation: 11/08/18 Time of Evaluation: 10:56 - Subjective Subjective: SURGERY NOTE FOR DR. HERNANDEZ 83F seen and examined at bedside. Patient denies abdominal pain, denies nausea, vomiting, fevers. She admits to flatus and bowel movements. Objective - Vital Signs/Intake and Output Vital Signs (last 24 hours): Temp Pulse Resp BP Pulse Ox 98.3 F 72 19 121/68 96 11/08/18 06:00 11/08/18 06:00 11/08/18 06:00 11/08/18 06:00 11/08/18 06:00 Intake and Output: 11/08/18 11/08/18 06:59 18:59 Intake Total 0 Output Total 200 Balance -200 - Medications Medications: Current Medications Benzocaine/Menthol (Cepacol Sore Throat) 1 wai MT Q2H PRN PRN Reason: Sore Throat Carvedilol (Coreg) 3.125 mg PO BID [facility] Last Admin: 11/07/18 17:52 Dose: 3.125 mg Digoxin (Digoxin) 0.125 mg PO 1400 [facility] Diltiazem HCl (Cardizem) 5 mg IVP Q6H PRN PRN Reason: Heart rate Last Admin: 11/04/18 12:24 Dose: 5 mg Enoxaparin Sodium (Lovenox) 40 mg SC DAILY [facility]; Protocol Last Admin: 11/07/18 09:22 Dose: 40 mg Furosemide (Lasix) 40 mg PO DAILY [facility] Last Admin: 11/07/18 09:23 Dose: 40 mg Hydromorphone HCl (Dilaudid) 0.25 mg IVP Q3H PRN PRN Reason: Pain, severe (8-10) Last Admin: 11/02/18 11:25 Dose: 0.25 mg Cefazolin Sodium (Ancef 1gm In Ns) 1 gm in 100 mls @ 100 mls/hr IVPB Q8H [facility]; Protocol Last Admin: 11/08/18 06:01 Dose: 100 mls/hr Metronidazole (Flagyl) 500 mg in 100 mls @ 100 mls/hr IVPB Q8H [facility]; Protocol Last Admin: 11/08/18 06:01 Dose: 100 mls/hr Lidocaine HCl (Lidocaine 2% Viscous) 15 ml MM Q2H PRN PRN Reason: Pain, moderate (4-7) Last Admin: 11/03/18 17:16 Dose: 15 ml Potassium Chloride (K-Dur 20 Meq Er Tab) 40 meq PO ONCE ONE Stop: 11/08/18 12:01 Potassium Phos/Sodium Phos (Neutra-Phos) 1 pkt PO TID [facility] Stop: 11/09/18 23:59 Sacubitril/Valsartan (Entresto 24 Mg-26 Mg Tablet) 1 each PO BID [facility] Spironolactone (Aldactone) 25 mg PO DAILY [facility] - Labs Labs: 11/08/18 06:45 11/08/18 06:45 PT 15.8 SECONDS (9.4-12.5) H 10/31/18 09:00 INR 1.40 10/31/18 09:00 - Constitutional Appears: Non-toxic, No Acute Distress - Respiratory Exam Respiratory Exam: Clear to Ausculation Bilateral, NORMAL BREATHING PATTERN - Cardiovascular Exam Cardiovascular Exam: REGULAR RHYTHM, +S1, +S2 - GI/Abdominal Exam GI & Abdominal Exam: Soft. absent: Distended, Firm, Guarding, Rigid, Tenderness, Rebound Additional comments: incision intact, with some odorous dark drainage - Neurological Exam Neurological Exam: Alert, Awake - Skin Skin Exam: Dry, Intact, Normal Color, Warm Assessment and Plan - Assessment and Plan (Free Text) Assessment: 83F s/p colostomy reversal POD#8 Plan: - Monitor rashmi drain - Continue diet - OOB to chair, physical therapy - TCU evaluation Further recs discuss with Dr. David Cline, PGY3 <Kris Hernandez - Last Filed: 11/08/18 11:21> Objective - Vital Signs/Intake and Output Vital Signs (last 24 hours): Temp Pulse Resp BP Pulse Ox 98.3 F 85 19 116/56 L 96 11/08/18 06:00 11/08/18 11:03 11/08/18 06:00 11/08/18 11:05 11/08/18 06:00 Intake and Output: 11/08/18 11/08/18 06:59 18:59 Intake Total 0 Output Total 200 Balance -200 - Medications Medications: Current Medications Benzocaine/Menthol (Cepacol Sore Throat) 1 wai MT Q2H PRN PRN Reason: Sore Throat Carvedilol (Coreg) 3.125 mg PO BID [facility] Last Admin: 11/08/18 11:03 Dose: 3.125 mg Digoxin (Digoxin) 0.125 mg PO 1400 [facility] Diltiazem HCl (Cardizem) 5 mg IVP Q6H PRN PRN Reason: Heart rate Last Admin: 11/04/18 12:24 Dose: 5 mg Enoxaparin Sodium (Lovenox) 40 mg SC DAILY [facility]; Protocol Last Admin: 11/08/18 11:05 Dose: 40 mg Furosemide (Lasix) 40 mg PO DAILY [facility] Last Admin: 11/08/18 11:05 Dose: 40 mg Hydromorphone HCl (Dilaudid) 0.25 mg IVP Q3H PRN PRN Reason: Pain, severe (8-10) Last Admin: 11/02/18 11:25 Dose: 0.25 mg Cefazolin Sodium (Ancef 1gm In Ns) 1 gm in 100 mls @ 100 mls/hr IVPB Q8H [facility]; Protocol Last Admin: 11/08/18 06:01 Dose: 100 mls/hr Lidocaine HCl (Lidocaine 2% Viscous) 15 ml MM Q2H PRN PRN Reason: Pain, moderate (4-7) Last Admin: 11/03/18 17:16 Dose: 15 ml Metronidazole (Flagyl) 500 mg PO Q8 [facility] Potassium Chloride (K-Dur 20 Meq Er Tab) 40 meq PO ONCE ONE Stop: 11/08/18 12:01 Potassium Phos/Sodium Phos (Neutra-Phos) 1 pkt PO TID [facility] Stop: 11/09/18 23:59 Last Admin: 11/08/18 11:03 Dose: 1 pkt Sacubitril/Valsartan (Entresto 24 Mg-26 Mg Tablet) 1 each PO BID [facility] Last Admin: 11/08/18 11:04 Dose: Not Given Spironolactone (Aldactone) 25 mg PO DAILY [facility] Last Admin: 11/08/18 11:00 Dose: 25 mg - Labs Labs: 11/08/18 06:45 11/08/18 06:45 PT 15.8 SECONDS (9.4-12.5) H 10/31/18 09:00 INR 1.40 10/31/18 09:00 Assessment and Plan - Assessment and Plan (Free Text) Plan: Pt taking first steps with PT PT feels Subacute rehab needed-Insurance out of network with TRCU Pt refusing diet-on full liquids with liquid BM so far(No leak) Holding diet now Robyn Hernandez MD FACS
[2018-11-08] MEDS: Potassium & Sodium Phosphate PO SCH ×3 (11:03→17:18)
[2018-11-08] MEDS: SACUBITRIL 24mg/VALSARTAN 26mg tab PO SCH ×2 (11:04→17:17)
[2018-11-08] MEDS: Enoxaparin 40 mg Syringe SC SCH (11:05)
[2018-11-08] MEDS: Digoxin 125 mcg (0.125 mg) Tab PO SCH (13:46)
--- NOTE | 2018-11-08 14:00 | PN ---
DATE: 11/08/2018 REASON FOR CONSULTATION AND FOLLOWUP: Cardiac evaluation admitted with shortness of breath, acute decompensated congestive heart failure, status post reversal of colostomy, status post AICD post op. The patient congestive heart failure followup. SUBJECTIVE: The patient denies any chest pain, shortness of breath, any palpitation. OBJECTIVE: GENERAL: Not in apparent distress. VITAL SIGNS: Temperature afebrile. Heart rate 72 and blood pressure 121/68. HEENT: PERRLA. Extraocular muscles intact. NECK: Supple. No carotid bruits. No thyromegaly. CHEST: Clear to auscultation. HEART: S1 and S2, regular. ABDOMEN: Soft. EXTREMITIES: Clubbing and cyanosis negative. LABORATORY DATA: Blood workup as follows, WBC 9.6, hemoglobin 12.5, hematocrit 37.0 and platelet count 193. Chemistry; Sodium 138, potassium 3.1, chloride 107, carbon dioxide 28, anion gap of 7, BUN 9, creatinine 0.5 and phosphorous 2.4. IMPRESSION: An 83-year-old female with past medical history significant for cardiomyopathy, history of atrial fibrillation on Coumadin, history of automatic implantable cardioverter-defibrillator, placed congestive heart failure, admitted with colostomy reversal. Post op the patient remained congestive heart failure, history of cardiomyopathy and congestive heart failure acute on chronic systolic dysfunction who underwent 10/31/2018 for reversal of colostomy, history of colostomy in 2018, postop course complicated by acute decompensated congestive heart failure, acute on chronic secondary to systolic dysfunction. The patient had a cardiac catheterization on 02/23/2018 showed occluded post left ventricular branch of right coronary artery ejection 25%, recent echo dated on 07/12/2017 shows left ventricular hypertrophy, dilated left atrium mild to moderate mitral regurgitation, moderate tricuspid regurgitation and mild pulmonary hypertension. The patient was initially treated with IV Primacor postop because congestive heart failure now the patient is off. The patient has also severe hypokalemia. RECOMMENDATION: Aggressive supplement potassium. Aggressive supplement of phosphorous. Continue Coreg. Low ejection fraction continue gentle diuretics. Started Entresto yesterday as blood pressure is tolerated. Lisinopril discontinued. Spironolactone was added. Continue gentle diuretics. We will follow with you. Thank you Dr. Pace for providing us the opportunity in taking care of this patient, Vida Johnson. We will give then we will start potassium phosphate. We will followup with you. Heart failure therapy will continue, Coreg 3.15 mg daily, Lasix 40 p.o. daily from today and Entresto stated. We will follow. Discontinue telemetry. Luis Sampson MD
--- NOTE | 2018-11-08 14:13 | PN ---
DATE: 11/08/2018 SUBJECTIVE: The patient is an 83-year-old, seen and examined. Seen lying in bed. Seems to be comfortable. She still on full liquid diet and need to be advanced. She has been tolerating. She has liquid diarrhea for the last 2 to 3 days. She is also participating in therapy. PHYSICAL EXAMINATION: GENERAL: She is awake, alert and able to communicate. Ambulates with the walker with help. VITAL SIGNS: She is afebrile. Pulse 77, respiration 18 and blood pressure 133/74. LUNGS: Bilateral fair airflow. No rhonchi or crackle. HEART: S1 and S2, audible. ABDOMEN: Soft. Slight palpable discomfort. NEUROLOGIC: She is awake, alert and able to communicate. LABORATORY DATA: WBC 9.6, hemoglobin 12.5, hematocrit 37 and platelet 193. Chemistry: Sodium 138, potassium 3.1, chloride 107, CO2 of 28, BUN 9, creatinine 0.5 and blood sugar of 98. ASSESSMENT: 1. Status post reversal of colostomy. 2. Congestive heart failure, improving. 3. Ischemic cardiomyopathy. 4. Chronic atrial fibrillation. PLAN: The patient will discontinue Saba catheter. Encourage p.o. intake. We will advance diet to soft diet if okay with the Surgery. Encourage ambulation, possible discharge plan for subacute rehab on Tuesday. Trang Pace MD
[2018-11-09] MEDS: ceFAZolin 1 gm in NS 1 GM/100 ML BAG IVPB SCH ×3 (06:26→21:51)
[2018-11-09 06:28] LABS: BASO # 0.02 K/mm3 (0.0-2.0); BASO % 0.2 % (0.0-3.0); EOS # 0.5 (0.0-0.7); EOS % 4.6 % (1.5-5.0); HEMOGLOBIN 12.5 g/dL (12.0-16.0); LYMPH # 1.8 (1.2-3.4); LYMPH % 17.1 % (22.0-35.0); MEAN CELL VOLUME 86.4 fl (80.0-105.0); MEAN CORPUSCULAR HEMOGLOBIN 27.9 pg (25.0-35.0); MEAN CORPUSCULAR HGB CONC 32.3 g/dl (31.0-37.0); MEAN PLATELET VOLUME 10.6 fl (7.0-11.0); MONO # 0.9 (0.1-0.6); MONO % 8.6 % (1.0-6.0); RBC 4.48 10^6/uL (3.5-6.1); RED CELL DISTRIBUTION WIDTH 15.5 % (11.5-14.5); WHITE BLOOD COUNT 10.4 10^3/uL (4.5-11.0)
[2018-11-09 06:45] LABS: BLOOD UREA NITROGEN 8 mg/dL (7-21); CALCIUM 9.7 mg/dL (8.4-10.5); GFR NON-AFRICAN AMERICAN > 60
--- NOTE | 2018-11-09 08:21 | CP.PCM.PN ---
Subjective - Date & Time of Evaluation Date of Evaluation: 11/09/18 Time of Evaluation: 08:18 - Subjective Subjective: General Surgery: Dr Hernandez Pt S&e. Working with PT. Tolerating FLD. Having BMs. HOLA drainage scant. Awaiting rehab placement Objective - Vital Signs/Intake and Output Vital Signs (last 24 hours): Temp Pulse Resp BP Pulse Ox 99 F 80 18 120/71 80 L 11/08/18 20:47 11/08/18 20:47 11/08/18 20:47 11/08/18 20:47 11/08/18 20:47 Intake and Output: 11/09/18 11/09/18 06:59 18:59 Intake Total 480 Balance 480 - Medications Medications: Current Medications Benzocaine/Menthol (Cepacol Sore Throat) 1 wai MT Q2H PRN PRN Reason: Sore Throat Carvedilol (Coreg) 3.125 mg PO BID [facility] Last Admin: 11/08/18 17:18 Dose: 3.125 mg Digoxin (Digoxin) 0.125 mg PO 1400 [facility] Last Admin: 11/08/18 13:46 Dose: 0.125 mg Diltiazem HCl (Cardizem) 5 mg IVP Q6H PRN PRN Reason: Heart rate Last Admin: 11/04/18 12:24 Dose: 5 mg Enoxaparin Sodium (Lovenox) 40 mg SC DAILY [facility]; Protocol Last Admin: 11/08/18 11:05 Dose: 40 mg Furosemide (Lasix) 40 mg PO DAILY [facility] Last Admin: 11/08/18 11:05 Dose: 40 mg Hydromorphone HCl (Dilaudid) 0.25 mg IVP Q3H PRN PRN Reason: Pain, severe (8-10) Last Admin: 11/02/18 11:25 Dose: 0.25 mg Cefazolin Sodium (Ancef 1gm In Ns) 1 gm in 100 mls @ 100 mls/hr IVPB Q8H [facility]; Protocol Last Admin: 11/09/18 06:26 Dose: 100 mls/hr Lidocaine HCl (Lidocaine 2% Viscous) 15 ml MM Q2H PRN PRN Reason: Pain, moderate (4-7) Last Admin: 11/03/18 17:16 Dose: 15 ml Metronidazole (Flagyl) 500 mg PO Q8 [facility] Last Admin: 11/09/18 06:26 Dose: 500 mg Polyethylene Glycol (Miralax) 17 gm PO DAILY [facility] Potassium Phos/Sodium Phos (Neutra-Phos) 1 pkt PO TID [facility] Stop: 11/09/18 23:59 Last Admin: 11/08/18 17:18 Dose: 1 pkt Sacubitril/Valsartan (Entresto 24 Mg-26 Mg Tablet) 1 each PO BID [facility] Last Admin: 11/08/18 17:17 Dose: 1 each Spironolactone (Aldactone) 25 mg PO DAILY [facility] Last Admin: 11/08/18 11:00 Dose: 25 mg - Labs Labs: 11/09/18 06:00 11/09/18 06:00 PT 15.8 SECONDS (9.4-12.5) H 10/31/18 09:00 INR 1.40 10/31/18 09:00 - Constitutional Appears: Non-toxic, No Acute Distress - Head Exam Head Exam: NORMAL INSPECTION - ENT Exam ENT Exam: Mucous Membranes Moist - Respiratory Exam Respiratory Exam: absent: Respiratory Distress - Cardiovascular Exam Cardiovascular Exam: REGULAR RHYTHM. absent: Tachycardia - GI/Abdominal Exam GI & Abdominal Exam: Soft. absent: Distended, Tenderness, Mass, Rebound Additional comments: incision c/d/i rashmi drain with minimal serosanguinous output - Neurological Exam Neurological Exam: Alert, Awake - Psychiatric Exam Psychiatric exam: Normal Mood - Skin Skin Exam: Normal Color, Warm Assessment and Plan - Assessment and Plan (Free Text) Assessment: 83F s/p colectomy; requiring further PT/rehab Plan: awaiting placement for rehab cont PT cont FLD
--- NOTE | 2018-11-09 08:23 | CP.PCM.PN ---
Subjective - Date & Time of Evaluation Date of Evaluation: 11/09/18 Time of Evaluation: 06:50 - Subjective Subjective: Awake,alert, lying in bed, no distress Reason for consultation and follow up: Cardiac evaluation of shortness of breath, post reversal of colostomy, decompensated congestive heart failure, AICD Seen and examined by me and Dr. Sampson Objective - Vital Signs/Intake and Output Vital Signs (last 24 hours): Temp Pulse Resp BP Pulse Ox 99 F 80 18 120/71 80 L 11/08/18 20:47 11/08/18 20:47 11/08/18 20:47 11/08/18 20:47 11/08/18 20:47 Intake and Output: 11/09/18 11/09/18 06:59 18:59 Intake Total 480 Balance 480 - Medications Medications: Current Medications Benzocaine/Menthol (Cepacol Sore Throat) 1 wai MT Q2H PRN PRN Reason: Sore Throat Carvedilol (Coreg) 3.125 mg PO BID [facility] Last Admin: 11/08/18 17:18 Dose: 3.125 mg Digoxin (Digoxin) 0.125 mg PO 1400 [facility] Last Admin: 11/08/18 13:46 Dose: 0.125 mg Diltiazem HCl (Cardizem) 5 mg IVP Q6H PRN PRN Reason: Heart rate Last Admin: 11/04/18 12:24 Dose: 5 mg Enoxaparin Sodium (Lovenox) 40 mg SC DAILY [facility]; Protocol Last Admin: 11/08/18 11:05 Dose: 40 mg Furosemide (Lasix) 40 mg PO DAILY [facility] Last Admin: 11/08/18 11:05 Dose: 40 mg Hydromorphone HCl (Dilaudid) 0.25 mg IVP Q3H PRN PRN Reason: Pain, severe (8-10) Last Admin: 11/02/18 11:25 Dose: 0.25 mg Cefazolin Sodium (Ancef 1gm In Ns) 1 gm in 100 mls @ 100 mls/hr IVPB Q8H [facility]; Protocol Last Admin: 11/09/18 06:26 Dose: 100 mls/hr Lidocaine HCl (Lidocaine 2% Viscous) 15 ml MM Q2H PRN PRN Reason: Pain, moderate (4-7) Last Admin: 11/03/18 17:16 Dose: 15 ml Metronidazole (Flagyl) 500 mg PO Q8 [facility] Last Admin: 11/09/18 06:26 Dose: 500 mg Polyethylene Glycol (Miralax) 17 gm PO DAILY [facility] Potassium Phos/Sodium Phos (Neutra-Phos) 1 pkt PO TID [facility] Stop: 11/09/18 23:59 Last Admin: 11/08/18 17:18 Dose: 1 pkt Sacubitril/Valsartan (Entresto 24 Mg-26 Mg Tablet) 1 each PO BID [facility] Last Admin: 11/08/18 17:17 Dose: 1 each Spironolactone (Aldactone) 25 mg PO DAILY [facility] Last Admin: 11/08/18 11:00 Dose: 25 mg - Labs Labs: 11/09/18 06:00 11/09/18 06:00 PT 15.8 SECONDS (9.4-12.5) H 10/31/18 09:00 INR 1.40 10/31/18 09:00 - Constitutional Appears: Non-toxic, No Acute Distress - Head Exam Head Exam: NORMAL INSPECTION, NORMOCEPHALIC - Eye Exam Eye Exam: Normal appearance Pupil Exam: NORMAL ACCOMODATION - ENT Exam ENT Exam: Mucous Membranes Moist, Normal Exam - Respiratory Exam Respiratory Exam: Clear to Ausculation Bilateral, NORMAL BREATHING PATTERN - Cardiovascular Exam Cardiovascular Exam: +S1, +S2 Additional comments: AICD - GI/Abdominal Exam GI & Abdominal Exam: Soft, Normal Bowel Sounds Additional comments: abdominal dressing intact - Extremities Exam Extremities Exam: Full ROM, Normal Capillary Refill - Neurological Exam Neurological Exam: Alert, Awake, Oriented x3 - Psychiatric Exam Psychiatric exam: Normal Affect, Normal Mood - Skin Skin Exam: Dry, Normal Color, Warm Assessment and Plan - Assessment and Plan (Free Text) Assessment: An 83 year old female who came in to [facility] for surgery. Seen at Dr. Her's office 2-3 weeks prior to admission for cardiac clearance. She had a reversal of colostomy. Patient had history of diverticulitis with acute bowel perforation and had bowel surgery with colostomy in July 2017. Since then she had the colostomy. History of atrial fibrillation (on Coumadin) coronary artery disease, cardiomyopathy, hypertension, chronic systolic dysfunction congestive heart failure, AICD,diverticulosis, hypothyroidism. She underwent reversal of colostomy 10/31/18 and today consult was called due to shortness of breath. Cardiac cath done on 02/12/13 and showed occluded PLV of RCA, LVEF 25%. Echo done on 07/12/17 and showed mild LVH, severely dilated LA, mild to moderate MR, moderate TR, mild pulmonary hypertension. Chest X ray today showed mild vascular congestion. Decompensated acute on chronic systolic dysfunction congestive heart failure after surgery, Primacor given for 48 hours with symptom resolution. Diuresed. Clinically improved. Cardiac status stable. Plan: No distress,feels okay Heart controlled rate Blood pressure controlled Cardiac status stable On Coreg 3.125 mg BID,Digoxin 0.125 mg daily, Lovenox 40 mg daily, Lasix 40 mg daily, Entresto 1 tab BID Neut[facility] 1 pkt TID,Aldactone 25 mg daily. Continue current treatment and management Continue antibiotics as ordered Discharge planning Will follow up Plan and treatment discussed with Dr. Sampson
[2018-11-09] MEDS: SACUBITRIL 24mg/VALSARTAN 26mg tab PO SCH ×2 (09:27→17:18)
[2018-11-09] MEDS: Enoxaparin 40 mg Syringe SC SCH (09:28)
[2018-11-09] MEDS: POLYETHYLENE GLYCOL 3350 17 GM/Dose PACKET PO SCH (09:29)
[2018-11-09] MEDS: Potassium & Sodium Phosphate PO SCH ×3 (09:29→17:10)
--- NOTE | 2018-11-09 11:29 | CP.PCM.PCO ---
Physician Communication Note - Physician Communication Note Physician Communication Note: Voiding/no c/o:subacute rehab am?
[2018-11-09] MEDS: Digoxin 125 mcg (0.125 mg) Tab PO SCH (13:06)
[2018-11-09] MEDS ORDERED: Potassium Chloride 20 mEq ER Tab PO ONE (14:05)
--- NOTE | 2018-11-09 22:33 | PN ---
DATE: 11/09/2018 SUBJECTIVE: The patient is an 83-year-old, seen and examined, lying in bed, seems to be comfortable, participating in therapy, eating and tolerating, did have bowel movement, denies any chest pain or shortness of breath. PHYSICAL EXAMINATION: VITAL SIGNS: She is afebrile. Pulse 81, respirations 16, blood pressure 111/68. LUNGS: Bilateral fair airflow. No rhonchi or crackle. HEART: S1, S2 audible. Irregular, rate controlled. ABDOMEN: Soft with slight palpable discomfort. No rebound, no guarding. NEUROLOGIC: The patient is awake and alert, able to communicate. LABORATORY DATA: WBC is 10.4, hemoglobin 12.5, hematocrit 38.7, platelet 222. Chemistry: Sodium 137, potassium 3.7, chloride 106, CO2 of 28, BUN 8, creatinine 0.6, blood sugar of 94, digoxin level is 1.3. ASSESSMENT: 1. Status post reversal of colostomy. 2. Congestive heart failure. 3. Ischemic cardiomyopathy. 4. Chronic atrial fibrillation. 5. Anemia. 6. Electrolyte imbalance. PLAN: The patient is currently on Ancef, spironolactone. She has been on Lovenox. We will restart Coumadin. She is on digoxin. She is on Entresto and metronidazole. We will start her on Coumadin and discontinue Lovenox when she is therapeutic. I will follow up her PT/INR in a.m., encourage ambulation. Because of insurance reasons, she cannot go to TCU, although she is a good candidate for TCU and family does not want her to go to subacute rehab. Trang Pace MD
[2018-11-10] MEDS: ceFAZolin 1 gm in NS 1 GM/100 ML BAG IVPB SCH ×3 (06:09→22:44)
[2018-11-10 06:43] LABS: INR 1.42; PROTHROMBIN TIME 16.1 SECONDS (9.4-12.5)
[2018-11-10] MEDS: Enoxaparin 40 mg Syringe SC SCH (09:23)
[2018-11-10] MEDS: POLYETHYLENE GLYCOL 3350 17 GM/Dose PACKET PO SCH (09:23)
[2018-11-10] MEDS: SACUBITRIL 24mg/VALSARTAN 26mg tab PO SCH ×2 (09:27→19:27)
--- NOTE | 2018-11-10 10:56 | CP.PCM.PCO ---
Physician Communication Note - Physician Communication Note Physician Communication Note: OK D/C home in am(Sat)-same meds
[2018-11-10] MEDS: Digoxin 125 mcg (0.125 mg) Tab PO SCH (13:57)
[2018-11-10 14:01] VITALS: PULSE 85
--- NOTE | 2018-11-10 14:50 | PN ---
DATE: 11/10/2018 SUBJECTIVE: The patient is 83 years old, seen and examined, lying in bed. Seems to be comfortable. Eating and tolerating. PHYSICAL EXAMINATION: VITAL SIGNS: She is afebrile, pulse 70, respirations 20, blood pressure 99/66. LUNGS: Bilateral fair air flow. No rhonchi or crackle. HEART: S1 and S2 audible. ABDOMEN: Soft, nontender, no rebound, no guarding. NEUROLOGIC: The patient is awake and alert. Able to communicate. LABORATORY DATA: PT 16.1, INR 1.42. ASSESSMENT: 1. Status post reversal of colostomy. 2. Congestive heart failure. 3. Ischemic cardiomyopathy. 4. Chronic atrial fibrillation. 5. Anemia. PLAN: Will continue the patient on current medication, give her 8 mg of Coumadin today. She has been on Lovenox. Will follow PT-INR in a.m. If it is therapeutic, she will be discharged home in the morning. The patient's family preferred her to go home; they stated she can get therapy at home. Trang Pace MD
--- NOTE | 2018-11-10 15:19 | PN ---
DATE: 11/10/2018 LOCATION: The patient is in room 360, bed 1. REASON FOR CONSULTATION AND FOLLOWUP: Acute decompensated congestive heart failure, status post reversal colostomy, status post AICD insertion. SUBJECTIVE: The patient is lying flat in bed without any chest pain, shortness of breath, or palpitation. PHYSICAL EXAMINATION: VITAL SIGNS: Blood pressure 111/66, respiration 20, pulse 70, and temperature 98.2. HEENT: Head is normocephalic. Eyes; pupils normal. Conjunctivae normal. Nose and throat normal. NECK: JVP low. Carotids equal. THORAX: AP diameter normal. LUNGS: Clear. CARDIOVASCULAR: S1 and S2. ABDOMEN: Colostomy surgery as mentioned. EXTREMITIES: No clubbing. No cyanosis. LABORATORY DATA: WBC 10.4, hemoglobin 12.5, hematocrit 38.7, and platelet 222. Sodium 137, potassium 3.7, BUN 8, creatinine 0.6, and random glucose 94. Calcium 9.7, phosphorus 2.7. Prothrombin time today is 16.1 with INR 1.42. DIAGNOSES: Cardiomyopathy; history of atrial fibrillation, on Coumadin; history of automatic implantable cardioverter-defibrillator insertion; and congestive heart failure and was admitted with colostomy reversal postop. The patient went into congestive heart failure because of history of cardiomyopathy and acute on chronic left ventricular systolic dysfunction. The patient had surgery on 10/31/2018. The patient had cardiac catheterization on 02/23/2018 which showed occluded posterior left ventricular branch of right coronary artery, ejection fraction 25%. Echocardiography on 07/12/2017 showed left ventricular hypertrophy, dilated left atrium, mild to moderate mitral regurgitation, moderate tricuspid regurgitation, and mild pulmonary hypertension. The patient received Primacor, IV Lasix, congestive heart failure has improved. The patient's hypokalemia has been corrected. PLAN: The patient is getting spironolactone 25 daily, cefazolin 1 g IV every 8 hours, and Coreg 3.125 b.i.d. The patient is getting warfarin 80 mg p.o. daily, Dr. aPce gave extra 4 mg p.o. today because her PT/INR was low, digoxin 0.125 p.o. daily, metronidazole 500 mg p.o. every 8 hours, furosemide 40 daily, and Lovenox 40 subcutaneous daily. We will continue present therapy. We will followup. Luis Her MD
[2018-11-11] MEDS: ceFAZolin 1 gm in NS 1 GM/100 ML BAG IVPB SCH (06:29)
[2018-11-11 07:43] LABS: INR 2.51; PROTHROMBIN TIME 28.4 SECONDS (9.4-12.5)
[2018-11-11 08:11] VITALS: RESP 17; TEMP 98.4; O2SAT 96
[2018-11-11] MEDS: SACUBITRIL 24mg/VALSARTAN 26mg tab PO SCH (09:41)
[2018-11-11] MEDS: Enoxaparin 40 mg Syringe SC SCH (09:42)
[2018-11-11] MEDS: POLYETHYLENE GLYCOL 3350 17 GM/Dose PACKET PO SCH (09:43)
[2018-11-11 09:44] VITALS: BP 122/68; PULSE 82
--- NOTE | 2018-11-11 10:20 | CP.PCM.DIS ---
Provider - Provider Date of Admission: 10/31/18 08:37 Attending physician: Kris Hernandez MD Primary care physician: Trang Pace MD Consults: 10/31/18 19:07 Internal Medicine Consult Routine Comment: Consulting Provider: Trang Pace Consulting Physician: Trang Pace Reason for Consult: medical management 11/03/18 23:40 Nursing Referral for Wound Care Routine Comment: Physician Instructions: Reason For Exam: PREVENTION 11/04/18 11:10 Cardiology Consult Routine Comment: Consulting Provider: Luis Her Consulting Physician: Luis Her Reason for Consult: CHF 11/07/18 12:42 TCU [Evaluation for TRCU] Routine Comment: Physician Instructions: Reason For Exam: decondition Time Spent in preparation of Discharge (in minutes): 30 Hospital Course - Lab Results Lab Results: Most Recent Lab Values WBC 10.4 10^3/uL (4.5-11.0) 11/09/18 06:00 RBC 4.48 10^6/uL (3.5-6.1) 11/09/18 06:00 Hgb 12.5 g/dL (12.0-16.0) 11/09/18 06:00 Hct 38.7 % (36.0-48.0) 11/09/18 06:00 MCV 86.4 fl (80.0-105.0) 11/09/18 06:00 MCH 27.9 pg (25.0-35.0) 11/09/18 06:00 MCHC 32.3 g/dl (31.0-37.0) 11/09/18 06:00 RDW 15.5 % (11.5-14.5) H 11/09/18 06:00 Plt Count 222 10^3/uL (120.0-450.0) 11/09/18 06:00 MPV 10.6 fl (7.0-11.0) 11/09/18 06:00 Neut % (Auto) 69.5 % (50.0-68.0) H 11/09/18 06:00 Lymph % (Auto) 17.1 % (22.0-35.0) L 11/09/18 06:00 [place] % (Auto) 8.6 % (1.0-6.0) H 11/09/18 06:00 Eos % (Auto) 4.6 % (1.5-5.0) 11/09/18 06:00 Baso % (Auto) 0.2 % (0.0-3.0) 11/09/18 06:00 Lymph # (Auto) 1.8 (1.2-3.4) 11/09/18 06:00 [place] # (Auto) 0.9 (0.1-0.6) H 11/09/18 06:00 Eos # (Auto) 0.5 (0.0-0.7) 11/09/18 06:00 Baso # (Auto) 0.02 K/mm3 (0.0-2.0) 11/09/18 06:00 Absolute Neuts (auto) 7.25 (1.4-6.5) H 11/09/18 06:00 PT 28.4 SECONDS (9.4-12.5) H 11/11/18 06:00 INR 2.51 11/11/18 06:00 Sodium 137 mmol/L (132-148) 11/09/18 06:00 Potassium 3.7 mmol/L (3.6-5.0) 11/09/18 06:00 Chloride 106 mmol/L (98-107) 11/09/18 06:00 Carbon Dioxide 28 mmol/L (21-33) 11/09/18 06:00 Anion Gap 7 (10-20) L 11/09/18 06:00 BUN 8 mg/dL (7-21) 11/09/18 06:00 Creatinine 0.6 mg/dl (0.7-1.2) L 11/09/18 06:00 Est GFR ( Amer) > 60 11/09/18 06:00 Est GFR (Non-Af Amer) > 60 11/09/18 06:00 Random Glucose 94 mg/dL (70-110) 11/09/18 06:00 Calcium 9.7 mg/dL (8.4-10.5) 11/09/18 06:00 Phosphorus 2.7 mg/dL (2.5-4.5) 11/09/18 06:00 Magnesium 2.0 mg/dL (1.7-2.2) 11/09/18 06:00 Total Bilirubin 0.4 mg/dL (0.2-1.3) 11/06/18 07:00 AST 25 U/L (14-36) 11/06/18 07:00 ALT 16 U/L (7-56) 11/06/18 07:00 Alkaline Phosphatase 54 U/L (38-126) 11/06/18 07:00 NT-Pro-B Natriuret Pep 2020 pg/mL (0-450) H 11/06/18 07:00 Total Protein 5.2 g/dL (5.8-8.3) L 11/06/18 07:00 Albumin 2.6 g/dL (3.0-4.8) L 11/06/18 07:00 Globulin 2.6 gm/dL 11/06/18 07:00 Albumin/Globulin Ratio 1.0 (1.1-1.8) L 11/06/18 07:00 Digoxin 1.0 ng/mL (0.8-2.0) 11/07/18 07:30 Blood Type A POSITIVE 10/31/18 09:00 Antibody Screen Negative 10/31/18 09:00 BBK History Checked Patient has bt 10/31/18 09:00 - Hospital Course Hospital Course: 83 y/o F w/ PMHx Afib, CAD, cardiomyopathy, diverticulitis s/p Mckeon's procedure presented to [facility] on 10/31 for elective colostomy reversal. Pt underwent exploratory laparotomy, partial colectomy, primary anastamosis, rectosigmoid enterotomy repair x3, and extensive lysis of adhesions. Pt tolerated procedure well and was admitted to the ICU under surgical service post-operatively due to extensive cardiac history. Pt was monitored for pain control, diet tolerance, and bowel function. Post-operatively pt had poor UOP, requiring prolonged cuenca for stict Is & Os. After cuenca removal, pt developed urinary retention requiring cuenca replacement and initiation of flomax. Cuenca was removed after additional 24hrs w/o issue. Diet was advance slowly 2/2 rectosigmoid repair and lack of bowel function. Pain was well controlled w/ OnQ, IV, and PO pain management. Pt's PMD and Cardiology were consulted for management of pt's considerable comorbidities. Pt restarted on home Warfarin for Hx Afib, Pt is therapeutic as of today's labs. Pt was evaluated by PT who recommends discharge to home w/ services and continued outpatient PT. Pt is cleared for discharge to home. Instructions discussed w/ pt and family whom expressed understanding. For full hospital course see EMR. Discharge Exam - Head Exam Head Exam: NORMAL INSPECTION, NORMOCEPHALIC - Eye Exam Eye Exam: Normal appearance - ENT Exam ENT Exam: Mucous Membranes Moist - Respiratory Exam Respiratory Exam: NORMAL BREATHING PATTERN. absent: Accessory Muscle Use, Respiratory Distress - Cardiovascular Exam Cardiovascular Exam: REGULAR RHYTHM. absent: Bradycardia, Tachycardia - GI/Abdominal Exam GI & Abdominal Exam: Soft. absent: Distended, Firm, Guarding, Rigid, Tenderness Additional comments: incisions c/d/i - Extremities Exam Extremities exam: normal inspection - Neurological Exam Neurological exam: Alert, Oriented x3 - Psychiatric Exam Psychiatric exam: Normal Affect, Normal Mood - Skin Skin Exam: Dry, Intact, Normal Color, Warm Discharge Plan - Follow Up Plan Condition: GOOD Disposition: HOME/ ROUTINE Instructions: How to Prevent Surgical Site Infections, Ostomy Reversal Additional Instructions: Follow up with Dr. Hernandez in 7-14 days Follow up with PMD in 7-10days Take all medication as prescribed Pt may shower however do not soak or scrub at incision. No pools, tubs, or baths No heavy lifting (nothing heavier than 2 gallons of milk) for 4-[address] Hernandez/return to the ED if fever >100.5, pain, redness, or rupture of incision Referrals: Trang Pace MD [Primary Care Provider] -
--- NOTE | 2018-11-12 02:41 | DS ---
HISTORY OF PRESENT ILLNESS: The patient is an 83-year-old, seen and examined. She was admitted for reversal of colostomy. During this post procedure, she started to have congestion, shortness of breath. So she was brought to telemetry, had Primacor drip started. The patient started to do well. She was kept n.p.o. The patient's diet was slowly advanced, she started to tolerate, had bowel movement. She was restarted on Coumadin. She is therapeutic today, so she is being discharge today. PHYSICAL EXAMINATION: GENERAL: She is awake, alert and able to communicate. VITAL SIGNS: She is afebrile. Pulse 82, respirations 17 and blood pressure 122/68. LUNGS: Bilateral fair airflow. No rhonchi or crackle. HEART: S1 and S2, audible. ABDOMEN: Soft and nontender. No rebound. No guarding. NEUROLOGIC: She is awake, alert and able to communicate. LABORATORY EXAMINATION: Her PT is 28.4 and INR 2.51. Chemistry: Sodium 137, potassium 3.7, chloride 106, CO2 of 28, BUN 8, creatinine 0.6 and blood sugar of 94. ASSESSMENT: 1. Status post reversal of colostomy. 2. Congestive heart failure. 3. Chronic atrial fibrillation. 4. Hypertension. 5. Chronic kidney disease. PLAN: The patient is being discharge home on her usual medications that include digoxin, carvedilol, Coumadin, Lasix, diltiazem, Crestor, enalapril and dofetilide 250 mcg twice a day and Miralax as needed. I will follow up the patient next week in office. Trang Pace MD
== END 2018-11-11 13:13 | disposition home or self-care (01) | DRG 329 ==
LOC: SDAINP 08:37 → EDSTATUS 10:30 → 3RSO 20:28 → ERH 11-01 19:58 → 3RSO 11-01 19:59 → 2RSO 11-04 14:26 → 3RNO 11-08 15:24
PROVIDERS: ADMIT Surgery; ATTEND Surgery
PROC: 0D1N0ZP Bypass Sigmoid Colon to Rectum, Open Approach (ICD-10-PCS; 2018-10-31)
PROC: 0DNU0ZZ Release Omentum, Open Approach (ICD-10-PCS; 2018-10-31)
PROC: 0DQN8ZZ Repair Sigmoid Colon, Via Natural or Artificial Opening Endoscopic (ICD-10-PCS; 2018-10-31)
PROC: 0DBL0ZZ Excision of Transverse Colon, Open Approach (ICD-10-PCS; principal; 2018-10-31 10:45)
DX: Z43.3 Encounter for attention to colostomy (principal); I50.23 Acute on chronic systolic (congestive) heart failure; I13.0 Hypertensive heart and chronic kidney disease with heart failure and stage 1 through stage 4 chronic kidney disease, or unspecified chronic kidney disease; I48.2 Chronic atrial fibrillation; I27.20 Pulmonary hypertension, unspecified; I25.5 Ischemic cardiomyopathy; J44.9 Chronic obstructive pulmonary disease, unspecified; D64.9 Anemia, unspecified; E03.9 Hypothyroidism, unspecified; E78.5 Hyperlipidemia, unspecified; E87.6 Hypokalemia; I08.1 Rheumatic disorders of both mitral and tricuspid valves; I25.10 Atherosclerotic heart disease of native coronary artery without angina pectoris; N18.2 Chronic kidney disease, stage 2 (mild); Z79.01 Long term (current) use of anticoagulants; Z79.899 Other long term (current) drug therapy; Z86.73 Personal history of transient ischemic attack (TIA), and cerebral infarction without residual deficits; Z87.891 Personal history of nicotine dependence; Z95.0 Presence of cardiac pacemaker; Z98.0 Intestinal bypass and anastomosis status; Z87.19 Personal history of other diseases of the digestive system; R33.9 Retention of urine, unspecified